=== PATIENT | female | born 2000 | race Caucasian/White ===

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

== ENCOUNTER → 2020-03-23 13:15 | Outpatient (CLI) | payer OTHER, SELFPAY ==
[2020-03-23 13:05] VITALS: BMI 21.6
--- NOTE | 2020-03-23 13:27 | RAD_ITS ---
STUDY: X-RAY - LEFT KNEE REASON FOR EXAM: Female, 20 years old. PAIN IN KNEE AFTER MISSING STEP TECHNIQUE: 4 view(s) of the knee. COMPARISON: Comparison is made with prior examination dated 04/04/2019. FINDINGS: Normal visualized distal femur. Normal visualized proximal tibia and fibula. Normal proximal tibiofibular articulation. Normal medial femorotibial compartment. Normal lateral femorotibial compartment. Normal patellofemoral articulation. The soft tissue structures are unremarkable. RAD/Knee 4 or More Views IMPRESSION: Normal x-ray examination of the knee. Electronically Signed: Casey Banuelos, at 15:27 EDT , Service support ,
== END ==
PROVIDERS: PCP Family Medicine; Referring Provider Physician Assistant; Visit Provider Physician Assistant
DX: M25.562 Pain in left knee (principal)
CPT/HCPCS: 73564

== ENCOUNTER → 2020-05-25 08:58 | Outpatient (CLI) | payer OTHER, SELFPAY ==
[2020-03-23 13:05] VITALS: BMI 21.6
[2020-05-26 16:08] LABS: Endomysial Antibody IgA Negative (Negative); Immunoglobulin A 69 mg/dL (87-352)
[2020-05-27 09:12] LABS: t-Transglutaminase IgA <2 U/mL (0-3)
[2020-05-27 20:08] LABS: Barley, Whole Grain <0.10 kU/L (Class 0); Beef <0.10 kU/L (Class 0); Chicken <0.10 kU/L (Class 0); Clam <0.10 kU/L (Class 0); Codfish <0.10 kU/L (Class 0); Corn <0.10 kU/L (Class 0); Egg, White <0.10 kU/L (Class 0); Milk (Cow) <0.10 kU/L (Class 0); Peanut <0.10 kU/L (Class 0); Pork <0.10 kU/L (Class 0); Rice <0.10 kU/L (Class 0); Rye <0.10 kU/L (Class 0); SCALLOP <0.10 kU/L (Class 0); SESAME SEED <0.10 kU/L (Class 0); Shrimp <0.10 kU/L (Class 0); Soybean <0.10 kU/L (Class 0); Walnut, (Food) <0.10 kU/L (Class 0); Wheat <0.10 kU/L (Class 0)
[2020-05-27 22:11] LABS: Oat <0.10 kU/L (Class 0)
[2020-05-28 05:02] LABS: Corn <0.10 kU/L (Class 0); Wheat <0.10 kU/L (Class 0)
== END ==
PROVIDERS: PCP Family Medicine; Referring Provider Family Medicine; Visit Provider Family Medicine
DX: R10.9 Unspecified abdominal pain (principal); R14.0 Abdominal distension (gaseous); K58.9 Irritable bowel syndrome, unspecified; K63.89 Other specified diseases of intestine
CPT/HCPCS: 36415; 82784; 83516; 86003; 86255

== ENCOUNTER → 2020-08-20 06:31 | Outpatient (CLI) | payer OTHER, SELFPAY ==
--- NOTE | 2020-08-20 06:32 | MRI_ITS ---
STUDY: MRI LEFT KNEE REASON FOR EXAM: Left medial knee pain, prior ACL and meniscal repair. TECHNIQUE: Standardized fat and water weighted pulse sequences were obtained in all 3 orthogonal planes. COMPARISON: Radiographs 03/23/2020, MRI images 05/03/2019. FINDINGS: Normal medial meniscus. Normal hyaline cartilage of the medial femorotibial compartment. Normal medial femoral condyle and tibial plateau. Normal medial collateral ligamentous complex (MCL). Normal distal semimembranosus, gracilis and semitendinosus tendons. Normal lateral meniscus. Normal hyaline cartilage of the lateral femorotibial compartment. Normal lateral femoral condyle and tibial plateau. Normal proximal tibiofibular articulation. Normal lateral collateral (fibular) ligament. Normal popliteus tendon. Normal biceps femoris tendon. Normal anterior cruciate ligament (ACL). Normal posterior cruciate ligament (PCL). Normal congruent patellofemoral articulation. Normal hyaline cartilage of the patellofemoral compartment. Normal medial and lateral patellar retinaculum. Normal quadriceps tendon. Normal patellar tendon. There is mild scarring in Hoffa''s fat pad. There is a minimal volume of fluid in the knee joint. There is a thin medial patellar plica. There is a small popliteal cyst (T2 coronal images 2-4). There is a septated ganglion cyst at the medial aspect of the distal posterior cruciate ligament (T2 sagittal images 8-10) measuring 2.3 cm in length. The otherwise visualized osseous structures are unremarkable. MRI/Lower Ext Joint Only (Routine) IMPRESSION: Small popliteal cyst. Ganglion cyst at the medial aspect of the distal posterior cruciate ligament. No demonstrated meniscal tear or anterior cruciate ligament tear. Electronically Signed: Tomasz Richardson MD at 8:00 EST Tel , Service support ,
== END ==
PROVIDERS: PCP Family Medicine; Referring Provider Orthopaedic Surgery; Visit Provider Orthopaedic Surgery
DX: S83.242S Other tear of medial meniscus, current injury, left knee, sequela (principal)
CPT/HCPCS: 73721

== ENCOUNTER 2020-10-09 08:30 | Outpatient (RCR) | payer OTHER, SELFPAY ==
[2020-08-03 08:39] VITALS: BMI 20.6
--- NOTE | 2020-09-01 09:34 | HP.PTEVAL ---
Patient's Visit Information FLOWER LATHAM is a 20 year old F referred to Physical Therapy by Dr. 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 Date of Evaluation: 09/01/20 Physical Therapist: Malcom Andrade DPT - Visit Plan Frequency: 2x /Week Duration: 4-6 Weeks Plan: Start with hip strength, quad/HS strengthneing. Add in hip IR/ER, glute max/med, core strengthening. Avoid painful ranges/movements. - Subjective Pt. is here today for her initial evaluation with diagnosis of L knee pain. SHe reports increased pain since february, fall in stairs. Increased pain: stairs, walking, standing. Decreased pain: sitting. Pt. reports trying OTC meds. with minimal success. Pt. reports no issues with sleeping. 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 She reports having a family history of Yu Danlos and has personal hypermobility. She did have a L meniscal repair in . She was feeling pretty well, but has noticing increased pain and swelling in her L knee since February. She is hipeful to reduce symptoms and get back to all work and recreational activiteis without limitations. Pt. also has POTS. - Pain L knee Pain Intensity (Out of 10): 0 Pain Intensity Range: 0, 4 - Objective POSTURE: Pt. tends to process inspector equal wt. shifting, but B slight hyper extension. As she stands longer she tends to wt. shift side to side with increased single leg hyper extension during increased load. Normal hip positioning noted, except hip IR bilat. PALPATION: pt. has increased tenderness at L medial joint line, posterior aspect. No patellar pain, no suprapatellar pain noted. NEURO: normal sensation and DTR bilaterally. Pt. is able to rise o heels and toes without limitations. ROM: pt. has good ROM of B knees 140+, but has increased L knee pain starting at ~120deg of flexion. Hyper extension noted in B knees to -10deg with over pressure. Hip- patient has normal HS length bilaterally, but hyper mobility noted in B hips as well. Elbow B hyper extend and has a lot of joint play in B shoulders. (pt. reports frequent subluxation). MMT: RLE- 5/5 throughout, except- ankle INV 4/5; hip- abd 4/5, ext 4+/5. LLE- 5/5 throughout except ankle EVR 4/5; knee- flexion 4+/5; hip- ext 4/5, abd 4/5, ER 4/5, IR 4/5. GAIT: Pt. ambulates well without AD. Normal step length noted. Pt. has slight increase in B hip IR during stance phases. Normal knee flexion during swing. Normal positioning during loaded phases. STAIRS: Pt. has increased pain in L knee during loaded phase of ascending, no pain iwth descending. Reports typically ascending laterally loading RLE initially. - Goals Goal 1:: LTG: Pt. to be I with HEP. Goal Time Frame: 4-6 Weeks Goal 2:: STG: pt. to complete a work day with decreased pain to 0-2/10 in L knee. Goal Time Frame: 2-4 Weeks Goal 3:: LTG: pt. to have increased strength of BLEs by 1/2 grade of all effected musculature. Goal Time Frame: 4-6 Weeks Goal 4:: STG: Pt. to walk upto 1-2 miles without increase in L knee pain. Goal Time Frame: 2-4 Weeks Goal 5:: LTG: pt. to negotiate steps without HR with reciprocal pattern without increase in symptoms. Goal Time Frame: 4-6 Weeks - Rehabilitation Potential Physical Therapy Diagnosis: Pt. has signs and symptoms consistent with L knee pain, most likely tendonitis. She is hypermobility in multiple joints, especially in her B knees into extension. There is consideration of Yu Danlos. Pt. would benefit from PT to increase stability throughout knee and hip to reduce stress to L knee with all functional mobility. Rehabilitation Potential: Excellent - Anticipated Interventions Patient/Client Instruction: Educate patient on: Condition, Plan of Care, Risk Factors, Benefits of Fitness Program For the Purpose of:: To improve decision making, To facilitate caregiver knowledge, To improve self management, To prevent re-injury, To improve ability to perform tasks related to life management, To improve tolerance to ADL's Therapeutic Exercise to Include: Strength training, Power training, Endurance training, Balance training, Body mechanics, Postural training, Flexibilty training, Passive ROM, Active ROM For the Purpose of:: To decrease pain, To decrease swelling/inflammation, To increase ROM, To improve nutrient delivery to tissue, To increase oxygenation perfusion, To improve muscle performance and motor function, To improve ability to perform ADL's, To improve health of tissue, To decrease soft tissue restriction Thank you for the opportunity to evaluate your patient. For Medicare and Medicare HMO plans, please review the plan of care and approve it. It will need to be FAXED BACK to us at [phone] for Medicare purposes. For Medicare only, by signing this I certify the plan of care. Please let me know if there are questions or concerns regarding this plan of care. Physician Signature: Date:
== END 2020-10-09 19:00 | disposition home or self-care (01) ==
LOC: PT 08:30
PROVIDERS: PCP Family Medicine; Referring Provider Orthopaedic Surgery; Visit Provider Orthopaedic Surgery
DX: M25.562 Pain in left knee (principal)
CPT/HCPCS: 97110; 97161

== ENCOUNTER → 2020-10-15 10:56 | Outpatient (CLI) | payer OTHER, SELFPAY ==
--- NOTE | 2020-10-15 10:58 | RAD_ITS ---
EXAM: XR LUMBOSACRAL SPINE COMPLETE WITH FLEXION/EXTENSION, 6 OR MORE VIEWS CLINICAL INDICATION: back pain going down left side to the leg TECHNIQUE: Lateral, frontal, oblique and lateral flexion/extension views of the lumbar spine and sacrum. This report was created using [employer] report [employer] technology. COMPARISON: None. FINDINGS: VERTEBRAE: Unremarkable. Preserved vertebral body height. No fracture. No spondylolisthesis. Preservation of the normal lumbar lordosis. No significant facet arthropathy. No instability. DISC SPACES: No acute findings. Disc spaces are maintained. GASTROINTESTINAL TRACT: Unremarkable as visualized. Included bowel gas pattern is non-obstructive. RAD/L/S Spine Comp/w Bending Views IMPRESSION: No evidence of lumbar spinal fracture or spondylolisthesis. No instability. Electronically Signed: Livan Cerda MD ([place]) at 11:56 EDT , Service support ,
== END ==
PROVIDERS: PCP Family Medicine; Referring Provider Orthopaedic Surgery; Visit Provider Orthopaedic Surgery
DX: M54.5 Low back pain (principal)
CPT/HCPCS: 72114

== ENCOUNTER → 2020-10-29 12:41 | Outpatient (CLI) | payer OTHER, SELFPAY ==
[2020-08-03 08:39] VITALS: BMI 20.6
--- NOTE | 2020-10-29 12:42 | MRI_ITS ---
STUDY: MRI LUMBAR SPINE WITHOUT CONTRAST REASON FOR EXAM: Female, 20 years old. consistent low back pain TECHNIQUE: Standardized fat and water weighted pulse sequences were obtained in the sagittal and axial planes. COMPARISON: X-ray 10/15/2020 FINDINGS: T12-L1: Normal endplates. Normal disc height, hydration and morphology. Normal bilateral facet joints. Normal central canal and bilateral lateral recesses. Normal bilateral intervertebral neural foramina. Normal lumbar lordosis. There is no substantial scoliosis. Normal conus medullaris that terminates at the L1/L2. L1-2: Normal endplates. Normal disc height, hydration and morphology. Normal bilateral facet joints. Normal central canal and bilateral lateral recesses. Normal bilateral intervertebral neural foramina. L2-3: Normal endplates. Normal disc height, hydration and morphology. Normal bilateral facet joints. Normal central canal and bilateral lateral recesses. Normal bilateral intervertebral neural foramina. L3-4: Normal endplates. Normal disc height, hydration and morphology. Normal bilateral facet joints. Normal central canal and bilateral lateral recesses. Normal bilateral intervertebral neural foramina. L4-5: Normal endplates. Normal disc height, hydration and morphology. Normal bilateral facet joints. Normal central canal and bilateral lateral recesses. Normal bilateral intervertebral neural foramina. L5-S1: 2 mm retrolisthesis of L5 on S1 with a mild broad disc protrusion produces minimal spinal stenosis and mild bilateral neural foraminal stenosis. Normal visualized sacral ala. Normal visualized paraspinous soft tissue structures. MRI/Spine Lumbar (Routine) IMPRESSION: Mild focal degenerative disc disease at L5/S1 as described above. Electronically Signed: Willian Starr MD at 16:43 EDT Tel , Service support ,
== END ==
PROVIDERS: PCP Family Medicine; Referring Provider Orthopaedic Surgery; Visit Provider Orthopaedic Surgery
DX: M79.605 Pain in left leg (principal); M54.16 Radiculopathy, lumbar region
CPT/HCPCS: 72148

== ENCOUNTER → 2020-11-04 11:54 | Outpatient (CLI) | payer OTHER, SELFPAY ==
[2020-11-04 13:52] LABS: Anion Gap 5 (5-15); BUN 9 mg/dL (7-18); BUN/Creat Ratio 8.6 RATIO (10-20); Calcium,Total 9.3 mg/dL (8.5-10.1); Chloride 102 mmol/L (98-107); Creatinine, Serum 1.05 mg/dL (0.55-1.02); EST Glomerular Filtration Rate 71 mL/min (>60); Est Glom Filt Rate - Afr Amer 85 mL/min (>60); Glucose 131 mg/dL (74-106); Potassium 3.7 mmol/L (3.5-5.1); Sodium Level 137 mmol/L (136-145)
== END ==
PROVIDERS: PCP Family Medicine; Referring Provider Family Medicine; Visit Provider Family Medicine
DX: R23.8 Other skin changes (principal); R25.2 Cramp and spasm; Z83.2 Family history of diseases of the blood and blood-forming organs and certain disorders involving the immune mechanism
CPT/HCPCS: 36415; 80048; 81241; 83735

== ENCOUNTER → 2020-11-12 08:28 | Outpatient (CLI) | payer OTHER, SELFPAY ==
[2020-08-03 08:39] VITALS: BMI 20.6
[2020-11-12 10:03] LABS: Hemoglobin A1c 4.9 % (3.8-5.6)
== END ==
PROVIDERS: PCP Family Medicine; Visit Provider Family Medicine
DX: R73.01 Impaired fasting glucose (principal)
CPT/HCPCS: 36415; 83036

== ENCOUNTER → 2020-11-12 08:39 | Outpatient (CLI) | payer OTHER, SELFPAY ==
[2020-08-03 08:39] VITALS: BMI 20.6
--- NOTE | 2020-11-12 08:42 | US_ITS ---
STUDY: ABDOMINAL ULTRASOUND - RIGHT UPPER QUADRANT REASON FOR VISIT: Female, 20 years old abdominal bloating. TECHNIQUE: Ultrasound evaluation of the right upper quadrant was performed with real-time and static morgan-scale imaging. TECHNICAL QUALITY: Adequate. COMPARISON: Comparison is made with prior examination dated 05/05/2015. FINDINGS: Liver: The liver measures 13 cm. There is normal echogenicity of the liver. The bile ducts are within normal limits. There is hepatic color flow. The direction of portal flow is hepatopetal. There is no demonstrated mass lesion. Gallbladder: Normal distended gallbladder. The gallbladder wall measures 1.1 mm. There is a negative sonographic Zhang''s sign. There is no pericholecystic fluid. There are no gallstones. Common Bile Duct (C.B.D.): The common bile duct measures 2.1 mm. Pancreas: Normal size of the head, body and tail of the pancreas. There is normal echogenicity of the pancreas. There is no demonstrated pancreatic mass or cyst. Right Kidney: Normal size of the right kidney. The right kidney measures 10.2 cm x 4.6 cm x 5 cm. Normal renal cortex. The right cortex measures 2.1 cm. There is no demonstrated renal mass or cyst. There is no right hydronephrosis. US/Gallbladder IMPRESSION: Normal right upper quadrant ultrasound examination. Electronically Signed: Casey Banuelos MD at 11:05 EDT , Service support ,
== END ==
PROVIDERS: PCP Family Medicine; Referring Provider Internal Medicine; Visit Provider Internal Medicine
DX: Q79.60 Ehlers-Danlos syndrome, unspecified (principal)
CPT/HCPCS: 76705

== ENCOUNTER → 2020-11-16 08:41 | Outpatient (CLI) | payer OTHER, SELFPAY ==
--- NOTE | 2020-11-16 08:52 | RAD_ITS ---
STUDY: X-RAY - THORACIC SPINE REASON FOR EXAM: Female, 20 years old. PAIN TECHNIQUE: 2 view(s) of the thoracic spine were obtained. COMPARISON: None. FINDINGS: There is straightening of the normal thoracic kyphosis. Minimal levoscoliosis. Normal thoracic vertebrae and endplates. Normal disc space heights. The soft tissue structures are unremarkable. RAD/Thoracic Spine 2 Views IMPRESSION: Loss of the normal thoracic kyphosis. Minimal levoscoliosis. Electronically Signed: Casey Banuelos MD at 9:51 EDT , Service support ,
== END ==
PROVIDERS: PCP Family Medicine; Referring Provider Internal Medicine Cardiovascular Disease; Visit Provider Internal Medicine Cardiovascular Disease
DX: M54.6 Pain in thoracic spine (principal)
CPT/HCPCS: 72070

== ENCOUNTER → 2020-12-12 07:23 | Outpatient (CLI) | payer OTHER, SELFPAY ==
[2020-12-09 09:20] VITALS: BMI 20.6
--- NOTE | 2020-12-12 07:23 | MRI_ITS ---
STUDY: MRI THORACIC SPINE WITHOUT CONTRAST REASON FOR EXAM: Female, 20 years old. Pain TECHNIQUE: Standardized fat and water weighted pulse sequences were obtained in the sagittal and axial planes. COMPARISON: None. FINDINGS: Normal kyphosis of the thoracic spine. There is no substantial scoliosis. T1-2, T2-3, T3-4, T4-5, T5-6, T6-7, T7-8, T8-9, T9-10, T10-11, T11-12: Normal endplates. Normal disc hydration, heights and morphology of the corresponding intervertebral discs. Normal central canal and intervertebral neural foramina at the corresponding levels. Normal visualized thoracic cord. Normal conus medullaris that terminates at the lower L1 vertebral body level. The soft tissue structures are unremarkable. MRI/Spine Thoracic (Routine) IMPRESSION: Normal unenhanced MRI examination of the thoracic spine. Electronically Signed: Oziel Merchant MD at 8:55 EDT , Service support ,
== END ==
PROVIDERS: PCP Family Medicine; Referring Provider Orthopaedic Surgery; Visit Provider Orthopaedic Surgery
DX: R00.0 Tachycardia, unspecified (principal); I95.1 Orthostatic hypotension; Q79.60 Ehlers-Danlos syndrome, unspecified
CPT/HCPCS: 72146

== ENCOUNTER 2020-12-28 13:14 | Emergency (ER) | payer OTHER, SELFPAY ==
[2020-12-16 08:31] VITALS: BMI 20.6
[2020-12-28 13:14] VITALS: BP 109/80; PULSE 79; RESP 16; TEMP 36.3; O2SAT 98; BMI 19.4
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
[2020-12-28] MEDS: Naproxen 375 MG Tablet PO (14:27)
== END 2020-12-28 14:33 | disposition home or self-care (01) ==
LOC: ED 14:24
PROVIDERS: Emergency Provider Emergency Medicine; PCP Family Medicine
DX: S06.0X0A Concussion without loss of consciousness, initial encounter (principal); S39.012A Strain of muscle, fascia and tendon of lower back, initial encounter; V43.52XA Car driver injured in collision with other type car in traffic accident, initial encounter; Y92.410 Unspecified street and highway as the place of occurrence of the external cause; F41.9 Anxiety disorder, unspecified; K59.09 Other constipation; Z79.1 Long term (current) use of non-steroidal anti-inflammatories (NSAID)
CPT/HCPCS: 99283

== ENCOUNTER → 2020-12-31 12:54 | Outpatient (CLI) | payer OTHER, SELFPAY ==
[2020-12-28 13:14] VITALS: BMI 19.4
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
== END ==
PROVIDERS: PCP Family Medicine; Referring Provider Family Medicine; Visit Provider Family Medicine
DX: S06.0X0D Concussion without loss of consciousness, subsequent encounter (principal); V89.2XXA Person injured in unspecified motor-vehicle accident, traffic, initial encounter; R26.9 Unspecified abnormalities of gait and mobility; R42 Dizziness and giddiness
CPT/HCPCS: 70450

== ENCOUNTER → 2021-01-26 17:57 | Outpatient (CLI) | payer OTHER, SELFPAY ==
[2021-01-08 13:04] VITALS: BMI 19.4
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
== END ==
PROVIDERS: PCP Family Medicine; Referring Provider Anesthesiology Pain Medicine; Visit Provider Anesthesiology Pain Medicine
DX: R07.81 Pleurodynia (principal)
CPT/HCPCS: 71111

== ENCOUNTER 2021-01-28 09:00 | Outpatient (RCR) | payer OTHER, SELFPAY ==
--- NOTE | 2020-12-04 08:16 | HP.PTEVAL_ITS ---
Patient's Visit Information FLOWER LATHAM is a 20 year old F referred to Physical Therapy by Dr. David Fritz DO with a diagnosis of Thoracic sprain/strain. Date of Evaluation: 11/27/20 Physical Therapist: Malcom Andrade DPT - Visit Plan Frequency: 3x /Week Duration: 4 Weeks Plan: Have the pt. strengthen her core musculature and lower extremity, as well as decrease her lumbar/SI joint pain. The pt. does prefer flexion over extension exercises and should be incorporated when decreasing her low back pain. The pt. was sent home with transverse abdominis activation exercises as well as strengthening the SI joint by using the shotgun technique. - Subjective Pt. is a 20 yo female who comes to the clinic today with pain in the thoracic and lumbar spine. The pt. reports that she feels like she has limited mobility and that the muscles do not want to release. She denies N/T. The pt. has Yu Danlos Syndrome, as well as POTS and has had recent issues with her ribs going out which causes her to have trouble with breathing. The pt. has also had concerns with her stomach being upset and her appetite. The pts. pain has been intermittent since February 2020 and comes on when she is cleaning her house, lifting heavy objects, standing for long periods of times, and sleeping in certain positions for long periods of time. She decreases her pain with heat and pain medication and is planning on getting an injection on My in the SI Joint. The pt. 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 She would like to decrease her pain so she can do her ADL's without pain in her lumbar spine. - Pain L side of Lumbar spine Pain Intensity (Out of 10): 4 - Objective Posture: Posture is unremarkable. MMT: hip flexion bilat 5/5, knee extension bilat 5/5, dorsiflexion/inversion bilat 5/5, great toe extension bilat 5/5, knee flexion bilat 5/5, hip abduction bilat 4/5, hip extension bilat 3+/5 with pain, rectus abdominis 4/5, transverse abdominis only a light muscle contraction. ROM: lumbar flexion WNL, lumbar bilat side-bending WNL with minimal pain, lumbar bilat rotation WNL with minimal pain, lumbar extension minimal limitation with pain, thoracic extension WNL with minimal pain. Sensation: All intact in the LE, but pt. did mention sensation felt heightened on the L medial side of the foot near L4 dermatome. Reflexes: Patellar and Achilles +2 = normal bilat. Palpation: The pt. was TTP along the L erector spinae musculature near L4-S1, as well as the vertebral bodies of L4-S1. The pt. denied any tenderness along the sacrum, greater trochanters, and iliac crests. Special Tests: - Thigh trust, - Gillet's Test. - Prone Instability Test, - Sacral Thrust. The pt. has general hypermobility due to her Yu-Danlos syndrome and exhibited pain in SI joint and lumbar spine, more on the left side than compared to the right side. The pt. does exhibit weak transverse abdominis strength and needs to be addressed by PT, as well as decrease the pts. symptoms. The pt. needs proper cueing when activating her core while doing her exercises. - Goals Goal 1:: LTG: The pt. will be independent with her HEP. Goal Time Frame: 2-4 Weeks Goal 2:: LTG: The pt. will increase her lumbar extension by 50% so she can tolerate standing for at least 30 minutes. Goal Time Frame: 4-6 Weeks Goal 3:: LTG: The pt. will increase her hip extension strength to a 5/5 with pain less than a 2/10. Goal Time Frame: 4-6 Weeks Goal 4:: LTG: The pt. will be able to perform all ADL's with pain less than a 1/10. Goal Time Frame: 4-6 Weeks Goal 5:: LTG: The pt. will be able to activate her transverse abdominis without cueing done by a PT while doing functional exercises. Goal Time Frame: 2-4 Weeks - Rehabilitation Potential Physical Therapy Diagnosis: The pt. presents to the clinic today with signs and symptoms of lumbar spine and SI joint pain occurring near L5-S1. The pt. exhibits weak core activation, generalized hypermobility, and decreased lumbar extension, in which all needs to be addressed by PT. PT will focus on core stability and muscle control throughout abdominals. Rehabilitation Potential: Good - Anticipated Interventions Patient/Client Instruction: Educate patient on: Condition, Plan of Care For the Purpose of:: To decrease pain, To increase ROM, To improve muscle performance and motor function, To improve ability to perform ADL's, To improve endurance, To improve tolerance to ADL's Therapeutic Exercise to Include: Strength training, Endurance training, Coordination, Body mechanics, Active ROM For the Purpose of:: To decrease pain, To increase ROM, To improve muscle performance and motor function, To improve ability to perform ADL's, To increase tolerance to activity/condition/position, To improve ability of physical actions for home/community/work/leisure, To improve tolerance to ADL's Manual Therapy Techniques to Include: Petrissage, Trigger point massage, Massage, Mobilization, Passive ROM, Soft tissue mobilization For the Purpose of:: To decrease pain, To increase ROM, To improve muscle performance and motor function, To improve ability to perform ADL's, To increase flexibility/ROM, To improve endurance, To improve tolerance to ADL's TENS: Yes Ultrasound (thermal/non thermal): Yes For the Purpose of:: To decrease pain, To increase ROM, To improve nutrient delivery to tissue, To improve muscle performance and motor function, To improve ability to perform ADL's, To improve health of tissue, To improve tolerance to ADL's Thank you for the opportunity to evaluate your patient. For Medicare and Medicare HMO plans, please review the plan of care and approve it. It will need to be FAXED BACK to us at [phone] for Medicare purposes. For Medicare only, by signing this I certify the plan of care. Please let me know if there are questions or concerns regarding this plan of care. Physician Signature: Date:
--- NOTE | 2020-12-25 11:15 | HP.PTREVAL_ITS ---
Dr. David Fritz, DO, It has been my pleasure to treat FLOWER LATHAM over the last 10 visits for Thoracic sprain/strain. Please see the progress note below for an update on the physical therapy plan of care! Subjective: Pt. reports overall not much improvement in her symptoms. She reports I feel a little bit stronger and looser, but I still have that same pain. She did have an injection in the SI region on the L side, patient reports no change. She also had an MRI which did not show much issue. She does plan to see a director of engineering later this year, but not until Nov. Pt. reports constant pain in her mid and lower back, no leg pain. She has also been recently c/o increased feeling of needing to constantly stretch/move her legs. No change when doing so. 5/10 pain reported pre treatment today. Objective/Function: Pt. is overall doing about the same. We have been working on neutral spine transverse abdominus stability exercises in supine to avoid stress on her lumbar/thoracic spine. She has difficulty with TA contraction (mostly the motor control of the movement). She has marked weakness with her core and hip musculature resulting in difficulty with pelvic stability. She reports a constant need to stretch, but I have instructed her that she has minimal tightness in any muscle group throughout BLEs and lumbar spine. I talked to her about slowly increasing activities starting with neutral spine core stability, no painful movements, but focus on control of movements rather than increasing resistances. Pt. consents. She has made minimal changes with her pain and I would like her to try therapy in the aquatic setting to determine if she can slowly increase stability and activity without increase in her symptoms. Plan Plan: I will trial a few aquatic therapy sessions to determine effectiveness. I would like her to focus on stability of her core and pelvis. She has an underlying diagnosis of Yu Danlos. Progress with slowly graded exercise/activities as tolerated with a focus on TA control and pelvic stability. Re assess tolerance to aquatic setting in a few visits. Goals Goal 1:: LTG: The pt. will be independent with her HEP. Goal Time Frame: 2-4 Weeks Goal Progress: Progressing Goal 2:: LTG: The pt. will increase her lumbar extension by 50% so she can tolerate standing for at least 30 minutes. Goal Time Frame: 4-6 Weeks Goal Progress: Progressing Goal 3:: LTG: The pt. will increase her hip extension strength to a 5/5 with pain less than a 2/10. Goal Time Frame: 4-6 Weeks Goal Progress: Progressing Goal 4:: LTG: The pt. will be able to perform all ADL's with pain less than a 1/10. Goal Time Frame: 4-6 Weeks Goal Progress: Not Progressing Goal 5:: LTG: The pt. will be able to activate her transverse abdominis without cueing done by a PT while doing functional exercises. Goal Time Frame: 2-4 Weeks Goal Progress: Progressing Anticipated Interventions Patient/Client Instruction: Educate patient on: Condition, Plan of Care For the Purpose of:: To decrease pain, To increase ROM, To improve muscle performance and motor function, To improve ability to perform ADL's, To improve endurance, To improve tolerance to ADL's Therapeutic Exercise to Include: Strength training, Endurance training, Coordination, Body mechanics, Active ROM For the Purpose of:: To decrease pain, To increase ROM, To improve muscle performance and motor function, To improve ability to perform ADL's, To increase tolerance to activity/condition/position, To improve ability of physical actions for home/community/work/leisure, To improve tolerance to ADL's Manual Therapy Techniques to Include: Petrissage, Trigger point massage, Massage, Mobilization, Passive ROM, Soft tissue mobilization For the Purpose of:: To decrease pain, To increase ROM, To improve muscle performance and motor function, To improve ability to perform ADL's, To increase flexibility/ROM, To improve endurance, To improve tolerance to ADL's TENS: Yes Ultrasound (thermal/non thermal): Yes For the Purpose of:: To decrease pain, To increase ROM, To improve nutrient de livery to tissue, To improve muscle performance and motor function, To improve ability to perform ADL's, To improve health of tissue, To improve tolerance to ADL's Please do not hesitate to contact me at [phone] by phone or if you have questions or concerns regarding this new plan of care! Sincerely, Malcom Andrade DPT
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
[2021-01-08 13:04] VITALS: BMI 19.4
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
--- NOTE | 2021-06-23 10:34 | HP.PT.NRP ---
FLOWER LATHAM was seen in my office for initial evaluation on 11/27/20. The following Plan of Care was established for this patient: Initial Frequency: 3x /Week Initial Duration: 4 Weeks Patient/Client Instruction: Educate patient on: Condition, Plan of Care For the Purpose of:: To decrease pain, To increase ROM, To improve muscle performance and motor function, To improve ability to perform ADL's, To improve endurance, To improve tolerance to ADL's Therapeutic Exercise to Include: Strength training, Endurance training, Coordination, Body mechanics, Active ROM For the Purpose of:: To decrease pain, To increase ROM, To improve muscle performance and motor function, To improve ability to perform ADL's, To increase tolerance to activity/condition/position, To improve ability of physical actions for home/community/work/leisure, To improve tolerance to ADL's Manual Therapy Techniques to Include: Petrissage, Trigger point massage, Massage, Mobilization, Passive ROM, Soft tissue mobilization For the Purpose of:: To decrease pain, To increase ROM, To improve muscle performance and motor function, To improve ability to perform ADL's, To increase flexibility/ROM, To improve endurance, To improve tolerance to ADL's TENS: Yes Ultrasound (thermal/non thermal): Yes For the Purpose of:: To decrease pain, To increase ROM, To improve nutrient delivery to tissue, To improve muscle performance and motor function, To improve ability to perform ADL's, To improve health of tissue, To improve tolerance to ADL's This patient was last seen in our office 01/28/21. Pertinent comments regarding their Physical therapy will appear below: Pt. was seen in PT for multiple issues including back pain, hypermobility and weakness. She has not been seen in several months and will be DC from PT at this point in time. At this point I will be discontinuing this patient from physical therapy. I would be happy to see this patient again in the future if found appropriate by the physician. Thank you! Malcom Andrade, DPT Balance/Gait/Functional tests - Balance/Special Test Scores Oswestry Low Back Score: 11 Oswestry Neck Score: 30
== END 2021-01-28 19:00 | disposition home or self-care (01) ==
LOC: PT 09:00
PROVIDERS: PCP Family Medicine; Referring Provider Orthopaedic Surgery; Visit Provider Orthopaedic Surgery
DX: S13.4XXD Sprain of ligaments of cervical spine, subsequent encounter (principal); M54.5 Low back pain; S23.3XXD Sprain of ligaments of thoracic spine, subsequent encounter; S29.012D Strain of muscle and tendon of back wall of thorax, subsequent encounter
CPT/HCPCS: 97110; 97113; 97140; 97161; 97164; 97530

== ENCOUNTER → 2021-02-10 09:46 | Outpatient (CLI) | payer OTHER, SELFPAY ==
[2021-02-10 08:18] VITALS: BMI 19.8
[2021-02-12 20:08] LABS: Chlamydia By Nucleic Acid AMP Negative (Negative)
[2021-02-12 22:22] LABS: Gonococcus By Nucleic Acid AMP Negative (Negative)
[2021-02-14 10:52] LABS: HPV Reflexed? NOT INDICATED
== END ==
PROVIDERS: PCP Family Medicine; Visit Provider Nurse Practitioner Women's Health
DX: Z12.4 Encounter for screening for malignant neoplasm of cervix (principal); Z11.3 Encounter for screening for infections with a predominantly sexual mode of transmission; N76.0 Acute vaginitis
CPT/HCPCS: 87070; 87205; 87491; 87591; 88175; G0145

== ENCOUNTER → 2021-03-08 16:57 | Outpatient (CLI) | payer OTHER, SELFPAY ==
[2021-03-08 14:49] VITALS: BMI 19.8
[2021-03-08 17:46] LABS: Ferritin 16 ng/mL (8-252)
== END ==
PROVIDERS: PCP Family Medicine; Referring Provider Family Medicine; Visit Provider Family Medicine
DX: Z01.84 Encounter for antibody response examination (principal); E61.1 Iron deficiency
CPT/HCPCS: 36415; 82728; 86769

== ENCOUNTER → 2021-04-06 15:24 | Outpatient (CLI) | payer OTHER, SELFPAY | PROVIDERS: PCP Family Medicine; Visit Provider Family Medicine | DX: Z20.828 Contact with and (suspected) exposure to other viral communicable diseases (principal) | CPT/HCPCS: 87635; U0005; U0003 ==

== ENCOUNTER → 2021-04-14 08:17 | Outpatient (CLI) | payer OTHER, SELFPAY ==
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
== END ==
PROVIDERS: PCP Family Medicine; Referring Provider Anesthesiology Pain Medicine; Visit Provider Anesthesiology Pain Medicine
DX: R51.9 Headache, unspecified (principal)
CPT/HCPCS: 70450

== ENCOUNTER 2021-05-31 13:30 | Outpatient (RCR) | payer OTHER, SELFPAY ==
[2020-08-03 08:39] VITALS: BMI 20.6
--- NOTE | 2020-11-30 15:19 | MASS.EVAL_ITS ---
Massage Therapy Evaluation: Initial Evaluation Date: 11/28/2020 SUBJECTIVE: Raegan is a 20 year old female who was referred to the [facility] facility for a massotherapy evaluation by Dr. Villar with the diagnosis of low back pain with sciatica. She presents today with the symptoms of pain, stiffness and tension in the neck, head, mid back, low back, and hips. Raegan reports having a past medical history of chronic neck and back pain and complains of radiating pain from her low back down her left leg and radiating pain in her neck. She reports having minimal improvement with exercise and stretching over the last few months. She has started physical therapy this week for the same conditions. OBJECTIVE: Upon observation Raegan has poor posture with her head and shoulders forward from the neutral position in sitting and standing. After examination and palpation, I found Raegan to have high muscle tension with tenderness and myofascial restrictions in her sub occipitals, levator scapulae, trapezius, rhomboids, scalenes, and thoracic paraspinals. Her QL?s, lumbar paraspinals, piriformis, ITB?s, glute medius and minimus all were very tight with fascial restrictions, tender points and trigger points. The first treatment consisted of a one hour massage to her upper body with myofascial release, muscle stripping, trigger point compression techniques, and cervical manual traction. ASSESSMENT: I feel that Raegan is a good candidate for massotherapy at this time. She had a favorable response to the first treatment with reduction in her muscle aches, pain, and tension. She also had improvement in her cervical flexibility and low back flexibility. PLAN: The plan of care was reviewed with the patient. The patient is to be seen on an as needed basis for a total of ten sessions with the recommendation of once every month for a one hour treatment.
--- NOTE | 2021-07-08 08:25 | DS.PCM_ITS ---
Massage Therapy Discharge Summary: Discharge Date: 07/08/2021 Raegan was seen for a massotherapy evaluation on 11/28/2020 with the diagnosis of low back pain and sciatica. She was treated with five sessions of massage therapy consisting of deep pressure soft tissue techniques, myofascial release and trigger point compression to his cervical, thoracic, lower back and hips. Raegan responded well to the therapy by reporting decreased tension and pain throughout her neck, shoulders, lower back, lower extremities and hips. Her goals for therapy were met throughout the treatment sessions. At this time this patient is being discharged from our care at [facility] facility.
== END 2021-05-31 19:00 | disposition home or self-care (01) ==
LOC: MASS 13:30
PROVIDERS: PCP Family Medicine; Referring Provider Family Medicine; Visit Provider Family Medicine
DX: M54.40 Lumbago with sciatica, unspecified side (principal)
CPT/HCPCS: 97124

== ENCOUNTER → 2021-06-14 11:46 | Outpatient (CLI) | payer OTHER, SELFPAY ==
[2021-06-14 13:19] LABS: Amphetamine Urine VISTA POSITIVE (<1000 ng/mL); Barbiturate Urine VISTA NEGATIVE (< 200 ng/mL); Benzodiazepine Urine VISTA NEGATIVE (< 200 ng/mL); Cocaine Urine VISTA NEGATIVE (< 300 ng/mL); Ecstacy Urine VISTA NEGATIVE (< 500 ng/mL); Methadone Urine VISTA NEGATIVE (< 300 ng/mL); PCP Urine VISTA NEGATIVE (< 25 ng/mL); THC Urine VISTA NEGATIVE (< 50 ng/mL); Vista UDS pH Range 5
== END ==
PROVIDERS: PCP Family Medicine; Referring Provider Anesthesiology Pain Medicine; Visit Provider Anesthesiology Pain Medicine
DX: F11.20 Opioid dependence, uncomplicated (principal)
CPT/HCPCS: 80307

== ENCOUNTER → 2021-07-06 18:11 | Outpatient (CLI) | payer OTHER, SELFPAY | PROVIDERS: PCP Family Medicine; Visit Provider Physician Assistant Surgical | DX: R09.81 Nasal congestion (principal) | CPT/HCPCS: 87635; U0005; U0003 ==

== ENCOUNTER 2021-10-15 09:59 | Outpatient (CLI) | payer OTHER, SELFPAY ==
--- NOTE | 2021-10-15 10:20 | RAD_ITS ---
STUDY: X-RAY - RIGHT HAND REASON FOR EXAM: Female, 21 years old. Injury to left hand on door last night. Bruising and swelling of first digit. TECHNIQUE: 3 view(s) of the hand. COMPARISON: None. FINDINGS: Normal radiocarpal articulation. Normal distal radioulnar joint. Normal visualized carpal bones. Normal carpal articulations Normal carpometacarpal articulation of the thumb. Normal second through fifth carpometacarpal joints. Normal metacarpi. Normal metacarpophalangeal joint of the thumb. Normal interphalangeal joint of the thumb. Normal proximal and distal phalanges of the thumb. Normal metacarpophalangeal joints of the second through fifth fingers. Normal proximal and distal interphalangeal joints of the second through fifth fingers. Normal phalanges of the second through fifth fingers. The soft tissue structures are unremarkable. RAD/Hand Min 3 Views IMPRESSION: Normal x-ray examination of the hand. No acute abnormality, chondrocalcinosis, erosive changes or periostitis. Electronically Signed: Benigno Mccoy MD at 11:07 EDT ,
[2021-10-15 11:36] LABS: Absolute Lymphocyte Count 1.27 X10^3/uL (0.83-4.51); Absolute Neutrophil Count 1.5 X10^3/uL (2.0-7.7); Basophil# 0.02 X10^3/uL; Basophil% 0.6 % (0-1); Eosinophil# 0.16 X10^3/uL; Eosinophils% 4.9 % (0-5); Hemoglobin 15.7 g/dL (12.0-15.0); Lymphocyte # 1.27 X10^3/ul (0.83-4.51); Lymphocyte % 38.8 % (19-41); Mean Corp Hgb Conc 34.1 g/dL (32-36); Mean Corpuscular Hgb 30.5 pg (27.0-32.0); Mean Corpuscular Volume 89.5 fL (81-99); Mean Platelet Vol. 10.5 fl (6.2-12.0); Monocyte% 9.2 % (0-10); NRBC Flagged by Analyzer 0 % (0-5); Neutrophil # 1.51 X10^3/uL (2.7-7.7); Neutrophil % 46.2 % (47-70); Platelet Count 170 K/mm3 (150-450); RBC Distribution Width CV 12.7 % (11.6-14.6); RBC Distribution Width SD 41.5 fl (35.1-43.9); Red Blood Count 5.14 M/mm3 (4.2-5.4); White Blood Count 3.3 K/mm3 (4.4-11.0)
[2021-10-15 11:58] LABS: Ferritin 19 ng/mL (8-252); Iron 159 ug/dL (50-170); Rheumatoid Factor < 10.0 IU/mL (<15); T4 Free Direct 0.95 ng/dL (0.76-1.46); Thyroid Stim Hormone (TSH) 1.97 uIU/mL (0.358-3.74)
[2021-10-17 09:39] LABS: ANTINUCLEAR ANTIBODIES DIRECT Negative (Negative)
[2021-10-19 08:41] LABS: CCP IgG Antibodies 8 units (0-19)
== END 2021-10-15 23:59 | disposition home or self-care (01) ==
LOC: LAB 10:02
PROVIDERS: PCP Family Medicine; Referring Provider Family Medicine; Visit Provider Family Medicine
DX: R79.89 Other specified abnormal findings of blood chemistry (principal); D64.9 Anemia, unspecified; M25.50 Pain in unspecified joint; I73.00 Raynaud's syndrome without gangrene; M79.641 Pain in right hand
CPT/HCPCS: 36415; 73130; 82728; 83540; 84439; 84443; 85025; 86038; 86200; 86225; 86235; 86431

== ENCOUNTER → 2022-02-07 | Outpatient (CLI) | payer OTHER, SELFPAY | END | disposition home or self-care (01) | PROVIDERS: PCP Family Medicine; Visit Provider Family Medicine | DX: N39.0 Urinary tract infection, site not specified (principal) | CPT/HCPCS: 87086; 87088 ==

== ENCOUNTER → 2022-03-02 | Outpatient (CLI) | payer OTHER, SELFPAY ==
--- NOTE | 2022-03-02 17:24 | RAD_ITS ---
INDICATION: PAIN EXAMINATION/TECHNIQUE: X-RAY - XR Abdomen 1 View COMPARISON: None FINDINGS: BOWEL GAS PATTERN: Non-obstructive. Large amount retained stool in the colon. FREE AIR: Not assessed on a single supine view. ORGANOMEGALY: Not seen. CALCIFICATIONS: No abnormal calcifications observed. LOWER CHEST: No acute pathology. BONES AND SOFT TISSUES: No acute pathology. RAD/Abdomen Single View IMPRESSION: Large amount retained stool in the colon. Otherwise, no acute findings. Electronically Signed: Hal Tucker MD at 18:19 EDT ,
== END | disposition home or self-care (01) ==
PROVIDERS: PCP Family Medicine; Visit Provider Family Medicine
DX: R30.0 Dysuria (principal)
CPT/HCPCS: 74018

== ENCOUNTER → 2022-04-01 | Outpatient (CLI) | payer OTHER, SELFPAY ==
--- NOTE | 2022-04-01 13:22 | RAD_ITS ---
HISTORY: pain and injury. TECHNIQUE: XR Knee Complete 4 Views or More. COMPARISON: 03/23/2022. FINDINGS: BONES : No acute fracture identified. Mineralization unremarkable. JOINTS: No dislocation. Joint spaces maintained. RAD/Knee 4 or More Views IMPRESSION: No acute fracture or dislocation identified in the left knee. Electronically Signed: Cate Langley MD at 9:58 EDT ,
== END | disposition home or self-care (01) ==
LOC: MTRAD 13:13
PROVIDERS: PCP Family Medicine; Referring Provider Physician Assistant; Visit Provider Physician Assistant
DX: M25.562 Pain in left knee (principal)
CPT/HCPCS: 73564

== ENCOUNTER → 2022-04-08 | Outpatient (CLI) | payer OTHER, SELFPAY ==
--- NOTE | 2022-04-08 09:39 | RAD_ITS ---
STUDY: X-RAY - LEFT ANKLE REASON FOR EXAM: Female, 22 years old. Pain following a twisting injury. TECHNIQUE: 3 view(s) of the ankle. COMPARISON: None. FINDINGS: Normal visualized distal tibia and fibula. Normal medial and lateral malleoli. Normal tibiotalar articulation and ankle mortise. Normal visualized talus and calcaneus. The visualized subtalar, talonavicular, calcaneocuboid and tarsal articulations are normal. The soft tissue structures are unremarkable. RAD/Ankle min 3 Views IMPRESSION: Normal x-ray examination of the ankle. Electronically Signed: Casey Banuelos MD at 12:44 EDT ,
== END | disposition home or self-care (01) ==
LOC: MTRAD 09:39
PROVIDERS: PCP Family Medicine; Referring Provider Physician Assistant; Visit Provider Physician Assistant
DX: M25.572 Pain in left ankle and joints of left foot (principal)
CPT/HCPCS: 73610

== ENCOUNTER → 2022-04-14 | Outpatient (CLI) | payer OTHER, SELFPAY ==
--- NOTE | 2022-04-14 13:27 | MRI_ITS ---
STUDY: MRI LEFT KNEE REASON FOR EXAM: Medial left knee pain, left knee injury 3 weeks ago, history of the medial meniscal repair. TECHNIQUE: Standardized fat and water weighted pulse sequences were obtained in all 3 orthogonal planes. COMPARISON: Radiographs 04/01/2022, MRI images 08/12/2020. FINDINGS: Normal medial meniscus. Normal hyaline cartilage of the medial femorotibial compartment. Normal medial femoral condyle and tibial plateau. Normal medial collateral ligamentous complex (MCL). Normal distal semimembranosus, gracilis and semitendinosus tendons. Normal lateral meniscus. Normal hyaline cartilage of the lateral femorotibial compartment. Normal lateral femoral condyle and tibial plateau. Normal proximal tibiofibular articulation. Normal lateral collateral (fibular) ligament. Normal popliteus tendon. Normal biceps femoris tendon. There is mild interstitial edema in the anterior cruciate ligament (fat-suppressed T2 sagittal image 13) suggestive of a low-grade sprain. Normal posterior cruciate ligament (PCL). There is mild lateral tilt of the patella (T2 axial image 13) without discrete tendon tear. Normal hyaline cartilage of the patellofemoral compartment. Normal medial and lateral patellar retinaculum. Normal visualized quadriceps tendon. Normal patellar tendon. Normal Hoffa''s fat pad. There is no joint effusion. There is a small popliteal cyst (fat-suppressed T2 sagittal images 18-20). There is a small ganglion cyst adjacent to the distal posterior cruciate ligament (fat-suppressed T2 sagittal images 14, 15) measuring 1.8 cm in length. The otherwise visualized osseous structures are unremarkable. MRI/Lower Ext Joint Only (Routine) IMPRESSION: Mild anterior cruciate ligament sprain. Mild lateral tilt of the patella. Small popliteal cyst. Small ganglion cyst adjacent to the distal posterior cruciate ligament. No demonstrated meniscal tear. Electronically Signed: Tomasz Richardson MD at 14:33 EDT ,
== END | disposition home or self-care (01) ==
LOC: MRI 13:27
PROVIDERS: PCP Family Medicine; Referring Provider Physician Assistant; Visit Provider Physician Assistant
DX: M25.562 Pain in left knee (principal); M23.92 Unspecified internal derangement of left knee; S83.002A Unspecified subluxation of left patella, initial encounter
CPT/HCPCS: 73721

== ENCOUNTER 2022-06-09 16:30 | Outpatient (RCR) | payer OTHER, SELFPAY ==
--- NOTE | 2022-04-25 11:00 | HP.PTEVAL ---
Patient's Visit Information FLOWER LATHAM is a 22 year old F referred to Physical Therapy by ELIZABETH Peña with a diagnosis of L knee patella sublux. Date of Evaluation: 04/25/22 Physical Therapist: Steven Reddy DPT, OCS, CSCS - Visit Plan Frequency: 2-3x /Week Duration: 4-6 Weeks Plan: 2-3x/week x 3-4 for. 1. ensure full knee flexion ROM. 2. core and hip strength and knee strength working to I home and gym. declined orthoitcs despite flat foot(has tried them). ice and TENS if needed. - Subjective I have [employer]. I had ca[sular tear in meniscus L knee. Fell in hole 3 weeks ago and needed to be on crutches for two weeks. Is back to walking this week. Has hinge brace with open knee cap that she was wearing. Pain is up to 4/10 intermittently most days achy and uncomfortable. If she works on it 4 hours then she can hardly walk by the end of the week. Is a [employer] walking and on feet , worse after work. Took some days off this week for another reason, worked last week on many restirctions. Sleep is OK for the most part. Hobbies include coaching and playing volleyball. 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 Stepped in hole walking dogs outside and jogging. Had L knee stab surgery 2 yrs ago but started having problems again 6 months ago. Has band ex at home but does not use them regularly. Hurting has kept her from working out. - Pain L knee Pain Intensity (Out of 10): 1 Pain Intensity Range: 0, 4 Comment: bending hurts - Objective L Knee tender medial under knee cap. Walking I with mild l antalgia, steps reciprocal without rail. Hesitant but able to bend. All joints loose. Pes planus B. Knee AROM L 0-120 and R is 0-145, PROM to 145 L knee flexion but hesitant and hyperfocussed on pain. Hip and ankles full and hypermobile. strength hips 3+ abd and ext, 4- flexion with resulting contralteral IR at hips. Knee strength L ext 3+ and R 4- and flexion 4- B. R knee flex and ext painful at knee cap. reflexes 2/3 patella and achilles. Sensation LE WNL to gross light touch. - ant drawer. - post sag. - valgus and varus. - bounce home. slight positive patellar grind. - Balance/Special Test Scores Lower Extremity Functional Score: 45 - Goals Goal 1:: Full aROM L knee without hesitation or pain Goal Time Frame: 2-4 Weeks Goal 2:: Pain 0/10 and 99% better in L knee Goal Time Frame: 4-6 Weeks Goal 3:: Able to walk at work without symptoms or llimping Goal Time Frame: 4-6 Weeks Goal 4:: I appropr HEP for strenghtening. Goal Time Frame: 4-6 Weeks - Rehabilitation Potential Physical Therapy Diagnosis: L knee pain likely patella instability Rehabilitation Potential: Fair - Anticipated Interventions Patient/Client Instruction: Educate patient on: Condition For the Purpose of:: To decrease pain, To increase ROM, To improve muscle performance and motor function, To increase tolerance to activity/condition/position Therapeutic Exercise to Include: Strength training, Gait and locomotor training, Passive ROM, Active ROM For the Purpose of:: To decrease pain, To increase ROM, To improve muscle performance and motor function, To increase tolerance to activity/condition/position Thank you for the opportunity to evaluate your patient. For Medicare and Medicare HMO plans, please review the plan of care and approve it. It will need to be FAXED BACK to us at [phone] for Medicare purposes. For Medicare only, by signing this I certify the plan of care. Please let me know if there are questions or concerns regarding this plan of care. Physician Signature: Date:
--- NOTE | 2022-05-13 10:49 | HP.PTREVAL_ITS ---
ELIZABETH Peña, It has been my pleasure to treat FLOWER LATHAM over the last 8 visits for L knee patella sublux. Please see the progress note below for an update on the physical therapy plan of care! Subjective: We were getting somewhere at first but last Monday hurt real bad after work and grinded. Still on work restrictions. Pain 2/10 currently but up to 8/10 and tears after work unless she sits the entire day which never happens. Life at home is OK but knee hurts after work too bad to do anything.. In brace since last monday which only helped a little. No real reason that she got worse at work last week. Doctor said to continue PT. Is 40% better and would have been much better last week before Monday. Doing quad set at home Objective/Function: Full PROM L knee, AROM self limits to 115 to avoid popping. No popping with PROM today. Walks normal today without antalgia. Steps reciprocally without rail and feels good. Pt hesitant to do too much but needs to be stronger. Not sure what caused set back last week, nothing in her workout seems obtrusive. Appropriate to cotninue with fair prognosis Plan Plan: 2-3x/week for 4 more weeks for. 1. Ensure getting full ROM regularly. 2. strength progressing HEP of NWB ex and progress to gym based hip and knee and core stabs to tolerance. To doctor mid May if not improving. Balance/Gait/Functional tests - Balance/Special Test Scores Lower Extremity Functional Score: 47 Goals Goal 1:: Full aROM L knee without hesitation or pain Goal Time Frame: 2-4 Weeks Goal Progress: progressing, approp Goal 2:: Pain 0/10 and 99% better in L knee Goal Time Frame: 4-6 Weeks Goal Progress: 40%, appropriate Goal 3:: Able to walk at work without symptoms or llimping Goal Time Frame: 4-6 Weeks Goal Progress: work increases pain Goal 4:: I appropr HEP for strenghtening. Goal Time Frame: 4-6 Weeks Goal Progress: ROM, approp strength Anticipated Interventions Patient/Client Instruction: Educate patient on: Condition For the Purpose of:: To decrease pain, To increase ROM, To improve muscle performance and motor function, To increase tolerance to activity/condition/position Therapeutic Exercise to Include: Strength training, Gait and locomotor training, Passive ROM, Active ROM For the Purpose of:: To decrease pain, To increase ROM, To improve muscle performance and motor function, To increase tolerance to acti vity/condition/position Please do not hesitate to contact me at [phone] by phone or if you have questions or concerns regarding this new plan of care! Sincerely, Steven Reddy, DPT, OCS, CSCS
--- NOTE | 2022-06-09 17:14 | HP.PTDCSUM ---
It has been my pleasure to treat FLOWER LATHAM referred by ELIZABETH Peña, with the diagnosis of L knee patella sublux for a total of 17 visit(s). Discharge Date: 06/09/22 Please see the following information for a summary of their discharge status. Subjective: Some times better but woke up this am and could not hardly walk. Walking at work makes you worse. Pain is medially today in L knee 7/10 this am and 5/10 now. Is on light duty at work but still has to walk miles per day, not lifting a lot of things. After work is very sore adn does nothing. Non wokr days can get a lot done but gets sore. Sleep: OK. Doing exercises at home with band. More aggressive exercises in PT feels unstable but feels like knee might give out. May want exploratory surgery, sees doctor tomorrow. L knee Pain Intensity (Out of 10): 6 % Improvement: 50 Objective/Function: +2 LEFS. No antalgia in gait today but this is first time she has not had antalgia. Full aROM L knee, somewhat hesitant end range extension. SLR without quad lag. Tenderness to palpation lateral patella underside. + patellar grind. No other significant findings. She c/o alot of pain and giving out but nonverbals are not matching verbals. She has tolerated more aggressive strengthening in the last week but not tolerating work any better. Goal 1:: Full aROM L knee without hesitation or pain Goal Progress: Goal Met Goal 2:: Pain 0/10 and 99% better in L knee Goal Progress: 50% better Goal 3:: Able to walk at work without symptoms or llimping Goal Progress: Not Progressing Goal 4:: I appropr HEP for strenghtening. Goal Progress: Goal Met Plan: Pt to check with doctor tomorrow for other options, further therapy for progressing to more aggressive strenghtening should be considered if no other good options. d/c otherwise. pt has HEP to continue If there are questions or concerns regarding this patient's physical therapy, please feel free to call me at [phone]. Thank you for the referral of this patient. Sincerely, Steven Reddy, DPT, OCS, CSCS Balance/Gait/Functional tests - Balance/Special Test Scores Lower Extremity Functional Score: 49
== END 2022-06-09 19:00 | disposition home or self-care (01) ==
LOC: PT 16:30
PROVIDERS: PCP Family Medicine; Referring Provider Physician Assistant; Visit Provider Physician Assistant
DX: S83.002A Unspecified subluxation of left patella, initial encounter (principal); M23.92 Unspecified internal derangement of left knee; M25.562 Pain in left knee
CPT/HCPCS: 97014; 97110; 97161; 97164; 97530; G0283

== ENCOUNTER → 2022-06-24 | Outpatient (CLI) | payer OTHER, SELFPAY ==
[2022-06-24 18:04] LABS: Absolute Lymphocyte Count 1.48 X10^3/uL (0.83-4.51); Absolute Neutrophil Count 1.9 X10^3/uL (2.0-7.7); Basophil# 0.02 X10^3/uL; Basophil% 0.5 % (0-1); Eosinophil# 0.18 X10^3/uL; Eosinophils% 4.5 % (0-5); Hematocrit 42.8 % (37-47); Lymphocyte # 1.48 X10^3/ul (0.83-4.51); Lymphocyte % 37.4 % (19-41); Mean Corp Hgb Conc 32.7 g/dL (32-36); Mean Corpuscular Hgb 29.2 pg (27.0-32.0); Mean Corpuscular Volume 89.4 fL (81-99); Mean Platelet Vol. 10.8 fl (6.2-12.0); Monocyte% 10.1 % (0-10); NRBC Flagged by Analyzer 0 % (0-5); Neutrophil # 1.87 X10^3/uL (2.7-7.7); Neutrophil % 47.2 % (47-70); Platelet Count 193 K/mm3 (150-450); RBC Distribution Width CV 12.1 % (11.6-14.6); RBC Distribution Width SD 39.9 fl (35.1-43.9); Red Blood Count 4.79 M/mm3 (4.2-5.4)
[2022-06-24 18:24] LABS: AST(SGOT) 32 U/L (15-37); Alanine Aminotransfer ALT/SGPT 71 U/L (13-56); Albumin, Serum 4.1 g/dL (3.2-5.0); Alkaline Phosphatase 61 U/L (45-117); Bilirubin, Direct 0.12 mg/dL (0.00-0.30); Globulin 3.8 g/dL (2.2-4.2); Protein, Total 7.9 g/dL (6.4-8.2); Thyroid Stim Hormone (TSH) 1.18 uIU/mL (0.358-3.74)
[2022-06-27 20:39] LABS: EBV Acute VCA IgM < 36.0 U/mL (0.0-35.9); EBV Nuclear Antigen IgG > 600.0 U/mL (0.0-17.9); EBV-VCA IgG > 600.0 U/mL (0.0-17.9)
== END | disposition home or self-care (01) ==
LOC: BFHLAB 16:35
PROVIDERS: PCP Family Medicine; Visit Provider Family Medicine
DX: R53.83 Other fatigue (principal); Q79.60 Ehlers-Danlos syndrome, unspecified; E03.9 Hypothyroidism, unspecified
CPT/HCPCS: 36415; 80076; 84443; 85025; 86664; 86665

== ENCOUNTER 2022-07-13 07:26 | Day surgery (SDC) | payer OTHER, SELFPAY ==
--- NOTE | 2022-07-08 16:22 | RAD_ITS ---
STUDY: X-RAY - CERVICAL SPINE REASON FOR EXAM: Female, 22 years old. Neck pain and headache, possible connective tissue disorder TECHNIQUE: 7 view(s) of the cervical spine were obtained. COMPARISON: None FINDINGS: Normal anterior atlantoaxial articulation. Normal odontoid process. Normal cervical lordosis. Normal vertebral bodies and endplates. Normal disc space heights. Normal visualized intervertebral neuroforamina. The soft tissue structures are unremarkable. No instability on the flexion or extension views. RAD/Cerv Spine Obl/Flex/Ext Comp IMPRESSION: Normal x-ray examination of the visualized cervical spine. Electronically Signed: Derrek Florian MD at 8:23 EST ,
[2022-07-13] VITALS (10 sets, daily range): BP systolic 102–123; BP diastolic 53–88; PULSE 58–108; RESP 16; TEMP 36.8–37.2; O2SAT 16–100; BMI 20.8
[2022-07-13 08:00] LABS: Internal QC Validated? YES +Cl - CLEAR BKGD
[2022-07-13 08:04] LABS: Pregnancy, Urine Negative Negative
[2022-07-13] MEDS: Lactated Ringers 1,000 ML 15 ML IV (08:09)
--- NOTE | 2022-07-13 08:53 | PCM.HP.STD ---
"HPI - General HPI Narrative FLOWER LATHAM, is a 22 F who presents for left knee arthroscopy, MM repair or debridement. OK to proceed. No changes to H and P. Left knee marked. Narcotic counseling - hydrocodone only, prior allergies to other medications. MR#: [id number] Acct: [id number] Name:FLOWER BOWERS Rep #: [id number] : 2000 ? ? Provider: Dr. Keo Lujan MD Age/Sex:? 22/F ? ? Location: [facility] Status: Signed Intake Intake Visit Reasons:?LEFT KNEE Is patient in pain?: Yes Allergies codeine Allergy (Mild, Verified 06/28/22 15:35) rashamoxicillin Adverse Reaction (Mild, Verified 06/28/22 15:35) no reactionclavulanic acid [From Augmentin] Adverse Reaction (Mild, Verified 06/28/22 15:35) PT UNSURE OF REACTION Medications acetaminophen 325 mg capsule (Tylenol) 325 mg PO ONCE PRN Pain 08/27/20 [History Confirmed 06/28/22] tramadol 50 mg tablet 50 mg PO Q6H PRN pain #40 tabs 12/16/20 [Rx Confirmed 06/28/22] dextroamphetamine-amphetamine ER 20 mg 24hr capsule,extend release (Adderall XR) 20 mg PO DAILY 02/10/21 [History Confirmed 06/28/22] famotidine 20 mg tablet (Pepcid) 20 mg PO DAILY 02/10/21 [History Confirmed 06/28/22] PFSH Medical History? Anxiety Chronic idiopathic constipation Contraceptive management willis baeza POTS (postural orthostatic tachycardia syndrome) Surgical History? History of knee surgery History of tonsillectomy and adenoidectomy Family History? Mother Hypertension Social History? household members:? significant other and family current occupational status:? employed current occupation:? [employer], [place] Smoking Status:? Never smoker alcohol intake:? current alcohol intake frequency: a few times a month substance use type:? does not use diet:? other caffeine:? Yes what type of physical activity do you participate in:? walking seatbelt use:? always do you feel safe at home:? Yes additional social history:? single HPI LEFT KNEE Details: Parts of this documentation were recorded by a scribe, this documentation accurately reflects the service provided and the decisions made by me, Dr. Keo Lujan MD 06/28/22 1797. FLOWER LATHAM is a 22 year old F here today for left knee pain, 8 weeks, stepped in a hole, twisted and immediate pain and swelling. May 2019 had surgery, so did half assed PT. right knee arthroscopy, medial meniscus root repair (off capsule) by Dr. Ballesteros. Was having a hard time walking and playing volleyball at that time. Was swelling in the same way back then and aching. Started in the back and on the medial side going down and sharp pain once in a while. No patellar instability. She has yu danlos and feels like having chronic instability at the pF joint as well as the shoulder.? The patient did physical therapy now for at least 8 weeks and is not interested in intra-articular cortisone injections.? She had a diagnostic arthroscopy in the past that resulted in a medial meniscus repair to the capsule and the root area so she is interested in going ahead with surgery at this point.? 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 Ortho Exam General General: Yes no acute distress (Global hyperlaxity.) Neurologic: Yes alert and Yes oriented x3 Psychologic: Yes reasonable and appropriate Right Knee Patella Translation: 2 Left Knee Skin/Wound: Yes CDI, No ecchymosis, No erythema and No swelling 1+: Effusion Knee ROM: Yes ROM-Flexion 0-140 Examination: Yes med jt line tenderness, No Lat jt line tenderness, No TTP inf pole patella, Yes Crepitus, Yes Pain with flexion, Yes Stef's Test, No Dial at 90, No Dial at 60 and No TTP Patellar tendon Quad Atrophy: No Stability: NML: Anterior Drawer, NML: Ralf, NML: Posterior Drawer, NML: Valgus 0, NML: Valgus 30, NML: Varus 0, NML: Varus 30, NML: Dial 90 and NML: Dial 30 Apprehension with Lateral Translation: Yes Patella Translation: 2 Patellar Tilt Normal: Yes Patella Grind: No KNEE: There is mostly pain on the medial aspect of her knee mostly anteriorly as well as posterior medially. She is able to do a straight leg raise test.? She has global hyperlaxity.? She has about 5 degrees of hyperextension of the knee.? There is a little bit of apprehension with lateral pressure of the patellofemoral joint but negative J sign no obvious instability beyond her what seems to be normal hypermobility. Supplemental Info MR#:? [id number] Acct: [id number] Name:? FLOWER LATHAM Rep #: [id number] :?? 2000 F 22 ? From:? ? Cate Langley MD PCP: Dr. Aikla Manuel, DO ? Status: REG CLI Study: Knee 4 or More Views ? Date of Exam: 04/01/22 Exam# [id number] ? Ordering Dr:? Elvin Rojas HISTORY: pain and injury. TECHNIQUE: XR Knee Complete 4 Views or More. COMPARISON: 03/23/2022. FINDINGS: BONES : No acute fracture identified.? Mineralization unremarkable. JOINTS: No dislocation.? Joint spaces maintained. RAD/Knee 4 or More Views IMPRESSION: No acute fracture or dislocation identified in the left knee. ? Electronically Signed: Cate Langley MD at 9:58 EDT , [facility] [address] [place] [id number] Lower Ext Joint Only (Routine) MR#:? [id number] Acct: [id number] Name:? FLOWER LATHAM Rep #: [id number] :?? 2000 F 22 ? From:? ? Tomasz Richardson MD PCP: Dr. Akila Manuel, DO ? Status: REG CLI Study: Lower Ext Joint Only (Routine) ? Date of Exam: 04/14/22 Exam# [id number] ? Ordering Dr:? Elvin Rojas STUDY:? MRI LEFT KNEE REASON FOR EXAM: Medial left knee pain, left knee injury 3 weeks ago, history of the medial meniscal repair. TECHNIQUE:? Standardized fat and water weighted pulse sequences were obtained in all 3 orthogonal planes. COMPARISON:? Radiographs 04/01/2022, MRI images 08/12/2020. FINDINGS: Normal medial meniscus.? Normal hyaline cartilage of the medial femorotibial compartment.? Normal medial femoral condyle and tibial plateau. Normal medial collateral ligamentous complex (MCL).? Normal distal semimembranosus, gracilis and semitendinosus tendons. Normal lateral meniscus.? Normal hyaline cartilage of the lateral femorotibial compartment.? Normal lateral femoral condyle and tibial plateau. Normal proximal tibiofibular articulation.? Normal lateral collateral (fibular) ligament.? Normal popliteus tendon.? Normal biceps femoris tendon. There is mild interstitial edema in the anterior cruciate ligament (fat-suppressed T2 sagittal image 13) suggestive of a low-grade sprain. Normal posterior cruciate ligament (PCL). There is mild lateral tilt of the patella (T2 axial image 13) without discrete tendon tear.? Normal hyaline cartilage of the patellofemoral compartment.? Normal medial and lateral patellar retinaculum. Normal visualized quadriceps tendon.? Normal patellar tendon.? Normal Hoffa''s fat pad. There is no joint effusion. There is a small popliteal cyst (fat-suppressed T2 sagittal images 18-20). There is a small ganglion cyst adjacent to the distal posterior cruciate ligament (fat-suppressed T2 sagittal images 14, 15) measuring 1.8 cm in length.? The otherwise visualized osseous structures are unremarkable. MRI/Lower Ext Joint Only (Routine) IMPRESSION: Mild anterior cruciate ligament sprain. ? Mild lateral tilt of the patella. ? Small popliteal cyst. ? Small ganglion cyst adjacent to the distal posterior cruciate ligament. ? No demonstrated meniscal tear. ? Electronically Signed: Tomasz Richardson MD at 14:33 EDT , I reviewed the x-rays and MRI personally I agree with the radiologist interpretation.? There does appear to be a popliteal cyst small in nature near the posterior medial aspect of the medial meniscus and what I presume to be the site prior all inside FasT-Fix repair. ? Coding Level of Care Code Off vis,est,level 4 Diagnoses Internal derangement of left knee? M23.92 Time Spent (min) 35 Assessment and Plan Assessment and Plan (1) Internal derangement of left knee: ?Status:?Acute ?Plan: 22-year-old female with mechanical symptoms after a twisting injury in the setting of a past medial meniscus repair who has failed conservative management and is not interested in cortisone injections she would like to proceed with a left knee diagnostic arthroscopy possibly including a debridement and partial medial meniscectomy or repair.? She is already well aware of the pros and cons risks and benefits of this.? 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 We discussed the pros and cons risks and benefits of nonoperative versus operative intervention and she would like to go ahead with surgery and we signed Form today.? This is for left knee arthroscopy, possible debridement, possible medial meniscus repair or partial meniscectomy. Pros and cons risks and benefits were discussed with the patient including but not limited to infection, pain, stiffness, bleeding, damage to surrounding structures, neurovascular injury, recurrence or retear, failure or wear of hardware or fixation, instability, fracture, deep vein thrombosis and pulmonary embolism, anesthetic risks, patient dissatisfaction, need for further surgery and other risks.? Patient understood and wished to proceed with surgery, and signed the informed consent documentation. ? ? ? Orders: [facility] Medical History (Updated 07/08/22 @ 12:23 by Joyce Levine) Alcohol use Back pain Cardiology follow-up encounter Chronic idiopathic constipation Contraceptive management Easy bruising willis baeza Gastric reflux History of IBS Injury of head and neck Migraine headache Non-smoker POTS (postural orthostatic tachycardia syndrome) Restless legs Shortness of breath on exertion Tilt table evaluation Wears contact lenses Home Medications acetaminophen 325 mg capsule (Tylenol) 325 mg PO PRN PRN Pain 08/27/20 [History Last Taken Unknown] tramadol 50 mg tablet 50 mg PO Q6H PRN pain #40 tabs 12/16/20 [Rx Last Taken Unknown] dextroamphetamine-amphetamine ER 20 mg 24hr capsule,extend release (Adderall XR) 20 mg PO QODAY 02/10/21 [History Last Taken Unknown] famotidine 20 mg tablet (Pepcid) 20 mg PO PRN PRN Heartburn 02/10/21 [History Last Taken 07/13/22] etonogestrel 68 mg subdermal implant (Nexplanon) 68 mg subdermal DAILY 07/08/22 [History Last Taken Unknown] Allergy/AdvReac Type Severity Reaction Status Date / Time codeine Allergy Mild rash Verified 07/13/22 07:55 amoxicillin AdvReac Mild no reaction Verified 07/13/22 07:55 clavulanic acid AdvReac Mild PT UNSURE Verified 07/13/22 07:55 [From Augmentin] OF REACTION Family History Mother Hypertension Surgical History (Updated 07/08/22 @ 12:23 by Joyce Levine) History of knee surgery History of tonsillectomy and adenoidectomy Hx of myringotomy Social History household members: significant other and family current occupational status: employed 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[employer] Smoking Status: Never smoker alcohol intake: current alcohol intake frequency: a few times a month substance use type: does not use diet: other caffeine: Yes what type of physical activity do you participate in: walking seatbelt use: always do you feel safe at home: Yes additional social history: single Vital Signs Vital Signs Vital Signs: 07/13/22 07:57 07/13/22 07:57 Temperature 98.5 F Temperature Source Temporal Pulse Rate 62 Respiratory Rate 16 Respiratory Pattern Normal Blood Pressure 113/70 Blood Pressure Mean 84 Blood Pressure Source Monitor Blood Pressure Position Semi-Fowlers Blood Pressure Location Left Arm Pulse Ox 100 Oxygen Delivery Method Room Air Weight Weight: 121 lb 4.068 oz Body Mass Index (BMI) 20.8 Results Lab / [facility]: Laboratory Results - last 24 hr 07/13/22 07:45: Urine Test Negative"
[2022-07-13] MEDS: Clindamycin 900 MG/50 ML BAG 75 MG IV (09:02)
[2022-07-13] MEDS: Epinephrine (1 mg/ml) 1 MG/ML VIAL (09:24)
--- NOTE | 2022-07-13 10:33 | PCM.OPRPT ---
Problems Associated Problem List Diagnoses (1) Tear of medial meniscus of left knee: Report of Operation Date of Procedure: 07/13/22 Pre-Operative Diagnosis: left knee pain, possible medial meniscus tear Post-Operative Diagnosis: left knee medial meniscus tear / ramp lesion Surgery/Procedure Performed:: left knee arthroscopy, medial meniscus repair Surgeon: Keo Lujan Type of Anesthesia: General/Supplemental Anesthesiologist: Steven Croft Estimated Blood Loss (mL): 10 Description of Procedure: Patient brought to the operating room theater placed supine on the operating room table. General anesthesia induced. 2 g IV Ancef administered prior to the start of the procedure. Left lower extremity stress positioner used and SCD on the nonoperative side. 34 inch tourniquet applied to the thigh appropriately padded. All bony prominences padded. Left lower extremity prepped and draped in the usual sterile fashion with chlorhexidine-based prep solution allowing over 3 minutes drying time prior to draping. Preoperative timeout performed to confirm the site patient and the surgery. Examination under anesthetic performed. 7 degrees hyperextension full flexion. No laxity medial or lateral corners of the knee stable ACL firm endpoint negative pivot shift. Began by making an anterolateral and anteromedial arthroscopy portals. Examined the full intra-articular extent of the knee and arthroscopy pictures taken throughout the case. Medial and lateral gutters entered no loose body. Patellofemoral joint appeared normal. ACL was normal stable to probing. There is little bit of redundant tissue at the superior lateral aspect of the notch that I gently debrided. Anterior intermeniscal ligament was stable normal. Lateral compartment entered cartilage was normal on both sides meniscus stable to probing. Medial compartment cartilage normal in the femur and the tibia. I performed the Gillquist view as there did appear to be a vertically oriented tear near the posterior horn. The horn itself appeared stable but upon entering the posterior medial aspect of the knee there is definitely a ramp type lesion. Overall the meniscus had very minimal motion with probing however given the tear in this area I decided to go ahead with the repair. Under direct visualization an accessory posterior medial portal was created using spinal needle localization followed by switching stick and Arthrex purple 7 x 7 cannula inserted. I used a meniscus rasp to freshen and create bleeding for healing at both sides of the tear. I used a Arthrex suture shuttling device 45 degree curve to the right with nitinol wire. I passed a wire on both sides of the tear and then shuttled Arthrex 2-0 FiberWire stitch. I used sequential half hitches 5 throws with the post in the posterior aspect of the knee perform a solid repair of the tear. This was stable after repair sutures cut short pictures taken and saved onto the system. Skin cleaned with wet and dry dressing portal posterior medial closed with 3-0 Vicryl suture. Skin cleaned with wet and dry dressing followed application of Steri-Strips 4 x 4 gauze abdominal pad dressing and sterile 6 inch Kg bandage. Tourniquet let down hemostasis achieved. Patient lower extremity placed into a hinged knee brace locked in full extension. Patient woken up from general anesthesia transferred off the operating room table and taken to postanesthetic care unit in stable condition. All sponge needle instrument counts were correct no complications. Plan to the patient weightbearing as tolerated with crutches in full extension. Discharged home when they are comfortable per day surgery criteria. Complications none Admit VTE Documentation VTE Present on Admission: No VTE Mechan Device Prophylaxis: SCD's VTE Pharm Prophylaxis ordered?: No Reason prophylaxis not ordered:: Treatment Not Indicated Procedures Musculoskeletal [id number]-29xxx: Other Procedure See Report
--- NOTE | 2022-07-13 10:42 | DCINST_ITS ---
Discharge Instructions Diet Discharge Diet: No restrictions Activity Weight Bearing Status: Weight bearing as tolerated Additional Activity Instructions:: ok to weight bear in full extension on crutches until FU Dressing / Incision Call your doctor if your incision/area has: Continuous Slow Oozing, Sudden Increased Bleeding, Increased Pain/ Swelling, Increased Redness, Foul Smelling Discharge and Swelling at the incision site Change Dressing in: leave in place till F/U Follow Up Care Please Follow Up With: Keo Lujan MD When: within 2 weeks Test Results: Test results from this visit will be discussed in further detail at your follow- up appointment, if applicable. Discharge Plan Admission Attending Provider: Keo Lujan Primary Care Provider: Akila Manuel Discharge Orders/Prescriptions Prescriptions: New hydrocodone-acetaminophen 5-325 mg tablet 1 tab PO Q4H MDD 6 PRN (Reason: pain) 7 Days Qty: 20 0RF No Action famotidine [Pepcid] 20 mg tablet 20 mg PO PRN PRN (Reason: Heartburn) acetaminophen [Tylenol] 325 mg capsule 325 mg PO PRN PRN (Reason: Pain) dextroamphetamine-amphetamine [Adderall XR] 20 mg capsule,extended release 24hr 20 mg PO QODAY tramadol 50 mg tablet 50 mg PO Q6H PRN (Reason: pain) Qty: 40 0RF Nexplanon 68 mg Implant 68 mg SUBDERMAL DAILY Referrals / Follow Up: Akila Manuel DO [Primary Care Provider] - Keo Lujan MD [Med Staff - Active Staff] - Disposition Disposition (needs filled in before D/C Order can be placed): Home, Self Care
== END 2022-07-13 13:59 | disposition home or self-care (01) ==
LOC: SDC 07:26 → AC 07:26
PROVIDERS: Anesthesiology; PCP Family Medicine; Referring Provider Orthopaedic Surgery Sports Medicine; Visit Provider Orthopaedic Surgery Sports Medicine
PROC: (CPT 29870; principal; 2022-07-13 08:35)
DX: M23.92 Unspecified internal derangement of left knee (principal); S83.242A Other tear of medial meniscus, current injury, left knee, initial encounter; M71.20 Synovial cyst of popliteal space [Baker], unspecified knee; Q79.60 Ehlers-Danlos syndrome, unspecified; M67.4 Ganglion; S83.519A Sprain of anterior cruciate ligament of unspecified knee, initial encounter; W17.2XXA Fall into hole, initial encounter
CPT/HCPCS: 29882; 72052; 81025; J7120; J2405

== ENCOUNTER → 2022-08-26 | Outpatient (CLI) | payer OTHER, SELFPAY ==
[2022-08-26 12:26] LABS: AST(SGOT) 18 U/L (15-37); Alanine Aminotransfer ALT/SGPT 34 U/L (13-56); Albumin, Serum 4.1 g/dL (3.2-5.0); Alkaline Phosphatase 59 U/L (45-117); Bilirubin, Direct 0.17 mg/dL (0.00-0.30); Globulin 3.5 g/dL (2.2-4.2); Protein, Total 7.6 g/dL (6.4-8.2)
== END | disposition home or self-care (01) ==
PROVIDERS: PCP Family Medicine; Visit Provider Family Medicine
DX: R74.01 Elevation of levels of liver transaminase levels (principal)
CPT/HCPCS: 36415; 80076

== ENCOUNTER → 2022-09-12 | Outpatient (CLI) | payer OTHER, SELFPAY ==
--- NOTE | 2022-09-12 15:16 | US_ITS ---
STUDY: SUPERFICIAL ULTRASOUND - CERVICAL REGION. REASON FOR EXAM: Female, 22 years old. PERIS TENT AND FLUCTUATING CERVICAL ADENOPATHY TECHNIQUE: A superficial ultrasound was performed with real-time and static morgan-scale imaging. COMPARISON: None. FINDINGS: The right and left side of the cervical region was examined with ultrasound. There is evidence of prominent bilateral cervical lymphadenopathy. The largest on the right side is in the submandibular region and measures 2.5 cm by 1.7 cm x 0.6 cm. The largest in the left submandibular region measures 2.5 cm by 1.6 cm x 0.8 cm. US/Head/Neck Soft Tissue IMPRESSION: Bilateral submandibular lymph node enlargement. Electronically Signed: Casey Banuelos MD at 13:14 EST ,
== END | disposition home or self-care (01) ==
LOC: US 15:12
PROVIDERS: PCP Family Medicine; Visit Provider Family Medicine
DX: R59.0 Localized enlarged lymph nodes (principal)
CPT/HCPCS: 76536

== ENCOUNTER → 2022-10-10 | Outpatient (CLI) | payer OTHER, SELFPAY ==
[2022-10-10 12:36] LABS: Erythrocyte Sedimentation Rate 2 mm/hr (0-30)
[2022-10-10 12:38] LABS: Absolute Lymphocyte Count 1.29 X10^3/uL (0.83-4.51); Basophil# 0.02 X10^3/uL; Basophil% 0.2 % (0-1); Hematocrit 42.8 % (37-47); Hemoglobin 14.1 g/dL (12.0-15.0); Lymphocyte # 1.29 X10^3/ul (0.83-4.51); Lymphocyte % 14.4 % (19-41); Mean Corp Hgb Conc 32.9 g/dL (32-36); Mean Corpuscular Hgb 29.9 pg (27.0-32.0); Mean Corpuscular Volume 90.9 fL (81-99); Mean Platelet Vol. 10.9 fl (6.2-12.0); Monocyte# 0.57 X10^3/uL; Monocyte% 6.4 % (0-10); NRBC Flagged by Analyzer 0 % (0-5); Neutrophil # 7.03 X10^3/uL (2.7-7.7); Neutrophil % 78.7 % (47-70); Platelet Count 202 K/mm3 (150-450); RBC Distribution Width SD 40.1 fl (35.1-43.9); Red Blood Count 4.71 M/mm3 (4.2-5.4); White Blood Count 8.9 K/mm3 (4.4-11.0)
[2022-10-10 13:06] LABS: ALB/GLOB Ratio 1.2 RATIO (0.9-2.4); AST(SGOT) 19 U/L (15-37); Alanine Aminotransfer ALT/SGPT 30 U/L (13-56); Albumin, Serum 4.5 g/dL (3.2-5.0); Alkaline Phosphatase 76 U/L (45-117); Anion Gap 8 (5-15); BUN 11 mg/dL (7-18); CRP < 2.90 mg/L (0.0-3.0); Calcium,Total 10.1 mg/dL (8.5-10.1); Chloride 105 mmol/L (98-107); Creatinine, Serum 0.85 mg/dL (0.55-1.02); EST Glomerular Filtration Rate 89 mL/min (>60); Est Glom Filt Rate - Afr Amer 107 mL/min (>60); Globulin 3.9 g/dL (2.2-4.2); Glucose 90 mg/dL (74-106); LDH 154 U/L (84-246); Potassium 3.5 mmol/L (3.5-5.1); Protein, Total 8.4 g/dL (6.4-8.2); Sodium Level 141 mmol/L (136-145)
[2022-10-11 13:07] LABS: Anti-Centromere B Ab <0.2 AI (0.0-0.9); Anti-Chromatin <0.2 AI (0.0-0.9); Anti-Jo <0.2 AI (0.0-0.9); Anti-Scleroderma-70 AB <0.2 AI (0.0-0.9); RNP Ab <0.2 AI (0.0-0.9); SJOGREN'S Anti-SS-A test < 0.2 AI (0.0-0.9); SJOGREN'S Anti-SS-B test < 0.2 AI (0.0-0.9); Smith Ab <0.2 AI (0.0-0.9)
[2022-10-11 15:08] LABS: Endomysial Antibody IgA Negative (Negative)
[2022-10-11 15:52] LABS: Anti-dsDNA Ab 1 IU/mL (0-9)
[2022-10-11 15:53] LABS: Immunoglobulin A 92 mg/dL (87-352); t-Transglutaminase IgA <2 U/mL (0-3)
[2022-10-12 04:07] LABS: Albumin 4.5 g/dL (2.9-4.4); Alpha-1-Globulins 0.3 g/dL (0.0-0.4); Alpha-2-Globulins 0.7 g/dL (0.4-1.0); Cytoplasmic Ab (C-ANCA) <1:20 titer (Neg:<1:20); Gamma Globulin 1.4 g/dL (0.4-1.8); Immunoglobulin A 91 mg/dL (87-352); Immunoglobulin E 10 IU/mL (6-495); Immunoglobulin G 1431 mg/dL (586-1602); Immunoglobulin M 64 mg/dL (26-217); PROEL- TOTAL PROTEIN 8.1 g/dL (6.0-8.5)
[2022-10-12 10:40] LABS: Perinuclear Ab (P-ANCA) <1:20 titer (Neg:<1:20)
[2022-10-15 08:59] LABS: Calprotectin, Stool <16 ug/g (0-120)
== END | disposition home or self-care (01) ==
PROVIDERS: PCP Family Medicine; Referring Provider Nurse Practitioner Adult Health; Visit Provider Nurse Practitioner Adult Health
DX: K90.41 Non-celiac gluten sensitivity (principal); R11.0 Nausea; K58.9 Irritable bowel syndrome, unspecified
CPT/HCPCS: 36415; 80053; 82784; 82785; 83516; 83615; 83630; 83993; 84165; 85025; 85652; 86140; 86225; 86235; 86255; 86256; 86334

== ENCOUNTER 2022-10-27 08:51 | Day surgery (SDC) | payer OTHER, SELFPAY ==
[2022-10-27] VITALS (7 sets, daily range): BP systolic 98–108; BP diastolic 59–75; PULSE 67–79; RESP 16–18; TEMP 36.1–36.4; O2SAT 98–100; BMI 20.8
--- NOTE | 2022-10-27 | GASB_PTH ---
PATIENT: FLOWER [place]STON LOC: EN U#:[id number] AGE/SX: 22/F ROOM: RE10/27/[address]: Dr. Raj Navarrete DO : 2000 BED: DIS: 10/27/2022 SPEC #: [id number] RECD: 10/27/22 14:03 STATUS: CHARLES CHIQUITA #: [id number] CELESTINA: 10/27/22 00:[address]: Raj Navarrete DEPT: SURGICAL PATHOLOGY RECD BY: Omega Lawton ENTERED: 10/28/22 08:28 SP TYPE: Gastric Bx OTHR DR: Dr. Akila Manuel DO Tissues: A - Duodenum, NOS B - Gastric mucous membrane C - Esophageal mucous membrane Procedures: Special Stain Group II Surgery Specimen Level IV Alcian Blue/PAS (control) HEADER OPERATION: EGD ([facility] [place] PRE-OP DIAGNOSIS: Chronic, nausea TISSUE SUBMITTED: A ? Duodenum biopsy, B ? Gastric antrum for H. pylori and path, C ? Distal esophagus. MICROSCOPIC DIAGNOSIS A. Duodenum, biopsy: Focal extravasation of glandular mucinous material See comment. B. Gastric antrum, biopsy: Chronic gastritis. See comment. C. Distal esophagus, biopsy: Gastroesophageal junctional mucosa with chronic inflammation. No evidence of goblet cell metaplasia. See comment. AM:shelby 10/31/2022 COMMENT A. Immunohistochemistry ([id number]) supports the above diagnosis. B. The results of immunohistochemistry for Helicobacter pylori will be reported separately ([id number]). C. Alcian blue/PAS stain with matched control supports the above diagnosis. Case has been reviewed in consultation with Dr. Tyson who concurs with the above diagnosis. IDC:SJ MICROSCOPIC DESCRIPTION Slides are reviewed. GROSS DESCRIPTION A - Received in fixative is one container labeled with the patient's name and designated duodenum biopsy. The specimen consists of two irregular fragments of light gallardo soft tissue that in aggregate measure 0.6 x 0.3 x 0.1 cm. The specimen is totally submitted in one cassette. B - Received in fixative is one container labeled with the patient's name and designated gastric antrum biopsy. The specimen consists of multiple irregular fragments of light gallardo soft tissue that in aggregate measure 1.5 x 0.3 x 0.1 cm. The specimen is totally submitted in one cassette. C - Received in fixative is one container labeled with the patient's name and designated distal esophagus. The specimen consists of one irregular fragment of light gallardo soft tissue that measures 0.5 x 0.4 x 0.1 cm. The specimen is totally submitted in one cassette. / EDVIN:shelby 10/28/2022 TC:5 CPT: 86939 x3, 69229
[2022-10-27 09:11] LABS: Internal QC Validated? YES +Cl - CLEAR BKGD; Pregnancy, Urine Negative Negative
--- NOTE | 2022-10-27 09:12 | HP.PCM_ITS ---
History and Physical Date of Admission: 10/27/22 22 F who presents to the office today to establish with GI for nausea, globus sensation, constipation, non-celiac gluten sensitivity. Diagnosed with non- celiac gluten sensitivity. Following a gluten-free diet is helpful--if she eats gluten she has nausea, vomiting, bloating, abd pain especially epigastric. Even with avoiding gluten she has GI issues. Doesn't tolerate dairy--nausea, thick mucus. Gets thick mucus, runny nose when she eats anything. The nausea is especially when she lies down. Takes ondansetron with good relief. Vomits or dry heaves if she doesn't take ondansetron. Nausea worse when constipated. Protein shake with decaf coffee in the morning does cause BM. Taking famotidine 20 mg, helps to decrease nausea if she takes it before eating. Omeprazole was more helpful, but pt reports it was stopped due to anemia. Has been treated twice for SIBO by primary care, felt better temporarily. Approx 6 wks ago she took augmentin for lymphadenopathy, reports it helped SIBO, but still has globus sensation. Less feeling of air in GI tract. Is now back on doxycycline as well a s medrol dose dusty. Linzess flared POTS. Chronic post nasal drainage. Since 05/2022 she has felt like she had a cold or sinus infection. Gluten-free diet has helped minimize constipation. Had bloating from miralax. Needs to follow food with water to help food pass through esophagus. Had EGD by GI Dr Sesay 11/2020, no prior colonoscopy 06/2022 ALT 71, back to normal at 34 in 08/2022 food allergy panel negative Comorbidities include Yu-Danlos, POTS, ADD ROS Const Constitutional: Positive for fatigue ENT ENT: Positive for difficulty swallowing Gastro GI: Positive for abdominal pain, bloating, change in bowel habits, constipation, heartburn, difficulty swallowing, excessive flatus and nausea/dyspepsia; No belching, change in stool character, coffee ground emesis, cramping, diarrhea, feeling full early, incontinent of stools, Vomiting blood/hematemesis, Blood in stool, loose stools, Black,tarry stools, pain with swallowing, vomiting or other Musc Musculoskeletal: Positive for joint pain, joint swelling, stiffness, restless legs and leg pain at night Skin Skin: No yellowing of the eye or itchy eyes Neuro Neurology: Positive for restless legs Psych Psychiatric: Positive for anxiety, No depression and Positive for hyperactivity Endo Endocrine: Positive for fatigue Aller/Imm Allergy/Immunologic: No itchy eyes Smith/Lymp Hematologic/Lymphatic: No easy bleeding or easy bruising Exam Const General: cooperative, healthy appearing and comfortable Nutritional Appearance: average body habitus Orientation: alert, awake and oriented x3 HENMT Head: normal to inspection Eyes Sclera: sclerae normal Resp Effort & Inspection: normal respiratory effort GI Inspection: normal to inspection Palpation: soft, no hepatosplenomegaly, no masses and tender in the LLQ Psych Mood: euthymic mood Quality Reporting Tobacco Screening (CMS 138) Smoking Status: Never smoker Assessment and Plan Assessment and Plan (1) Chronic nausea: ?Status:?Chronic ?Plan: 22 yo female with chronic nausea, globus sensation, constipation; symptoms better with gluten-free diet but not resolved. 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 ? ? Orders: Orders Celiac Disease Profile Today K59.09 - Other constipation, K90.41 - Non-celiac gluten sensitivity, R11.0 - Nausea ? Immunoglobulins G/A/M/E Today K59.09 - Other constipation, K90.41 - Non-celiac gluten sensitivity, R11.0 - Nausea ? CRP Today K59.09 - Other constipation, K90.41 - Non-celiac gluten sensitivity, R11.0 - Nausea ? Erythrocyte Sed Rate Today K59.09 - Other constipation, K90.41 - Non-celiac gluten sensitivity, R11.0 - Nausea ? JUSTINE Comprehensive Panel Today K59.09 - Other constipation, K90.41 - Non-celiac gluten sensitivity, R11.0 - Nausea ? ANCA Today K59.09 - Other constipation, K90.41 - Non-celiac gluten sensitivity, R11.0 - Nausea ? Comprehensive Metabolic Profil Today K59.09 - Other constipation, K90.41 - Non- celiac gluten sensitivity, R11.0 - Nausea ? LDH Today K59.09 - Other constipation, K90.41 - Non-celiac gluten sensitivity, R11.0 - Nausea ? CBC W/Diff, Automated Today K59.09 - Other constipation, K90.41 - Non-celiac gluten sensitivity, R11.0 - Nausea ? Calprotectin, Stool Today K59.09 - Other constipation, K90.41 - Non-celiac gluten sensitivity, R11.0 - Nausea ? Stool Lactoferrin/WBC Today K58.9 - Irritable bowel syndrome without diarrhea, K59.09 - Other constipation, K90.41 - Non-celiac gluten sensitivity, R11.0 - Nausea ? NEYDA + Protein Elect, Serum Today K59.09 - Other constipation, K90.41 - Non- celiac gluten sensitivity, R11.0 - Nausea ? Miscellaneous Lab Procedure Today K59.09 - Other constipation, K90.41 - Non- celiac gluten sensitivity, R11.0 - Nausea ? I have examined the patient and the H&P has been reviewed. There are no clinical changes since date of exam.
[2022-10-27] MEDS: Lactated Ringers 1,000 ML 15 ML IV (09:20)
--- NOTE | 2022-10-27 09:45 | IMM_PTH ---
PATIENT: FLOWER [place] LOC: EN U#:[id number] AGE/SX: 22/F ROOM: RE10/27/[address]: Dr. Raj Navarrete DO : 2000 BED: DIS: 10/27/2022 SPEC #: [id number] RECD: 10/28/22 11:37 STATUS: CHARLES REQ #: [id number] CELESTINA: 10/27/22 09:[address]: Raj Navarrete DEPT: IMMUNOHISTOCHEMISTRY RECD BY: Mireille Clifton ENTERED: 10/28/22 11:37 SP TYPE: IMMUNO OTHR DR: Dr. Akila Manuel DO Tissues: B - Stomach, NOS A - Duodenum, NOS Procedures: H Pylori (initial) Ede Ret (add) CD34 (add) CD56 (add) DESMIN (add) NYDIA (add) Vimentin (add) SMM (add) NEUROFIL (add) Pankeratin (initial) S-100 (add) PHYSICIAN & INSTITUTION [address] [address] SPECIMEN INFORMATION: Tissue Source: A ? Duodenum, B ? Gastric antrum Clinical Info: Chronic nausea Specimen Number: [id number] A & B CPT code: 04574 x2, 57255 x9 METHODOLOGY: Deparaffinized sections of prefer/formalin-fixed tissue or PAP/DQ stained slides are incubated with monoclonal/polyclonal antibodies/oligonucleotide probes. Localization is made via biotin free immunoperoxidase method. Appropriate controls are performed and reacted as expected. Results on target cell population are indicated in the following table: RESULTS: ANTIBODY / CLONE RESULT Block A AE1-3 (AE1/AE3/PCK26) negative Vimentin (V9) negative CD34 (QBEnd-10) negative Myosin (simms1) negative Desmin (CE-R-11) negative S-100 (4C4.9) negative Neurofil (2F11) negative CD56 (123C3.D5) negative CALRET (polyclonal) negative NYDIA (E29) positive Block B H Pylori (polyclonal) negative These tests were developed and their performance characteristics determined by [facility]. They may not have been cleared or approved by the U.S. Food and Drug Administration. The FDA has determined that such clearance or approval is not necessary. The above immunohistochemical/dualISH markers are ordered and reviewed by the Pathologist. INTERPRETATION: A. Duodenum, biopsy: Extravasated glandular mucinous material. B. Gastric antrum, biopsy: Negative for Helicobacter pylori organisms. AM:shelby 11/03/2022
--- NOTE | 2022-10-27 10:33 | OP.EGD_ITS ---
Patient Name: Raegan Diallo Procedure Date: 10/27/2022 10:14 AM Date of : 2000 Age: 22 Procedure: Upper GI endoscopy Indications: Epigastric abdominal pain, Failure to respond to medical treatment Providers: Raj Navarrete DO Referring MD: Akila Manuel Medicines: Monitored Anesthesia Care Patient Profile: This is a 22 year old female. Refer to note in patient chart for documentation of history and physical. Patient has symptoms of chronic abdominal cramping, chronic epigastric abdominal pain and chronic nausea. Complications: No immediate complications. Procedure: Pre-Anesthesia Assessment: - Prior to the procedure, a History and Physical was performed, and patient medications and allergies were reviewed. The risks and benefits of the procedure and the sedation options and risks were discussed with the patient. All questions were answered and informed consent was obtained. Patient identification and proposed procedure were verified by the physician in the pre-procedure area. Mental Status Examination: alert and oriented. Airway Examination: normal oropharyngeal airway and neck mobility. Respiratory Examination: clear to auscultation. CV Examination: normal. Prophylactic Antibiotics: The patient does not require prophylactic antibiotics. Prior Anticoagulants: The patient has taken no previous anticoagulant or antiplatelet agents. ASA Grade Assessment: II - A patient with mild systemic disease. After reviewing the risks and benefits, the patient was deemed in satisfactory condition to undergo the procedure. The anesthesia plan was to use monitored anesthesia care (MAC). Immediately prior to administration of medications, the patient was re-assessed for adequacy to receive sedatives. The heart rate, respiratory rate, oxygen saturations, blood pressure, adequacy of pulmonary ventilation, and response to care were monitored throughout the procedure. The physical status of the patient was re-assessed after the procedure. After obtaining informed consent, the endoscope was passed under direct vision. Throughout the procedure, the patient's blood pressure, pulse, and oxygen saturations were monitored continuously. The gastroscope was introduced through the mouth, and advanced to the second part of duodenum. The upper GI endoscopy was accomplished without difficulty. The patient tolerated the procedure well. Scope In: 10:24:51 AM Scope Out: 10:28:19 AM Total Procedure Duration Time 0 hours 3 minutes 28 seconds Findings: The Z-line was irregular and was found 39 cm from the incisors. Biopsies were taken with a cold forceps for histology. Estimated blood loss was minimal. Scattered moderate inflammation characterized by congestion (edema), erythema and linear erosions was found in the stomach. Biopsies were taken with a cold forceps for histology. Verification of patient identification for the specimen was done. Estimated blood loss was minimal. No gross lesions were noted in the first portion of the duodenum. Biopsies were taken with a cold forceps for histology. Verification of patient identification for the specimen was done. Estimated blood loss was minimal. Impression: - Z-line irregular, 39 cm from the incisors. Biopsied. - Gastritis. Biopsied. - No gross lesions in the first portion of the duodenum. Biopsied. Recommendation: - Discharge patient to home. - Resume previous diet. - Continue present medications. - Await pathology results. - Repeat upper endoscopy in 1 year for surveillance. Procedure Code(s): --- Professional --- 23203, Esophagogastroduodenoscopy, flexible, transoral; with biopsy, single or multiple CPT copyright 2017 [employer]. All rights reserved. The codes documented in this report are preliminary and upon digital service engineer review may be revised to meet current compliance requirements. Raj Navarrete DO 10/27/2022 10:32:52 AM This report has been signed electronically. Number of Addenda: 0 Note Initiated On: 10/27/2022 10:14 AM
--- NOTE | 2022-10-27 10:33 | OP.CCLET_ITS ---
10/27/2022 Akila Manuel [address] [facility] [place] [address] Re : Upper GI endoscopy procedure for Raegan Diallo Dear Dr. Manuel This procedure was performed on October. My impressions and recommendations are as follows: Impressions : - Z-line irregular, 39 cm from the incisors. Biopsied. - Gastritis. Biopsied. - No gross lesions in the first portion of the duodenum. Biopsied. Recommendations : - Discharge patient to home. - Resume previous diet. - Continue present medications. - Await pathology results. - Repeat upper endoscopy in 1 year for surveillance. My findings are described in the full procedure note, which is enclosed. If I can be of further assistance, please feel free to contact me at . Sincerely, Raj Navarrete, 10/27/2022 10:32:52 AM This report has been signed electronically.
== END 2022-10-27 11:26 | disposition home or self-care (01) ==
LOC: EN 08:52 → AC 08:53
PROVIDERS: Anesthesiology; PCP Family Medicine; Referring Provider Family Medicine; Visit Provider Internal Medicine Gastroenterology
PROC: 0DJ08ZZ Inspection of Upper Intestinal Tract, Via Natural or Artificial Opening Endoscopic (ICD-10-PCS; CPT 43235; principal; 2022-10-27 09:40)
DX: K29.70 Gastritis, unspecified, without bleeding (principal); R11.0 Nausea; K90.41 Non-celiac gluten sensitivity
CPT/HCPCS: 43239; 81025; 88305; 88313; 88341; 88342; J7120; J2405

== ENCOUNTER 2022-11-04 13:00 | Outpatient (RCR) | payer OTHER, SELFPAY ==
--- NOTE | 2022-07-27 13:59 | HP.PTEVAL_ITS ---
Patient's Visit Information FLOWER LATHAM is a 22 year old F referred to Physical Therapy by Dr. Keo Lujan MD with a diagnosis of Mensicus tear s/p MM repair 07/12. Date of Evaluation: 07/27/22 Physical Therapist: Steven Reddy, SHAHANAT, OCS, CSCS - Visit Plan Frequency: 3x /Week Duration: 4-6 Weeks Plan: Pt is WB AT with brace locked until 08/24/22. AROM to 90 flexion until 08/24. 3x/week for 4-6 weeks for ROM, patellar mobs, hip and knee strength, gait training, ice adn FES to L quad. stretch HS and quad to tolerance. - Subjective L knee surgery post meniscal repair and clean out 07/12/22. 2 weeks ago. In brace locked in WB with crutches. Got permission yesterday to unlock in sitting. Will be crutches for 6 weeks with comfort WB. Pain is 3/10 and feeling OK. Sometimes worse if she moves or uses it alot. Bandages of f ye sterday and looking good. Sleep is OK, i can turn on my side. Sleep with brace until 6 week rach. 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 HEP: QS 2x/day. 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 Basic ADLs are getting done slowly. Lives with and he does most of housework. wants to play with dogs outside. - Pain L knee Pain Intensity (Out of 10): 3 Pain Intensity Range: 1, 8 - Objective L Leg incisions healing well without excessive redness heat or swelling. AROM L knee to 0-73 and 77 after HS. Quad set is weak but visible , 10 degree quad lag with SLR whcih is very hard for patinet. abd and ext SLR slightly easier but very weak on L. Ankle aROM and strength WFL. Hip strength 3/4 abd, ext, flexion on L and 4 on R. Walks with two crutches NWB L brace locked, Steps with crutches NWB L I without railings. - Balance/Special Test Scores Lower Extremity Functional Score: 21 - Goals Goal 1:: 0-90+ AROM comfortably Goal Time Frame: 2-4 Weeks Goal 2:: SLR without quad lag x 10 Goal Time Frame: 2-4 Weeks Goal 3:: Walk normal into therapy without gait deviations and steps reciprocally with one rail as allowed by doctor Goal Time Frame: 6 weeks Goal 4:: Patient ready to return to work Goal Time Frame: 4-6 Weeks Goal 5:: Plan to get back to volleyball Goal Time Frame: 2 Weeks - Rehabilitation Potential Physical Therapy Diagnosis: s/p MM repair. Rehabilitation Potential: Good - Anticipated Interventions Patient/Client Instruction: Educate patient on: Condition, Plan of Care For the Purpose of:: To decrease pain, To increase ROM, To improve muscle performance and motor function, To increase tolerance to activity/condition/position, To improve ability of physical actions for home/community/work/leisure, To improve gait and locomotor functions Therapeutic Exercise to Include: Strength training, Postural training, Flexibilty training, Gait and locomotor training, Passive ROM, Active ROM For the Purpose of:: To decrease pain, To increase ROM, To improve nutrient delivery to tissue, To improve muscle performance and motor function, To improve gait and locomotor functions Manual Therapy Techniques to Include: Scar massage, Passive ROM, Soft tissue mobilization For the Purpose of:: To decrease pain, To improve nutrient delivery to tissue Functional electric stimulation: Yes Cryotherapy (ice pack, ice massage): Yes For the Purpose of:: To decrease pain, To decrease swelling/inflammation, To improve muscle performance and motor function Thank you for the opportunity to evaluate your patient. For Medicare and Medicare HMO plans, please review the plan of care and approve it. It will need to be FAXED BACK to us at [phone] for Medicare purposes. For Medicare only, by signing this I certify the plan of care. Please let me know if there are questions or concerns regarding this plan of care. Physician Signature: Date:
--- NOTE | 2022-08-25 13:50 | HP.PTREVAL ---
Dr. Keo Lujan MD, It has been my pleasure to treat FLOWER LATHAM over the last 14 visits for Mensicus tear s/p MM repair 07/12. Please see the progress note below for an update on the physical therapy plan of care! Subjective: Pt reports that she is doing well. Going to see Dr. Lujan this afternoon at 2pm. Objective/Function: Good tolerance to the above table based hip, knee strengthening. No pain with SL balance activities with brace on. Demonstrates improvement in available flexion range of motion at 94 degrees today without end range pain. Plan Plan: Re-check with Steven Reddy DPWilliam at 1330. Pt is WB AT with brace locked until 08/24/22. AROM to 90 flexion until 08/24. 3x/week for 4-6 weeks for ROM, patellar mobs, hip and knee strength, gait training, ice adn FES to L quad. stretch HS and quad to tolerance. Balance/Gait/Functional tests - Balance/Special Test Scores Lower Extremity Functional Score: 37 Goals Goal 1:: 0-90+ AROM comfortably Goal Time Frame: 2-4 Weeks Goal Progress: Goal Met Goal 2:: SLR without quad lag x 10 Goal Time Frame: 2-4 Weeks Goal Progress: Goal Met Goal 3:: Walk normal into therapy without gait deviations and steps reciprocally with one rail as allowed by doctor Goal Time Frame: 6 weeks Goal Progress: brace locked. 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 Anticipated Interventions Patient/Client Instruction: Educate patient on: Condition, Plan of Care For the Purpose of:: To decrease pain, To increase ROM, To improve muscle performance and motor function, To increase tolerance to activity/condition/position, To improve ability of physical actions for home/community/work/leisure, To improve gait and locomotor functions Therapeutic Exercise to Include: Strength training, Postural training, Flexibilty training, Gait and locomotor training, Passive ROM, Active ROM For the Purpose of:: To decrease pain, To increase ROM, To improve nutrient delivery to tissue, To improve muscle performance and motor function, To improve gait and locomotor functions Manual Therapy Techniques to Include: Scar massage, Passive ROM, Soft tissue mobilization For the Purpose of:: To decrease pain, To improve nutrient delivery to tissue Functional electric stimulation: Yes Cryotherapy (ice pack, ice massage): Yes For the Purpose of:: To decrease pain, To decrease swelling/inflammation, To improve muscle performance and motor function Please do not hesitate to contact me at [phone] by phone or if you have questions or concerns regarding this new plan of care! Sincerely, Steven Reddy, DPT, OCS, CSCS
--- NOTE | 2022-10-05 09:03 | HP.PTREVAL ---
Dr. Keo Lujan MD, It has been my pleasure to treat FLOWER [place] over the last 29 visits for Left Meniscus Tear s/p Medial Repair 07/12/22. Please see the progress note below for an update on the physical therapy plan of care! Subjective: Saw doctor and released to work next Monday. Doctor said no running and careful with jumping. Pain is not an issue at all. No pain in a while. Soreness with overuse of WB to 5/10 trasniently. Sleeping OK with knee. Activities are not limited at home. Basic ADLs are getting done. Enjoys walking dogs but has been to chilly. Also enjoys TM and ellitpical and core stuff. Has not done this yet as she is in therapy. Limited due to POTS. Doing band exercises at home. No f/u with doctor. Objective/Function: full aROM L knee except flexion with hip extended is still tight vs R in hip flexors. Walks normal, steps reciprocal without rail. Progressing nicely and just needs progressed to I strength adn agillity, plyo, jog slowly. Plan Plan: Next session please go through LE bodyweight and band strength for hips and core for patient to do at home. then. weekly x 4 to ensure strength program at home and SLOW progression of jog, agility, plyo for volleyball and monitor tolerance to work. Balance/Gait/Functional tests - Balance/Special Test Scores Lower Extremity Functional Score: 61 Goals Goal 1:: 0-90+ AROM comfortably Goal Time Frame: 2-4 Weeks Goal Progress: Goal Met Goal 2:: SLR without quad lag x 10 Goal Time Frame: 2-4 Weeks Goal Progress: Goal Met Goal 3:: Walk normal into therapy without gait deviations and steps reciprocally with one rail as allowed by doctor Goal Time Frame: 6 weeks Goal Progress: Goal Met Goal 4:: Patient ready to return to work Goal Time Frame: 4-6 Weeks Goal Progress: Progressing Goal 5:: Plan to get back to volleyball Goal Time Frame: 4-6 Weeks 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 Goal Time Frame: 2-4 Weeks Goal Progress: NEW GOAL Anticipated Interventions Patient/Client Instruction: Educate patient on: Condition, Plan of Care For the Purpose of:: To decrease pain, To increase ROM, To improve muscle performance and motor function, To increase tolerance to activity/condition/position, To improve ability of physical actions for home/community/work/leisure, To improve gait and locomotor functions Therapeutic Exercise to Include: Strength training, Postural training, Flexibilty training, Gait and locomotor training, Passive ROM, Active ROM For the Purpose of:: To decrease pain, To increase ROM, To improve nutrient delivery to tissue, To improve muscle performance and motor function, To improve gait and locomotor functions Manual Therapy Techniques to Include: Scar massage, Passive ROM, Soft tissue mobilization For the Purpose of:: To decrease pain, To improve nutrient delivery to tissue Functional electric stimulation: Yes Cryotherapy (ice pack, ice massage): Yes For the Purpose of:: To decrease pain, To decrease swelling/inflammation, To improve muscle performance and motor function Please do not hesitate to contact me at [phone] by phone or if you have questions or concerns regarding this new plan of care! Sincerely, Steven Reddy, DPT, OCS, CSCS
--- NOTE | 2022-11-04 13:50 | HP.PTDCSUM ---
It has been my pleasure to treat [place] referred by Dr. Keo Lujan MD, with the diagnosis of Left Meniscus Tear s/p Medial Repair 07/12/22 for a total of 34 visit(s). Discharge Date: 11/04/22 Please see the following information for a summary of their discharge status. 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 Pain is more stiffness if keeps it in one position too long. Pain is not an issue. Retuirned to work with no problems. 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 Slowly improving. Sleeping OK. L knee Pain Intensity (Out of 10): 0 % Improvement: 95 Objective/Function: Full AROM without pain, stiff up from full flexion in WB but transient. Walks normal, steps reciprocal without rial and skip step easily. 5/5 knee strength flexiona dn extenison. Jumping shows some slight adduction at B hips upon landing but funcitonal. Overall doing very well. Goal 1:: 0-90+ AROM comfortably Goal Progress: Goal Met Goal 2:: SLR without quad lag x 10 Goal Progress: Goal Met Goal 3:: Walk normal into therapy without gait deviations and steps reciprocally with one rail as allowed by doctor Goal Progress: Goal Met Goal 4:: Patient ready to return to work Goal Progress: Goal Met Goal 5:: Plan to get back to volleyball Goal Progress: Goal Met Goal 6:: I approp agility, plyo, jog safely and strength program at home. Goal Progress: Goal Met Plan: d/c Discharge Comments: No f/u with doctor needed according to patient and doctor note unless concerns If there are questions or concerns regarding this patient's physical therapy, please feel free to call me at [phone]. Thank you for the referral of this patient. Sincerely, Steven Reddy, DPT, OCS, CSCS Balance/Gait/Functional tests - Balance/Special Test Scores Lower Extremity Functional Score: 68
== END 2022-11-04 19:00 | disposition home or self-care (01) ==
LOC: PT 13:00
PROVIDERS: PCP Family Medicine; Referring Provider Orthopaedic Surgery Sports Medicine; Visit Provider Orthopaedic Surgery Sports Medicine
DX: S83.242D Other tear of medial meniscus, current injury, left knee, subsequent encounter (principal)
CPT/HCPCS: 97110; 97161; 97164; 97530

== ENCOUNTER 2022-11-15 11:47 | Day surgery (SDC) | payer OTHER, SELFPAY ==
[2022-11-15 12:17] VITALS: BP 118/69; PULSE 57; RESP 16; TEMP 36.7; O2SAT 100; BMI 20.8
[2022-11-15] MEDS: Lactated Ringers 1,000 ML 15 ML IV (12:20)
[2022-11-15 12:22] LABS: Internal QC Validated? YES +Cl - CLEAR BKGD; Pregnancy, Urine Negative Negative
--- NOTE | 2022-11-15 12:45 | EGD_PTH ---
PATIENT: FLOWER [place]ST[place] LOC: EN U#:[id number] AGE/SX: 22/ ROOM: RE11/15/[address]: Dr. Raj Navarrete DO : 2000 BED: DIS: 11/15/2022 SPEC #: [id number] RECD: 11/15/22 16:05 STATUS: CHARLES CHIQUITA #: [id number] CELESTINA: 11/15/22 12:[address]: Raj Navarrete DEPT: SURGICAL PATHOLOGY RECD BY: Leroy Riley ENTERED: 11/16/22 08:11 SP TYPE: EGD BIOPSY JUHI DR: Dr. Akila Manuel DO Tissues: A - Duodenum, NOS B - Gastric mucous membrane Procedures: Surgery Specimen Level IV HEADER OPERATION: EGD with biopsies ([facility] [place]) PRE-OP DIAGNOSIS: Duodenal polyp TISSUE SUBMITTED: A ? Duodenum biopsy, B ? Gastric ulcer MICROSCOPIC DIAGNOSIS A. Duodenum, biopsy: Fragments of duodenal mucosa, no pathologic diagnosis. B. Gastric ulcer, biopsy: Mild gastritis. See microscopic description and comment. SJ:shelby 11/17/2022 COMMENT B. The results of immunohistochemistry for Helicobacter pylori will be reported separately ([id number]). MICROSCOPIC DESCRIPTION Slides are reviewed. B. The specimen shows fragments of gastric mucosa with chronic inflammatory cell infiltrates in the lamina propria consisting of lymphocytes and plasma cells, consistent with mild chronic gastritis. GROSS DESCRIPTION A - Received in fixative is one container labeled with the patient's name and designated duodenum biopsy. The specimen consists of two irregular fragments of light gallardo soft tissue that in aggregate measure 1.0 x 0.5 x 0.1 cm. The specimen is totally submitted in one cassette. B - Received in fixative is one container labeled with the patient's name and designated gastric ulcer. The specimen consists of two irregular fragments of light gallardo soft tissue that measure in aggregate 1.0 x 0.3 x 0.1 cm. The specimen is totally submitted in one cassette. / AM:shelby 11/16/2022 TC:3 CPT: 05616 x2
--- NOTE | 2022-11-15 12:45 | IMM_PTH ---
PATIENT: FLOWER [place]STON LOC: EN U#:[id number] AGE/SX: 22/F ROOM: RE11/15/[address]: Dr. Raj Navarrete DO : 2000 BED: DIS: 11/15/2022 SPEC #: [id number] RECD: 11/16/22 09:18 STATUS: CHARLES REMichelle #: [id number] CELESTINA: 11/15/22 12:[address]: Raj Navarrete DEPT: IMMUNOHISTOCHEMISTRY RECD BY: Mireille Clifton ENTERED: 11/16/22 09:19 SP TYPE: IMMUNO OTHR DR: Dr. Akila Manuel DO Tissues: B - Stomach, NOS Procedures: H Pylori (initial) PHYSICIAN & INSTITUTION [place] [address] SPECIMEN INFORMATION: Tissue Source: B ? Gastric ulcer Clinical Info: Duodenal polyp Specimen Number: [id number] CPT code: 33453 METHODOLOGY: Deparaffinized sections of prefer/formalin-fixed tissue or PAP/DQ stained slides are incubated with monoclonal/polyclonal antibodies/oligonucleotide probes. Localization is made via biotin free immunoperoxidase method. Appropriate controls are performed and reacted as expected. Results on target cell population are indicated in the following table: RESULTS: ANTIBODY / CLONE RESULT Block B H Pylori (polyclonal) negative These tests were developed and their performance characteristics determined by [facility]. They may not have been cleared or approved by the U.S. Food and Drug Administration. The FDA has determined that such clearance or approval is not necessary. The above immunohistochemical/dualISH markers are ordered and reviewed by the Pathologist. INTERPRETATION: B. Gastric ulcer, biopsy: Negative for Helicobacter pylori organisms. SJ:shelby 11/17/2022
--- NOTE | 2022-11-15 13:04 | PCM.HP.STD ---
HPI - General General Date of Admission: 11/15/22 Date of Service: 11/15/22 Chief Complaint: Doudenal polyp HPI Narrative [place], is a 22 F who presents ?22 F who presents to the office today to establish with GI for nausea, globus sensation, constipation, non-celiac gluten sensitivity. Diagnosed with non-celiac gluten sensitivity. Following a gluten-free diet is helpful--if she eats gluten she has nausea, vomiting, bloating, abd pain especially epigastric. Even with avoiding gluten she has GI issues. Doesn't tolerate dairy--nausea, thick mucus. Gets thick mucus, runny nose when she eats anything. The nausea is especially when she lies down. Takes ondansetron with good relief. Vomits or dry heaves if she doesn't take ondansetron. Nausea worse when constipated. Protein shake with decaf coffee in the morning does cause BM. Taking famotidine 20 mg, helps to decrease nausea if she takes it before eating. Omeprazole was more helpful, but pt reports it was stopped due to anemia. Has been treated twice for SIBO by primary care, felt better temporarily. Approx 6 wks ago she took augmentin for lymphadenopathy, reports it helped SIBO, but still has globus sensation. Less feeling of air in GI tract. Is now back on doxycycline as well as medrol dose dusty. Linzess flared POTS. Chronic post nasal drainage. Since 05/2022 she has felt like she had a cold or sinus infection. Gluten-free diet has helped minimize constipation. Had bloating from miralax. Needs to follow food with water to help food pass through esophagus. Had EGD by GI Dr Sesay 11/2020, no prior colonoscopy 06/2022 ALT 71, back to normal at 34 in 08/2022 food allergy panel negative Comorbidities include Yu-Danlos, POTS, ADD ROS Const Constitutional: Positive for fatigue ENT ENT: Positive for difficulty swallowing Gastro GI: Positive for abdominal pain, bloating, change in bowel habits, constipation, heartburn, difficulty swallowing, excessive flatus and nausea/dyspepsia; No belching, change in stool character, coffee ground emesis, cramping, diarrhea, feeling full early, incontinent of stools, Vomiting blood/hematemesis, Blood in stool, loose stools, Black,tarry stools, pain with swallowing, vomiting or other Musc Musculoskeletal: Positive for joint pain, joint swelling, stiffness, restless legs and leg pain at night Skin Skin: No yellowing of the eye or itchy eyes Neuro Neurology: Positive for restless legs Psych Psychiatric: Positive for anxiety, No depression and Positive for hyperactivity Endo Endocrine: Positive for fatigue Aller/Imm Allergy/Immunologic: No itchy eyes Smith/Lymp Hematologic/Lymphatic: No easy bleeding or easy bruising Exam Const General: cooperative, healthy appearing and comfortable Nutritional Appearance: average body habitus Orientation: alert, awake and oriented x3 HENMT Head: normal to inspection Eyes Sclera: sclerae normal Resp Effort & Inspection: normal respiratory effort GI Inspection: normal to inspection Palpation: soft, no hepatosplenomegaly, no masses and tender in the LLQ Psych Mood: euthymic mood Quality Reporting Tobacco Screening ([facility] 138) Smoking Status: Never smoker Assessment and Plan Assessment and Plan (1) Chronic nausea: ?Status:?Chronic ?Plan: 22 yo female with chronic nausea, globus sensation, constipation; symptoms better with gluten-free diet but not resolved. 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 as above ? ? ? Orders: Orders Celiac Disease Profile Today K59.09 - Other constipation, K90.41 - Non-celiac gluten sensitivity, R11.0 - Nausea ? Immunoglobulins G/A/M/E Today K59.09 - Other constipation, K90.41 - Non-celiac gluten sensitivity, R11.0 - Nausea ? CRP Today K59.09 - Other constipation, K90.41 - Non-celiac gluten sensitivity, R11.0 - Nausea ? Erythrocyte Sed Rate Today K59.09 - Other constipation, K90.41 - Non-celiac gluten sensitivity, R11.0 - Nausea ? JUSTINE Comprehensive Panel Today K59.09 - Other constipation, K90.41 - Non-celiac gluten sensitivity, R11.0 - Nausea ? ANCA Today K59.09 - Other constipation, K90.41 - Non-celiac gluten sensitivity, R11.0 - Nausea ? Comprehensive Metabolic Profil Today K59.09 - Other constipation, K90.41 - Non-celiac gluten sensitivity, R11.0 - Nausea ? LDH Today K59.09 - Other constipation, K90.41 - Non-celiac gluten sensitivity, R11.0 - Nausea ? CBC W/Diff, Automated Today K59.09 - Other constipation, K90.41 - Non-celiac gluten sensitivity, R11.0 - Nausea ? Calprotectin, Stool Today K59.09 - Other constipation, K90.41 - Non-celiac gluten sensitivity, R11.0 - Nausea ? Stool Lactoferrin/WBC Today K58.9 - Irritable bowel syndrome without diarrhea, K59.09 - Other constipation, K90.41 - Non-celiac gluten sensitivity, R11.0 - Nausea ? NEYDA + Protein Elect, Serum Today K59.09 - Other constipation, K90.41 - Non-celiac gluten sensitivity, R11.0 - Nausea ? Miscellaneous Lab Procedure Today K59.09 - Other constipation, K90.41 - Non-celiac gluten sensitivity, R11.0 - Nausea I have examined the patient and the H&P has been reviewed. There are no clinical changes since date of exam. [facility] Medical History ADHD Alcohol use Back pain Cardiology follow-up encounter Chronic idiopathic constipation Contraceptive management Dietary restriction Easy bruising Yu-Danlos disease pedro danlos Gastric reflux IgA deficiency Injury of head and neck Lymph node enlargement Migraine headache Non-smoker POTS (postural orthostatic tachycardia syndrome) Restless legs Shortness of breath on exertion Tear of medial meniscus of left knee Tilt table evaluation Wears contact lenses Home Medications methylphenidate HCl 5 mg tablet 5 mg PO BID 09/02/22 [History Last Taken Unknown] atenolol 25 mg tablet 12.5 mg PO PRN PRN POTS 09/22/22 [History Last Taken 10/27/22 09:10] famotidine 20 mg tablet 20 mg PO DAILY 09/22/22 [History Last Taken Unknown] levocetirizine 5 mg tablet (Xyzal) 5 mg PO DAILY 10/26/22 [History Last Taken Unknown] magnesium 250 mg tablet 250 mg PO DAILY 10/26/22 [History Last Taken Unknown] Allergy/AdvReac Type Severity Reaction Status Date / Time red dye Allergy Intermediate Other Verified 11/15/22 12:17 codeine Allergy Mild rash Verified 11/15/22 12:17 amoxicillin AdvReac Mild no reaction Verified 11/15/22 12:17 clavulanic acid AdvReac Mild PT UNSURE Verified 11/15/22 12:17 [From Augmentin] OF REACTION Family History (Reviewed 10/10/22 @ 10:39 by Angela Coleman MONOTYPE KEYBOARD OPERATOR, MONOTYPE KEYBOARD OPERATOR-C) Mother Hypertension Surgical History History of esophagogastroduodenoscopy (EGD) History of tonsillectomy and adenoidectomy Hx of arthroscopic knee surgery Hx of myringotomy Social History (Reviewed 10/10/22 @ 10:39 by Angela Coleman MONOTYPE KEYBOARD OPERATOR, MONOTYPE KEYBOARD OPERATOR-C) household members: significant other and family current occupational status: employed 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[employer], [employer] Smoking Status: Never smoker alcohol intake: current alcohol intake frequency: a few times a month substance use type: does not use diet: other caffeine: Yes what type of physical activity do you participate in: walking seatbelt use: always do you feel safe at home: Yes additional social history: single Vital Signs Vital Signs Vital Signs: 11/15/22 12:17 11/15/22 12:17 Temperature 98.1 F Temperature Source Temporal Pulse Rate 57 L Respiratory Rate 16 Respiratory Pattern Normal Blood Pressure 118/69 Blood Pressure Mean 85 Blood Pressure Source Monitor Blood Pressure Position Semi-Fowlers Blood Pressure Location Left Arm Pulse Ox 100 Oxygen Delivery Method Room Air Weight Weight: 121 lb 4.068 oz Body Mass Index (BMI) 20.8 Results Lab / Micro Data Labs: Laboratory Results - last 24 hr 11/15/22 12:10: Urine Test Negative
[2022-11-15 13:30] VITALS: BP 102/57; BP 118/69; BP 88/47; PULSE 85; RESP 18; TEMP 36.7; O2SAT 100; O2SAT 98
[2022-11-15 13:36] VITALS: BP 104/66; BP 118/69; PULSE 53; RESP 18; O2SAT 100
--- NOTE | 2022-11-15 13:36 | OP.EGD_ITS ---
Patient Name: Raegan Diallo Procedure Date: 11/15/2022 12:55 PM Date of : 2000 Age: 22 Procedure: Upper GI endoscopy Indications: Peptic ulcer Providers: Raj Navarrete DO Referring MD: Raj Navarrete DO Medicines: Monitored Anesthesia Care Patient Profile: This is a 22 year old female. Refer to note in patient chart for documentation of history and physical. Patient has symptoms. Complications: No immediate complications. Procedure: Pre-Anesthesia Assessment: - Prior to the procedure, a History and Physical was performed, and patient medications and allergies were reviewed. The patient is competent. The risks and benefits of the procedure and the sedation options and risks were discussed with the patient. All questions were answered and informed consent was obtained. Patient identification and proposed procedure were verified by the physician. Mental Status Examination: alert and oriented. Airway Examination: normal oropharyngeal airway and neck mobility. Respiratory Examination: clear to auscultation. CV Examination: normal. Prophylactic Antibiotics: The patient does not require prophylactic antibiotics. Prior Anticoagulants: The patient has taken no previous anticoagulant or antiplatelet agents. ASA Grade Assessment: II - A patient with mild systemic disease. After reviewing the risks and benefits, the patient was deemed in satisfactory condition to undergo the procedure. The anesthesia plan was to use monitored anesthesia care (MAC). Immediately prior to administration of medications, the patient was re-assessed for adequacy to receive sedatives. The heart rate, respiratory rate, oxygen saturations, blood pressure, adequacy of pulmonary ventilation, and response to care were monitored throughout the procedure. The physical status of the patient was re-assessed after the procedure. After obtaining informed consent, the endoscope was passed under direct vision. Throughout the procedure, the patient's blood pressure, pulse, and oxygen saturations were monitored continuously. The Endoscope was introduced through the mouth, and advanced to the area of papilla. The upper GI endoscopy was accomplished with ease. The patient tolerated the procedure well. Scope In: 1:14:45 PM Scope Out: 1:21:39 PM Total Procedure Duration Time 0 hours 6 minutes 54 seconds Findings: The examined esophagus was normal. Patchy mild inflammation characterized by erosions was found in the prepyloric region of the stomach. Biopsies were taken with a cold forceps for histology. Verification of patient identification for the specimen was done. Estimated blood loss was minimal. Patchy mild inflammation characterized by friability was found in the duodenal bulb. Biopsies were taken with a cold forceps for histology. Verification of patient identification for the specimen was done. Estimated blood loss was minimal. Impression: - Normal esophagus. - Gastritis. Biopsied. - Duodenitis. Biopsied. Recommendation: - Discharge patient to home. - Resume previous diet. - Continue present medications. - Await pathology results. -CT scan of the abdomen and Pelvis re:duodenal inflammation Procedure Code(s): --- Professional --- 07172, Esophagogastroduodenoscopy, flexible, transoral; with biopsy, single or multiple CPT copyright 2017 [employer]. All rights reserved. The codes documented in this report are preliminary and upon birth attendant review may be revised to meet current compliance requirements. Raj Navarrete DO 11/15/2022 1:36:20 PM This report has been signed electronically. Number of Addenda: 0 Note Initiated On: 11/15/2022 12:55 PM
--- NOTE | 2022-11-15 13:37 | OP.CCLET_ITS ---
11/15/2022 Akila Manuel [address] [place] [address] Re : Upper GI endoscopy procedure for Raegan Diallo Dear Dr. Manuel This procedure was performed on Tuesday, November 15, 2022. My impressions and recommendations are as follows: Impressions : - Normal esophagus. - Gastritis. Biopsied. - Duodenitis. Biopsied. Recommendations : - Discharge patient to home. - Resume previous diet. - Continue present medications. - Await pathology results. -CT scan of the abdomen and Pelvis re:duodenal inflammation My findings are described in the full procedure note, which is enclosed. If I can be of further assistance, please feel free to contact me at . Sincerely, Raj Navarrete, 11/15/2022 1:36:20 PM This report has been signed electronically.
[2022-11-15 13:40] VITALS: BP 106/66; BP 118/69; PULSE 63; RESP 18; TEMP 36.4; O2SAT 100
[2022-11-15 14:04] VITALS: BP 118/69
== END 2022-11-15 14:22 | disposition home or self-care (01) ==
LOC: EN 11:48 → AC 11:50
PROVIDERS: Anesthesiology; PCP Family Medicine; Referring Provider Internal Medicine Gastroenterology; Visit Provider Internal Medicine Gastroenterology
PROC: 0DJ08ZZ Inspection of Upper Intestinal Tract, Via Natural or Artificial Opening Endoscopic (ICD-10-PCS; CPT 43235; principal; 2022-11-15 12:40)
DX: K29.70 Gastritis, unspecified, without bleeding (principal); R14.0 Abdominal distension (gaseous); K29.80 Duodenitis without bleeding; K25.9 Gastric ulcer, unspecified as acute or chronic, without hemorrhage or perforation; F90.9 Attention-deficit hyperactivity disorder, unspecified type; K90.41 Non-celiac gluten sensitivity; R11.0 Nausea
CPT/HCPCS: 43239; 81025; 88305; 88342; J7120; J2405

== ENCOUNTER → 2022-11-18 | Outpatient (CLI) | payer OTHER, SELFPAY ==
[2022-11-18 16:19] LABS: Vitamin B12 516 pg/mL (211-911); Vitamin D,25 Hydroxy 28.9 ng/mL
== END | disposition home or self-care (01) ==
LOC: BFHLAB 14:14
PROVIDERS: PCP Family Medicine; Referring Provider Family Medicine; Visit Provider Family Medicine
DX: E53.8 Deficiency of other specified B group vitamins (principal); E55.9 Vitamin D deficiency, unspecified
CPT/HCPCS: 36415; 82306; 82607

== ENCOUNTER → 2022-11-24 | Outpatient (CLI) | payer OTHER, SELFPAY ==
--- NOTE | 2022-11-24 15:33 | CT_ITS ---
STUDY: CT ABDOMEN AND PELVIS WITH CONTRAST REASON FOR EXAM: Female, 22 years old. Duodenal inflammation on EGD Bx, n/v, constipati -- oral and iv RADIATION DOSAGE (If Supplied By Facility): CTDIvol = ( 14.73 ) mGy, DLP = ( 314.91 ) mGycm TECHNIQUE: Transaxial images were obtained from the dome of the diaphragm to the symphysis pubis with oral contrast. Oral and amp; IV Gastrografin and amp; 75mL Isovue-370 was administered. Sagittal and coronal images were reconstructed. Individualized dose optimization techniques were used for this CT. COMPARISON: Comparison is made with prior study dated August 14, 2016. FINDINGS: The visualized lung bases are unremarkable. The visualized portions of the heart are within normal limits. Normal liver. Normal gallbladder and extrahepatic biliary system. Normal spleen. Normal pancreas. Normal bilateral adrenal glands. Normal right kidney. Normal left kidney. Normal visualized stomach. Normal small intestine. Large amount of fecal material is seen throughout the colon. The appendix is visualized and appears normal. Normal abdominal aorta. Normal inferior vena cava. Normal retroperitoneum. Normal urinary bladder. Normal abdominal wall. Normal osseous structures. CT/Abdomen/Pelvis WITH Contrast IMPRESSION: Large amount of fecal material is seen throughout the colon. Electronically Signed: Casey Banuelos MD at 9:38 EDT ,
== END | disposition home or self-care (01) ==
LOC: CT 15:32
PROVIDERS: PCP Family Medicine; Referring Provider Nurse Practitioner Adult Health; Visit Provider Nurse Practitioner Adult Health
DX: K29.80 Duodenitis without bleeding (principal)
CPT/HCPCS: 74177; Q9967; A4216

== ENCOUNTER → 2023-04-21 | Outpatient (CLI) | payer OTHER, SELFPAY ==
[2023-04-26 17:07] LABS: Calprotectin, Stool 10 ug/g (0-120)
[2023-04-29 18:07] LABS: Pancreatic Elastase, Fecal > 500 (>200)
== END | disposition home or self-care (01) ==
PROVIDERS: PCP Family Medicine; Referring Provider Internal Medicine Gastroenterology; Visit Provider Internal Medicine Gastroenterology
DX: K58.9 Irritable bowel syndrome, unspecified (principal); K59.09 Other constipation
CPT/HCPCS: 36415; 82653; 83630; 83993; 87177; 87209; 87329; 87493; 87506

== ENCOUNTER 2023-05-16 11:24 | Day surgery (SDC) | payer OTHER, SELFPAY ==
[2023-05-16] VITALS (7 sets, daily range): BP systolic 95–114; BP diastolic 56–76; PULSE 53–60; RESP 16–18; TEMP 36.3–36.7; O2SAT 99–100; BMI 21.1
[2023-05-16 11:57] LABS: Internal QC Validated? YES +Cl - CLEAR BKGD; Pregnancy, Urine Negative Negative; Record Kit Lot#,Urine Preg HCG0000667200
[2023-05-16] MEDS: Lactated Ringers 1,000 ML 15 ML IV (12:07)
--- NOTE | 2023-05-16 12:39 | HP.PCM_ITS ---
History and Physical Date of Admission: 05/16/23 22 F who presents to the office today for f/u EGDs. EGD was indicated for chronic nausea, globus sensation, constipation; symptoms better with gluten-free diet but not resolved. No gluten for 2 yrs but doesn't avoid cross- contamination; she does note GI sxs with cross-contamination in restaurants. First EGD unusual and nonspecific finding in duodenum: focal extravasation of glandular mucinous material. EGD was repeated; no pathologic change in duodenum. She does have gastritis. Dr Navarrete recommended CT scan of abd to eval duodenal inflammation--that was normal except for constipation. Says bowels move fine as long as she drinks enough water. Blood and stool tests were normal. The lab pattern was not suggestive of inflammatory bowel disease. She stopped famotidine since no longer effective. Started pantoprazole which has helped a lot. Chronic fatigue, can sleep 2 hrs after work, then all night. Had T&A in childhood due to snoring. Hx RLS due to anemia. Comorbidities include Yu-Danlos, POTS, ADD 10/27/22 EGD Impression: ? - Z-line irregular, 39 cm from the incisors. ? Biopsied. ? - Gastritis. Biopsied. ? - No gross lesions in the first portion of the ? duodenum. Biopsied. MICROSCOPIC DIAGNOSIS A. Duodenum, biopsy: Focal extravasation of glandular mucinous material See comment. B. Gastric antrum, biopsy: Chronic gastritis. See comment. Negative H pylori C. Distal esophagus, biopsy: Gastroesophageal junctional mucosa with chronic inflammation. No evidence of goblet cell metaplasia. See comment. 11/15/22 EGD Impression: ? - Normal esophagus. ? - Gastritis. Biopsied. ? - Duodenitis. Biopsied. MICROSCOPIC DIAGNOSIS A. Duodenum, biopsy: Fragments of duodenal mucosa, no pathologic diagnosis. B. Gastric ulcer, biopsy: Mild gastritis. See microscopic description and comment. 11/24/22 CT/Abdomen/Pelvis WITH Contrast IMPRESSION: Large amount of fecal material is seen throughout the colon. ? Exam Const General: cooperative, healthy appearing and comfortable Nutritional Appearance: average body habitus Orientation: alert, awake and oriented x3 Quality Reporting Tobacco Screening ([facility] 138) Smoking Status: Never smoker Assessment and Plan Assessment and Plan (1) Non-celiac gluten sensitivity: Status: Chronic Plan: We reviewed results from her two EGDs, CT She has started pantoprazole and feels better--less nausea, gas, bloat, belch. Rx for that was well as one month of sucralfate for gastritis She will f/u with ENT for globus sensation, enlarged nodes, phlegm She has been referred to Rheum by PCP ?Sjogren's Consider referral to Sleep Disorders for excessive daytime sleepiness Repeat EGD in one yr due to the unusual and nonspecific finding in the duodenum on the first EGD: focal extravasation of glandular mucinous material f/u 3-4 mos (2) Gastritis: Status: Chronic Plan: as above Medications: New pantoprazole 40 mg PO DAILY 90 tabs 3RF sucralfate 1 g PO QAC 90 tabs 0RF I have examined the patient and the H&P has been reviewed. There are no clinical changes since date of exam.
--- NOTE | 2023-05-16 13:30 | OP.COLON_ITS ---
Patient Name: Raegan Diallo Procedure Date: 05/16/2023 12:53 PM Date of : 2000 Age: 23 Procedure: Colonoscopy Indications: Generalized abdominal pain, Abnormal CT of the GI tract, Change in bowel habits, Change in stool caliber Providers: Raj Navarrete DO Referring MD: Akila Manuel Medicines: Monitored Anesthesia Care Patient Profile: This is a 23 year old female. Refer to note in patient chart for documentation of history and physical. Last Colonoscopy: none. The patient's first colonoscopy is today. Complications: No immediate complications. Procedure: Pre-Anesthesia Assessment: - Prior to the procedure, a History and Physical was performed, and patient medications and allergies were reviewed. The patient is competent. The risks and benefits of the procedure and the sedation options and risks were discussed with the patient. All questions were answered and informed consent was obtained. Patient identification and proposed procedure were verified by the physician in the pre-procedure area. Mental Status Examination: alert and oriented. Airway Examination: normal oropharyngeal airway and neck mobility. Respiratory Examination: clear to auscultation. CV Examination: normal. Prophylactic Antibiotics: The patient does not require prophylactic antibiotics. Prior Anticoagulants: The patient has taken no anticoagulant or antiplatelet agents. ASA Grade Assessment: II - A patient with mild systemic disease. After reviewing the risks and benefits, the patient was deemed in satisfactory condition to undergo the procedure. The anesthesia plan was to use monitored anesthesia care (MAC). Immediately prior to administration of medications, the patient was re-assessed for adequacy to receive sedatives. The heart rate, respiratory rate, oxygen saturations, blood pressure, adequacy of pulmonary ventilation, and response to care were monitored throughout the procedure. The physical status of the patient was re-assessed after the procedure. After I obtained informed consent, the scope was passed under direct vision. Throughout the procedure, the patient's blood pressure, pulse, and oxygen saturations were monitored continuously. The Colonoscope was introduced through the anus and advanced to the cecum, identified by appendiceal orifice and ileocecal valve. The colonoscopy was performed without difficulty. The patient tolerated the procedure well. The quality of the bowel preparation was adequate. Scope In: 1:07:22 PM Scope Withdrawal Time 0 hours 11 minutes 41 seconds Scope Out: 1:21:10 PM Total Procedure Duration Time 0 hours 13 minutes 48 seconds Findings: The perianal and digital rectal examinations were normal. An area of mildly congested mucosa was found in the recto-sigmoid colon, in the sigmoid colon and at the hepatic flexure. Biopsies were taken with a cold forceps for histology. Verification of patient identification for the specimen was done. Estimated blood loss was minimal. The terminal ileum appeared normal. Biopsies were taken with a cold forceps for histology. Verification of patient identification for the specimen was done. Estimated blood loss was minimal. The sigmoid colon was mildly tortuous. Impression: - Congested mucosa in the recto-sigmoid colon, in the sigmoid colon and at the hepatic flexure. Biopsied. - The examined portion of the ileum was normal. Biopsied. Recommendation: - Discharge patient to home. - Resume previous diet. - Continue present medications. - Await pathology results. - Repeat colonoscopy for surveillance based on pathology results. - Return to GI office. Procedure Code(s): --- Professional --- 08390, Colonoscopy, flexible; with biopsy, single or multiple CPT copyright 2021 [employer]. All rights reserved. The codes documented in this report are preliminary and upon ceramic designer review may be revised to meet current compliance requirements. Raj Navarrete DO 05/16/2023 1:29:52 PM This report has been signed electronically. Number of Addenda: 0 Note Initiated On: 05/16/2023 12:53 PM
--- NOTE | 2023-05-16 13:30 | OP.CCLET_ITS ---
05/16/2023 Akila Manuel [address] [place] [address] Re : Colonoscopy procedure for Raegan Diallo Dear Dr. Manuel This procedure was performed on Tuesday, May 16, 2023. My impressions and recommendations are as follows: Impressions : - Congested mucosa in the recto-sigmoid colon, in the sigmoid colon and at the hepatic flexure. Biopsied. - The examined portion of the ileum was normal. Biopsied. Recommendations : - Discharge patient to home. - Resume previous diet. - Continue present medications. - Await pathology results. - Repeat colonoscopy for surveillance based on pathology results. - Return to GI office. My findings are described in the full procedure note, which is enclosed. If I can be of further assistance, please feel free to contact me at . Sincerely, Raj Navarrete, 05/16/2023 1:29:52 PM This report has been signed electronically.
--- NOTE | 2023-05-16 18:14 | COLBX_PTH ---
PATIENT: [place] LOC: EN U#:[id number] AGE/SX: 23/F ROOM: RE05/16/[address]: Dr. Raj Navarrete DO : 2000 BED: DIS: 05/16/2023 SPEC #: [id number] RECD: 05/17/23 08:24 STATUS: CHARLES REMichelle #: [id number] CELESTINA: 05/16/23 18:[address]: Raj Navarrete DEPT: SURGICAL PATHOLOGY RECD BY: Daxa Doan ENTERED: 05/17/23 08:25 SP TYPE: COLON BX OTHR DR: Dr. Akila Manuel DO Tissues: A - Ileum, NOS B - COLON BIOPSY Procedures: Surgery Specimen Level IV HEADER OPERATION: Colonoscopy with biopsies PRE-OP DIAGNOSIS: Nonceliac gluten sensitivity, gastritis TISSUE SUBMITTED: A - Terminal ileum biopsy, B - Random colon biopsies MICROSCOPIC DIAGNOSIS A. Terminal ileum, biopsy: No pathologic change. B. Colon, random biopsy: No pathologic change. AM:shelby 05/18/2023 MICROSCOPIC DESCRIPTION Slides are reviewed. GROSS DESCRIPTION A - Received in fixative is one container labeled with the patient's name and designated terminal ileum. The specimen consists of two irregular fragments of light gallardo soft tissue that in aggregate measure 0.6 x 0.3 x 0.1 cm. The specimen is totally submitted in one cassette. B - Received in fixative is one container labeled with the patient's name and designated random colon biopsy. The specimen consists of multiple irregular fragments of light gallardo soft tissue that in aggregate measure 2.5 x 0.5 x 0.1 cm. The specimen is totally submitted in one cassette. / SJ:shelby 05/17/2023 TC:5 CPT: 95517 x2
== END 2023-05-16 14:23 | disposition home or self-care (01) ==
LOC: EN 11:25 → AC 11:29
PROVIDERS: Anesthesiology; PCP Family Medicine; Referring Provider Family Medicine; Visit Provider Internal Medicine Gastroenterology
PROC: 0DJD8ZZ Inspection of Lower Intestinal Tract, Via Natural or Artificial Opening Endoscopic (ICD-10-PCS; CPT 45378; principal; 2023-05-16 12:25)
DX: K29.50 Unspecified chronic gastritis without bleeding (principal); K90.41 Non-celiac gluten sensitivity
CPT/HCPCS: 45380; 81025; 88305; J7120; A4216; J2405

== ENCOUNTER → 2023-07-07 | Outpatient (CLI) | payer OTHER, SELFPAY ==
[2023-07-07 15:27] LABS: Absolute Lymphocyte Count 1.45 X10^3/uL (0.83-4.51); Absolute Neutrophil Count 2.7 X10^3/uL (2.0-7.7); Basophil# 0.02 X10^3/uL; Basophil% 0.4 % (0-1); Eosinophil# 0.16 X10^3/uL; Eosinophils% 3.4 % (0-5); Hematocrit 43.5 % (37-47); Hemoglobin 14.3 g/dL (12.0-15.0); Lymphocyte # 1.45 X10^3/ul (0.83-4.51); Lymphocyte % 30.9 % (19-41); Mean Corp Hgb Conc 32.9 g/dL (32-36); Mean Corpuscular Hgb 29.4 pg (27.0-32.0); Mean Corpuscular Volume 89.5 fL (81-99); Mean Platelet Vol. 10.5 fl (6.2-12.0); Monocyte# 0.33 X10^3/uL; NRBC Flagged by Analyzer 0 % (0-5); Neutrophil # 2.73 X10^3/uL (2.7-7.7); Neutrophil % 58.1 % (47-70); Platelet Count 148 K/mm3 (150-450); RBC Distribution Width SD 39.2 fl (35.1-43.9); Red Blood Count 4.86 M/mm3 (4.2-5.4); White Blood Count 4.7 K/mm3 (4.4-11.0)
[2023-07-07 15:54] LABS: ALB/GLOB Ratio 1.2 RATIO (0.9-2.4); AST(SGOT) 15 U/L (15-37); Alanine Aminotransfer ALT/SGPT 21 U/L (13-56); Albumin, Serum 4.2 g/dL (3.2-5.0); Alkaline Phosphatase 69 U/L (45-117); Anion Gap 4 (5-15); BUN 11 mg/dL (7-18); BUN/Creat Ratio 11.7 RATIO (10-20); Calcium,Total 9.9 mg/dL (8.5-10.1); Chloride 104 mmol/L (98-107); Creatinine, Serum 0.94 mg/dL (0.55-1.02); EST Glomerular Filtration Rate 78 mL/min (>60); Est Glom Filt Rate - Afr Amer 94 mL/min (>60); Globulin 3.5 g/dL (2.2-4.2); Glucose 106 mg/dL (74-106); Protein, Total 7.7 g/dL (6.4-8.2); Sodium Level 138 mmol/L (136-145)
== END | disposition home or self-care (01) ==
LOC: LAB 14:21
PROVIDERS: PCP Family Medicine; Referring Provider Nurse Practitioner Family; Visit Provider Nurse Practitioner Family
DX: R10.32 Left lower quadrant pain (principal)
CPT/HCPCS: 36415; 80053; 85025

== ENCOUNTER → 2023-07-13 | Outpatient (CLI) | payer OTHER, SELFPAY ==
--- NOTE | 2023-07-13 16:30 | US_ITS ---
INDICATION: Pain EXAMINATION: Ultrasound US Pelvis Non-OB Complete TECHNIQUE: Transabdominal pelvic ultrasound was performed. Grayscale, spectral waveform, and color flow Doppler evaluation of the adnexa. COMPARISON: None. LMP: 06/26/2023. FINDINGS: UTERUS: 6.6 cm length. Normal configuration. ENDOMETRIUM: Not thickened. 0.6 cm maximal thickness. OVARIES: Right ovary: 2.9 x 2.6 x 2.7 cm. Dominant follicle 1.6 cm. Left ovary: 2.1 x 1.3 x 2.0 cm. The ovaries appear unremarkable. Vascular flow demonstrated. No findings to suggest ovarian torsion. FREE FLUID: None. US/Pelvic (Non ) IMPRESSION: Unremarkable study. Electronically Signed: Darlene Kruas MD at 22:43 EST ,
== END | disposition home or self-care (01) ==
LOC: US 16:28
PROVIDERS: PCP Family Medicine; Referring Provider Nurse Practitioner Family; Visit Provider Nurse Practitioner Family
DX: R10.32 Left lower quadrant pain (principal)
CPT/HCPCS: 76856

== ENCOUNTER → 2023-08-05 | Outpatient (CLI) | payer OTHER, SELFPAY ==
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
[2023-08-06 16:08] LABS: Adrenocorticotropic Hormone 25.9 pg/mL (7.2-63.3)
== END | disposition home or self-care (01) ==
LOC: LAB 07:37
PROVIDERS: PCP Family Medicine; Referring Provider Internal Medicine Gastroenterology; Visit Provider Internal Medicine Gastroenterology
DX: K29.70 Gastritis, unspecified, without bleeding (principal); K90.41 Non-celiac gluten sensitivity
CPT/HCPCS: 36415; 82024; 82533

== ENCOUNTER → 2023-08-15 | Outpatient (CLI) | payer OTHER, SELFPAY ==
--- NOTE | 2023-08-15 16:51 | CT_ITS ---
STUDY: CT ABDOMEN AND PELVIS WITH CONTRAST REASON FOR EXAM: Female, 23 years old. Abdominal pain RADIATION DOSAGE (If Supplied By Facility): CTDIvol = ( 13.46 ) mGy, DLP = ( 345.71 ) mGycm TECHNIQUE: Transaxial images were obtained from the dome of the diaphragm to the symphysis pubis without oral contrast. IV 75mL Isovue-370 was administered. Sagittal and coronal images were reconstructed. Individualized dose optimization techniques were used for this CT. COMPARISON: None. FINDINGS: The visualized lung bases are unremarkable. The visualized portions of the heart are within normal limits. Normal liver. Normal gallbladder and extrahepatic biliary system. Normal spleen. Mild diffuse prominence of the pancreas demonstrating slightly diminished attenuation possibly representing acute pancreatitis.. Normal bilateral adrenal glands. Normal right kidney. Normal left kidney. Normal visualized stomach. Multiple mildly distended fluid-filled loops of proximal small bowel representing focal ileus which may be consistent with nonspecific enteritis. Normal colon. No evidence for acute appendicitis Normal abdominal aorta. Normal inferior vena cava. Normal retroperitoneum. Nonspecific bladder distention Normal abdominal wall. Normal osseous structures. CT/Abdomen/Pelvis WITH Contrast IMPRESSION: Findings consistent with nonspecific enteritis possibly due to mild acute pancreatitis. Clinical correlation is recommended Electronically Signed: Massimo Cardenas MD at 19:46 EST ,
--- OUTSIDE RECORDS SUMMARY | 2023-08-15 16:57 | XMS RPT_ITS | CCD ---
Author Name Unknown Address [address] [place] [address] Organization [facility] Care Team Providers Care It Infrastructure Project Manager Name Role Phone Sabrina Loaiza MD Unavailable [phone] Arianna Lange LPN Unavailable Unavailab Daxa Patel Unavailable Unavailab le Akila Manuel Unavailable Unavailable Unavailable Allergies Allergy Classification Reported Allergen(s) Allergy Type Date of Onset Reaction(s) Facility Amoxicillin / Clavulanate (1 source) Amoxicillin / Clavulanate; Translations: [Augmentin] Drug Allergy [facility] 120 Work Phone: [employer] (1 source) Contrast media; Translations: [Red Dye] Substance Allergy [facility] Work Phone: Penicillins (antibiotic) (1 source) Amoxicillin; Translations: [amoxicillin] Drug Allergy [facility] Work Phone: (17 sources) [employer]rast [employer]; Translations: [RED DYE] allergy to substance 1 turns hyper (red dye #5) (motrin coating) [facility] Work Phone: Medications Completed/Discontinued Medications Medication Drug Class(es) Dates Sig (Normalized) Sig (Original) amoxicillin 875 mg oral tablet (20 sources) Penicillin-class Antibacterial Start: 08-15-2014 End: 09-02-2014 take 1 tablet by mouth twice daily AMOXICILLIN 875 MG TABS 1 po Twice daily x 10 days [facility] [id number] Amor Villar DO Problems Active Problems Problem [...] temperature 97.5 [degF] Akila Manuel Work Phone: [facility] 120 Work Phone: 01-04-2021 13:59-0400 Diastolic blood pressure 80 mm[Hg] Akila Manuel Work Phone: [facility] 120 Work Phone: 01-04-2021 13:59-0400 Systolic blood pressure 120 mm[Hg] Akila Manuel Work Phone: [facility] 120 Work Phone: 02-21-2017 14:57-0400 BMI (Body Mass Index) 19.57 kg/m2 Daxa Guy [facility] 02-21-2017 14:57-0400 Body Temperature 98.6 [degF] [facility]-2017 14:57-0400 BP Diastolic 64 mm[Hg] Daxa Guy [facility] 02-21-2017 14:57-0400 BP Systolic 99 mm[Hg] [facility] 02-21-2017 14:57-0400 Height 165.1 cm Daxa Guy [facility] 02-21-2017 14:57-0400 Pulse (Heart Rate) 71 /min Daxa Guy [facility] 02-21-2017 14:57-0400 Respiratory Rate 16 /min Daxa Guy [facility] 02-21-2017 14:57-0400 Weight 53.34 kg Daxa Guy [facility] 02-20-2017 14:30-0400 BMI (Body Mass Index) 19.33 kg/m2 Arianna Lange LPN [facility] Work Phone: 02-20-2017 14:30-0400 Body Temperature 97.9 [degF] Arianna Lange LPN [facility] Work Phone: 02-20-2017 14:30-0400 BP Diastolic 64 mm[Hg] Arianna Lange LPN [facility] Work Phone: 02-20-2017 14:30-0400 BP Systolic 104 mm[Hg] Arianna Lange LPN [facility] Work Phone: 02-20-2017 14:30-0400 Height 165.1 cm Arianna Lange LPN [facility] Work Phone: 02-20-2017 14:30-0400 Pulse (Heart Rate) 69 /min Arianna Lange LPN [facility] Work Phone: 02-20-2017 14:30-0400 Respiratory Rate 12 /min Arianna Lange LPN [facility] Work Phone: 02-20-2017 14:30-0400 Weight 52.71 kg Arianna Lange LPN [facility] Work Phone: 08-03-2016 09:25-0500 Body Temperature 97.7 [degF] Arianna Lange LPN [facility] Work Phone: 08-03-2016 09:25-0500 BSA (Body Surface Area) 1.52 m2 Arianna Lange LPN [facility] Work Phone: 08-03-2016 09:25-0500 Height 160.02 cm Arianna Lnage [facility] Work Phone: 05-05-2015 23:11-0400 Body surface area Derived from formula 89.08 mL/min Daxa Guy [facility] Encounters Encounter Date Encounter Type Care Provider Facility Start: 01-04-2021 Office outpatient visit 25 minutes Akila Manuel Work Phone: [facility] 120 Work Phone: Start: 07-10-2014 Well child visit Daxa Guy [facility] Procedures Date Procedure Procedure Detail Performing Clinician Start: 02-24-2017 End: 02-26-2017 Insert intrauterine device Sabrina lopez MD Work Phone: Start: 02-24-2017 End: 02-26-2017 Levonorgestrel-releasing intrauterine contraceptive system (mirena), 52 mg Sabrina Loaiza MD Work Phone: Start: 02-20-2017 History and physical examination, sports participation Sports physical examination Daxa [facility] Start: 05-17-2016 End: 08-01-2016 Brncspsm provocation eval bulb assembler spmtry w/admn agt Erich Cordova Work Phone: [...] JOHNSON Incision of eardrum Margarette Vee demarco LOSS PREVENTION OPERATIONS MANAGER Repair of meniscus Akila Levy Benny beckman Work Phone: Plan of Treatment Date Care Activity Detail Author Start: 04-07-2017 End: 04-07-2017 Appointment Appointment [facility] Start: 02-27-2017 End: 02-27-[address] [facility] Work Phone: Start: 02-24-2017 End: 02-24-2017 Appointment Appointment [facility] Start: 02-24-2017 End: 02-24-2017 *GC/Chlamydia *GC/Chlamydia [facility] Start: 02-21-2017 End: 02-21-[address] [facility] Work Phone: Start: 02-20-2017 End: 02-20-[address] [facility] Work Phone: Start: 09-19-2016 End: 09-19-[address] [facility] Work Phone: Start: 09-19-2016 End: 09-19-2016 Follow Up Appt 6 months Follow Up Appt [address] [facility] Work Phone: Start: 08-03-2016 End: 08-03-[address] [facility] Work Phone: Start: 08-03-2016 End: 08-03-2016 Follow Up Appt 1 month Follow Up Appt 1 month [facility] Work Phone: Start: 05-17-2016 End: 08-01-2016 Cholesterol Methylcholine inhalation challenge [facility] Work Phone: Start: 05-05-2016 End: 05-05-2016 Follow Up Appt 3 months Follow Up Appt 3 months [facility] Work Phone: Start: 05-05-2016 End: 08-01-2016 Pulmonary Function Test - complete Pulmonary Function Test - complete [facility] Work Phone: Start: 11-19-2015 End: 11-20-2015 Neurology Referral Neurology Referral Willie Cullen, [address] [place] [address], [id number] [facility] Work Phone: Start: 10-01-2015 End: 10-07-2015 Other Referral Other Referral Physical Therapy [facility], [address] [place] [address], [phone] [facility] Work Phone: Start: 08-31-2015 End: 08-31-2015 Cardiac Referral Cardiac Referral [facility] Provider, [address] [place] [address], [id number] [facility] Work Phone: Start: 08-06-2015 End: 08-06-2015 48 hour holter monitor 48 hour holter monitor [facility] Work Phone: Start: 07-27-2015 End: 07-29-2015 *CBC with Differential *CBC with Differential [facility] Work Phone: Start: 07-27-2015 End: 07-29-2015 *CMP Complete Metabolic Panel *CMP Complete Metabolic Panel [facility] Work Phone: Start: 07-27-2015 End: 07-27-2015 *EKG (Done in Hospital) *EKG (Done in Hospital) [facility] Work Phone: Start: 07-27-2015 End: 07-27-2015 Echocardiography Echocardiogram (complete) [facility] Work Phone: Start: 07-27-2015 End: 07-29-2015 Thyroid stimulating hormone (TSH) *TSH [facility] Work Phone: Start: 07-27-2015 End: 07-29-2015 Thyroxine (T4) free *T4 free [facility] Work Phone: Start: 07-27-2015 End: 07-29-2015 Triiodothyronine (T3) *T3-Total [facility] Work Phone: Start: 06-08-2015 End: 06-08-2015 X-ray exam, knee, 4 or more X-Ray, Knee [facility] Work Phone: Start: 02-11-2015 End: 07-29-2015 Immunization admin Administration Immunization >=[address] [facility] Work Phone: Start: 02-11-2015 End: 02-11-2015 X-ray exam of ankle X-Ray, Ankle [facility] Work Phone: Start: 08-15-2014 End: 08-15-2014 Physical Therapy General Physical Therapy General Physical Therapy [facility], [address] [place] [address], [phone] [facility] Work Phone: Immunizations Immunization Date Immunization Notes Care Provider Emre yen 02-11-2015 human papilloma viru s vaccine, quadrivalent Arianna Lange LPN [facility] Work Phone: 02-11-2015 [id number] [facility] Work Phone: 07-10-2014 human papilloma viru s vaccine, quadrivalent Arianna Lange LPN [facility] Work Phone: 07-10-2014 [id number] [facility] Work Phone: Payers Date Payer Category Payer Policy ID Unknown [employer] Social History Date Type Detail Facility Non-smoker Non-smoker [facility] [facility] Work Phone: History of Present illness [...] showed no bleed. She does see her continuous improvement specialist in the near future and is [...] 400 mg twice daily for 10 days. [facility] [facility] Work Phone: Summary Purpose Family History [...] DATE CREATED AUTHOR AUTHOR'S ORGANIZ ATION 09/25/2020 [facility] DATE CREATED AUTHOR AUTHOR'S ORGANIZ ATION 01/05/2021 [facility] [place] DATE CREATED AUTHOR AUTHOR'S ORGANIZ ATION 01/05/2021 [facility] DATE CREATED AUTHOR AUTHOR'S ORGANIZ ATION 05/31/2021 [facility] FOR RECORDS PERTAINING TO PATIENTS [...] BE BASED ON THE PRIMARY CLINICAL RECORDS. [facility] [employer] provides no warranty or guarantee of the accuracy or completeness of information in this document.
== END | disposition home or self-care (01) ==
LOC: CT 16:50
PROVIDERS: PCP Family Medicine; Referring Provider Internal Medicine Gastroenterology; Visit Provider Internal Medicine Gastroenterology
DX: R10.9 Unspecified abdominal pain (principal); K58.9 Irritable bowel syndrome, unspecified
CPT/HCPCS: 74177; Q9967; A4216

== ENCOUNTER 2023-08-18 18:05 | Emergency (ER) | payer OTHER, SELFPAY ==
[2023-08-18 18:07] VITALS: BP 122/81; PULSE 79; RESP 14; TEMP 36.2; O2SAT 100; BMI 21.1
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
--- OUTSIDE RECORDS SUMMARY | 2023-08-18 18:39 | XMS RPT_ITS | CCD ---
Author Name Unknown Address [address] [place] [address] Organization [facility] Care Team Providers Care Olive Brine Tester Name Role Phone Sabrina Loaiza MD Unavailable [phone] Arianna Lange LPN Unavailable Unavailab Daxa Patel Unavailable Unavailab le Akila Manuel Unavailable Unavailable Unavailable Allergies Allergy Classification Reported Allergen(s) Allergy Type Date of Onset Reaction(s) Facility Amoxicillin / Clavulanate (1 source) Amoxicillin / Clavulanate; Translations: [Augmentin] Drug Allergy [facility] Work Phone: [employer] (1 source) Contrast media; Translations: [Red Dye] Substance Allergy [facility] Work Phone: Penicillins (antibiotic) (1 source) Amoxicillin; Translations: [amoxicillin] Drug Allergy [facility] Work Phone: (17 sources) [employer]; Translations: [RED DYE] allergy to substance 1 turns hyper (red dye #5) (motrin coating) [facility] Work Phone: Medications Completed/Discontinued Medications Medication Drug Class(es) Dates Sig (Normalized) Sig (Original) amoxicillin 875 mg oral tablet (20 sources) Penicillin-class Antibacterial Start: 08-15-2014 End: 09-02-2014 take 1 tablet by mouth twice daily AMOXICILLIN 875 MG TABS 1 po Twice daily x 10 days [facility] [id number] Amro Villar DO Problems Active Problems Problem Classification [...] temperature 97.5 [degF] Akila Manuel Work Phone: [facility] Work Phone: 01-04-2021 13:59-0400 Diastolic blood pressure 80 mm[Hg] Akila Manuel Work Phone: [facility] Work Phone: 01-04-2021 13:59-0400 Systolic blood pressure 120 mm[Hg] Akila Manuel Work Phone: [facility] Work Phone: 02-21-2017 14:57-0400 BMI (Body Mass Index) 19.57 kg/m2 Daxa Guy [facility] 02-21-2017 14:57-0400 Body Temperature 98.6 [degF] [facility] 14:57-0400 BP Diastolic 64 mm[Hg] Daxa Guy [facility] 02-21-2017 14:57-0400 BP Systolic 99 mm[Hg] [facility] 02-21-2017 14:57-0400 Height 165.1 cm Daxa Guy [facility] 02-21-2017 14:57-0400 Pulse (Heart Rate) 71 /min Daxa Guy [facility] 02-21-2017 14:57-0400 Respiratory Rate 16 /min Daxa Guy [facility] 02-21-2017 14:57-0400 Weight 53.[address] [facility] 02-20-2017 14:30-0400 BMI (Body Mass Index) 19.33 kg/m2 Arianna Lange LPN [facility] Work Phone: 02-20-2017 14:30-0400 Body Temperature 97.9 [degF] Arianna Lange LPN [facility] Work Phone: 02-20-2017 14:30-0400 BP Diastolic 64 mm[Hg] Arianna Lange LPN [facility] Work Phone: 02-20-2017 14:30-0400 BP Systolic 104 mm[Hg] Arianna Lange LPN [facility] Work Phone: 02-20-2017 14:30-0400 Height 165.1 cm Arianna Lange LPN [facility] Work Phone: 02-20-2017 14:30-0400 Pulse (Heart Rate) 69 /min Arianna Lange LPN [facility] Work Phone: 02-20-2017 14:30-0400 Respiratory Rate 12 /min Arianna Lange LPN [facility] Work Phone: 02-20-2017 14:30-0400 Weight 52.71 kg Arianna Lange LPN [facility] Work Phone: 08-03-2016 09:25-0500 Body Temperature 97.7 [degF] Arianna Lange LPN [facility] Work Phone: 08-03-2016 09:25-0500 BSA (Body Surface Area) 1.52 m2 Arianna Lange LPN [facility] Work Phone: 08-03-2016 09:25-0500 Height 160.02 cm Arianna Lange [facility] Work Phone: 05-05-2015 23:11-0400 Body surface area Derived from formula 89.08 mL/min Daxa Guy [facility] Encounters Encounter Date Encounter Type Care Provider Facility Start: 01-04-2021 Office outpatient visit 25 minutes Akila Manuel Work Phone: [facility] Work Phone: Start: 07-10-2014 Well child visit Daxa Guy [facility] Procedures Date Procedure Procedure Detail Performing Clinician Start: 02-24-2017 End: 02-26-2017 Insert intrauterine device Sabrina lopez MD Work Phone: Start: 02-24-2017 End: 02-26-2017 Levonorgestrel-releasing intrauterine contraceptive system (mirena), 52 mg Sabrina Loaiza MD Work Phone: Start: 02-20-2017 History and physical examination, sports participation Sports physical examination [facility]axa [facility] Start: 05-17-2016 End: 08-01-2016 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 Start: 02-24-2017 End: 02-24-2017 *GC/Chlamydia *GC/Chlamydia [facility] Start: 02-21-2017 End: 02-21-2017 Appointment Appointment [facility] Work Phone: Start: 02-20-2017 End: 02-20-2017 Appointment Appointment [facility] Work Phone: Start: 09-19-2016 End: 09-19-2016 CSM [facility] Work Phone: Start: 09-19-2016 End: 09-19-2016 Follow Up Appt 6 months Follow Up Appt 6 months [facility] Work Phone: Start: 08-03-2016 End: 08-03-2016 BWA BWCam [facility] Work Phone: Start: 08-03-2016 End: 08-03-2016 Follow Up Appt 1 month Follow Up Appt 1 month [facility] Work Phone: Start: 05-17-2016 End: 08-01-2016 Cholesterol Methylcholine inhalation challenge [facility] Work Phone: Start: 05-05-2016 End: 05-05-2016 Follow Up Appt 3 months Follow Up Appt 3 months [facility] Work Phone: Start: 05-05-2016 End: 08-01-2016 Pulmonary Function Test - complete Pulmonary Function Test - complete [facility] Work Phone: Start: 11-19-2015 End: 11-20-2015 Neurology Referral Neurology Referral Willie Cullen, [address] [place] [address], [id number] [facility] Work Phone: Start: 10-01-2015 End: 10-07-2015 Other Referral Other Referral Physical Therapy [facility], [address] [place] [address], [id number] [facility] Work Phone: Start: 08-31-2015 End: 08-31-2015 Cardiac Referral Cardiac Referral [facility] Provider, [address] [place] [address], [id number] [facility] Work Phone: Start: 08-06-2015 End: 08-06-2015 48 hour holter monitor 48 hour holter monitor [facility] Work Phone: Start: 07-27-2015 End: 07-29-2015 *CBC with Differential *CBC with Differential [facility] Work Phone: Start: 07-27-2015 End: 07-29-2015 *CMP Complete Metabolic Panel *CMP Complete Metabolic Panel [facility] Work Phone: Start: 07-27-2015 End: 07-27-2015 *EKG (Done in Hospital) *EKG (Done in Hospital) [facility] Work Phone: Start: 07-27-2015 End: 07-27-2015 Echocardiography Echocardiogram (complete) [facility] Work Phone: Start: 07-27-2015 End: 07-29-2015 Thyroid stimulating hormone (TSH) *TSH [facility] Work Phone: Start: 07-27-2015 End: 07-29-2015 Thyroxine (T4) free *T4 free [facility] Work Phone: Start: 07-27-2015 End: 07-29-2015 Triiodothyronine (T3) *T3-Total [facility] Work Phone: Start: 06-08-2015 End: 06-08-2015 X-ray exam, knee, 4 or more X-Ray, Knee [facility] Work Phone: Start: 02-11-2015 End: 07-29-2015 Immunization admin Administration Immunization >=8 years of age [facility] Work Phone: Start: 02-11-2015 End: 02-11-2015 X-ray exam of ankle X-Ray, Ankle [facility] Work Phone: Start: 08-15-2014 End: 08-15-2014 Physical Therapy General Physical Therapy General Physical Therapy [facility], [address] [place] [address], [id number] [facility] Work Phone: Immunizations Immunization Date Immunization Notes Care Provider Emre yen 02-11-2015 human papilloma viru s vaccine, quadrivalent Arianna Lange LPN [facility] Work Phone: 02-11-2015 [id number] Arianna Lange LPN [facility] Work Phone: 07-10-2014 human papilloma viru s vaccine, quadrivalent Arianna Lange LPN [facility] Work Phone: 07-10-2014 [id number] Arianna Lange LPN [facility] Work Phone: Payers Date Payer Category Payer Policy ID Unknown [employer] Social History Date Type Detail Facility Non-smoker Non-smoker [facility] [facility] Work Phone: History of Present illness [...] showed no bleed. 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 [facility] [facility] Work Phone: Summary Purpose Family History [...] DATE CREATED AUTHOR AUTHOR'S ORGANIZ ATION 09/25/2020 [facility] DATE CREATED AUTHOR AUTHOR'S ORGANIZ ATION 01/05/2021 [facility] DATE CREATED AUTHOR AUTHOR'S ORGANIZ ATION 01/05/2021 [facility] DATE CREATED AUTHOR AUTHOR'S ORGANIZ ATION 05/31/2021 [facility] FOR RECORDS PERTAINING TO PATIENTS WHO ARE [...] PRIMARY CLINICAL RECORDS. [facility] [employer] provides no warranty or guarantee of the accuracy or completeness of information in this document.
[2023-08-18] MEDS: 0.9% Normal Saline (1000mL) 1,000 ML 1000 ML IV (18:58)
[2023-08-18] MEDS: Ondansetron 4 MG/2 ML Vial IV (18:59)
[2023-08-18] MEDS: Ketorolac 15 MG/ML Vial IV (18:59)
[2023-08-18 19:42] LABS: Mucous, Urine 0 SEEN /hpf (<or=2+); Red Blood Cells-Urine 0 SEEN /hpf (0-5); White Blood Cells 0 SEEN /hpf (0-5)
[2023-08-18 19:43] LABS: Color, Urine Yellow (Yellow); Glucose, Dipstick Normal (Normal); Ketone-Dipstick Negative (Negative); Leukocyte Esterase-Dipstick Negative /ul (Negative); Nitrite-Dipstick Negative (Negative); Occult Blood-Urine 25 /ul (Negative); Protein-Dipstick Negative (Negative); Specific Gravity, Urine 1.015 (1.002-1.030); Urine Bilirubin Dipstick Negative (Negative); Urine Clarity Clear (Clear); Urine Urobilinogen Normal (Normal)
[2023-08-18 19:50] LABS: Bacteria RARE /hpf (None Seen); Squamous Epithelial Cells - UA 0-5 SEEN /hpf (5-10)
[2023-08-18 19:51] LABS: Internal QC Validated? YES +Cl - CLEAR BKGD; Pregnancy, Urine Negative Negative
[2023-08-18 19:51] LABS: Absolute Lymphocyte Count 1.62 X10^3/uL (0.83-4.51); Basophil# 0.04 X10^3/uL; Basophil% 0.9 % (0-1); Eosinophil# 0.19 X10^3/uL; Eosinophils% 4.5 % (0-5); Hematocrit 40.8 % (37-47); Hemoglobin 13.8 g/dL (12.0-15.0); Lymphocyte # 1.62 X10^3/ul (0.83-4.51); Lymphocyte % 38.4 % (19-41); Mean Corp Hgb Conc 33.8 g/dL (32-36); Mean Corpuscular Volume 88.7 fL (81-99); Mean Platelet Vol. 10.7 fl (6.2-12.0); Monocyte# 0.41 X10^3/uL; Monocyte% 9.7 % (0-10); NRBC Flagged by Analyzer 0 % (0-5); Neutrophil # 1.95 X10^3/uL (2.7-7.7); Neutrophil % 46.3 % (47-70); Platelet Count 165 K/mm3 (150-450); RBC Distribution Width CV 12.4 % (11.6-14.6); RBC Distribution Width SD 40.2 fl (35.1-43.9); White Blood Count 4.2 K/mm3 (4.4-11.0)
[2023-08-18 20:07] LABS: AST(SGOT) 19 U/L (15-37); Alanine Aminotransfer ALT/SGPT 21 U/L (13-56); Albumin, Serum 4.2 g/dL (3.2-5.0); Alkaline Phosphatase 77 U/L (45-117); Anion Gap 4 (5-15); BUN 14 mg/dL (7-18); BUN/Creat Ratio 16.4 RATIO (10-20); Bilirubin, Direct 0.13 mg/dL (0.00-0.30); Chloride 107 mmol/L (98-107); Creatinine, Serum 0.85 mg/dL (0.55-1.02); EST Glomerular Filtration Rate 87 mL/min (>60); Est Glom Filt Rate - Afr Amer 106 mL/min (>60); Estimated Creatinine Clearance 88.89 ml/min; Globulin 3.1 g/dL (2.2-4.2); Glucose 95 mg/dL (74-106); Lipase 32 U/L (13-75); Potassium 3.7 mmol/L (3.5-5.1); Protein, Total 7.3 g/dL (6.4-8.2); Sodium Level 140 mmol/L (136-145)
[2023-08-18 22:00] VITALS: BP 119/81; PULSE 98; RESP 12; O2SAT 99
== END 2023-08-18 22:05 | disposition home or self-care (01) ==
PROVIDERS: Emergency Provider Emergency Medicine; PCP Family Medicine; Visit Provider Emergency Medicine
DX: K52.9 Noninfective gastroenteritis and colitis, unspecified (principal); G90.A Postural orthostatic tachycardia syndrome [POTS]; Z79.899 Other long term (current) drug therapy; K21.9 Gastro-esophageal reflux disease without esophagitis; F90.9 Attention-deficit hyperactivity disorder, unspecified type; Z96.22 Myringotomy tube(s) status
CPT/HCPCS: 36415; 80048; 80076; 81001; 81025; 83690; 85025; 96361; 96374; 96375; 99283; J7030; A4216; J2405

== ENCOUNTER → 2023-08-18 | Outpatient (CLI) | payer OTHER, SELFPAY ==
--- NOTE | 2023-08-18 09:09 | US_ITS ---
STUDY: ABDOMINAL ULTRASOUND - RIGHT UPPER QUADRANT REASON FOR VISIT: Female, 23 years old gallbladder functioning, ?stones -- -- Pancreatitis TECHNIQUE: Ultrasound evaluation of the right upper quadrant was performed with real-time and static morgan-scale imaging. TECHNICAL QUALITY: Adequate. COMPARISON: Comparison is made with prior CT scan of abdomen pelvis dated August 15, 2023. FINDINGS: Liver: The liver measures 14 cm. There is normal echogenicity of the liver. The bile ducts are within normal limits. There is hepatic color flow. The direction of portal flow is hepatopetal. There is no demonstrated mass lesion. Gallbladder: Normal distended gallbladder. The gallbladder wall measures 1.4 mm. There is a negative sonographic Zhang''s sign. There is no pericholecystic fluid. There are no gallstones. Common Bile Duct (C.B.D.): The common bile duct measures 2.4 mm. Pancreas: Normal size of the head, body and tail of the pancreas. There is normal echogenicity of the pancreas. There is no demonstrated pancreatic mass or cyst. Right Kidney: Normal size of the right kidney. The right kidney measures 9.7 cm x 4.2 cm x 3.2 cm. Normal renal cortex. The right cortex measures 1.0 cm. There is no demonstrated renal mass or cyst. There is no right hydronephrosis. US/Abdomen Limited IMPRESSION: Normal right upper quadrant ultrasound examination. Electronically Signed: Casey Banuelos MD at 15:23 EST ,
--- OUTSIDE RECORDS SUMMARY | 2023-08-18 09:30 | XMS RPT_ITS | CCD ---
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 Operator Name Role Phone Sabrina Loaiza MD Unavailable [phone] Arianna Lange LPN Unavailable Unavailab Daxa Patel Unavailable Unavailab le Akila Manuel Unavailable Unavailable Unavailable Allergies Allergy Classification Reported Allergen(s) Allergy Type Date of Onset Reaction(s) Facility Amoxicillin / Clavulanate (1 source) Amoxicillin / Clavulanate; Translations: [Augmentin] Drug Allergy [facility] 120 Work Phone: [employer] (1 source) Contrast media; Translations: [Red Dye] Substance Allergy [facility] 120 Work Phone: Penicillins (antibiotic) (1 source) Amoxicillin; Translations: [amoxicillin] Drug Allergy [facility] 120 Work Phone: (17 sources) [employer]; Translations: [RED DYE] allergy to substance 1 turns hyper (red dye #5) (motrin coating) [facility] Work Phone: Medications Completed/Discontinued Medications Medication Drug Class(es) Dates Sig (Normalized) Sig (Original) amoxicillin 875 mg oral tablet (20 sources) Penicillin-class Antibacterial Start: 08-15-2014 End: 09-02-2014 take 1 tablet by mouth twice daily AMOXICILLIN 875 MG TABS 1 po Twice daily x 10 days [facility] [id number] Amor Villar DO Problems Active Problems Problem [...] 97.5 [degF] Akila Manuel Work Phone: [facility] 120 Work Phone: 01-04-2021 13:59-0400 Diastolic blood pressure 80 mm[Hg] Akila Manuel Work Phone: [facility] 120 Work Phone: 01-04-2021 13:59-0400 Systolic blood pressure 120 mm[Hg] Akila Manuel Work Phone: [facility] 120 Work Phone: 02-21-2017 14:57-0400 BMI (Body Mass Index) 19.57 kg/m2 Daxa Guy [facility] 02-21-2017 14:57-0400 Body Temperature 98.6 [degF] [facility]-21-2017 14:57-0400 BP Diastolic 64 mm[Hg] Daxa Guy [facility] 02-21-2017 14:57-0400 BP Systolic 99 mm[Hg] [facility] 02-21-2017 14:57-0400 Height 165.1 cm Daxa Guy [facility] 02-21-2017 14:57-0400 Pulse (Heart Rate) 71 /min Daxa Guy [facility] 02-21-2017 14:57-0400 Respiratory Rate 16 /min Daxa Guy [facility] 02-21-2017 14:57-0400 Weight 53.[address] [facility] 02-20-2017 14:30-0400 BMI (Body Mass Index) 19.33 kg/m2 Arianna Lange LPN [facility] Work Phone: 02-20-2017 14:30-0400 Body Temperature 97.9 [degF] Arianna Lange LPN [facility] Work Phone: 02-20-2017 14:30-0400 BP Diastolic 64 mm[Hg] Arianna Lange LPN [facility] Work Phone: 02-20-2017 14:30-0400 BP Systolic 104 mm[Hg] Arianna Lange LPN [facility] Work Phone: 02-20-2017 14:30-0400 Height 165.1 cm Arianna Lange LPN [facility] Work Phone: 02-20-2017 14:30-0400 Pulse (Heart Rate) 69 /min Arianna Lange LPN [facility] Work Phone: 02-20-2017 14:30-0400 Respiratory Rate 12 /min Arianna Lange LPN [facility] Work Phone: 02-20-2017 14:30-0400 Weight 52.71 kg Arianna Lange LPN [facility] Work Phone: 08-03-2016 09:25-0500 Body Temperature 97.7 [degF] Arianna Lange LPN [facility] Work Phone: 08-03-2016 09:25-0500 BSA (Body Surface Area) 1.52 m2 Arianna Lange LPN [facility] Work Phone: 08-03-2016 09:25-0500 Height 160.02 cm Arianna Lange [facility] Work Phone: 05-05-2015 23:11-0400 Body surface area Derived from formula 89.08 mL/min Daxa Guy [facility] Encounters Encounter Date Encounter Type Care Provider Facility Start: 01-04-2021 Office outpatient visit 25 minutes Akila Manuel Work Phone: [facility] 120 Work Phone: Start: 07-10-2014 Well child visit Daxa Guy [facility] Procedures Date Procedure Procedure Detail Performing Clinician Start: 02-24-2017 End: 02-26-2017 Insert intrauterine device Sabrina lopez MD Work Phone: Start: 02-24-2017 End: 02-26-2017 Levonorgestrel-releasing intrauterine contraceptive system (mirena), 52 mg Sabrina Loaiza MD Work Phone: Start: 02-20-2017 History and physical examination, sports participation Sports physical examination Daxa [facility] Start: 05-17-2016 End: 08-01-2016 Brncspsm provocation eval pet counselor spmtry w/admn agt Erich Cordova Work Phone: [...] JOHNSON Incision of eardrum Margarette Vee demarco HIM TECH Repair of meniscus Akila Levy Benny beckman Work Phone: Plan of Treatment Date Care Activity Detail Author Start: 04-07-2017 End: 04-07-2017 Appointment [facility] Start: 02-27-2017 End: 02-27-2017 Appointment Appointment [facility] Work Phone: Start: 02-24-2017 End: 02-24-[address] [facility] Start: 02-24-2017 End: 02-24-2017 *GC/Chlamydia *GC/Chlamydia [facility] Start: 02-21-2017 End: 02-21-2017 Appointment Appointment [facility] Work Phone: Start: 02-20-2017 End: 02-20-2017 Appointment Appointment [facility] Work Phone: Start: 09-19-2016 End: 09-19-2016 CSM [facility] Work Phone: Start: 09-19-2016 End: 09-19-2016 Follow Up Appt 6 months Follow Up Appt 6 months [facility] Work Phone: Start: 08-03-2016 End: 08-03-2016 BWA BWCam [facility] Work Phone: Start: 08-03-2016 End: 08-03-2016 Follow Up Appt 1 month Follow Up Appt 1 month [facility] Work Phone: Start: 05-17-2016 End: 08-01-2016 Cholesterol Methylcholine inhalation challenge [facility] Work Phone: Start: 05-05-2016 End: 05-05-2016 Follow Up Appt 3 months Follow Up Appt 3 months [facility] Work Phone: Start: 05-05-2016 End: 08-01-2016 Pulmonary Function Test - complete Pulmonary Function Test - complete [facility] Work Phone: Start: 11-19-2015 End: 11-20-2015 Neurology Referral Neurology Referral Willie Cullen, [address] [place] [address], [phone] [facility] Work Phone: Start: 10-01-2015 End: 10-07-2015 Other Referral Other Referral Physical Therapy [facility], [address] [place] [address], [phone] [facility] Work Phone: Start: 08-31-2015 End: 08-31-2015 Cardiac Referral Cardiac Referral [facility] Provider, [address] [place] [address], [phone] [facility] Work Phone: Start: 08-06-2015 End: 08-06-2015 48 hour holter monitor 48 hour holter monitor [facility] Work Phone: Start: 07-27-2015 End: 07-29-2015 *CBC with Differential *CBC with Differential [facility] Work Phone: Start: 07-27-2015 End: 07-29-2015 *CMP Complete Metabolic Panel *CMP Complete Metabolic Panel [facility] Work Phone: Start: 07-27-2015 End: 07-27-2015 *EKG (Done in Hospital) *EKG (Done in Hospital) [facility] Work Phone: Start: 07-27-2015 End: 07-27-2015 Echocardiography Echocardiogram (complete) [facility] Work Phone: Start: 07-27-2015 End: 07-29-2015 Thyroid stimulating hormone (TSH) *TSH [facility] Work Phone: Start: 07-27-2015 End: 07-29-2015 Thyroxine (T4) free *T4 free [facility] Work Phone: Start: 07-27-2015 End: 07-29-2015 Triiodothyronine (T3) *T3-Total [facility] Work Phone: Start: 06-08-2015 End: 06-08-2015 X-ray exam, knee, 4 or more X-Ray, Knee [facility] Work Phone: Start: 02-11-2015 End: 07-29-2015 Immunization admin Administration Immunization >=8 years of age [facility] Work Phone: Start: 02-11-2015 End: 02-11-2015 X-ray exam of ankle X-Ray, Ankle [facility] Work Phone: Start: 08-15-2014 End: 08-15-2014 Physical Therapy General Physical Therapy General Physical Therapy [facility], [address] [place] [address], [id number] [facility] Work Phone: Immunizations Immunization Date Immunization Notes Care Provider Emre yen 02-11-2015 human papilloma viru s vaccine, quadrivalent Arianna Lange LPN [facility] Work Phone: 02-11-2015 [id number] Arianna Lange LPN [facility] Work Phone: 07-10-2014 human papilloma viru s vaccine, quadrivalent Arianna Lange LPN [facility] Work Phone: 07-10-2014 [id number] Arianna Lange LPN [facility] Work Phone: Payers Date Payer Category Payer Policy ID Unknown [employer] Social History Date Type Detail Facility Non-smoker Non-smoker [facility] 120 Work Phone: History of Present illness [...] showed no bleed. She does see her engineering specialist technician in the near future and is currently [...] 400 mg twice daily for 10 days. [facility] 120 Work Phone: Summary Purpose Family History [...] DATE CREATED AUTHOR AUTHOR'S ORGANIZ ATION 09/25/2020 [facility] DATE CREATED AUTHOR AUTHOR'S ORGANIZ ATION 01/05/2021 [facility] DATE CREATED AUTHOR AUTHOR'S ORGANIZ ATION 01/05/2021 [facility] DATE CREATED AUTHOR AUTHOR'S ORGANIZ ATION 05/31/2021 [facility] FOR RECORDS PERTAINING TO PATIENTS WHO [...] BE BASED ON THE PRIMARY CLINICAL RECORDS. [facility] [employer] provides no warranty or guarantee of the accuracy or completeness of information in this document.
== END | disposition home or self-care (01) ==
LOC: US 09:08
PROVIDERS: PCP Family Medicine; Referring Provider Internal Medicine Gastroenterology; Visit Provider Internal Medicine Gastroenterology
DX: K85.90 Acute pancreatitis without necrosis or infection, unspecified (principal)
CPT/HCPCS: 76705

== ENCOUNTER → 2023-08-23 | Outpatient (CLI) | payer OTHER, SELFPAY ==
--- NOTE | 2023-08-23 08:38 | NM_ITS ---
CLINICAL: 23-year-old female with history of abdominal pain and chronic nausea. RADIONUCLIDE HEPATOBILIARY SCINTIGRAPHY COMPARISON: CT of the abdomen-pelvis report 08/15/2023, abdominal ultrasound report 08/18/2023 FINDINGS: Following the intravenous administration of 5.8 mCi of 99m Tc Mebrofenin, hepatobiliary images reveal: 1. Relatively prompt and homogeneous radiopharmaceutical concentration is noted by a normal sized liver. No parenchymal defects are identified. 2. Gallbladder activity is identified at 15 minutes post radiopharmaceutical administration. 3. Small intestinal tract is observed at 30 minutes following tracer injection. 4. Washout of the radiopharmaceutical by the hepatic parenchyma appears qualitatively normal. Cholecystokinin (0.02 ug/kg) was administered intravenously over a 30-minute period. The post CCK gallbladder ejection fraction calculated at 21 minutes following Cholecystokinin administration was noted to be 53.0 % (normal greater than 35%). During 30 minutes of post CCK imaging, there is no scintigraphic evidence of reflux of the radiotracer into the common hepatic duct or refilling of the gallbladder. NM/Hepatobilliary Img w/Pharm Int IMPRESSION: 1. NORMAL 99m Tc Mebrofenin hepatobiliary imaging examination with Cholecystokinin. A. A gallbladder ejection fraction calculated to be greater than 35% following the administration of Cholecystokinin makes the probability of functional hepatobiliary disease (gallbladder and/or sphincter of Oddi dyskinesia) and/or organic hepatobiliary disease (chronic acalculous cholecystitis and/or cystic duct syndrome) to be low. (Leticia Morales et al, Journal of Nuclear Medicine 32:1695, 1991). Electronically Signed: Willian Suarez DO at 9:20 EST ,
--- OUTSIDE RECORDS SUMMARY | 2023-08-23 09:03 | XMS RPT_ITS | CCD ---
Author Name Unknown Address [email or web address] [place] [address] Organization [facility] Care Team Providers Care Enterprise Resource Analyst Name Role Phone Sabrina Loaiza MD Unavailable [phone] Arianna Lange LPN Unavailable Unavailab Daxa Patel Unavailable Unavailab le Akila Manuel Unavailable Unavailable Unavailable Allergies Allergy Classification Reported Allergen(s) Allergy Type Date of Onset Reaction(s) Facility Amoxicillin / Clavulanate (1 source) Amoxicillin / Clavulanate; Translations: [Augmentin] Drug Allergy [facility] 120 Work Phone: Contrast [employer] (1 source) Contrast media; Translations: [Red Dye] Substance Allergy [facility] 120 Work Phone: Penicillins (antibiotic) (1 source) Amoxicillin; Translations: [amoxicillin] Drug Allergy [facility] 120 Work Phone: (17 sources) Contrast media; Translations: [RED DYE] allergy to substance 1 turns hyper (red dye #5) (motrin coating) [facility] Work Phone: Medications Completed/Discontinued Medications Medication Drug Class(es) Dates Sig (Normalized) Sig (Original) amoxicillin 875 mg oral tablet (20 sources) Penicillin-class Antibacterial Start: 08-15-2014 End: 09-02-2014 take 1 tablet by mouth twice daily AMOXICILLIN 875 MG TABS 1 po Twice daily x 10 days [facility] [id number] Amor Villar DO Problems Active Problems Problem [...] temperature 97.5 [degF] Akila Manuel Work Phone: [facility] 120 Work Phone: 01-04-2021 13:59-0400 Diastolic blood pressure 80 mm[Hg] Akila Manuel Work Phone: [facility] 120 Work Phone: 01-04-2021 13:59-0400 Systolic blood pressure 120 mm[Hg] Akila Manuel Work Phone: [facility] 120 Work Phone: 02-21-2017 14:57-0400 BMI (Body Mass Index) 19.57 kg/m2 Daxa Guy [facility] 02-21-2017 14:57-0400 Body Temperature 98.6 [degF] [facility] 02-21-2017 14:57-0400 BP Diastolic 64 mm[Hg] Daxa Guy [facility] 02-21-2017 14:57-0400 BP Systolic 99 mm[Hg] [facility] 02-21-2017 14:57-0400 Height 165.[address] [facility] 02-21-2017 14:57-0400 Pulse (Heart Rate) 71 /min Daxa Guy [facility] 02-21-2017 14:57-0400 Respiratory Rate 16 /min Daxa Guy [facility] 02-21-2017 14:57-0400 Weight 53.34 kg Daxa Guy [facility] 02-20-2017 14:30-0400 BMI (Body Mass Index) 19.33 kg/m2 Arianna Lange LPN [facility] Work Phone: 02-20-2017 14:30-0400 Body Temperature 97.9 [degF] Arianna Lange LPN [facility] Work Phone: 02-20-2017 14:30-0400 BP Diastolic 64 mm[Hg] Arianna Lange LPN [facility] Work Phone: 02-20-2017 14:30-0400 BP Systolic 104 mm[Hg] Arianna Lange LPN [facility] Work Phone: 02-20-2017 14:30-0400 Height 165.1 cm Arianna Lange LPN [facility] Work Phone: 02-20-2017 14:30-0400 Pulse (Heart Rate) 69 /min Arianna Lange LPN [facility] Work Phone: 02-20-2017 14:30-0400 Respiratory Rate 12 /min Arianna Lange LPN [facility] Work Phone: 02-20-2017 14:30-0400 Weight 52.71 kg Arianna Lange LPN [facility] Work Phone: 08-03-2016 09:25-0500 Body Temperature 97.7 [degF] Arianna Lange LPN [facility] Work Phone: 08-03-2016 09:25-0500 BSA (Body Surface Area) 1.52 m2 Arianna Lange LPN [facility] Work Phone: 08-03-2016 09:25-0500 Height 160.02 cm Arianna Lange [facility] Work Phone: 05-05-2015 23:11-0400 Body surface area Derived from formula 89.08 mL/min Daxa Guy [facility] Encounters Encounter Date Encounter Type Care Provider Facility Start: 01-04-2021 Office outpatient visit 25 minutes Akila Manuel Work Phone: [facility] 120 Work Phone: Start: 07-10-2014 Well child visit Daxa Guy [facility] Procedures Date Procedure Procedure Detail Performing Clinician Start: 02-24-2017 End: 02-26-2017 Insert intrauterine device Sabrina lopez MD Work Phone: Start: 02-24-2017 End: 02-26-2017 Levonorgestrel-releasing intrauterine contraceptive system (mirena), 52 mg Sabrina Loaiza MD Work Phone: Start: 02-20-2017 History and physical examination, sports participation Sports physical examination Daxa [facility] Start: 05-17-2016 End: 08-01-2016 Brncspsm 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 Start: 02-27-2017 End: 02-27-2017 Appointment Appointment [facility] Work Phone: Start: 02-24-2017 End: 02-24-2017 Appointment Appointment [facility] Start: 02-24-2017 End: 02-24-2017 *GC/Chlamydia *GC/Chlamydia [facility] Start: 02-21-2017 End: 02-21-2017 Appointment Appointment [facility] Work Phone: Start: 02-20-2017 End: 02-20-2017 Appointment Appointment [facility] Work Phone: Start: 09-19-2016 End: 09-19-2016 [facility] Work Phone: Start: 09-19-2016 End: 09-19-2016 Follow Up Appt 6 months Follow Up Appt 6 months [facility] Work Phone: Start: 08-03-2016 End: 08-03-2016 BWA BWCam [facility] Work Phone: Start: 08-03-2016 End: 08-03-2016 Follow Up Appt 1 month Follow Up Appt 1 month [facility] Work Phone: Start: 05-17-2016 End: 08-01-2016 Cholesterol Methylcholine inhalation challenge [facility] Work Phone: Start: 05-05-2016 End: 05-05-2016 Follow Up Appt 3 months Follow Up Appt 3 months [facility] Work Phone: Start: 05-05-2016 End: 08-01-2016 Pulmonary Function Test - complete Pulmonary Function Test - complete [facility] Work Phone: Start: 11-19-2015 End: 11-20-2015 Neurology Referral Neurology Referral Willie Cullen, [address] [place] [address], [phone] [facility] Work Phone: Start: 10-01-2015 End: 10-07-2015 Other Referral Other Referral Physical Therapy [facility], [address] [place] [address], [phone] [facility] Work Phone: Start: 08-31-2015 End: 08-31-2015 Cardiac Referral Cardiac [place] [facility] [place], [address] [place] [address], [phone] [facility] Work Phone: Start: 08-06-2015 End: 08-06-2015 48 hour holter monitor 48 hour holter monitor [facility] Work Phone: Start: 07-27-2015 End: 07-29-2015 *CBC with Differential *CBC with Differential [facility] Work Phone: Start: 07-27-2015 End: 07-29-2015 *CMP Complete Metabolic Panel *CMP Complete Metabolic Panel [facility] Work Phone: Start: 07-27-2015 End: 07-27-2015 *EKG (Done in Hospital) *EKG (Done in Hospital) [facility] Work Phone: Start: 07-27-2015 End: 07-27-2015 Echocardiography Echocardiogram (complete) [facility] Work Phone: Start: 07-27-2015 End: 07-29-2015 Thyroid stimulating hormone (TSH) *TSH [facility] Work Phone: Start: 07-27-2015 End: 07-29-2015 Thyroxine (T4) free *T4 free [facility] Work Phone: Start: 07-27-2015 End: 07-29-2015 Triiodothyronine (T3) *T3-Total [facility] Work Phone: Start: 06-08-2015 End: 06-08-2015 X-ray exam, knee, 4 or more X-Ray, Knee [facility] Work Phone: Start: 02-11-2015 End: 07-29-2015 Immunization admin Administration Immunization >=8 years of age [facility] Work Phone: Start: 02-11-2015 End: 02-11-2015 X-ray exam of ankle X-Ray, Ankle [facility] Work Phone: Start: 08-15-2014 End: 08-15-2014 Physical Therapy General Physical Therapy General Physical Therapy [facility], [address] [place] [address], [phone] [facility] Work Phone: Immunizations Immunization Date Immunization Notes Care Provider Emre yen 02-11-2015 human papilloma viru s vaccine, quadrivalent Arianna Lange LPN [facility] Work Phone: 02-11-2015 [id number] Arianna Lange LPN [facility] Work Phone: 07-10-2014 human papilloma viru s vaccine, quadrivalent Arianna Lange LPN [facility] Work Phone: 07-10-2014 [id number] Arianna Lange LPN [facility] Work Phone: Payers Date Payer Category Payer Policy ID Unknown [employer] Social History Date Type Detail Facility Non-smoker Non-smoker [facility] 120 Work Phone: History of Present illness [...] showed no bleed. She does see her specialist field engineer in the near future and is currently [...] 400 mg twice daily for 10 days. [facility] 120 Work Phone: Summary Purpose Family History [...] AUTHOR AUTHOR'S ORGANIZ ATION 09/25/2020 [facility] DATE CREATED AUTHOR AUTHOR'S ORGANIZ ATION 01/05/2021 [facility] DATE CREATED AUTHOR AUTHOR'S ORGANIZ ATION 01/05/2021 [facility] DATE CREATED AUTHOR AUTHOR'S ORGANIZ ATION 05/31/2021 [facility] FOR RECORDS PERTAINING TO PATIENTS WHO ARE [...] BE BASED ON THE PRIMARY CLINICAL RECORDS. [facility] [employer] provides no warranty or guarantee of the accuracy or completeness of information in this document.
== END | disposition home or self-care (01) ==
LOC: NM 08:37
PROVIDERS: PCP Family Medicine; Visit Provider Internal Medicine Gastroenterology
DX: K85.90 Acute pancreatitis without necrosis or infection, unspecified (principal)
CPT/HCPCS: 78227; A9537; J2805

== ENCOUNTER 2023-09-04 07:19 | Day surgery (SDC) | payer OTHER, SELFPAY ==
[2023-09-04] VITALS (8 sets, daily range): BP systolic 84–110; BP diastolic 55–76; PULSE 63–66; RESP 16–18; TEMP 36.4; O2SAT 97–100; BMI 20.8
--- OUTSIDE RECORDS SUMMARY | 2023-09-04 07:23 | XMS RPT_ITS | CCD ---
Author Name Unknown Address [address] [place] [address] Organization [facility] Care Team Providers Care Flight Test Engineer Name Role Phone Sabrina Loaiza MD Unavailable [phone] Arianna Lange LPN Unavailable Unavailab Daxa Patel Unavailable Unavailab le Akila Manuel Unavailable Unavailable Unavailable Allergies Allergy Classification Reported Allergen(s) Allergy Type Date of Onset Reaction(s) Facility Amoxicillin / Clavulanate (1 source) Amoxicillin / Clavulanate; Translations: [Augmentin] Drug Allergy [facility] 120 Work Phone: [employer] (1 source) Contrast media; Translations: [Red Dye] Substance Allergy [facility] 120 Work Phone: Penicillins (antibiotic) (1 source) Amoxicillin; Translations: [amoxicillin] Drug Allergy [facility] 120 Work Phone: (17 sources) Contrast media; Translations: [RED DYE] allergy to substance 1 turns hyper (red dye #5) (motrin coating) [facility] Work Phone: Medications Completed/Discontinued Medications Medication Drug Class(es) Dates Sig (Normalized) Sig (Original) amoxicillin 875 mg oral tablet (20 sources) Penicillin-class Antibacterial Start: 08-15-2014 End: 09-02-2014 take 1 tablet by mouth twice daily AMOXICILLIN 875 MG TABS 1 po Twice daily x 10 days [facility] [id number] Amor Villar DO Problems Active Problems Problem [...] temperature 97.5 [degF] Akila Manuel Work Phone: [facility] 120 Work Phone: 01-04-2021 13:59-0400 Diastolic blood pressure 80 mm[Hg] Akila Manuel Work Phone: [facility] 120 Work Phone: 01-04-2021 13:59-0400 Systolic blood pressure 120 mm[Hg] Akila Manuel Work Phone: [facility] 120 Work Phone: 02-21-2017 14:57-0400 BMI (Body Mass Index) 19.57 kg/m2 Daxa Guy [facility] 02-21-2017 14:57-0400 Body Temperature 98.6 [degF] [facility] 02-21-2017 14:57-0400 BP Diastolic 64 mm[Hg] Daxa Guy [facility] 02-21-2017 14:57-0400 BP Systolic 99 mm[Hg] [facility] 02-21-2017 14:57-0400 Height 165.1 cm Daxa Guy [facility] 02-21-2017 14:57-0400 Pulse (Heart Rate) 71 /min Daxa Guy [facility] 02-21-2017 14:57-0400 Respiratory Rate 16 /min Daxa Guy [facility] 02-21-2017 14:57-0400 Weight 53.34 kg Daxa Guy [facility] 02-20-2017 14:30-0400 BMI (Body Mass Index) 19.33 kg/m2 Arianna Lange LPN [facility] Work Phone: 02-20-2017 14:30-0400 Body Temperature 97.9 [degF] Arianna Lange LPN [facility] Work Phone: 02-20-2017 14:30-0400 BP Diastolic 64 mm[Hg] Arianna Lange LPN [facility] Work Phone: 02-20-2017 14:30-0400 BP Systolic 104 mm[Hg] Arianna Lange LPN [facility] Work Phone: 02-20-2017 14:30-0400 Height 165.1 cm Arianna Lange LPN [facility] Work Phone: 02-20-2017 14:30-0400 Pulse (Heart Rate) 69 /min Arianna Lange LPN [facility] Work Phone: 02-20-2017 14:30-0400 Respiratory Rate 12 /min Arianna Lange LPN [facility] Work Phone: 02-20-2017 14:30-0400 Weight 52.71 kg Arianna Lange LPN [facility] Work Phone: 08-03-2016 09:25-0500 Body Temperature 97.7 [degF] Arianna Lange LPN [facility] Work Phone: 08-03-2016 09:25-0500 BSA (Body Surface Area) 1.52 m2 Arianna Lange LPN [facility] Work Phone: 08-03-2016 09:25-0500 Height 160.02 cm Arianna Lange [facility] Work Phone: 05-05-2015 23:11-0400 Body surface area Derived from formula 89.08 mL/min Daxa Guy [facility] Encounters Encounter Date Encounter Type Care Provider Facility Start: 01-04-2021 Office outpatient visit 25 minutes Akila Manuel Work Phone: [facility] 120 Work Phone: Start: 07-10-2014 Well child visit Daxa Guy [facility] Procedures Date Procedure Procedure Detail Performing Clinician Start: 02-24-2017 End: 02-26-2017 Insert intrauterine device Sabrina lopez MD Work Phone: Start: 02-24-2017 End: 02-26-2017 Levonorgestrel-releasing intrauterine contraceptive system (mirena), 52 mg Sabrina Loaiza MD Work Phone: Start: 02-20-2017 History and physical examination, sports participation Sports physical examination Daxa [facility] Start: 05-17-2016 End: 08-01-2016 Brncspsm provocation eval curtain framer spmtry w/admn agt Erich Cordova Work Phone: [...] JOHNSON Incision of eardrum Margarette Vee demarco CORE PLACER Repair of meniscus Akila Levy Benny beckman Work Phone: Plan of Treatment Date Care Activity Detail Author Start: 04-07-2017 End: 04-07-2017 Appointment Appointment [facility] Start: 02-27-2017 End: 02-27-2017 Appointment Appointment [facility] Work Phone: Start: 02-24-2017 End: 02-24-2017 Appointment Appointment [facility] Start: 02-24-2017 End: 02-24-2017 *GC/Chlamydia *GC/Chlamydia [facility] Start: 02-21-2017 End: 02-21-2017 Appointment Appointment [facility] Work Phone: Start: 02-20-2017 End: 02-20-2017 Appointment Appointment [facility] Work Phone: Start: 09-19-2016 End: 09-19-2016 CSM [facility] Work Phone: Start: 09-19-2016 End: 09-19-2016 Follow Up Appt 6 months Follow Up Appt 6 months [facility] Work Phone: Start: 08-03-2016 End: 08-03-2016 BWA BWCam [facility] Work Phone: Start: 08-03-2016 End: 08-03-2016 Follow Up Appt 1 month Follow Up Appt 1 month [facility] Work Phone: Start: 05-17-2016 End: 08-01-2016 Cholesterol Methylcholine inhalation challenge [facility] Work Phone: Start: 05-05-2016 End: 05-05-2016 Follow Up Appt 3 months Follow Up Appt 3 months [facility] Work Phone: Start: 05-05-2016 End: 08-01-2016 Pulmonary Function Test - complete Pulmonary Function Test - complete [facility] Work Phone: Start: 11-19-2015 End: 11-20-2015 Neurology Referral Neurology Referral Willie Cullen, [address] [place] [address], [phone] [facility] Work Phone: Start: 10-01-2015 End: 10-07-2015 Other Referral Other Referral Physical Therapy [facility], [address] [place] [address], [phone] [facility] Work Phone: Start: 08-31-2015 End: 08-31-2015 Cardiac Referral Cardiac Referral [facility] Provider, [address] [place] [address], [phone] [facility] Work Phone: Start: 08-06-2015 End: 08-06-2015 48 hour holter monitor 48 hour holter monitor [facility] Work Phone: Start: 07-27-2015 End: 07-29-2015 *CBC with Differential *CBC with Differential [facility] Work Phone: Start: 07-27-2015 End: 07-29-2015 *CMP Complete Metabolic Panel *CMP Complete Metabolic Panel [facility] Work Phone: Start: 07-27-2015 End: 07-27-2015 *EKG (Done in Hospital) *EKG (Done in Hospital) [facility] Work Phone: Start: 07-27-2015 End: 07-27-2015 Echocardiography Echocardiogram (complete) [facility] Work Phone: Start: 07-27-2015 End: 07-29-2015 Thyroid stimulating hormone (TSH) *TSH [facility] Work Phone: Start: 07-27-2015 End: 07-29-2015 Thyroxine (T4) free *T4 free [facility] Work Phone: Start: 07-27-2015 End: 07-29-2015 Triiodothyronine (T3) *T3-Total [facility] Work Phone: Start: 06-08-2015 End: 06-08-2015 X-ray exam, knee, 4 or more X-Ray, Knee [facility] Work Phone: Start: 02-11-2015 End: 07-29-2015 Immunization admin Administration Immunization >=8 years of age [facility] Work Phone: Start: 02-11-2015 End: 02-11-2015 X-ray exam of ankle X-Ray, Ankle [facility] Work Phone: Start: 08-15-2014 End: 08-15-2014 Physical Therapy General Physical Therapy General Physical Therapy [facility], [address] [place] [address], [phone] [facility] Work Phone: Immunizations Immunization Date Immunization Notes Care Provider Emre yen 02-11-2015 human papilloma viru s vaccine, quadrivalent Arianna Lange LPN [facility] Work Phone: 02-11-2015 [id number] Arianna Lange LPN [facility] Work Phone: 07-10-2014 human papilloma viru s vaccine, quadrivalent Arianna Lange LPN [facility] Work Phone: 07-10-2014 [id number] Arianna Lange LPN [facility] Work Phone: Payers Date Payer Category Payer Policy ID Unknown [employer] Social History Date Type Detail Facility Non-smoker Non-smoker [facility] 120 Work Phone: History of Present illness [...] showed no bleed. She does see her inclusion specialist in the near future and is [...] 400 mg twice daily for 10 days. [facility] 120 Work Phone: Summary Purpose Family History [...] DATE CREATED AUTHOR AUTHOR'S ORGANIZ ATION 09/25/2020 [facility] DATE CREATED AUTHOR AUTHOR'S ORGANIZ ATION 01/05/2021 [facility] DATE CREATED AUTHOR AUTHOR'S ORGANIZ ATION 01/05/2021 [facility] DATE CREATED AUTHOR AUTHOR'S ORGANIZ ATION 05/31/2021 [facility] FOR RECORDS PERTAINING TO PATIENTS WHO ARE [...] BE BASED ON THE PRIMARY CLINICAL RECORDS. [facility] [employer] provides no warranty or guarantee of the accuracy or completeness of information in this document.
--- NOTE | 2023-09-04 07:34 | HP.PCM_ITS ---
History and Physical Date of Admission: 09/04/23 23 F who presents to the office today for PMH Ehler-Danlos, POTS Prior workup: ? Biochemical 2021 iron, ferritin, TSH, T4, RF, JUSTINE screed WNL.? EBV Hx+ *BGI established 10.10.22 with nausea, globus sensation, constipation. Previously diagnosed with non-celiac gluten sensitivity; gluten avoidance is helpful. ? Biochemical 10.13.22 CBC, ESR, CMP, CRP, LDH, GAME, JUSTINE comp, ANCA, NEYDA, IBD without pertinent abnormality ? Stool calprotectin, lactoferrin WNL ? EGD 10.24.22 irregular Zline 39cm; gastritis; duodenum focal extravasation of glandular mucinous material ? CT abd/pel 11.24.22 large colonic fecal burden ? EGD 11.25.22 gastritis; duodenitis OV 12.02.22 recommend f/u with ENT regarding globus sensation; PCP referred to rheumatology for possible Sjogrens; consider sleep medicine for excessive daytime sleepiness. Continue PPI and sucralfate. Contact, portal 04.18.23 reporting abdominal cramping and blood in stool. Start dicyclomine ? Biochemical celiac HLA WNL ? Stool calprotectin, elastase, C.Difficile, lactoferrin, EP, O/P, giardia WNL ? Colonoscopy 05.16.23 congested mucosa; tortuous sigmoid colon. No path changes. Contact 06.02.23 with results; dicyclomine has been helpful; working at establishing with rheumatology in [place]. OV 08.04.23 continues to have intermittent general abdominal pain and daily nause a. BM vary between lack of BM for several days and frequent sticky stools. Uses CBD gummies for joint pain. ROS Const Constitutional: Positive for fatigue ENT ENT: Positive for difficulty swallowing Gastro GI: Positive for abdominal pain, bloating, change in bowel habits, constipation, heartburn, difficulty swallowing, excessive flatus and nausea/dyspepsia; No belching, change in stool character, coffee ground emesis, cramping, diarrhea, feeling full early, incontinent of stools, Vomiting blood/hematemesis, Blood in stool, loose stools, Black,tarry stools, pain with swallowing, vomiting or other Musc Musculoskeletal: Positive for joint pain, joint swelling, stiffness, restless legs and leg pain at night Skin Skin: No yellowing of the eye or itchy eyes Neuro Neurology: Positive for restless legs Psych Psychiatric: Positive for anxiety, No depression and Positive for hyperactivity Endo Endocrine: Positive for fatigue Aller/Imm Allergy/Immunologic: No itchy eyes Smith/Lymp Hematologic/Lymphatic: No easy bleeding or easy bruising Exam Const General: cooperative, healthy appearing and comfortable Nutritional Appearance: average body habitus Orientation: alert, awake and oriented x3 Quality Reporting Tobacco Screening ([facility] [address]) Smoking Status: Never smoker Assessment and Plan Assessment and Plan (1) Non-celiac gluten sensitivity: Status: Chronic Plan: We reviewed results from her two EGDs, CT She has started pantoprazole and feels better--less nausea, gas, bloat, belch. Rx for that was well as one month of sucralfate for gastritis She will f/u with ENT for globus sensation, enlarged nodes, phlegm She has been referred to Rheum by PCP ?Sjogren's Consider referral to Sleep Disorders for excessive daytime sleepiness Repeat EGD in one yr due to the unusual and nonspecific finding in the duodenum on the first EGD: focal extravasation of glandular mucinous material f/u 3-4 mos We will also check her for adrenal insufficiency with a morning fasting cortisol and ACTH. (2) Gastritis: Status: Chronic Plan: as above Orders: Orders CORTISOL SERUM Today K29.70 - Gastritis, unspecified, without bleeding, K90.41 - Non-celiac gluten sensitivity Adrenocorticotropic Hormone Today K29.70 - Gastritis, unspecified, without bleeding, K90.41 - Non-celiac gluten sensitivity I have examined the patient and the H&P has been reviewed. There are no clinical changes since date of exam.
[2023-09-04 07:53] LABS: Internal QC Validated? YES +Cl - CLEAR BKGD; Pregnancy, Urine Negative Negative; Record Kit Lot#,Urine Preg HCG0000718086
[2023-09-04] MEDS: Lactated Ringers 1,000 ML 15 ML IV (07:53)
--- NOTE | 2023-09-04 09:15 | EGD_PTH ---
PATHOLOGY RESULTS PATIENT: FLOWER HOUSTON LOC: EN U#:[id number] AGE/SX: 23/F ROOM: RE09/04/[address]: Dr. Raj Navarrete DO : 2000 BED: DIS: 09/04/2023 SPEC #: [id number] RECD: 09/04/23 11:26 STATUS: CHARLES REMichelle #: [id number] CELESTINA: 09/04/23 09:[address]: Raj Navarrete DEPT: SURGICAL PATHOLOGY RECD BY: Daxa Doan ENTERED: 09/04/23 11:27 SP TYPE: EGD BIOPSY JUHI DR: Dr. Akila Manuel DO Tissues: Duodenum, NOS Gastric mucous membrane Esophageal mucous membrane Procedures: Special Stain Group II Surgery Specimen Level IV Alcian Blue/PAS (control) HEADER OPERATION: EGD, biopsy PRE-OP DIAGNOSIS: Non-celiac gluten sensitivity TISSUE SUBMITTED: A - Duodenum biopsy, B - Gastric body biopsy, C - Distal esophagus biopsy MICROSCOPIC DIAGNOSIS A. Duodenum, biopsy: Fragments of duodenal mucosa, no pathologic diagnosis. B. Gastric body, biopsy: Mild gastritis. See microscopic description and comment. C. Distal esophagus, biopsy: Fragments of gastroesophageal mucosa with moderate chronic inflammation and mild acute inflammation. Intestinal metaplasia (goblet cell metaplasia) not identified. See comment. SJ:shelby 09/05/2023 COMMENT B. The results of immunohistochemistry for Helicobacter pylori will be reported separately ([id number]). C. Alcian blue/PAS stain with matched control is used in the evaluation of the specimen. The specimen predominantly consists of gastric mucosa. MICROSCOPIC DESCRIPTION Slides are reviewed. B. The specimen shows fragments of gastric mucosa with chronic inflammatory cell infiltrates in the lamina propria consisting of lymphocytes and plasma cells, consistent with mild chronic gastritis. GROSS DESCRIPTION A - Received in fixative is one container labeled with the patient's name and designated duodenum biopsy. The specimen consists of two irregular fragments of light gallardo soft tissue that in aggregate measure 0.6 x 0.4 x 0.1 cm. The specimen is totally submitted in one cassette. B - Received in fixative is one container labeled with the patient's name and designated gastric body biopsy. The specimen consists of two irregular fragments of light gallardo soft tissue that in aggregate measure 0.8 x 0.3 x 0.1 cm. The specimen is totally submitted in one cassette. C - Received in fixative is one container labeled with the patient's name and designated distal esophagus biopsy. The specimen consists of two irregular fragments of light gallardo soft tissue that in aggregate measure 0.8 x 0.4 x 0.1 cm. The specimen is totally submitted in one cassette. / SJ:rg 09/04/2023 TC:3 CPT: 89265 x3, 05224
--- NOTE | 2023-09-04 09:15 | IMM_PTH ---
PATHOLOGY RESULTS PATIENT: FLOWER HOUSTON LOC: EN U#:[id number] AGE/SX: 23/F ROOM: RE09/04/[address]: Dr. Raj Navarrete DO : 2000 BED: DIS: 09/04/2023 SPEC #: [id number] RECD: 09/04/23 14:59 STATUS: CHARLES REQ #: [id number] CELESTINA: 09/04/23 09:[address]: Raj Navarrete DEPT: IMMUNOHISTOCHEMISTRY RECD BY: Mireille Clifton ENTERED: 09/04/23 14:59 SP TYPE: IMMUNO OTHR DR: Dr. Akila Manuel DO Tissues: Stomach, NOS Procedures: H Pylori (initial) PHYSICIAN & INSTITUTION [place] [id number] SPECIMEN INFORMATION: Tissue Source: B - Gastric body Clinical Info: Non-celiac gluten sensitivity Specimen Number: [id number] CPT code: 20351 METHODOLOGY: Deparaffinized sections of prefer/formalin-fixed tissue or PAP/DQ stained slides are incubated with monoclonal/polyclonal antibodies/oligonucleotide probes. Localization is made via biotin free immunoperoxidase method. Appropriate controls are performed and reacted as expected. Results on target cell population are indicated in the following table: RESULTS: ANTIBODY / CLONE RESULT Block B H Pylori (polyclonal) negative These tests were developed and their performance characteristics determined by [facility]. They may not have been cleared or approved by the U.S. Food and Drug Administration. The FDA has determined that such clearance or approval is not necessary. The above immunohistochemical/dualISH markers are ordered and reviewed by the Pathologist. INTERPRETATION: B. Gastric body, biopsy: Negative for Helicobacter pylori organisms. SJ:shelby 09/05/2023
--- NOTE | 2023-09-04 09:39 | OP.EGD_ITS ---
Patient Name: Raegan Diallo Procedure Date: 09/04/2023 9:16 AM Date of : 2000 Age: 23 Procedure: Upper GI endoscopy Indications: Epigastric abdominal pain Providers: Raj Navarrete DO Referring MD: Akila Manuel Medicines: Monitored Anesthesia Care Patient Profile: This is a 23 year old female. Refer to note in patient chart for documentation of history and physical. Patient has symptoms of acute epigastric abdominal pain. Complications: No immediate complications. Procedure: Pre-Anesthesia Assessment: - Prior to the procedure, a History and Physical was performed, and patient medications and allergies were reviewed. The patient is competent. The risks and benefits of the procedure and the sedation options and risks were discussed with the patient. All questions were answered and informed consent was obtained. Patient identification and proposed procedure were verified by the physician in the pre-procedure area. Mental Status Examination: alert and oriented. Airway Examination: normal oropharyngeal airway and neck mobility. Respiratory Examination: clear to auscultation. CV Examination: normal. Prophylactic Antibiotics: The patient does not require prophylactic antibiotics. Prior Anticoagulants: The patient has taken no anticoagulant or antiplatelet agents. ASA Grade Assessment: II - A patient with mild systemic disease. After reviewing the risks and benefits, the patient was deemed in satisfactory condition to undergo the procedure. The anesthesia plan was to use monitored anesthesia care (MAC). Immediately prior to administration of medications, the patient was re-assessed for adequacy to receive sedatives. The heart rate, respiratory rate, oxygen saturations, blood pressure, adequacy of pulmonary ventilation, and response to care were monitored throughout the procedure. The physical status of the patient was re-assessed after the procedure. After obtaining informed consent, the endoscope was passed under direct vision. Throughout the procedure, the patient's blood pressure, pulse, and oxygen saturations were monitored continuously. The Endoscope was introduced through the mouth, and advanced to the second part of duodenum. The upper GI endoscopy was accomplished without difficulty. The patient tolerated the procedure well. Scope In: 9:22:52 AM Scope Out: 9:28:44 AM Total Procedure Duration Time 0 hours 5 minutes 52 seconds Findings: The Z-line was irregular and was found 38 cm from the incisors. Biopsies were taken with a cold forceps for histology. Verification of patient identification for the specimen was done. Estimated blood loss was minimal. The entire examined stomach was normal. Biopsies were taken with a cold forceps for histology. Verification of patient identification for the specimen was done. Biopsies were taken with a cold forceps for Helicobacter pylori testing. Verification of patient identification for the specimen was done. Estimated blood loss was minimal. Patchy mildly erythematous mucosa without active bleeding and with no stigmata of bleeding was found in the duodenal bulb and in the first portion of the duodenum. Biopsies were taken with a cold forceps for histology. Verification of patient identification for the specimen was done. Estimated blood loss was minimal. Impression: - Z-line irregular, 38 cm from the incisors. Biopsied. - Normal stomach. Biopsied. - Erythematous duodenopathy. Biopsied. Recommendation: - Discharge patient to home. - Resume previous diet. - Continue present medications. - Await pathology results. Procedure Code(s): --- Professional --- 34402, Esophagogastroduodenoscopy, flexible, transoral; with biopsy, single or multiple CPT copyright 2021 [employer]. All rights reserved. The codes documented in this report are preliminary and upon inspector penetrant review may be revised to meet current compliance requirements. Raj Navarrete DO 09/04/2023 9:38:15 AM This report has been signed electronically. Number of Addenda: 0 Note Initiated On: 09/04/2023 9:16 AM
--- NOTE | 2023-09-04 09:39 | OP.CCLET_ITS ---
09/04/2023 Akila Manuel [address] [place] [address] Re : Upper GI endoscopy procedure for Raegan Diallo Dear Dr. Manuel This procedure was performed on Monday, September 04, 2023. My impressions and recommendations are as follows: Impressions : - Z-line irregular, 38 cm from the incisors. Biopsied. - Normal stomach. Biopsied. - Erythematous duodenopathy. Biopsied. Recommendations : - Discharge patient to home. - Resume previous diet. - Continue present medications. - Await pathology results. My findings are described in the full procedure note, which is enclosed. If I can be of further assistance, please feel free to contact me at . Sincerely, Raj Navarrete, 09/04/2023 9:38:15 AM This report has been signed electronically.
== END 2023-09-04 10:31 | disposition home or self-care (01) ==
LOC: EN 07:21 → AC 07:22
PROVIDERS: Anesthesiology; PCP Family Medicine; Referring Provider Family Medicine; Visit Provider Internal Medicine Gastroenterology
PROC: 0DJ08ZZ Inspection of Upper Intestinal Tract, Via Natural or Artificial Opening Endoscopic (ICD-10-PCS; CPT 43235; principal; 2023-09-04 09:10)
DX: R10.13 Epigastric pain (principal); K29.70 Gastritis, unspecified, without bleeding; K90.41 Non-celiac gluten sensitivity; F41.9 Anxiety disorder, unspecified; G25.81 Restless legs syndrome
CPT/HCPCS: 43239; 81025; 88305; 88313; 88342; J7120; A4216; J2405

== ENCOUNTER → 2023-12-20 | Outpatient (CLI) | payer OTHER, SELFPAY ==
[2023-12-20 12:46] LABS: Absolute Lymphocyte Count 1.52 X10^3/uL (0.83-4.51); Absolute Neutrophil Count 1.5 X10^3/uL (2.0-7.7); Basophil# 0.03 X10^3/uL; Basophil% 0.9 % (0-1); Eosinophil# 0.12 X10^3/uL; Eosinophils% 3.4 % (0-5); Hematocrit 42.5 % (37-47); Lymphocyte # 1.52 X10^3/ul (0.83-4.51); Lymphocyte % 43.7 % (19-41); Mean Corp Hgb Conc 32.9 g/dL (32-36); Mean Corpuscular Hgb 29.7 pg (27.0-32.0); Mean Corpuscular Volume 90.2 fL (81-99); Mean Platelet Vol. 10.5 fl (6.2-12.0); Monocyte# 0.33 X10^3/uL; Monocyte% 9.5 % (0-10); NRBC Flagged by Analyzer 0 % (0-5); Neutrophil # 1.46 X10^3/uL (2.7-7.7); Neutrophil % 41.9 % (47-70); Platelet Count 177 K/mm3 (150-450); RBC Distribution Width CV 12.6 % (11.6-14.6); RBC Distribution Width SD 40.9 fl (35.1-43.9); Red Blood Count 4.71 M/mm3 (4.2-5.4); White Blood Count 3.5 K/mm3 (4.4-11.0)
[2023-12-20 12:50] LABS: ALB/GLOB Ratio 1.1 RATIO (0.9-2.4); AST(SGOT) 16 U/L (15-37); Alanine Aminotransfer ALT/SGPT 25 U/L (13-56); Alkaline Phosphatase 72 U/L (45-117); Anion Gap 4 (5-15); BUN 11 mg/dL (7-18); BUN/Creat Ratio 12.3 RATIO (10-20); Calcium,Total 9.7 mg/dL (8.5-10.1); Chloride 104 mmol/L (98-107); Creatinine, Serum 0.89 mg/dL (0.55-1.02); EST Glomerular Filtration Rate 83 mL/min (>60); Est Glom Filt Rate - Afr Amer 100 mL/min (>60); Globulin 3.6 g/dL (2.2-4.2); Glucose 90 mg/dL (74-106); Protein, Total 7.6 g/dL (6.4-8.2); Sodium Level 135 mmol/L (136-145)
== END | disposition home or self-care (01) ==
LOC: LAB 11:47
PROVIDERS: PCP Family Medicine
DX: D72.819 Decreased white blood cell count, unspecified (principal)
CPT/HCPCS: 36415; 80053; 85025

== ENCOUNTER → 2024-01-17 | Outpatient (CLI) | payer OTHER, SELFPAY ==
[2024-01-17 15:48] LABS: Absolute Lymphocyte Count 1.61 X10^3/uL (0.83-4.51); Absolute Neutrophil Count 2.2 X10^3/uL (2.0-7.7); Basophil# 0.03 X10^3/uL; Basophil% 0.7 % (0-1); Eosinophil# 0.12 X10^3/uL; Eosinophils% 2.7 % (0-5); Hematocrit 40.5 % (37-47); Hemoglobin 13.3 g/dL (12.0-15.0); Lymphocyte # 1.61 X10^3/ul (0.83-4.51); Lymphocyte % 36.4 % (19-41); Mean Corp Hgb Conc 32.8 g/dL (32-36); Mean Corpuscular Hgb 29.6 pg (27.0-32.0); Mean Platelet Vol. 10.8 fl (6.2-12.0); Monocyte# 0.46 X10^3/uL; Monocyte% 10.4 % (0-10); NRBC Flagged by Analyzer 0 % (0-5); Neutrophil # 2.19 X10^3/uL (2.7-7.7); Neutrophil % 49.6 % (47-70); Platelet Count 170 K/mm3 (150-450); RBC Distribution Width CV 12.7 % (11.6-14.6); RBC Distribution Width SD 41.7 fl (35.1-43.9); White Blood Count 4.4 K/mm3 (4.4-11.0)
[2024-01-17 15:53] LABS: Erythrocyte Sedimentation Rate < 1 mm/hr (0-30)
[2024-01-17 16:29] LABS: ALB/GLOB Ratio 1.2 RATIO (0.9-2.4); AST(SGOT) 19 U/L (15-37); Alanine Aminotransfer ALT/SGPT 17 U/L (13-56); Albumin, Serum 4.1 g/dL (3.2-5.0); Alkaline Phosphatase 68 U/L (45-117); Amylase 49 U/L (25-115); Anion Gap 5 (5-15); BUN 14 mg/dL (7-18); BUN/Creat Ratio 15.2 RATIO (10-20); CRP < 2.90 mg/L (0.0-3.0); Calcium,Total 9.3 mg/dL (8.5-10.1); Chloride 105 mmol/L (98-107); Creatinine, Serum 0.92 mg/dL (0.55-1.02); EST Glomerular Filtration Rate 79 mL/min (>60); Est Glom Filt Rate - Afr Amer 96 mL/min (>60); Globulin 3.3 g/dL (2.2-4.2); Glucose 88 mg/dL (74-106); Lipase 27 U/L (13-75); Potassium 3.9 mmol/L (3.5-5.1); Protein, Total 7.4 g/dL (6.4-8.2); Sodium Level 138 mmol/L (136-145)
== END | disposition home or self-care (01) ==
LOC: LAB 14:58
PROVIDERS: PCP Family Medicine; Visit Provider Internal Medicine Gastroenterology
DX: R10.13 Epigastric pain (principal); K85.90 Acute pancreatitis without necrosis or infection, unspecified
CPT/HCPCS: 36415; 80053; 82150; 83690; 85025; 85652; 86140

== ENCOUNTER → 2024-01-26 | Outpatient (CLI) | payer OTHER, SELFPAY ==
--- NOTE | 2024-01-26 16:00 | CT_ITS ---
EXAM: CT ANGIOGRAPHY ABDOMEN WITHOUT AND WITH INTRAVENOUS CONTRAST CLINICAL INDICATION: epigastric pain, ruling out SMA syndrome -- With oral contrast TECHNIQUE: Helically acquired angiography images of the abdomen without and with intravenous contrast. This CT exam was performed using one or more of the following dose reduction techniques: automated exposure control, adjustment of the mA and/or kV according to patient size, and/or use of iterative reconstruction technique. MIP reconstructed images were created and reviewed. CONTRAST: IV 75mL [id number] COMPARISON: 08/15/2023 FINDINGS: LIMITATIONS: The aortomesenteric angle is roughly 29 degrees which is at the lower limit of normal (normal between 28 and 65 degrees). The aortomesenteric distance is decreased measuring 6 mm (normal between 10 and 34 mm). AORTA: No acute findings. Normal caliber abdominal aorta. No dissection. CELIAC TRUNK AND MESENTERIC ARTERIES: No acute findings. No occlusion or significant stenosis. No dissection. RENAL ARTERIES: No acute findings. No occlusion or significant stenosis. No dissection. LOWER THORAX: Unremarkable. Lung bases are clear. No cardiomegaly. No significant pericardial effusion. LIVER: Unremarkable. Homogeneous. No focal mass. GALLBLADDER AND BILE DUCTS: Unremarkable. No calcified gallstones. No gallbladder distention or wall edema. No intra- or extrahepatic biliary ductal dilation. PANCREAS: Unremarkable. No focal cystic or solid mass. SPLEEN: Unremarkable. Normal size without focal cystic or solid mass. ADRENALS: Unremarkable. No nodules. KIDNEYS AND URETERS: Unremarkable. Normal renal size and position. No hydronephrosis. STOMACH AND BOWEL: Unremarkable. No stomach or bowel distention. No focal inflammatory change. INTRAPERITONEAL SPACE: Unremarkable. No ascites or other fluid collection. No free air. BONES/JOINTS: Unremarkable. No suspicious lytic or blastic abnormality. SOFT TISSUES: Unremarkable. No discrete abdominal or pelvic wall hernia. LYMPH NODES: No enlarged lymph nodes. CT/CTA Abdomen W/WO Contrast IMPRESSION: The aortomesenteric distance is decreased however the aortomesenteric angle is within normal limits although it is at the lower limits of normal. Both of these parameters appear to be mildly decreased from the reference exam. Electronically Signed: Lm Roth MD at 0:14 EDT ,
== END | disposition home or self-care (01) ==
LOC: CT 15:59
PROVIDERS: PCP Family Medicine; Referring Provider Internal Medicine Gastroenterology; Visit Provider Internal Medicine Gastroenterology
DX: R10.13 Epigastric pain (principal)
CPT/HCPCS: 74175; Q9967; A4216

== ENCOUNTER 2024-02-03 18:06 | Emergency (ER) | payer OTHER, SELFPAY ==
[2024-02-03 18:08] VITALS: BP 120/87; PULSE 67; RESP 18; TEMP 36.9; O2SAT 100; BMI 19.8
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
[2024-02-03] MEDS: fentaNYL 100 MCG/2 ML Ampul 12.5 MCG IV (18:47)
[2024-02-03] MEDS: proCHLORPERazine 10 MG/2 ML Vial 5 MG IV (18:47)
[2024-02-03 19:05] LABS: Absolute Lymphocyte Count 1.55 X10^3/uL (0.83-4.51); Absolute Neutrophil Count 1.8 X10^3/uL (2.0-7.7); Basophil# 0.03 X10^3/uL; Basophil% 0.8 % (0-1); Eosinophil# 0.15 X10^3/uL; Eosinophils% 3.9 % (0-5); Hemoglobin 14.8 g/dL (12.0-15.0); Lymphocyte # 1.55 X10^3/ul (0.83-4.51); Lymphocyte % 39.8 % (19-41); Mean Corp Hgb Conc 34.4 g/dL (32-36); Mean Corpuscular Hgb 30.8 pg (27.0-32.0); Mean Corpuscular Volume 89.6 fL (81-99); Mean Platelet Vol. 10.6 fl (6.2-12.0); Monocyte# 0.35 X10^3/uL; NRBC Flagged by Analyzer 0 % (0-5); Neutrophil % 46.2 % (47-70); Platelet Count 156 K/mm3 (150-450); RBC Distribution Width CV 12.2 % (11.6-14.6); RBC Distribution Width SD 40.3 fl (35.1-43.9); White Blood Count 3.9 K/mm3 (4.4-11.0)
[2024-02-03 19:08] LABS: Erythrocyte Sedimentation Rate < 1 mm/hr (0-30)
[2024-02-03 19:12] LABS: Internal QC Validated? YES +Cl - CLEAR BKGD; Pregnancy, Serum, hCG Quali. NEGATIVE Negative
[2024-02-03 19:30] LABS: AST(SGOT) 18 U/L (15-37); Alanine Aminotransfer ALT/SGPT 17 U/L (13-56); Albumin, Serum 4.1 g/dL (3.2-5.0); Alkaline Phosphatase 66 U/L (45-117); Anion Gap 3 (5-15); BUN 14 mg/dL (7-18); BUN/Creat Ratio 15.1 RATIO (10-20); Bilirubin, Direct 0.19 mg/dL (0.00-0.30); CRP < 2.90 mg/L (0.0-3.0); Calcium,Total 9.2 mg/dL (8.5-10.1); Chloride 108 mmol/L (98-107); Creatinine, Serum 0.92 mg/dL (0.55-1.02); EST Glomerular Filtration Rate 79 mL/min (>60); Est Glom Filt Rate - Afr Amer 96 mL/min (>60); Estimated Creatinine Clearance 77.98 ml/min; Globulin 3.3 g/dL (2.2-4.2); Glucose 77 mg/dL (74-106); Lipase 26 U/L (13-75); Potassium 3.6 mmol/L (3.5-5.1); Protein, Total 7.4 g/dL (6.4-8.2); Sodium Level 138 mmol/L (136-145)
[2024-02-03] MEDS: 0.9% Normal Saline (1000mL) 1,000 ML 150 ML IV (19:36)
[2024-02-03] MEDS: 0.9% Normal Saline (500mL Bag) 500 ML 1000 ML IV (19:36)
[2024-02-03 19:38] LABS: Bacteria 0 SEEN /hpf (None Seen); Mucous, Urine 0 SEEN /hpf (<or=2+); Red Blood Cells-Urine 0 SEEN /hpf (0-5); Squamous Epithelial Cells - UA 0 SEEN /hpf (5-10); White Blood Cells 0 SEEN /hpf (0-5)
[2024-02-03 19:40] LABS: Color, Urine Yellow (Yellow); Glucose, Dipstick Normal (Normal); Ketone-Dipstick 15 mg/dl (Negative); Leukocyte Esterase-Dipstick Negative /ul (Negative); Nitrite-Dipstick Negative (Negative); Occult Blood-Urine Negative /ul (Negative); Protein-Dipstick 15 mg/dl (Negative); Urine Bilirubin Dipstick Negative (Negative); Urine Clarity Clear (Clear); Urine Urobilinogen Normal (Normal)
[2024-02-03 20:11] VITALS: BP 105/64; PULSE 55; RESP 16; O2SAT 100
[2024-02-03 20:56] VITALS: BP 101/51; PULSE 56; RESP 16; TEMP 37.1; O2SAT 100
== END 2024-02-03 21:00 | disposition home or self-care (01) ==
PROVIDERS: Emergency Provider Emergency Medicine; PCP Family Medicine; Visit Provider Emergency Medicine
DX: R10.9 Unspecified abdominal pain (principal); F90.9 Attention-deficit hyperactivity disorder, unspecified type; G90.A Postural orthostatic tachycardia syndrome [POTS]; K21.9 Gastro-esophageal reflux disease without esophagitis; Q79.60 Ehlers-Danlos syndrome, unspecified
CPT/HCPCS: 80048; 80076; 81001; 83690; 84703; 85025; 85652; 86140; 99283; J7030; A4216

== ENCOUNTER → 2024-02-15 | Outpatient (CLI) | payer OTHER, SELFPAY ==
--- NOTE | 2024-02-15 10:38 | NM_ITS ---
CLINICAL: 24-year-old female with history of clinical gastroparesis. SEMI-SOLID PHASE 99m Tc SULFUR COLLOID GASTRIC EMPTYING STUDY COMPARISON: None available FINDINGS: The patient was administered 1.1 mCi of 99m Tc sulfur colloid mixed with oatmeal and consumed per os. Image acquisitions in the anterior-posterior projections were obtained for 60 minutes. There is prompt visualization of the stomach. There is no gastroesophageal reflux identified. First order kinetics are maintained throughout the duration of the acquisitions. The T ? linear fit was extrapolated to be 108.43 minutes, (Normal: 12-56 minutes). NM/Gastric Emptying Study IMPRESSION: 1. ABNORMAL 99m Tc sulfur colloid semi-solid phase (oatmeal) gastric emptying imaging examination. A. There is delayed semi-solid phase gastric emptying compared to normal controls with maintained first order kinetics throughout all components of the examination. (Lacho et al, J Nucl Med Tech 38: 186, 2010). Electronically Signed: Willian Suarez DO at 22:46 EDT ,
== END | disposition home or self-care (01) ==
LOC: NM 10:36
PROVIDERS: PCP Family Medicine
DX: K55.1 Chronic vascular disorders of intestine (principal)
CPT/HCPCS: 78264; A9541

== ENCOUNTER → 2024-02-22 | Outpatient (CLI) | payer OTHER, SELFPAY ==
--- NOTE | 2024-02-22 09:06 | RAD_ITS ---
PROCEDURE: Contrast Upper GI with Small Bowel Follow Through DATE OF EXAMINATION: February 22, 2024.. INDICATION: Female, 24 years old. Patient has a history of known superior mesenteric artery syndrome. Gastroparesis. FLUOROSCOPY TIME (if supplied): (1:14) minutes/seconds. 15.96 mGy. 47 fluoroscopic images were obtained. TECHNIQUE: Radiographic and fluoroscopic images of the distal esophagus, stomach, and entire small intestine were obtained following the oral ingestion of barium. COMPARISON: None. FINDINGS: The public address servicer film of the abdomen demonstrates a normal bowel gas pattern. There are no abnormal calcifications or organomegaly demonstrated. The visualized osseous structures are normal. Esophagus is unremarkable. No evidence of obstruction. No evidence of reflux. The stomach and duodenum are unremarkable. A single contrast small bowel follow through exam demonstrates the small bowel to have no evidence for stricture, ulceration or mass. The transit time is normal at 60 minutes. RAD/Upper GI/w Small Bowel IMPRESSION: 1. Normal single contrast small bowel follow-through exam. Electronically Signed: Casey Banuelos MD at 12:16 EDT ,
== END | disposition home or self-care (01) ==
LOC: RAD 09:03
PROVIDERS: PCP Family Medicine
DX: K55.1 Chronic vascular disorders of intestine (principal)
CPT/HCPCS: 74246; 74248

== ENCOUNTER → 2024-04-25 | Outpatient (CLI) | payer OTHER, SELFPAY ==
[2024-04-25 10:22] LABS: Absolute Lymphocyte Count 1.82 X10^3/uL (0.83-4.51); Absolute Neutrophil Count 1.5 X10^3/uL (2.0-7.7); Basophil# 0.03 X10^3/uL; Basophil% 0.8 % (0-1); Eosinophils% 5.1 % (0-5); Hematocrit 33.7 % (37-47); Hemoglobin 10.6 g/dL (12.0-15.0); Lymphocyte # 1.82 X10^3/ul (0.83-4.51); Lymphocyte % 46.4 % (19-41); Mean Corp Hgb Conc 31.5 g/dL (32-36); Mean Corpuscular Hgb 28.2 pg (27.0-32.0); Mean Corpuscular Volume 89.6 fL (81-99); Mean Platelet Vol. 10.4 fl (6.2-12.0); Monocyte# 0.33 X10^3/uL; Monocyte% 8.4 % (0-10); NRBC Flagged by Analyzer 0 % (0-5); Neutrophil # 1.53 X10^3/uL (2.7-7.7); Platelet Count 156 K/mm3 (150-450); RBC Distribution Width CV 12.7 % (11.6-14.6); RBC Distribution Width SD 41.5 fl (35.1-43.9); Red Blood Count 3.76 M/mm3 (4.2-5.4); White Blood Count 3.9 K/mm3 (4.4-11.0)
[2024-04-25 10:50] LABS: Vitamin B12 689 pg/mL (211-911); Vitamin D,25 Hydroxy 30.9 ng/mL
[2024-04-25 11:44] LABS: ALB/GLOB Ratio 1.2 RATIO (0.9-2.4); AST(SGOT) 13 U/L (15-37); Alanine Aminotransfer ALT/SGPT 17 U/L (13-56); Albumin, Serum 3.8 g/dL (3.2-5.0); Alkaline Phosphatase 70 U/L (45-117); Anion Gap 7 (5-15); BUN 14 mg/dL (7-18); BUN/Creat Ratio 16.4 RATIO (10-20); Calcium,Total 9.3 mg/dL (8.5-10.1); Chloride 106 mmol/L (98-107); Creatinine, Serum 0.85 mg/dL (0.55-1.02); EST Glomerular Filtration Rate 87 mL/min (>60); Est Glom Filt Rate - Afr Amer 105 mL/min (>60); Ferritin 5 ng/mL (8-252); Globulin 3.3 g/dL (2.2-4.2); Glucose 98 mg/dL (74-106); Iron 24 ug/dL (50-170); Potassium 3.4 mmol/L (3.5-5.1); Protein, Total 7.1 g/dL (6.4-8.2); Sodium Level 139 mmol/L (136-145)
== END | disposition home or self-care (01) ==
LOC: LAB 09:33
PROVIDERS: PCP Family Medicine; Referring Provider Family Medicine; Visit Provider Family Medicine
DX: Z51.81 Encounter for therapeutic drug level monitoring (principal); E55.9 Vitamin D deficiency, unspecified; E61.1 Iron deficiency; D64.9 Anemia, unspecified; E53.8 Deficiency of other specified B group vitamins
CPT/HCPCS: 36415; 80053; 82306; 82533; 82607; 82728; 82746; 83540; 83735; 85025

== ENCOUNTER 2024-04-27 04:41 | Emergency (ER) | payer OTHER, SELFPAY ==
[2024-04-27 04:43] VITALS: BP 120/77; PULSE 68; RESP 16; TEMP 36.6; O2SAT 100; BMI 19.2
--- NOTE | 2024-04-27 05:21 | CT_ITS ---
EXAM: CT Abdomen And Pelvis W/ Contrast Injection HISTORY: abdominal pain, recent surgery 5 WKS POST OP JEJUNUM/DUODENUM BYPASS SURG NOW HAS NAUSEA/BLOATING HX-GERD,POTS,IBS,PANCREATITIS,HELDER-DANLOS DZ,SUPERIOR MESENTERIC ARTERY SYNDROME,DUODENITIS TECHNIQUE: Routine protocol CT abdomen pelvis. IV Contrast: IV 100mL Isovue-370 . Oral Contrast: without. Sagittal and coronal images were reconstructed. RADIATION DOSAGE (If Supplied By Facility): CTDIvol = ( 18.04 ) mGy, DLP = ( 295.86 ) mGycm Individualized dose optimization techniques were used for this CT. COMPARISON: None. LIMITATIONS: None. FINDINGS: LOWER CHEST: Lung bases are clear. LIVER: Unremarkable. GALLBLADDER/BILE DUCTS: Unremarkable. PANCREAS: Unremarkable. SPLEEN: Unremarkable. ADRENAL GLANDS: Unremarkable. KIDNEYS / URETERS: Unremarkable. BOWEL / MESENTERY: Surgical clips in the upper abdomen. There is mild wall thickening of the small bowel adjacent to the anastomosis, with mild adjacent stranding. No definite extraluminal fluid collection identified. No bowel obstruction. APPENDIX: Not identified with certainty. No evidence of acute appendicitis. PERITONEUM: No free air. Small amount of free fluid in the pelvis. VESSELS: Abdominal aorta is normal caliber. RETROPERITONEUM: Unremarkable. REPRODUCTIVE ORGANS: Unremarkable. BLADDER: Unremarkable. ABDOMINAL WALL: Unremarkable. BONES: No acute abnormality. OTHER: None. CT/Abdomen/Pelvis W IV Cont ONLY IMPRESSION: Mild wall thickening proximal small bowel adjacent to the anastomosis with adjacent stranding consistent with nonspecific enteritis. Follow-up CT with oral contrast may be helpful. Electronically Signed: Darlene Kraus MD at 8:21 EDT ,
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
[2024-04-27] MEDS: Ondansetron 4 MG/2 ML Vial IV (05:38)
[2024-04-27] MEDS: 0.9% Normal Saline (1000mL) 1,000 ML 999 ML IV (05:38)
[2024-04-27] MEDS: Morphine 2 MG/ML Syringe IV ×2 (05:38→09:14)
[2024-04-27 05:51] LABS: Absolute Lymphocyte Count 1.73 X10^3/uL (0.83-4.51); Absolute Neutrophil Count 2.1 X10^3/uL (2.0-7.7); Basophil# 0.03 X10^3/uL; Basophil% 0.7 % (0-1); Eosinophil# 0.18 X10^3/uL; Hematocrit 35.7 % (37-47); Hemoglobin 11.4 g/dL (12.0-15.0); Lymphocyte # 1.73 X10^3/ul (0.83-4.51); Lymphocyte % 38.9 % (19-41); Mean Corp Hgb Conc 31.9 g/dL (32-36); Mean Corpuscular Hgb 28.3 pg (27.0-32.0); Mean Corpuscular Volume 88.6 fL (81-99); Mean Platelet Vol. 10.6 fl (6.2-12.0); Monocyte# 0.41 X10^3/uL; Monocyte% 9.2 % (0-10); NRBC Flagged by Analyzer 0 % (0-5); Neutrophil # 2.09 X10^3/uL (2.7-7.7); Platelet Count 164 K/mm3 (150-450); RBC Distribution Width CV 12.5 % (11.6-14.6); RBC Distribution Width SD 40.7 fl (35.1-43.9); Red Blood Count 4.03 M/mm3 (4.2-5.4); White Blood Count 4.5 K/mm3 (4.4-11.0)
[2024-04-27 06:08] LABS: Bacteria 0 SEEN /hpf (None Seen); Mucous, Urine 0 SEEN /hpf (<or=2+); Red Blood Cells-Urine 0 SEEN /hpf (0-5); Squamous Epithelial Cells - UA 0 SEEN /hpf (5-10); White Blood Cells 0 SEEN /hpf (0-5)
[2024-04-27 06:10] LABS: ALB/GLOB Ratio 1.1 RATIO (0.9-2.4); AST(SGOT) 13 U/L (15-37); Alanine Aminotransfer ALT/SGPT 17 U/L (13-56); Albumin, Serum 3.9 g/dL (3.2-5.0); Alkaline Phosphatase 70 U/L (45-117); Anion Gap 5 (5-15); BUN 15 mg/dL (7-18); BUN/Creat Ratio 18.6 RATIO (10-20); Calcium,Total 9.5 mg/dL (8.5-10.1); Chloride 105 mmol/L (98-107); Creatinine, Serum 0.81 mg/dL (0.55-1.02); EST Glomerular Filtration Rate 93 mL/min (>60); Est Glom Filt Rate - Afr Amer 112 mL/min (>60); Estimated Creatinine Clearance 86.06 ml/min; Globulin 3.4 g/dL (2.2-4.2); Glucose 102 mg/dL (74-106); Lipase 32 U/L (13-75); Potassium 3.7 mmol/L (3.5-5.1); Protein, Total 7.3 g/dL (6.4-8.2); Sodium Level 138 mmol/L (136-145)
[2024-04-27 06:10] LABS: Color, Urine Yellow (Yellow); Glucose, Dipstick Normal (Normal); Ketone-Dipstick Negative (Negative); Leukocyte Esterase-Dipstick Negative /ul (Negative); Nitrite-Dipstick Negative (Negative); Occult Blood-Urine Negative /ul (Negative); Protein-Dipstick Negative (Negative); Urine Bilirubin Dipstick Negative (Negative); Urine Clarity Clear (Clear); Urine Urobilinogen Normal (Normal); Urine pH 6.5 (5.0 - 8.0)
[2024-04-27 06:13] LABS: Internal QC Validated? YES +Cl - CLEAR BKGD; Pregnancy, Serum, hCG Quali. NEGATIVE Negative; Record Kit Lot#, Serum Preg. 765943
[2024-04-27 06:15] LABS: Lactic Acid 0.4 mmol/L (0.4-1.9)
[2024-04-27 06:42] VITALS: BP 103/67; PULSE 58; RESP 16; O2SAT 100
[2024-04-27 08:10] VITALS: BP 104/66; PULSE 56; RESP 16; O2SAT 99
[2024-04-27] MEDS: Dicyclomine 10 MG Capsule PO (09:14)
== END 2024-04-27 09:38 | disposition home or self-care (01) ==
PROVIDERS: Emergency Provider Surgery; PCP Family Medicine; Visit Provider Surgery
DX: R10.13 Epigastric pain (principal); R14.0 Abdominal distension (gaseous); R11.0 Nausea; K31.84 Gastroparesis; Z98.890 Other specified postprocedural states
CPT/HCPCS: 74177; 80053; 81001; 83605; 83690; 84703; 85025; 96361; 96374; 96375; 96376; 99283; J7030; Q9967; A4216; J2405

== ENCOUNTER 2024-05-06 16:40 | Emergency (ER) | payer OTHER, SELFPAY ==
[2024-05-06 16:41] VITALS: BP 127/77; PULSE 107; RESP 16; TEMP 36.2; O2SAT 100; BMI 19.3
[2024-05-06 18:18] LABS: Bacteria 0 SEEN /hpf (None Seen); Mucous, Urine 0 SEEN /hpf (<or=2+); Red Blood Cells-Urine 0 SEEN /hpf (0-5)
[2024-05-06 18:20] LABS: Color, Urine Yellow (Yellow); Glucose, Dipstick Normal (Normal); Leukocyte Esterase-Dipstick 25 /ul (Negative); Nitrite-Dipstick Negative (Negative); Occult Blood-Urine Negative /ul (Negative); Protein-Dipstick 15 mg/dl (Negative); Specific Gravity, Urine 1.005 (1.002-1.030); Urine Bilirubin Dipstick Negative (Negative); Urine Clarity Sl. Cloudy (Clear); Urine Urobilinogen Normal (Normal)
[2024-05-06 18:24] LABS: Ketone-Dipstick 150 mg/dl (Negative)
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
--- NOTE | 2024-05-06 18:26 | CT_ITS ---
EXAM: CT ABDOMEN AND PELVIS WITH INTRAVENOUS CONTRAST CLINICAL INDICATION: Abdominal pain TECHNIQUE: Helically acquired images were obtained of the abdomen and pelvis with intravenous contrast. This CT exam was performed using one or more of the following dose reduction techniques: automated exposure control, adjustment of the mA and/or kV according to patient size, and/or use of iterative reconstruction technique. CONTRAST: IV 100mL Isovue-370 COMPARISON: 04/27/2024 FINDINGS: LOWER THORAX: No significant abnormality. Lung bases are clear. No cardiomegaly. No significant pericardial effusion. ABDOMEN: LIVER: No significant abnormality. Homogeneous. No focal mass. GALLBLADDER AND BILE DUCTS: No significant abnormality. No calcified gallstones. No gallbladder distention or wall edema. No intra- or extrahepatic biliary ductal dilation. PANCREAS: No significant abnormality. No focal cystic or solid mass. SPLEEN: No significant abnormality. Normal size without focal cystic or solid mass. ADRENALS: No significant abnormality. No nodules. KIDNEYS AND URETERS: No significant abnormality. Normal renal size and position. No hydronephrosis. STOMACH AND BOWEL: Mild wall thickening of the bowel at the anastomosis perhaps indicative of an enteritis, similar to the prior examination. Bowel anastomosis in the mid abdomen is again identified. No evidence of bowel obstruction. No additional inflammatory changes of the bowel are identified. PELVIS: APPENDIX: A normal appendix is identified in the right lower quadrant. BLADDER: No significant abnormality. REPRODUCTIVE: Right adnexal cyst measuring approximately 4.2 cm is new since prior examination. ABDOMEN and PELVIS: INTRAPERITONEAL SPACE: No significant abnormality. No ascites or other fluid collection. No free air. BONES/JOINTS: Mild degenerative changes in the spine. No suspicious lytic or blastic abnormality. SOFT TISSUES: No significant abnormality. No discrete abdominal or pelvic wall hernia. VASCULATURE: No significant abnormality. Abdominal aorta is non-dilated. LYMPH NODES: No significant abnormality. No enlarged lymph nodes. CT/Abdomen/Pelvis W IV Cont ONLY IMPRESSION: 1. Bowel anastomosis in the mid abdomen is again identified. No evidence of bowel obstruction. Mild wall thickening of the bowel at the anastomosis perhaps indicative of an enteritis, similar to the prior examination. 2. Right adnexal cyst measuring approximately 4.2 cm is new since prior examination. ACR White Paper guidelines (Devlin, et. al. JACR 2020;17(2):248-254) suggest no follow-up is necessary. Electronically Signed: Wyatt Bassett DO at 20:30 EDT ,
[2024-05-06 18:27] VITALS: BP 120/74; PULSE 108; RESP 17; O2SAT 97
[2024-05-06 18:31] LABS: Amorphous Sediment 1+ PHOS; Squamous Epithelial Cells - UA 0-5 SEEN /hpf (5-10); White Blood Cells 0-5 SEEN /hpf (0-5)
[2024-05-06] MEDS: Morphine 4 MG/ML Syringe IV ×2 (18:58→20:41)
[2024-05-06] MEDS: 0.9% Normal Saline (1000mL) 1,000 ML 999 ML IV (18:58)
[2024-05-06] MEDS: Ondansetron 4 MG/2 ML Vial IV (18:58)
[2024-05-06 19:10] LABS: Absolute Lymphocyte Count 0.25 X10^3/uL (0.83-4.51); Absolute Neutrophil Count 5.6 X10^3/uL (2.0-7.7); Basophil# 0.01 X10^3/uL; Basophil% 0.2 % (0-1); Eosinophil# 0.01 X10^3/uL; Eosinophils% 0.2 % (0-5); Hematocrit 38.4 % (37-47); Hemoglobin 12.7 g/dL (12.0-15.0); Lymphocyte # 0.25 X10^3/ul (0.83-4.51); Mean Corp Hgb Conc 33.1 g/dL (32-36); Mean Corpuscular Hgb 28.6 pg (27.0-32.0); Mean Corpuscular Volume 86.5 fL (81-99); Mean Platelet Vol. 10.9 fl (6.2-12.0); Monocyte# 0.29 X10^3/uL; Monocyte% 4.7 % (0-10); NRBC Flagged by Analyzer 0 % (0-5); Neutrophil # 5.64 X10^3/uL (2.7-7.7); Neutrophil % 90.6 % (47-70); POSITIVE DIFFERENTIAL YES; Platelet Count 160 K/mm3 (150-450); RBC Distribution Width CV 12.6 % (11.6-14.6); RBC Distribution Width SD 39.4 fl (35.1-43.9); Red Blood Count 4.44 M/mm3 (4.2-5.4); White Blood Count 6.2 K/mm3 (4.4-11.0)
[2024-05-06 19:11] LABS: Differential Indicated SCAN CRITERIA MET
[2024-05-06 19:22] LABS: Internal QC Validated? YES +Cl - CLEAR BKGD; Pregnancy, Serum, hCG Quali. NEGATIVE Negative
[2024-05-06 19:33] LABS: ALB/GLOB Ratio 1.2 RATIO (0.9-2.4); AST(SGOT) 16 U/L (15-37); Alanine Aminotransfer ALT/SGPT 21 U/L (13-56); Albumin, Serum 4.4 g/dL (3.2-5.0); Alkaline Phosphatase 74 U/L (45-117); Anion Gap 7 (5-15); BUN 10 mg/dL (7-18); Calcium,Total 9.7 mg/dL (8.5-10.1); Chloride 104 mmol/L (98-107); Creatinine, Serum 0.83 mg/dL (0.55-1.02); EST Glomerular Filtration Rate 89 mL/min (>60); Est Glom Filt Rate - Afr Amer 108 mL/min (>60); Estimated Creatinine Clearance 84.57 ml/min; Globulin 3.6 g/dL (2.2-4.2); Glucose 91 mg/dL (74-106); Lipase 34 U/L (13-75); Sodium Level 136 mmol/L (136-145)
[2024-05-06 19:40] LABS: Platelet Estimate ADEQUATE (ADEQ)
[2024-05-06 19:41] LABS: Anisocytosis RARE; Red Cell Morphology NORM C+C NORMAL (NORM C&C)
[2024-05-06 20:00] VITALS: BP 115/77; PULSE 107; RESP 15; O2SAT 97
[2024-05-06 21:46] VITALS: BP 110/71; PULSE 101; RESP 18; TEMP 36.4; O2SAT 96
== END 2024-05-06 21:49 | disposition home or self-care (01) ==
PROVIDERS: Emergency Provider Emergency Medicine; PCP Family Medicine; Referring Provider Emergency Medicine; Visit Provider Emergency Medicine
DX: K52.9 Noninfective gastroenteritis and colitis, unspecified (principal); R10.9 Unspecified abdominal pain; R11.2 Nausea with vomiting, unspecified; K21.9 Gastro-esophageal reflux disease without esophagitis; F90.9 Attention-deficit hyperactivity disorder, unspecified type
CPT/HCPCS: 74177; 80053; 81001; 83690; 84703; 85025; 96361; 96374; 96375; 96376; 99282; J7030; Q9967; A4216; J2405

== ENCOUNTER → 2024-05-09 | Outpatient (CLI) | payer OTHER, SELFPAY ==
[2024-05-10 11:11] LABS: Vitamin B12 559 pg/mL (211-911)
== END | disposition home or self-care (01) ==
LOC: LAB 15:46
PROVIDERS: PCP Family Medicine
DX: R53.83 Other fatigue (principal)
CPT/HCPCS: 36415; 82607

== ENCOUNTER 2024-05-10 10:37 | Outpatient (CLI) | payer OTHER, SELFPAY ==
[2024-05-10 11:07] VITALS: BP 104/72; PULSE 59; RESP 16; TEMP 35.7; O2SAT 100; BMI 19.7
[2024-05-10] MEDS: IRON SUCROSE COMPLEX IV (11:53)
== END 2024-05-10 23:59 | disposition home or self-care (01) ==
LOC: MEDOUTP 10:37
PROVIDERS: PCP Family Medicine; Referring Provider Family Medicine; Visit Provider Family Medicine
DX: D50.9 Iron deficiency anemia, unspecified (principal)
CPT/HCPCS: 96374; J1756; A4216

== ENCOUNTER 2024-05-20 14:39 | Outpatient (CLI) | payer OTHER, SELFPAY ==
[2024-05-20 14:51] VITALS: BP 114/74; PULSE 65; RESP 16; TEMP 36.1; O2SAT 100
[2024-05-20] MEDS: 0.9% NaCl Peripheral Flush Adult/Peds IV ×2 (14:57→15:22)
[2024-05-20] MEDS: IRON SUCROSE COMPLEX IV (15:22)
[2024-05-20 15:29] VITALS: BP 97/61; PULSE 62; RESP 16
[2024-05-28 11:17] LABS: HPV Reflexed? NOT INDICATED
== END 2024-05-20 23:59 | disposition home or self-care (01) ==
LOC: MEDOUTP 14:39
PROVIDERS: Obstetrics & Gynecology; PCP Family Medicine; Referring Provider Family Medicine; Visit Provider Family Medicine
DX: D50.9 Iron deficiency anemia, unspecified (principal)
CPT/HCPCS: 96365; 88175; J1756; A4216; G0145

== ENCOUNTER 2024-06-05 09:24 | Outpatient (CLI) | payer OTHER, SELFPAY ==
[2024-06-05 09:29] VITALS: BP 112/63; PULSE 68; RESP 16; TEMP 36.2; O2SAT 100
[2024-06-05] MEDS: Iron Sucrose Complex 100 MG in 0.9% Normal Saline (100mL Bag) 100 ML 420 MG IV (10:14)
[2024-06-05 11:01] VITALS: BP 106/53; PULSE 56; RESP 16; TEMP 36.3; O2SAT 100
== END 2024-06-05 23:59 | disposition home or self-care (01) ==
LOC: MEDOUTP 09:24
PROVIDERS: PCP Family Medicine; Referring Provider Family Medicine; Visit Provider Family Medicine
DX: D50.9 Iron deficiency anemia, unspecified (principal)
CPT/HCPCS: 96365; J1756; J7040; A4216

== ENCOUNTER → 2024-09-16 | Outpatient (CLI) | payer OTHER, SELFPAY ==
[2024-09-22 10:07] LABS: Alternaria alternata <0.10 kU/L (Class 0); Bermuda Grass <0.10 kU/L (Class 0); Bluegrass, Kentucky <0.10 kU/L (Class 0); Cat Hair/Dander, Standard <0.10 kU/L (Class 0); D farinae Mite <0.10 kU/L (Class 0); D pteronyssinus <0.10 kU/L (Class 0); Dog Epithelia <0.10 kU/L (Class 0); Elm, American White <0.10 kU/L (Class 0); IgG, Quant 1346 mg/dL (586-1602); Immunoglobulin A 110 mg/dL (87-352); Immunoglobulin E 7 IU/mL (6-495); Immunoglobulin G, Subclass 1 744 mg/dL (248-810); Immunoglobulin G, Subclass 2 256 mg/dL (130-555); Immunoglobulin G, Subclass 3 63 mg/dL (15-102); Immunoglobulin G, Subclass 4 151 mg/dL (2-96); Immunoglobulin M 55 mg/dL (26-217); Mouse Urine <0.10 kU/L (Class 0); Oak, White <0.10 kU/L (Class 0); Plantain, English <0.10 kU/L (Class 0); Ragweed, Short/Common <0.10 kU/L (Class 0)
== END | disposition home or self-care (01) ==
PROVIDERS: PCP Family Medicine
DX: R59.1 Generalized enlarged lymph nodes (principal); J06.9 Acute upper respiratory infection, unspecified; J30.1 Allergic rhinitis due to pollen
CPT/HCPCS: 36415; 82784; 82785; 82787; 83520; 86003

== ENCOUNTER → 2024-09-23 | Outpatient (CLI) | payer OTHER, SELFPAY ==
[2024-09-24 01:36] LABS: Follicle Stimulating Hormone 10.1 mIU/mL; Free T3 2.3 pg/mL (2.18-3.98); Luteinizing Hormone 7.2 mIU/mL
[2024-09-28 01:07] LABS: Anti-Mullerian Hormone,Serum 1.08 ng/mL (.); DHEA Sulfate 95.4 ug/dL (110.0-431.7)
== END | disposition home or self-care (01) ==
PROVIDERS: PCP Family Medicine; Referring Provider Obstetrics & Gynecology; Visit Provider Family Medicine
DX: E03.9 Hypothyroidism, unspecified (principal)
CPT/HCPCS: 82627; 82670; 83001; 83002; 83516; 84439; 84443; 84481; 82626

== ENCOUNTER → 2024-10-14 | Outpatient (CLI) | payer OTHER, SELFPAY ==
--- NOTE | 2024-10-14 16:00 | US_ITS ---
EXAM: Pelvic ultrasound CLINICAL HISTORY: Oligomenorrhea COMPARISON: None available at the time of this dictation TECHNIQUE: Transabdominal and transvaginal scanning of the pelvis FINDINGS: The uterus is anteverted. No focal uterine masses. The uterus measures 6.4 x 4.0 x 2.3 cm. Endometrial thickness is 7 mm which is normal. Cervix is normal. No IUD. Bilateral ovaries are normal with preserved symmetric vascular flow. No abnormal fluid in the cul-de-sac. Urinary bladder is unremarkable. US/Pelvic w/ Transvaginal IMPRESSION: No acute sonographic abnormalities. [facility]
== END | disposition home or self-care (01) ==
LOC: US 16:00
PROVIDERS: PCP Family Medicine; Referring Provider Obstetrics & Gynecology; Visit Provider Obstetrics & Gynecology
DX: N91.5 Oligomenorrhea, unspecified (principal)
CPT/HCPCS: 76830; 76856

== ENCOUNTER → 2024-10-16 | Outpatient (CLI) | payer OTHER, SELFPAY ==
[2024-10-16 10:44] LABS: Mucous, Urine 0 SEEN /hpf (<or=2+)
[2024-10-16 12:49] LABS: Anion Gap 11 (5-15); BUN 12 mg/dL (4-19); BUN/Creat Ratio 15.8 RATIO (10-20); Calcium,Total 9.6 mg/dL (7.6-11.0); Carbon Dioxide 25.6 mmol/L (21.0-32.0); Chloride 103 mmol/L (98-108); Creatinine, Serum 0.79 mg/dL (0.70-1.20); EST Glomerular Filtration Rate 108 (>60); Glucose 80 mg/dL (70-99); Potassium 3.6 mmol/L (3.3-5.1); Sodium Level 140 mmol/L (133-145)
[2024-10-16 19:22] LABS: Color, Urine Yellow (Yellow); Glucose, Dipstick Normal (Normal); Ketone-Dipstick Negative (Negative); Leukocyte Esterase-Dipstick Negative /ul (Negative); Nitrite-Dipstick Negative (Negative); Occult Blood-Urine 50 /ul (Negative); Protein-Dipstick 30 mg/dl (Negative); Specific Gravity, Urine 1.015 (1.002-1.030); Urine Bilirubin Dipstick Negative (Negative); Urine Clarity Sl. Cloudy (Clear); Urine Urobilinogen Normal (Normal)
[2024-10-16 19:55] LABS: Red Blood Cells-Urine 25-50 SEEN /hpf (0-5); White Blood Cells 0-5 SEEN /hpf (0-5)
[2024-10-16 19:56] LABS: Amorphous Sediment 1+; Bacteria 1+ /hpf (None Seen); Squamous Epithelial Cells - UA 0-5 SEEN /hpf (5-10)
== END | disposition home or self-care (01) ==
LOC: LAB 10:42
PROVIDERS: PCP Family Medicine; Referring Provider Physician Assistant; Visit Provider Physician Assistant
DX: I87.1 Compression of vein (principal); R39.11 Hesitancy of micturition
CPT/HCPCS: 36415; 80048; 81001

== ENCOUNTER → 2024-11-07 | Outpatient (CLI) | payer OTHER, SELFPAY ==
[2024-11-07 14:53] LABS: Absolute Lymphocyte Count 1.54 X10^3/uL (0.83-4.51); Absolute Neutrophil Count 2.7 X10^3/uL (2.0-7.7); Basophil# 0.03 X10^3/uL; Basophil% 0.6 % (0-1); Eosinophil# 0.08 X10^3/uL; Eosinophils% 1.6 % (0-5); Hematocrit 45.6 % (37-47); Hemoglobin 15.4 g/dL (12.0-15.0); Lymphocyte # 1.54 X10^3/ul (0.83-4.51); Lymphocyte % 30.6 % (19-41); Mean Corp Hgb Conc 33.8 g/dL (32-36); Mean Corpuscular Hgb 29.8 pg (27.0-32.0); Mean Corpuscular Volume 88.4 fL (81-99); Monocyte# 0.65 X10^3/uL; Monocyte% 12.9 % (0-10); NRBC Flagged by Analyzer 0 % (0-5); Neutrophil # 2.73 X10^3/uL (2.7-7.7); Neutrophil % 54.1 % (47-70); Platelet Count 193 K/mm3 (150-450); RBC Distribution Width CV 12.2 % (11.6-14.6); RBC Distribution Width SD 39.9 fl (35.1-43.9); Red Blood Count 5.16 M/mm3 (4.2-5.4)
[2024-11-07 15:19] LABS: Erythrocyte Sedimentation Rate 4 mm/hr (0-30)
[2024-11-07 17:13] LABS: ALB/GLOB Ratio 1.5 RATIO (0.9-2.4); AST(SGOT) 21 U/L (<=31); Alanine Aminotransfer ALT/SGPT 23 U/L (<=34); Albumin, Serum 4.9 g/dL (3.5-5.0); Alkaline Phosphatase 86 U/L (35-104); Anion Gap 13 (5-15); BUN 11 mg/dL (4-19); Carbon Dioxide 22.8 mmol/L (21.0-32.0); Chloride 104 mmol/L (98-108); EST Glomerular Filtration Rate 81 (>60); Ferritin 37 ng/mL (22-378); Globulin 3.1 g/dL (2.2-4.2); Glucose 97 mg/dL (70-99); Potassium 3.7 mmol/L (3.3-5.1); Sodium Level 140 mmol/L (133-145); Total Bilirubin 0.59 mg/dL (0.00-1.30)
[2024-11-07 17:43] LABS: CRP < 3.00 mg/L (0.0-3.0); Iron 136 ug/dL (50-170)
== END | disposition home or self-care (01) ==
PROVIDERS: PCP Family Medicine; Referring Provider Family Medicine; Visit Provider Family Medicine
DX: R10.9 Unspecified abdominal pain (principal); K52.9 Noninfective gastroenteritis and colitis, unspecified; D50.9 Iron deficiency anemia, unspecified
CPT/HCPCS: 36415; 80053; 82728; 83540; 85025; 85652; 86140

== ENCOUNTER → 2024-12-03 | Outpatient (CLI) | payer OTHER, SELFPAY ==
--- NOTE | 2024-12-03 13:48 | CT_ITS ---
PROCEDURE: CTA ABD/PELVIS W/WO CONTRAST 12/03/2024 REASON FOR EXAM: EVAL FOR NUTCRACKER PHENOMENON Possible vascular compression of the left renal vein as well as superior mesenteric artery and aorta. TECHNIQUE: CTA imaging of the abdomen and pelvis with intravenous contrast. Multiplanar and multisequence images were obtained. CONTRAST: Isovue 3 7 VOLUME: 100 mL One or more dose reduction techniques were used (e.g., Automated exposure control, adjustment of the mA and/or kV according to patient size, use of iterative reconstruction technique). RADIATION DOSE SUMMARY: CTDlvol: 7 mGy DLP: 605.87 mGycm COMPARISON: Prior study dated May 06, 2024. FINDINGS: Aorta: Abdominal aorta is normal in size. No significant atherosclerotic plaque. No evidence of aneurysm or dissection. Iliac Arteries: Iliac arteries are normal in size with no significant plaque or stenosis. Celiac: Normal. SMA: Normal. MCKENZIE : Normal. Right Renal: Unremarkable Left Renal: Unremarkable Other Findings: No evidence of compression of the left renal vein. CT/CTA Abd/Pelvis W/WO Contrast IMPRESSION: OVERALL FINAL ASSESSMENT: . LI-RADS is not meant to be used in patients <18 years or patients with cirrhosi s due to congenital hepatic fibrosis or due to vascular disorders, because these patients have a lower chance of developing HC C. Reading Location: [facility]
== END | disposition home or self-care (01) ==
LOC: CT 13:46
PROVIDERS: PCP Family Medicine; Referring Provider Physician Assistant; Visit Provider Physician Assistant
DX: I87.1 Compression of vein (principal)
CPT/HCPCS: 74174; Q9967; A4216

== ENCOUNTER → 2025-01-06 | Outpatient (CLI) | payer OTHER, SELFPAY | END | disposition home or self-care (01) | LOC: LABSPEC 13:13 | PROVIDERS: PCP Family Medicine; Visit Provider Physician Assistant | DX: J02.9 Acute pharyngitis, unspecified (principal) | CPT/HCPCS: 87070; 87077 ==

== ENCOUNTER → 2025-01-15 | Outpatient (CLI) | payer OTHER, SELFPAY ==
--- NOTE | 2025-01-15 15:54 | RAD_ITS ---
PROCEDURE: LUMBAR SPINE 2 OR 3 VIEWS 01/15/2025 REASON FOR EXAM: OTHER INTERVERTEBRAL DISC DEGENERATION, LUMBAR REGION WITHOUT MEN TECHNIQUE: LUMBAR SPINE 2 OR 3 VIEWS COMPARISON: None. FINDINGS: Normal lumbar lordosis. There is no substantial scoliosis. T12-L1: Normal disc height. Normal endplates. Normal alignment of the vertebrae. L1-2: Normal disc height. Normal endplates. Normal alignment of the vertebrae. L2-3: Normal disc height. Normal endplates. Normal alignment of the vertebrae. L3-4: Normal disc height. Normal endplates. Normal alignment of the vertebrae. L4-5: Normal disc height. Normal endplates. Normal alignment of the vertebrae. L5-S1: Normal disc height. Normal endplates. Normal alignment of the vertebrae. The soft tissue structures are unremarkable. RAD/Lumbar Spine 2 or 3 Views IMPRESSION: Unremarkable exam. Reading [facility]
== END | disposition home or self-care (01) ==
LOC: RAD 15:51
PROVIDERS: PCP Family Medicine; Referring Provider Family Medicine; Visit Provider Family Medicine
DX: M51.369 Other intervertebral disc degeneration, lumbar region without mention of lumbar back pain or lower extremity pain (principal)
CPT/HCPCS: 72100

== ENCOUNTER → 2025-03-10 | Outpatient (CLI) | payer OTHER, SELFPAY ==
--- NOTE | 2025-03-10 15:12 | RAD_ITS ---
PROCEDURE: CERV SPINE OBL/FLEX/EXT COMP; THORACIC SPINE MIN 4 VIEWS 03/10/2025 REASON FOR EXAM: NECK PAIN; THORACIC PAIN TECHNIQUE: CERV SPINE OBL/FLEX/EXT COMP; THORACIC SPINE MIN 4 VIEWS COMPARISON: None. RAD/Cerv Spine Obl/Flex/Ext Comp IMPRESSION: The cervical spine shows minimal degenerative changes. No disc narrowing is se en. On oblique views, no osseous neural foraminal narrowing is noted. No fracture, subluxation, or prevertebral soft tissue swelling is seen. On lateral flexion and extension views, slight dynamic instability is seen in t he C4-C5 level. The thoracic spine demonstrates minimal degenerative changes. No dynamic insta bility is seen on lateral flexion and extension views. No disc space narrowing is evident. No fracture is seen. Reading Location: [place] [id number]
--- NOTE | 2025-03-10 15:15 | RAD_ITS ---
PROCEDURE: CERV SPINE OBL/FLEX/EXT COMP; THORACIC SPINE MIN 4 VIEWS 03/10/2025 REASON FOR EXAM: NECK PAIN; THORACIC PAIN TECHNIQUE: CERV SPINE OBL/FLEX/EXT COMP; THORACIC SPINE MIN 4 VIEWS COMPARISON: None. RAD/Thoracic Spine Min 4 Views IMPRESSION: The cervical spine shows minimal degenerative changes. No disc narrowing is se en. On oblique views, no osseous neural foraminal narrowing is noted. No fracture, subluxation, or prevertebral soft tissue swelling is seen. On lateral flexion and extension views, slight dynamic instability is seen in t he C4-C5 level. The thoracic spine demonstrates minimal degenerative changes. No dynamic insta bility is seen on lateral flexion and extension views. No disc space narrowing is evident. No fracture is seen. Reading Location: [id number]
== END | disposition home or self-care (01) ==
PROVIDERS: PCP Family Medicine; Referring Provider Anesthesiology Pain Medicine; Visit Provider Anesthesiology Pain Medicine
DX: M54.2 Cervicalgia (principal); M54.6 Pain in thoracic spine
CPT/HCPCS: 72052; 72074

== ENCOUNTER → 2025-03-25 | Outpatient (CLI) | payer OTHER, SELFPAY ==
--- OUTSIDE RECORDS SUMMARY | 2025-03-25 07:20 | XMS RPT_ITS | CCD ---
Author Organization [facility] Care Team Providers Care Dockworker Name Role Phone Sabrina Loaiza MD Unavailable [phone] Arianna Lange LPN Unavailable Unavailab Daxa Patel Unavailable Unavailab Akila Turner Unavailable Unavailable Unavailable Dr. Akila Manuel Primary Care Provider Dr. Akila Manuel Referring Provider ELIZABETH Carter Attending Provider Dr. Akila Manuel Primary Care Provider Dr. Akila Manuel Referring Provider ELIZABETH Carter Attending Provider Dr. Akila Manuel Primary Care Provider Dr. Akila Manuel Referring Provider ELIZABETH Salvador Attending Provider Dr. Akila Manuel Primary Care Provider Dr. Akila Manuel Referring Provider ELIZABETH Salvador Attending Provider [phone] Jack BARRIENTOS, FLOYD-C Meredith Attending Provider [phone] Dr. Nataliia Raymond Attending Provider [phone] MD Keo Lujan Attending Provider MD Keo Lujan Referring Provider MD Keo Lujan Other Provider Dr. Akila Manuel Primary Care Provider Dr. Kaleb Akila Referring Provider Bob JOHNSON, PA Elvin Attending Provider Kaleb, Dr. Wilburn Primary Care Provider Kaleb, Dr. Wilburn Referring Provider MD Keo Lujan Attending Provider MD Keo Lujan Referring Provider MD Keo Lujan Other Provider Nitish Vasquez, Dr. William Attending Provider Jared PLUSH BRUSHER, PLUSH BRUSHER-C Angela Faulkner Attending Provider [phone] Kaleb, Dr. Wilburn Primary Care Provider [phone] MD Keo Lujan Attending Provider Kaleb, Dr. Wilburn Referring Provider [phone] Dr. Misbah Henry Attending Provider [phone] Anthony Other Provider [phone] Kaleb, Dr. Wilburn Primary Care Provider Kaleb, Dr. Wilburn Referring Provider [phone] MD Keo Lujan Attending Provider Dr. Misbah Henry Referring Provider Kaleb, Dr. Wilburn Primary Care Provider [phone] Kaleb, Dr. Wilburn Referring Provider [phone] MD Keo Lujan Attending Provider Kaleb, Dr. Wilburn Primary Care Provider [phone] Kaleb, Dr. Wilburn Referring Provider [phone] Dr. Nataliia Raymond Attending Provider [phone] Dr. Misbah Henry Attending Provider [phone] Dr. Misbah Henry Other Provider Kaleb, Dr. Wilburn Primary Care Provider [phone] Kaleb, Dr. Wilburn Referring Provider [phone] Dr. Nataliia Raymond Attending Provider Friend, Dr. Anthony Attending Provider Friend, Dr. Anthony Other Provider Bernard Honeycutt MD Unavailable Malrene, Akila A Primary Care Provider MALRENE, AKILA Primary Care Unavailable BERNARD HONEYCUTT Attending Unavailable LINDSAY ROSE Referring Unavailable Malrene DO, Akila A Primary Care Provider AYAN GRUBBS Admitting Unavailable MASSIER TAOIST Attending Unavailable MALRENE, AKILA A Primary Care Unavailable Malrene DO, Akila Primary Care Provider Kaleb PETER, Dr. Wilburn Primary Care Provider Kaleb PETER, Dr. Wilburn Referring Provider Rosalba PETER, Dr. Anthony Attending Provider Dr. Akila Manuel DO Attending Provider Jaswinder Carter Attending Provider ASHLEIGH HILTON Attending Provider [phone] ASHLEIGH HILTON Referring Provider [phone] Dr. Nataliia Raymond DO Attending Provider Dr. Nataliia Raymond DO Referring Provider Dr. Akila Manuel DO Primary Care Provider [phone] Kaleb PETER, Dr. Wilburn Referring Provider Jaswinder Carter Attending Provider [phone] ASHLEIGH HILTON Attending Provider ASHLEIGH HILTON Referring Provider [phone] Nataliia Raymond DO Attending Provider Dr. Akila Manuel DO Attending Provider Dr. Nataliia Raymond DO Referring Provider Alyssa Kay Attending Provider [phone] Alyssa Kay Referring Provider [phone] Kaleb PETER, Dr. Wilburn Primary Care Provider [phone] Kaleb PETER, Dr. Wilburn Referring Provider ROMIE TAOIST Attending Unavailable MALYS, AKILA A Primary Care Unavailable MALYS, AKILA A Primary Care Unavailable MASSIMO DAVIS Attending Unavailable MASSIER, TAOIST Attending Unavailable MISBAH HENRY B Referring Unavailable MALYS, AKILA A Primary Care Unavailable MASSIER, TAOIST Referring Unavailable MALYS, AKILA A Primary Care Unavailable MASSIER, TAOIST Attending Unavailable MALYS, AKILA A Primary Care Unavailable Pato Zafar Attending Provider [phone] Kaleb PETER, Dr. Wilburn Primary Care Provider Kaleb PETER, Dr. Wilburn Primary Care Provider Alyssa Kay Attending Provider [phone] Alyssa Kay Referring Provider [phone] Kaleb PETER, Dr. Wilburn Referring Provider Kaleb PETER, Dr. Wilburn Attending Provider Yoan PEDERSON, Dr. Keys Attending Provider [phone] Yoan PEDERSON, Dr. Keys Referring Provider Kaleb PETER, Akila Primary Care Provider GABRIEL LOPEZ C Attending Unavailable MALYS, AKILA Primary Care Unavailable KRAFT, ASHLEIGH T Referring Unavailable RAVISHANKAR, GABRIEL C Referring Unavailable MALYS, AKILA Primary Care Unavailable RAVISHANKAR, GABRIEL C Attending Unavailable RAVISHANKAR, GABRIEL C Referring Unavailable MALYS, AKILA Primary Care Unavailable RAVISHANKAR, GABRIEL C Attending Unavailable MALYS, AKILA Primary Care Unavailable OC OHARA T Referring Unavaila ble KRAFT, ASHLEIGH T Attending Unavailable MALYS, AKILA Primary Care Unavailable KRAFT, ASHLEIGH T Attending Unavailable SELF, SELF Referring Unavailable Neo Moore Attending Unavailabl e Malys, Akila Primary Care Unavailable Malys, Akila Primary Care Unavailable Schwiger, Steven Referring Unavailable Schwiger, Steven Attending Unavailable Malys, Akila Primary Care Unavailable Malys, Akila Referring Unavailable Malys, Akila Attending Unavailable Mercado, Belkys Referring Unavailable Mercado, Belkys Attending Unavailable Malys, Akila Primary Care Unavailable Malys, Akila Primary Care Unavailable Malys, Akila Referring Unavailable Malys, Akila Attending Unavailable Malys, Akila Referring Unavailable Malys, Akila Primary Care Unavailable Malys, Akila Attending Unavailable Malys, Akila Primary Care Unavailable Huntley, Alyssa Referring Unavailable Huntley, Alyssa Attending Unavailable Malys, Akila Primary Care Unavailable Huntley, Alyssa Attending Unavailable Huntley, Alyssa Referring Unavailable Malys, Akila Primary Care Unavailable JACQUELIN, JENN1 Referring Unavailable JACQUELIN, JENN1 Attending Unavailable Mukund, Nia Referring Unavailable Mukund, Nia Attending Unavailable Malys, Akila Primary Care Unavailable Malys, Akila Referring Unavailable Malys, Akila Primary Care Unavailable Malys, Akila Attending Unavailable Malys, Akila Attending Unavailable Nataliia Raymond Referring Unavailabl e Malys, Akila Primary Care Unavailable Malys, Akila Referring Unavailable Malys, Akila Primary Care Unavailable Malys, Akila Attending Unavailable Pato Zafar Attending Unavailable Malys, Akila Primary Care Unavailable Malys, Akila Referring Unavailable Malys, Akila Attending Unavailable Malys, Akila Primary Care Unavailable Malys, Akila Primary Care Unavailable JACQUELIN, JENN1 Referring Unavailable JACQUELIN, JENN1 Attending Unavailable Malys, Akila Primary Care Unavailable Malys, Akila Referring Unavailable Huntley, Alyssa Attending Unavailable Malys, Akila Referring Unavailable Belkys Mercado Attending Unavailable Malys, Akila Primary Care Unavailable Malys, Akila Referring Unavailable Malys, Akila Primary Care Unavailable Malys, Akila Attending Unavailable Malys, Akila Primary Care Unavailable Massimo Milton Referring Unavailable Massimo Milton Attending Unavailable Malys, Akila Referring Unavailable Pato Zafar Attending Unavailable Malys, Akila Primary Care Unavailable Misbah Henry Attending Unavailable Malys, Akila Primary Care Unavailable Malys, Akila Referring Unavailable Jaswinder Carter Attending Unavailable Malys, Akila Primary Care Unavailable Malys, Akila Referring Unavailable Nataliia Raymond Attending Unavailabl e Malys, Akila Primary Care Unavailable Malys, Akila Referring Unavailable Nataliia Raymond Attending Unavailabl e Malys, Akila Primary Care Unavailable Malys, Akila Referring Unavailable Malys, Akila Primary Care Unavailable Nataliia Raymond Referring Unavailabl e Nataliia Raymond Attending Unavailabl e Allergies Allergy Classification Reported Allergen(s) Allergy Type Date of Onset Reaction(s) Facility Amoxicillin / Clavulanate (1 source) Amoxicillin / Clavulanate; Translations: [Augmentin] Drug Allergy [facility] 120 Work Phone: [employer] (1 source) [employer]; Translations: [Red Dye] Substance Allergy [facility] 120 Work Phone: Penicillins (antibiotic) (1 source) Amoxicillin; Translations: [amoxicillin] Drug Allergy [place] [phone] Work Phone: (20 sources) [employer]; Translations: [RED DYE] allergy to substance 7 turns hyper (red dye #5) (motrin coating), Other [facility] Work Phone: (20 sources) Amoxicillin; Translations: [AMOXICILLIN] Drug Allergy 1 Unknown [facility] Comment on above: Did not respond to t reatment, needed augmentin (20 sources) Clavulanate Drug Allergy 1 PT UNSURE OF REACTION [facility] (20 sources) Codeine; Translations: [CODEINE] Drug Allergy 9 Rash, Hives, Unknown [facility] (18 sources) Amoxicillin-Pot Clavulanate; Translations: [AMOXICILLIN-PO T CLAVULANATE] Drug Allergy 4 Hives, Rash, Other: See Comments [facility] (15 sources) Cinnamon Preparation; Translations: [CINNAMON] Drug Allergy 6 Hives [facility] (12 sources) Dust; Translations: [DUST] Propensity to adverse reactions 6 [facility] Work Phone: (12 sources) Grass pollen; Translations: [GRASS POLLEN] Propensity to adverse reactions 6 [facility] (13 sources) Mold Extract; Translations: [MOLD] Drug Allergy 6 [facility] (12 sources) Tree; Translations: [TREES] Propensity to adverse reactions 6 [facility] (5 sources) animals [Other] Propensity to adverse reactions 7 [facility] Work Phone: (1 source) MITE EXTRACT Drug Allergy 6 [facility] (1 source) *Seasonal Propensity to adverse reactions to substance 6 [facility] (9 sources) Scopolamine Drug Allergy 5 Vision changes [facility] (9 sources) Wheat gluten extract Drug Allergy 5 Vomiting [facility] (1 source) OTHER; Translations: [OTHER] Propensity to adverse reactions (disorder) 7 [facility] (1 source) Amoxicillin Drug Allergy 5 [facility] (1 source) Clavulanate Drug Allergy 5 [facility] (1 source) Codeine Drug Allergy 5 [facility] (1 source) Gluten Drug allergy (disorder) 5 [facility] (1 source) Scopolamine Drug Allergy 5 [facility] Medications Current Medications Medication Drug Class(es) Dates Sig (Normalized) Sig (Original) acetaminophen 500 mg oral tablet (20 sources) Start: 03-29-2024 End: 04-28-2024 take 2 tablets by mouth every six hours as needed acetaminophen (TYLENOL EXTRA STRENGTH) 500 mg tablet Take 2 tablets by mouth every 6 hours as needed for pain. 30 tablet 03/29/2024 04/28/2024 Active Start: 08-27-2020 End: 09-02-2022 Acetaminophen (Tylenol) 325 mg capsule Discontinued 325 mg PO NEEDED as needed for Pain August 27, 2020 1:00am September 02, 2022 5:13pm Start: 08-27-2020 take 1 capsule by mouth once A cetaminophen (Tylenol) 325 mg capsule Active 325 MG PO ONCE August 27, 2020 12:00am amphetamine aspartate 2.5 mg / amphetamine sulfate 2.5 mg / dextroamphetamine saccharate 2.5 mg / dextroamphetamine sulfate 2.5 mg oral tablet (20 sources) Central Nervous System Stimulant Start: 05-10-2023 take 1 tablet by mouth twice daily amphetamine-dextroamphetamine 10 MG tablet Take 1 tablet by mouth 2 times daily. 11/14/2023 Active Start: 05-10-2023 End: 09-23-2024 take 5 mg by mouth twice daily Dextroamphetamine-Amphetamine 10 mg tabl et Discontinued 5 mg PO TWICE A DAY May 10, 2023 12:00am September 23, 2024 4:33pm ADHD Start: 02-10-2021 End: 09-02-2022 take 1 capsule by mouth every other day, then take 1 capsule by mouth every twenty-four hours Dextroamphetamine-Amphetamine (Adderall Xr) 20 mg capsule,extended release 24hr Discontinued 20 mg PO EVERY OTHER DAY 0 February 10, 2021 8:22am September 02, 2022 5:13pm Start: 02-10-2021 take 1 capsule by mo ut once daily, then take 1 capsule by mouth every twenty-four hours Dextroamphetamine-Amphetamine (Adderall Xr) 20 mg capsule,extended release 24hr Active 20 MG PO DAILY February 10, 2021 7:22am Start: 12-09-2020 End: 02-10-2021 take 2 capsules by mouth once daily, then take 1 capsule by mouth every twenty-four hours Dextroamphetamine-Amphetamine (Adderall Xr) 20 mg capsule,extended release 24hr Discontinued 40 mg PO DAILY 0 December 09, 2020 12:00am February 10, 2021 8:23am Start: 08-11-2020 End: 12-09-2020 take 1 tablet by mouth every four to six hours Dextroamphetamine-Amphetamine (Adderall) 10 mg tablet Discontinued 10 mg PO TWICE A DAY 0 August 11, 2020 1:00am December 09, 2020 9:15am administer doses at least 4-6 hours apart azithromycin 250 mg oral tablet (20 sources) Macrolide Antimicrobial Start: 01-06-2025 Azithromycin 250 mg tablet Active 0 PO .COMPLEX 6 0 January 06, 2025 12:00am For 250 mg dose pack: take 500 mg today (day 1), then 250 mg for 4 days (days 2-5) PO Start: 06-28-2024 End: 09-23-2024 take 2-5 tablets by mouth once daily Azithromycin 250 mg tablet Discontinued 0 PO .COMPLEX 6 0 June 28, 2024 1:00am September 23, 2024 4:31pm take 500 mg today (day 1), then 250 mg for 4 days (days 2-5) PO Start: 12-11-2023 End: 12-26-2023 Azithromycin 250 mg tablet Discontinued 0 PO .COMPLEX 6 0 December 11, 2023 12:00am December 26, 2023 11:17am For 250 mg dose pack: take 500 mg today (day 1), then 250 mg for 4 days (days 2-5) PO Start: 09-17-2015 End: 11-19-2015 take 2 tablets by mouth once daily, then take 1 tablet by mouth, then take 2-5 tablets by mouth once AZITHROMYCIN 250 MG TABS 2 po daily on day 1 then q po daily on days 2-5 AZITHROMYCIN [id number] Akila Manuel, DO 24 hr budesonide 9 mg extended release oral tablet (20 sources) Corticosteroid Start: 08-28-2024 Budesonide 9 M G Tab SR 24 HR tablet XL 08/28/2024 Active Start: 05-10-2024 End: 07-18-2024 take 1 tablet by mouth once daily in the morning Budesonide 9 mg tablet,delayed and ext.release Active 9 mg PO EVERY MORNING July 18, 2024 8:02pm Start: 05-09-2024 End: 05-10-2024 take 1 mL by mouth twice daily in the morning Budesonide 2 mg/10 mL suspension in packet Discontinued 10 mL PO TWICE A DAY 600 0 May 09, 2024 12:00am May 10, 2024 1:04pm administer in the morning and evening Start: 05-09-2024 End: 05-10-2024 take 1 mL by mouth twice daily in the morning Budesonide 2 mg/10 mL suspension in packet Discontinued 10 mL PO TWICE A DAY 600 May 09, 2024 12:00am May 10, 2024 1:04pm administer in the morning and evening Start: 05-09-2024 End: 05-10-2024 take 1 mL by mouth twice daily in the morning Budesonide 2 mg/10 mL suspension in packet Discontinued 10 mL PO TWICE A DAY 600 May 08, 2024 11:00pm May 10, 2024 12:04pm administer in the morning and evening celecoxib 200 mg oral capsule (20 sources) Nonsteroidal Anti-inflammatory Drug Start: 06-05-2024 End: 09-23-2024 Celecoxib 200 MG capsule 07/15/2024 Active cholestyramine resin 4000 mg powder for oral suspension (5 sources) Bile Acid Sequestrant Start: 10-25-2024 take 1 dose by mouth twice daily Cholestyramine (With Sugar) 4 gram powder in packet Active 4 g PO TWICE A DAY 60 0 October 25, 2024 12:00am administer w/meal; avoid other meds within 1hr before or 4-6hr after dose DULoxetine 40 mg delayed release oral capsule (20 sources) Serotonin and Norepinephrine Reuptake Inhibitor Start: 09-23-2024 DULoxetine HCl [address] Particles capsule 10/16/2024 Active Start: 09-14-2023 End: 12-11-2023 take 1 capsule by mouth once daily Duloxetine (Cymbalta) 30 mg capsule,delayed release(DR/EC) Discontinued 30 mg PO DAILY 30 2 September 14, 2023 1:00am December 11, 2023 2:07pm fludrocortisone acetate 0.1 mg oral tablet (20 sources) Start: 01-22-2024 fludrocortisone 0.1 MG tablet 01/22/2024 Active ibuprofen 200 mg oral tablet (20 sources) Nonsteroidal Anti-inflammatory Drug Start: 03-29-2024 End: 04-28-2024 take 3 tablets by mouth every eight hours as needed ibuprofen (MOTRIN IB) 200 mg tablet Take 3 tablets by mouth three times a day as needed for pain. Take with food. 30 tablet 03/29/2024 04/28/2024 Active Start: 08-14-2016 End: 04-25-2019 Ibuprofen 200 MG tablet Disc ontinued 400 mg PO NEEDED as needed for Pain August 14, 2016 1:00am April 25, 2019 2:57pm Start: 08-14-2016 End: 04-25-2019 Ibuprofen Discontinued 400 M G PO NEEDED August 14, 2016 12:00am April 25, 2019 1:57pm levocetirizine dihydrochloride 5 mg oral tablet (4 sources) Histamine-1 Receptor Antagonist Start: 10-26-2022 take 1 tablet by mouth once daily Levocetirizine (Xyzal) 5 mg Tablet Active 5 MG PO DAILY October 26, 2022 12:00am Magnesium (20 sources) Start: 10-26-2022 MAGNESIUM PO Take 250 mg by mouth. 0 10/26/2022 Active Start: 10-26-2022 End: 09-23-2024 take 1 tablet by mouth once daily Magnesium 250 mg Tablet Discontinued 250 mg PO DAILY October 26, 2022 12:00am September 23, 2024 4:32pm Start: 10-26-2022 End: 09-23-2024 take 1 tablet by mouth once daily Magnesium 250 mg Tablet Discontinued 250 mg PO DAILY October 25, 2022 11:00pm September 23, 2024 3:32pm Start: 10-26-2022 take 250 mg by mouth once dianna y Magnesium Active 250 MG PO DAILY October 25, 2022 11:00pm Start: 10-26-2022 take 250 mg by mouth once dianna y Magnesium Active 250 MG PO DAILY October 26, 2022 12:00am medroxyPROGESTERone acetate 5 mg oral tablet (9 sources) Progestin Start: 09-23-2024 take 1 tablet by mouth once daily Medroxyprogesterone 5 mg tablet Active 5 mg PO daily 7 September 23, 2024 1:00am methylphenidate hydrochloride 5 mg oral tablet (6 sources) Central Nervous System Stimulant Start: 09-02-2022 take 5 mg by mouth twice daily Methylphenidate Hcl Active 5 MG PO TWICE A DAY September 02, 2022 1:00am metoclopramide 5 mg oral tablet (20 sources) Dopamine-2 Receptor Antagonist Start: 04-27-2024 End: 09-23-2024 Metoclopramide 5 MG tablet 06/28/2024 Active ondansetron 4 mg disintegrating oral tablet (20 sources) Serotonin-3 Receptor Antagonist Start: 09-11-2023 Ondansetron 4 MG Tab Dispersible tablet 03/04/2024 Active oxyCODONE hydrochloride 5 mg oral tablet (2 sources) Opioid Agonist Start: 03-29-2024 End: 04-03-2024 take 1 tablet by mouth every six hours as needed for pain oxyCODONE IR (ROXICODONE) 5 mg immediate release tablet Indications: Superior mesenteric artery syndrome (HCC) , Post-operative pain Take 1 tablet by mouth every 6 hours as needed for pain for up to 5 days. 5 tablet 03/29/2024 04/03/2024 Active pantoprazole 40 mg delayed release oral tablet (20 sources) Proton Pump Inhibitor Start: 12-25-2023 End: 05-09-2024 Pantoprazole [address] tablet DR 12/25/2023 Active Start: 12-02-2022 End: 05-09-2024 take 1 tablet by mouth once daily as needed for gastroesophageal reflux disease Pantoprazole 40 mg tablet,delayed release (DR/EC) Discontinued 40 mg PO DAILY as needed for gerd August 30, 2023 1:00am May 09, 2024 2:41pm PARoxetine hydrochloride 10 mg oral tablet (3 sources) Serotonin Reuptake Inhibitor Start: 08-12-2024 PARoxetine 10 MG tablet 08/12/2024 Active PNV no.95/ferrous fum/folic ac ( ORAL) (7 sources) PNV no.95/ferrou s fum/folic ac ( ORAL) Take by mouth. Active polyethylene glycol 3350 86153 mg powder for oral solution (8 sources) Osmotic Laxative Start: 03-29-2024 take 17 g by mouth once daily Polyethylene glycol 17 GM/SCOOP Powder powder Take 17 g by mouth daily. 03/29/2024 Active Start: 03-29-2024 polyethylene g lycol 3350 (MIRALAX) 17 gram/dose powder Take 17 g by mouth once daily. Dissolve dose in 4 - 8 ounces of liquid and take as directed. 507 g 03/29/2024 Active predniSONE 10 mg oral tablet (20 sources) Corticosteroid Start: 01-06-2025 take 4 tablets by mouth once daily, then take 3 tablets by mouth once daily, then take 2 tablets by mouth once daily, then take 1 tablet by mouth once daily Prednisone 10 mg tablet Active 10 mg PO DAILY 30 January 06, 2025 12:00am 4 tablets daily x3 days, then 3 tablets daily x3 days, then 2 tablets daily x3 days, then 1 tablet daily x3 days Start: 08-18-2023 take 20 mg by mouth once daily Prednisone Active 20 MG PO DAILY 5 August 18, 2023 12:00am Start: 10-06-2014 End: 03-04-2015 take 1 tablet by mouth once daily PREDNISONE 50 MG TABS One tablet by mouth daily PREDNISONE [id number] Amor Villar DO traZODone hydrochloride 50 mg oral tablet (6 sources) Serotonin Reuptake Inhibitor Start: 09-22-2022 End: 03-13-2024 take 50 mg by mouth once daily Trazodone Active 50 MG PO DAILY September 22, 2022 1:00am traZODone HCl - 50 MG Oral Tablet Quantity: 0 Refills: 0 Ordered: 05-Nov-2020 DO Active Completed/Discontinued Medications Medication Drug Class(es) Dates Sig (Normalized) Sig (Original) acetaminophen 300 mg / codeine phosphate 30 mg oral tablet (20 sources) Opioid Agonist Start: 06-19-2019 End: 06-24-2019 Acetaminophen-Codei ne 1 TABLET tablet Discontinued 1 - 2 {tbl} PO EVERY 6 HOURS NEEDED as needed for Pain 30 June 19, 2019 1:00am June 24, 2019 2:47pm Start: 06-19-2019 End: 06-24-2019 take 1 tablet by mouth every six hours as needed Acetaminophen-Codeine Discontinued 1 - 2 TABLET PO EVERY 6 HOURS NEEDED June 19, 2019 12:00am June 24, 2019 1:47pm acetaminophen 325 mg / HYDROcodone bitartrate 5 mg oral tablet (20 sources) Opioid Agonist Start: 05-06-2024 End: 05-20-2024 Hydrocodone-Acetaminophen 5- 325 mg tablet Discontinued 1 {tbl} PO EVERY 6 HOURS NEEDED as needed for Pain 10 3 0 May 06, 2024 May 20, 2024 2:55pm Abdominal pain Unspecified abdominal pain Start: 02-03-2024 hydroCODone-ac etaminophen 5-325 MG tablet 02/03/2024 Active Start: 02-03-2024 End: 04-27-2024 Hydrocodone-Acetaminophen 5- 325 mg tablet Discontinued 1 {tbl} PO EVERY 6 HOURS NEEDED as needed for Pain 10 3 0 February 03, 2024 April 27, 2024 4:54am Abdominal pain Unspecified abdominal pain Start: 02-03-2024 HYDROcodone-ac etaminophen (NORCO) 5-325 mg per tablet 02/03/2024 Active Start: 07-13-2022 End: 08-25-2022 Hydrocodone-Acetaminophen 5- 325 mg tablet Discontinued 1 {tbl} PO Q4H as needed for pain 20 7 0 July 13, 2022 August 25, 2022 2:58pm Tear of medial meniscus of left knee Other tear of medial meniscus, current injury, left knee, initial encounter Start: 07-13-2022 End: 08-25-2022 take 1 tablet by mouth every four hours Hydrocodone-Acetaminophen Discontinued 1 TABLET PO Q4H 20 7 July 13, 2022 August 25, 2022 1:58pm Start: 11-13-2020 End: 02-10-2021 Hydrocodone-Acetaminophen 5- 325 mg tablet Discontinued 1 {tbl} PO EVERY 6 HOURS as needed for pain 40 0 November 13, 2020 February 10, 2021 8:22am Start: 11-13-2020 End: 02-10-2021 take 1 tablet by mouth every six hours Hydrocodone-Acetaminophen Discontinued 1 TABLET PO EVERY 6 HOURS 40 November 13, 2020 February 10, 2021 7:22am amoxicillin 875 mg oral tablet (20 sources) Penicillin-class Antibacterial Start: 08-15-2014 End: 09-02-2014 take 1 tablet by mouth twice daily AMOXICILLIN 875 MG TABS 1 po Twice daily x 10 days AMOXICILLIN [id number] Amor Villar DO Start: 10-03-2010 End: 08-15-2014 AMOXICILLIN 400 MG/5ML SUSR one tsp every 12 hrs AMOXICILLIN [id number] Akila Manuel DO amoxicillin 875 mg / clavulanate 125 mg oral tablet (15 sources) Penicillin-class Antibacterial Start: 06-28-2024 End: 07-08-2024 Amoxicillin-Pot Clavulanate 875-125 mg tablet Discontinued 1 {tbl} PO Q12H 20 10 0 June 28, 2024 1:00am July 07, 2024 1:00am July 08, 2024 1:08am Acute sinusitis, unspecified Start: 09-02-2014 End: 09-12-2014 take 1 tablet by mouth twice daily AMOXICILLIN-POT CLAVULANATE 875-125 MG TABS 1 tablet by mouth twice per day AMOXICILLIN-POT CLAVULANATE [id number] Amor A Jian DO atenolol 25 mg oral tablet (20 sources) beta-Adrenergic Judy Start: 09-22-2022 End: 09-23-2024 Atenolol 25 mg tablet Discontinued 12.5 mg PO NEEDED as needed for POTS September 22, 2022 1:00am September 23, 2024 4:31pm Start: 09-22-2022 Atenolol Activ e 12.5 MG PO NEEDED September 22, 2022 12:00am Atenolol 25 MG t ablet Take 0.5 tablets by mouth. Active Atenolol 25 MG O ral Tablet Quantity: 0 Refills: 0 Ordered: 05-Nov-2020 DO Active atropine sulfate 0.68816 mg/ml / hyoscyamine sulfate 0.0207 mg/ml / PHENobarbital 3.24 mg/ml / scopolamine hydrobromide 0.0013 mg/ml oral solution (9 sources) Anticholinergic, Cholinergic Muscarinic Antagonist Start: 05-09-2024 End: 05-16-2024 take 1 mL by mouth at bedtime Yknxevhwr-Sqwmlg-Hyabywsu-Scop 16.2 mg-0.1037 mg/5 mL (5 mL) elixir Discontinued 5 mL PO before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 twice daily. - levalbuterol tartrate HFA (XOPENEX HFA) 45 mcg/actuation inhaler Inhale 1-2 Puffs as instructed every 4 hours as needed. 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 Post opLAPAROSCOPIC DUODENOJEJUNOSTOMY Who is your referring physician? Dr manuel Are you having poor oral intake? NO Have you had unintentional weight loss of 15 lbs/7 Kg in the last 3-6 months? NO Bowels: diarrhea, regular, or soft Wound: clean AND dry Temperature: No Drains: No Chief Meter Reader offered:Patient declines Encounter Status:Closed by [facility]BS [facility]03[facility] -------- FLOWER SWAN ([id number]) 1 F Date Time Provider Department 04/02/24 AYAN GRUBSB During your visit today, we recorded the following information about you: Omega Urbina RN 04/02/2024 5:02 PM Signed Pt had Laparoscopic duodenojejunostomy performed on 03/22/2024. Pt left voicemail message asking whether her post-op visit scheduled for 04/03/2024 should be scheduled 2 weeks from surgery or 2 weeks after discharge from hospital. RN's call to pt went to voicemail. RN left confirmation to continue with her post-op visit as scheduled for tomorrow. Call terminated. Allergies As of Date: 04/02/2024 Noted Allergy Reaction AMOXICILLIN 02/07/2024 16 - Unknown AUGMENTIN (AMOXICILLIN-POT CLAVUL*02/07/2024 14 - Other: See Comments Comments: Not effective CINNAMON 04/06/2016 4 - Hives DUST 04/21/2006 GRASS POLLEN 04/21/2006 MAPLE TREES (TREES) 04/21/2006 MOLD 04/21/2006 RED DYE 12/11/2006 CODEINE 06/24/2019 4 - Hives 2 - Rash 16 - Unknown Date Reviewed: 03/28/2024 Reviewed by: Montserrat De Jesus RN - Fully Assessed Reason for Visit: Post Op [174] Cmt: Laparoscopic duodenojejunostomy Prescriptions as of 04/02/2024 - acetaminophen (TYLENOL EXTRA STRENGTH) 500 mg tablet Take 2 tablets by mouth every 6 hours as needed for pain. - ibuprofen (MOTRIN IB) 200 mg tablet Take 3 tablets by mouth three times a day as needed for pain. Take with food. - polyethylene glycol 3350 (MIRALAX) 17 gram/dose powder Take 17 g by mouth once daily. Dissolve dose in 4 - 8 ounces of liquid and take as directed. - oxyCODONE IR (ROXICODONE) 5 mg immediate release tablet Take 1 tablet by mouth every 6 hours as needed for pain for up to 5 days. - atenolol (TENORMIN) 25 mg tablet Take 12.5 mg by mouth as needed (Pt states only takes as needed). - PNV no.95/ferrous fum/folic ac ( ORAL) Take by mouth. - pantoprazole DR (PROTONIX) 40 mg tablet - fludrocortisone (FLORINEF) 0.1 mg tablet - HYDROcodone-acetaminophe n (NORCO) 5-325 mg per tablet - hyoscyamine (LEVSIN) 0.125 mg tablet - ondansetron orally disintegrating (ZOFRAN ODT) 4 mg disintegrating tablet Take 4 mg by mouth. - dextroamphetamine-amphet amine (ADDERALL) 10 mg tablet Take 10 mg by mouth twice daily. - levalbuterol tartrate HFA (XOPENEX HFA) 45 mcg/actuation inhaler Inhale 1-2 Puffs as instructed every 4 hours as needed. 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] 03/13/2024 Superior mesenteric artery syndrome (HCC) [K55.*03/22/2024 Moderate protein-calorie malnutrition (HCC) [E4*03/24/2024 Encounter Status:Closed by ANTRO, OMEGA on 04/02/24 Normal [facility] CNDSon 03-29-2024 DS HNO ID: [id number] Author: AYAN GRUBBS MD Service: General Surgery Author Type: Resident Type: Discharge Summary Filed: 03/29/2024 17:49 Note Text: -------- Attestation signed by Ayan Grubbs MD at 03/29/2024 5:49 PM [facility] STAFF PHYSICIAN NOTE OF PERSONAL INVOLVEMENT IN CARE I have reviewed the progress note, discharge instructions, and discharge summary obtained and documented by the resident and I personally participated in the vazquez components. I have discussed the case and management of the patient's care. The following comments revise or confirm relevant vazquez components of their note. IMPRESSION: This is a 24 year old female who presents with superior mesenteric syndrome and recovered well after laparoscopic gastroduodenostomy PLAN: d/c home on soft diet for next 2 weeks then f/up office SIGNATURE: Ayan Grubbs MD DATE of SERVICE: March 29, 2024 TIME of SERVICE: 5:48 PM -------- DISCHARGE SUMMARY PATIENT NAME: Flower Swan ADMISSION DATE: 03/22/2024 DISCHARGE DATE: 03/29/2024 Attending Physician: Ayan Grubbs MD Code Status: Not on file Highest Readmission Risk Score: 11 The 30 day readmissions risk score is derived from an internally validated risk model which evaluates patient level characteristics, utilization history, medication orders and lab results up until the day of discharge. Patients with a score of 40 or above are considered highest risk for readmission. Specific patient level drivers will be listed at the bottom of the summary. Reason for Hospitalization: SMA syndrome Diagnosis: Principal Problem: Superior mesenteric artery syndrome (HCC) (POA: Yes) Active Problems: Moderate protein-calorie malnutrition (HCC) (POA: Yes) Resolved Problems: * No resolved hospital problems. * Hospital Course as Described to the Patient: You were admitted for SMA syndrome. Flower Swan is a 24 yo woman presenting to [facility] for management of her SMA syndrome. She underwent laparoscopic duodenojejunostomy creation and placement of nasojejunal tube on 03/22/24. She tolerated the procedure well and recovered on the regular nursing floor. Diet was advanced to liquids which was well-tolerated, then advanced to GI soft diet, which was also well tolerated. Surgical wounds remained intact and closed without concern for infection, she had good bowel function and was deemed suitable for discharge. She will follow-up in clinic with Dr Grubbs in about 2 weeks, and has adequate regimen for pain at home. Transitions of Care Critical Issues: None LABS AND PROCEDURES PENDING AT DISCHARGE: Pathology Results (surgical path) Additional Provider to Provider Information: Principal Problem: Superior mesenteric artery syndrome (HCC) (POA: Yes) Assessment AND Plan: S/p duodenojejunostomy Operations During Hospitalization: Yes laparoscopic duodenojejunostomy Procedures During Hospitalization: No procedures performed Consulting Teams During Hospitalization: Treatment Team: Attending Provider: Ayan Grubbs MD None Patient Condition @ Discharge: Stable Discharge Disposition: Home/Self Care GENERAL: Alert, no distress, cooperative. HEAD: Normocephalic, atraumatic. EYES: EOMI, anicteric. NECK: Freely mobile. No masses, trachea midline HEART: Regular rate. LUNGS: No respiratory distress. Good bilateral inspiratory effort. SKIN: Skin color, texture, turgor normal. No rashes or lesions. ABDOMEN: Soft, non-distended, non-tender. Incisions clean/dry/intact EXTREMITIES: Moves all four purposefully. PSYCH: Appropriate mood and affect. Information Provided to Patient: Diet: Resume pre-hospital diet Activity: May bathe or shower No lifting greater than 20 lbs for three more weeks Wound/Surgical Site Care: ALLERGIES Allergen Reactions Amoxicillin Unknown Augmentin [Amoxicil* Other: See Comments Not effective Cinnamon Hives Dust Grass Pollen Maple Trees [Trees] Mold Red Dye Codeine Hives, Rash, Unknown Discharge Medications: Medication List START taking these medications acetaminophen 500 mg tablet Commonly known as: TYLENOL EXTRA STRENGTH Take 2 tablets by mouth every 6 hours as needed for pain. ibuprofen 200 mg tablet Commonly known as: MOTRIN IB Take 3 tablets by mouth three times a day as needed for pain. Take with food. oxyCODONE IR 5 mg immediate release tablet Commonly known as: ROXICODONE Take 1 tablet by mouth every 6 hours as needed for pain for up to 5 days. polyethylene glycol 3350 17 gram/dose powder Commonly known as: MIRALAX Take 17 g by mouth once daily. Dissolve dose in 4 - 8 ounces of liquid and take as directed. CONTINUE taking these medications dextroamphetamine-amphet amine 10 mg tablet Commonly known as: ADDERALL fl (more content not included)... [facility] NURSING PROGon 03-27-2024 NURSING PROG HNO ID: [id number] Author: ROBBY ONTIVEROS RN Service: ? Author Type: Registered Nurse Type: Nursing Progress Note Filed: 03/27/2024 17:17 Note Text: Other: Patient ambulating frequently. Taking small amounts of food. Complains of a very sore throat. No redness noted. Lymph node is slightly enlarged. [facility] NUTRITIONon 03-27-2024 NUTRITION HNO ID: [id number] Author: EDEL MENDES RD Service: Nutrition Therapy Author Type: Registered Dietitian Type: Nutrition Filed: 03/27/2024 13:55 Note Text: NUTRITION THERAPY PROGRESS NOTE SERVICE DATE: 03/27/2024 SERVICE TIME: Nutrition Assessment: Recommended Malnutrition Diagnosis: Moderate Protein-Calorie Malnutrition (03/24/24 1259 : Edel Mendes RD) Care Plan: Enteral Nutrition Tube Feeding Formula Type: Nutren 1.5 Goal Rate (mL/hr x hours): 45 ml/hr x 24 hours Water Flush Volume (mL x frequency): 30 ml every 4 hours. (decreased today - this will not meet her fluid needs for homegoing if not able to drink PO) Monitor and Evaluation: Meet greater than 75% of estimated needs, Monitor tolerance to tube feeding, Monitor bowel function, Monitor fluid/electrolyte balance, Monitor labs, I/Os, vital signs, weight Interval History: Tolerating TF at goal rate. Tolerating H20 flushes at 30 ml every 4 hours. She is able to drink fliuids as well. Encouraged her to drink about 1L per day to maintain hydration while on TF since H20 flushes are low. Intake History: Current Nutrition Intake: Greater than 75% estimated energy needs Current Intake Over time: Greater than or equal to 5 days Dosing Weight: 52.2 kg (115 lb) Dosing Weight Type: Admit weight Estimated kilocalorie needs: 8603-2983 Calorie Calculation Method: 35-45 kcals/kg Estimated protein needs (grams): 80-100 Grams protein determined by: 1.5 - 2.0 g/kg Diet Orders (From admission, onward) Start Ordered 03/26/24 0915 DIET TUBE FEED - CONTIN WITH TRAY START NOW Question Answer Comment TF Product NUTREN 1.5 Sioux Approved Secondary TF Product (Do Not Change) Osmolite 1.5 TF Total mL per 24 hours 1080 Number of Liter Bags 1 TF Goal Rate (mL/hr) 45 TF Route NASOJEJUNAL TF Water Flush Amount (mL) 30 TF Water Flush Frequency Every 4 Hours Liquid Diet CLEAR LIQUID 03/26/24 0902 Anthropometrics: Height: 162.6 cm (5' 4) Weight: 52.2 kg (115 lb) Body mass index is 19.74 kg/m?. MNT Billing: $ Reassessment: 1-15 minutes SIGNATURE: Edel Mendes RD PATIENT NAME: Flower Swan DATE: March 27, 2024 TIME: 1:55 PM [facility] Basic metabolic 2000 panelon 03-25-2024 Anion gap [Moles/Vol] 10 mmol/L Normal 8-15 [facility] Comment on above: Order Comment: Donaldo brunson Type: BLOOD SPECIMEN Ordering Facility: [facility] Address: [address] [place] [address] Performed By: #### 2 4321-2, 68613-4 #### [facility] CLIA [id number] [address] [place] [address] [place] Calcium [Mass/Vol] 9.1 mg/dL Normal 8.5-10.2 [facility] Comment on above: Order Comment: Donaldo brunson Type: BLOOD SPECIMEN Ordering Facility: [facility] Address: [address] [place] [address] Performed By: #### 2 4321-2, #### [facility] CLIA [id number] [place], [place] [address] [place] Chloride [Moles/Vol] 104 mmol/L Normal 98-107 [facility] Comment on above: Order Comment: Speci men Type: BLOOD SPECIMEN Ordering Facility: [facility] Address: [address] [place] [address] Performed By: #### 2 4321-2, #### [facility] CLIA [id number] [place], [place] [address] [place] CO2 [Moles/Vol] 27 mmol/L Normal 22-30 [facility] Comment on above: Order Comment: Speci men Type: BLOOD SPECIMEN Ordering Facility: [facility] Address: [address] [place] [address] Performed By: #### 2 432-2, #### [facility] CLIA [id number] [address] [place], [place] [address] [place] Creatinine [Mass/Vol] 0.65 mg/dL Normal 0.58-0.96 [facility] Comment on above: Order Comment: Speci men Type: BLOOD SPECIMEN Ordering Facility: [facility] Address: [address] [place] [address] Performed By: #### 2 4321-2, #### [facility] CLIA [id number] [address] [place], [place] [address] [place] Creatinine and Glomerular filtration rate.predicted panel (S/P/Bld) 126 mL/min/1.73m??? Normal >=60 [facility] Comment on above: Order Comment: Speci men Type: BLOOD SPECIMEN Ordering Facility: [facility] Address: [address] [place] [address] Result Comment: Purnima mated Glomerular Filtration Rate (eGFR) is calculated using the 2020 CKD-EPI creatinine equation. This equation utilizes serum creatinine, sex, and age as parameters. The creatinine assay has traceable calibration to isotope dilution-mass spectrometry. Refer to KDIGO guidelines for clinical interpretation. In patients with unstable renal function, e.g. those with acute kidney injury, the eGFR may not accurately reflect actual GFR. Performed By: #### 2 4320-08, #### [facility] CLIA [id number] [place] [address] [place] Glucose [Mass/Vol] 107 mg/dL High 74-99 [facility] Comment on above: Order Comment: Speci men Type: BLOOD SPECIMEN Ordering Facility: [facility] Address: [address] [place] [address] Result Comment: The [place] [employer] (ADA) provides guidance for cutoff values for fasting glucose and random glucose. The ADA defines fasting as no caloric intake for at least 8 hours. Fasting plasma glucose results between 100 to 125 mg/dL indicate increased risk for diabetes (prediabetes). Fasting plasma glucose results greater than or equal to 126 mg/dL meet the criteria for diagnosis of diabetes. In the absence of unequivocal hyperglycemia, results should be confirmed by repeat testing. In a patient with classic symptoms of hyperglycemia or hyperglycemic crisis, random plasma glucose results greater than or equal to 200 mg/dL meet the criteria for diagnosis of diabetes. Reference: Standards of Medical Care in Diabetes 2016, [place] [employer]. Diabetes Care. 2016.39(Suppl 1). Performed By: #### 2 4320-08, #### [facility] CLIA [id number] [address] [place], [place] [address] [place] Potassium [Moles/Vol] 4.2 mmol/L Normal 3.7-5.1 [facility] Comment on above: Order Comment: Donaldo [facility] Type: BLOOD SPECIMEN Ordering Facility: [facility] Address: [address] [place] [address] Performed By: #### 2 4320-08, #### [facility] CLIA [id number] [address] [place] [id number] [place] Sodium [Moles/Vol] 141 mmol/L Normal 136-144 [facility] Comment on above: Order Comment: Speci men Type: BLOOD SPECIMEN Ordering Facility: [facility] Address: [address] [place] [address] Performed By: #### 2 4321-2, 99976-7 #### [facility] CLIA [id number] [address] [place], [place] [address] [place] Urea nitrogen [Mass/Vol] 20 mg/dL Normal 7-21 [facility] Comment on above: Order Comment: Speci men Type: BLOOD SPECIMEN Ordering Facility: [facility] Address: [address] [place] [address] Performed By: #### 2 4321-2, 06843-1 #### [facility] [place] [id number] [address] [place] [address] [place] CBC panel Auto (Bld)on 03-25 Erythrocyte distribution width (RBC) [Ratio] 12.2 % Normal 11.5-15.0 [facility] Comment on above: Order Comment: Speci men Type: BLOOD SPECIMENOrdering Facility: [facility] Address: [address] [place] [address] Performed By: #### 5 8410-2 ####[facility] [id number] [place] [address] [place] Hematocrit (Bld) [Volume fraction] 32.9 % Low 36.0-46.0 [facility] Comment on above: Order Comment: Speci men Type: BLOOD SPECIMENOrdering Facility: [facility] Address: [address] [place] [address] Performed By: #### 5 8410-2 ####[facility] [id number] [place] [id number] [place] Hemoglobin (Bld) [Mass/Vol] 10.9 g/dL Low 11.5-15.5 [facility] Comment on above: Order Comment: Speci men Type: BLOOD SPECIMENOrdering Facility: [facility] Address: [address] [place] [address] Performed By: #### 5 8410-2 ####[facility] [id number] [address] [place] MCH (RBC) [Entitic mass] 30.2 pg Normal 26.0-34.0 [facility] Comment on above: Order Comment: Speci men Type: BLOOD SPECIMENOrdering Facility: [facility] Address: [address] [place] [address] Performed By: #### 5 8410-2 ####[facility] [id number] [place] [address] [place] MCHC (RBC) [Mass/Vol] 33.1 g/dL Normal 30.5-36.0 [facility] Comment on above: Order Comment: Speci men Type: BLOOD SPECIMENOrdering Facility: [facility] Address: [address] [place] [address] Performed By: #### 5 8410-2 ####[facility]ATORYCLIA [id number] [address] [place] MCV (RBC) [Entitic vol] 91.1 fL Normal 80.0-100.0 [facility] Comment on above: Order Comment: Speci men Type: BLOOD SPECIMENOrdering Facility: [facility] Address: [address] [place] [address] Performed By: #### 5 8410-2 ####[facility]ATORYCLIA [id number] [place] [address] [place] Nucleated RBC (Bld) [#/Vol] 10*3/uL Normal <0.01 [facility] Comment on above: Order Comment: Speci men Type: BLOOD SPECIMENOrdering Facility: [facility] Address: [address] [place] [address] Performed By: #### 5 8410-2 ####[facility] [id number] [address] [place] Platelet mean volume (Bld) [Entitic vol] 10.4 fL Normal 9.0-12.7 [facility] Comment on above: Order Comment: Speci men Type: BLOOD SPECIMENOrdering Facility: [facility] Address: [address] [place] [address] Performed By: #### 5 8410-2 ####[facility]ORATORYCLIA [id number] [place] [id number] [place] Platelets (Bld) [#/Vol] 134 10*3/uL Low 150-400 [facility] Comment on above: Order Comment: Speci men Type: BLOOD SPECIMENOrdering Facility: [facility] Address: [address] [place] [address] Result Comment: No c lot detected. Performed By: #### 5 8410-2 ####[facility] LABORATORYCLIA [id number] [place] [id number] [place] RBC (Bld) [#/Vol] 3.61 10*6/uL Low 3.90-5.20 [facility] Comment on above: Order Comment: Speci men Type: BLOOD SPECIMENOrdering Facility: [facility] Address: [address] [place] [address] Performed By: #### 5 8410-2 ####[facility]ATORYCLIA [id number] [place] [address] [place] WBC (Bld) [#/Vol] 4.78 10*3/uL Normal 3.70-11.00 [facility] Comment on above: Order Comment: Speci men Type: BLOOD SPECIMENOrdering Facility: [facility] Address: [address] [place] [address] Performed By: #### 5 8410-2 ####[facility]ATORYCLIA [id number] [place] [id number] [place] Magnesium SerPl-mCncon 03-25 Magnesium [Mass/Vol] 1.8 mg/dL Normal 1.7-2.3 [facility] Comment on above: Order Comment: Speci men Type: BLOOD SPECIMENOrdering Facility: [facility] Address: [address] [place] [address] Performed By: #### 2 4321-2, 31626-0 ####[facility] [id number] [place] [id number] [facility] NURSING PROGon 03-25-2024 NURSING PROG HNO ID: [id number] Author: JEOVANNY ISLAS, RN Service: ? Author Type: Registered Nurse Type: Nursing Progress Note Filed: 03/25/2024 09:49 Note Text: Other: 0930. Pt vomited 900 cc dark brown bile. Compazine and Dilaudid administered. RN notified Dr Grubbs. Dr ordered to continue tube feeding but stop clear liquid diet. [facility] NURSING PROGon 03-24-2024 NURSING PROG HNO ID: [id number] Author: LELA BANDA, KENNETH Service: ? Author Type: Registered Nurse Type: Nursing Progress Note Filed: 03/24/2024 18:53 Note Text: Nursing Progress Note Patient Name: Flower Swan Patient Location: [id number] 12-22 Daily Note:0830 Pt's suction was not connected correctly. Pt has had no output since canister changed at 0530. Pt stats she feels very nauseated and in a lot of pain. Suction hooked up and 200 ml output. Pt states that she feels a lot better. 1311 Pt's output is more brown and bloody than yesterday. Secure chat and page sent to Dr. Grubbs to make aware before pulling NG. 1331 Dr. Grubbs made aware of output color and stated that he seen and stated to pull NG. This note was completed by: Lela Banda [facility] NUTRITIONon 03-24-2024 NUTRITION HNO ID: [id number] Author: EDEL MENDES RD Service: Nutrition Therapy Author Type: Registered Dietitian Type: Nutrition Filed: 03/24/2024 13:04 Note Text: NUTRITION THERAPY INITIAL ASSESSMENT SERVICE DATE: 03/24/2024 SERVICE TIME: Nutrition Assessment: Recommended Malnutrition Diagnosis: Moderate Protein-Calorie Malnutrition In the context of: Chronic Illness or Injury Based on: Unintentional Weight Loss, Insufficient Energy Intake, Subcutaneous Fat Loss, Muscle Loss Nutrition Diagnosis: Problem: Suboptimal protein/energy intake Related to: Chronic illness As evidenced by: Weight loss Care Plan: Follow for diet advancement to goal Enteral Nutrition Tube Feeding Formula Type: Nutren 1.5 Goal Rate (mL/hr x hours): 45 ml/hr x 24 hours (will not completely meet energy needs (200 kcal short) - will be able to make up with PO intake) Water Flush Volume (mL x frequency: 30 ml every 4 hours. (decreased today - this will not meet her fluid needs for homegoing if not able to drink PO) Recommended Enteral Access: Small Bore, Nasal, Jejunal TF started 03/23 per Gen Surg. Patient c/o abdominal pain with 150ml water flush, will decrease to 30 ml since she is receiving IVF. Explained once she goes home if she does not tolerate 150 ml water flushes will need to compensate with PO fluid intake. 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 Intake History: Nutrition Intake Prior to Admission: Less than 75% estimated energy needs greater than or equal to 1 month Current Nutrition Intake: Less than 50% estimated energy needs Current Intake Over time: (1 day) Dosing Weight: 52.2 kg (115 lb) Dosing Weight Type: Admit weight Estimated kilocalorie needs: 0679-6221 Calorie Calculation Method: 35-45 kcals/kg Estimated protein needs (grams): 80-100 Grams protein determined by: 1.5 - 2.0 g/kg Diet Orders (From admission, onward) Start Ordered 03/24/24 1145 DIET TUBE FEED - CONTIN WITH TRAY START NOW Question Answer Comment TF Product NUTREN 1.5 Sioux Approved Secondary TF Product (Do Not Change) Osmolite 1.5 TF Total mL per 24 hours 1080 Number of Liter Bags 1 TF Goal Rate (mL/hr) 45 TF Initial Rate (mL/hr) 10 TF Advance by (mL/hr) 10 TF Advance every (hrs) 5 TF Water Flush Amount (mL) 30 TF Water Flush Frequency Every 4 Hours Liquid Diet CLEAR LIQUID FOR RDs ONLY Provider Collaborated With ALMA HELLER 03/24/24 1141 Anthropometrics: Height: 162.6 cm (5' 4) Weight: 52.2 kg (115 lb) Usual Weight: 54.9 kg (121 lb) 4 months ago Usual Weight Obtained From: Care Everywhere (could not find EPIC confirmation of weight loss (15# since July)) Body mass index is 19.74 kg/m?. Weight change percentage over time: decreased by 6#/4% over 4 months Weight Change: Potentially clinically signficant but does not meet criteria to support malnutrition diagnosis Physical Exam: Subcutaneous fat loss: Moderate Muscle loss: Moderate Potential micronutrient deficiency: No deficiency identified Edema/Ascites: No edema, Lower extremities GI Symptoms: Nausea, Abdominal pain Functional Status: Regressed Potential Signs of Inflammation: Chronic condition MNT Billing: $ Initial Assessment: 1-15 minutes SIGNATURE: Edel Mendes RD PATIENT NAME: Flower Swan DATE: March 24, 2024 TIME: 1:04 PM Normal [facility] Basic metabolic 2000 panelon 03-23-2024 Anion gap [Moles/Vol] 9 mmol/L Normal 8-15 [facility] Comment on above: Order Comment: Speci men Type: BLOOD SPECIMENOrdering Facility: [facility] Address: [address] [place] [address] Performed By: #### 2 4321-2, 2777, ####[facility]ORYCLIA [id number] [place] [id number] [place] Calcium [Mass/Vol] 8.8 mg/dL Normal 8.5-10.2 [facility] Comment on above: Order Comment: Speci men Type: BLOOD SPECIMENOrdering Facility: [facility] Address: [address] [place] [address] Performed By: #### 2 4321-2, 277, ####[facility] [id number] [place] [address] [place] Chloride [Moles/Vol] 103 mmol/L Normal 98-107 [facility] Comment on above: Order Comment: Speci men Type: BLOOD SPECIMENOrdering Facility: [facility] Address: [address] [place] [address] Performed By: #### 2 4321-2, 2777, ####[facility] [id number] [place] [id number] [place] CO2 [Moles/Vol] 25 mmol/L Normal 22-30 [facility] Comment on above: Order Comment: Speci men Type: BLOOD SPECIMENOrdering Facility: [facility] Address: [address] [place] [address] Performed By: #### 2 4321-2, 2777, ####[facility] [id number] [place] [id number] [place] Creatinine [Mass/Vol] 0.77 mg/dL Normal 0.58-0.96 [facility] Comment on above: Order Comment: Speci men Type: BLOOD SPECIMENOrdering Facility: [facility] Address: [address] [place] [address] Performed By: #### 2 4321-2, 2777, ####[facility] [id number] [place] [id number] [place] Creatinine and Glomerular filtration rate.predicted panel (S/P/Bld) 111 mL/min/1.73m??? Normal >=60 [facility] Comment on above: Order Comment: Speci men Type: BLOOD SPECIMENOrdering Facility: [facility] Address: [address] [place] [address] Result Comment: Purnima mated Glomerular Filtration Rate (eGFR) is calculated using the 2020 CKD-EPI creatinine equation. This equation utilizes serum creatinine, sex, and age as parameters. The creatinine assay has traceable calibration to isotope dilution-mass spectrometry. Refer to KDIGO guidelines for clinical interpretation. In patients with unstable renal function, e.g. those with acute kidney injury, the eGFR may not accurately reflect actual GFR. Performed By: #### 2 4321-2, 2776-07, ####[facility] [id number] [place] [address] [place] Glucose [Mass/Vol] 149 mg/dL High 74-99 [facility] Comment on above: Order Comment: Donaldo brunson Type: BLOOD SPECIMENOrdering Facility: [facility] Address: [address] [place] [address] Result Comment: The [place] [employer] (ADA) provides guidance for cutoff values for fasting glucose and random glucose. The ADA defines fasting as no caloric intake for at least 8 hours. Fasting plasma glucose results between 100 to 125 mg/dL indicate increased risk for diabetes (prediabetes). Fasting plasma glucose results greater than or equal to 126 mg/dL meet the criteria for diagnosis of diabetes. In the absence of unequivocal hyperglycemia, results should be confirmed by repeat testing. In a patient with classic symptoms of hyperglycemia or hyperglycemic crisis, random plasma glucose results greater than or equal to 200 mg/dL meet the criteria for diagnosis of diabetes. Reference: Standards of Medical Care in Diabetes 2016, [place] [employer]. Diabetes Care. 2016.39(Suppl 1). Performed By: #### 2 4321-2, 2776-07, ####[facility]ORY[facility] [id number] [place] [address] [place] Potassium [Moles/Vol] 4.4 mmol/L Normal 3.7-5.1 [facility] Comment on above: Order Comment: Donaldo [facility] Type: BLOOD SPECIMENOrdering Facility: [facility] Address: [address] [place] [address] Performed By: #### 2 4321-2, 2776-07, ####[facility] LABORATORYCLIA [id number] [place] [address] [place] Sodium [Moles/Vol] 137 mmol/L Normal 136-144 [facility] Comment on above: Order Comment: Speci men Type: BLOOD SPECIMENOrdering Facility: [facility] Address: [address] [place] [address] Performed By: #### 2 4321-2, 2776-07, ####[facility]ORY[facility] [id number] [place] [id number] [place] Urea nitrogen [Mass/Vol] 9 mg/dL Normal 7- [facility] Comment on above: Order Comment: Speci men Type: BLOOD SPECIMENOrdering Facility: [facility] Address: [address] [place] [address] Performed By: #### 2 4321-2, 2776-07, ####[facility]ATORYCLIA [id number] [place] [address] [place] CBC W Auto Differential pane l (Bld)on 03-23-2024 Basophils (Bld) [#/Vol] 10*3/uL Normal <0.11 [facility] Comment on above: Order Comment: Speci men Type: BLOOD SPECIMEN Ordering Facility[facility] Address: [address] [place] [address] Performed By: #### 5 7021-8 #### [facility] CLIA [id number] [address] [place] [address] [place] Basophils/100 WBC (Bld) 0.0 % Normal [facility] Comment on above: Order Comment: Speci men Type: BLOOD SPECIMEN Ordering Facility: [facility] Address: [address] [place] [address] Performed By: #### 5 7021-8 #### [facility] CLIA [id number] [address] [place] [address] [place] Differential cell count method Nom (Bld) Auto Normal [facility] Comment on above: Order Comment: Speci men Type: BLOOD SPECIMEN Ordering Facility: [facility] Address: [address] [place] [address] Performed By: #### 5 7021-8 #### [facility] CLIA [id number] [place] [address] [place] Eosinophils (Bld) [#/Vol] 10*3/uL Normal <0.46 [facility] Comment on above: Order Comment: Speci men Type: BLOOD SPECIMEN Ordering Facility: [facility] Address: [address] [place] [address] Performed By: #### 5 7021-8 #### [facility] CLIA [id number] [address] [place] [address] [place] Eosinophils/100 WBC (Bld) 0.0 % Normal [facility] Comment on above: Order Comment: Speci men Type: BLOOD SPECIMEN Ordering Facility: [facility] Address: [address] [place] [address] Performed By: #### 5 7021-8 #### [facility] CLIA [id number] [address] [place] [address] [place] Erythrocyte distribution width (RBC) [Ratio] 12.1 % Normal 11.5-15.0 [facility] Comment on above: Order Comment: Speci men Type: BLOOD SPECIMEN Ordering Facility: [facility] Address: [address] [place] [address] Performed By: #### 5 7021-8 #### [facility] CLIA [id number] [address] [place] [address] [place] Hematocrit (Bld) [Volume fraction] 34.4 % Low 36.0-46.0 [facility] Comment on above: Order Comment: Speci men Type: BLOOD SPECIMEN Ordering Facility: [facility] Address: [address] [place] [address] Performed By: #### 5 7021-8 #### [facility] CLIA [id number] [address] [place] [address] [place] Hemoglobin (Bld) [Mass/Vol] 11.6 g/dL Normal 11.5-15.5 [facility] Comment on above: Order Comment: Speci men Type: BLOOD SPECIMEN Ordering Facility[facility] Address: [address] [place] [address] Performed By: #### 5 7021-8 #### [facility] CLIA [id number] [address] [place] [address] [place] Immature granulocytes (Bld) [#/Vol] 10*3/uL Normal <0.10 [facility] Comment on above: Order Comment: Speci men Type: BLOOD SPECIMEN [facility] Address: [address] [place] [address] Performed By: #### 5 7021-8 #### [facility] CLIA [id number] [address] [place] [address] [place] Immature granulocytes/100 WBC (Bld) 0.4 % Normal [facility] Comment on above: Order Comment: Speci men Type: BLOOD SPECIMEN Ordering Facility: [facility] Address: [address] [place] [address] Performed By: #### 5 7021-8 #### [facility] CLIA [id number] [address] [place] [address] [place] Lymphocytes (Bld) [#/Vol] 0.28 10*3/uL Low 1.00-4.00 [facility] Comment on above: Order Comment: Speci men Type: BLOOD SPECIMEN Ordering Facility: [facility] Address: [address] [place] [address] Performed By: #### 5 7021-8 #### [facility] CLIA [id number] [address] [place] [address] [place] Lymphocytes/100 WBC (Bld) 5.2 % Normal [facility] Comment on above: Order Comment: Speci men Type: BLOOD SPECIMEN Ordering Facility: [facility] Address: [address] [place] [address] Performed By: #### 5 7021-8 #### [facility] CLIA [id number] [address] [place] [address] [place] MCH (RBC) [Entitic mass] 29.9 pg Normal 26.0-34.0 [facility] Comment on above: Order Comment: Speci men Type: BLOOD SPECIMEN Ordering Facility: [facility] Address: [address] [place] [address] Performed By: #### 5 7021-8 #### [facility] CLIA [id number] [place] [address] [place] MCHC (RBC) [Mass/Vol] 33.7 g/dL Normal 30.5-36.0 [facility] Comment on above: Order Comment: Speci men Type: BLOOD SPECIMEN Ordering Facility: [facility] Address: [address] [place] [address] Performed By: #### 5 7021-8 #### [facility] CLIA [id number] [address] [place] [address] [place] MCV (RBC) [Entitic vol] 88.7 fL Normal 80.0-100.0 [facility] Comment on above: Order Comment: Speci men Type: BLOOD SPECIMEN Ordering Facility: [facility] Address: [address] [place] [address] Performed By: #### 5 7021-8 #### [facility] CLIA [id number] [address] [place] [address] [place] Monocytes (Bld) [#/Vol] 0.55 10*3/uL Normal <0.87 [facility] Comment on above: Order Comment: Speci men Type: BLOOD SPECIMEN Ordering Facility: [facility] Address: [address] [place] [address] Performed By: #### 5 7021-8 #### [facility] CLIA [id number] [address] [place] [address] [place] Monocytes/100 WBC (Bld) 10.2 % Normal [facility] Comment on above: Order Comment: Speci men Type: BLOOD SPECIMEN Ordering Facility: [facility] Address: [address] [place] [address] Performed By: #### 5 7021-8 #### [facility] CLIA [id number] [address] [place] [address] [place] Neutrophils (Bld) [#/Vol] 4.53 10*3/uL Normal 1.45-7.50 [facility] Comment on above: Order Comment: Speci men Type: BLOOD SPECIMEN Ordering Facility: [facility] Address: [address] [place] [address] Performed By: #### 5 7021-8 #### [facility] CLIA [id number] [place] [address] [place] Neutrophils/100 WBC (Bld) 84.2 % Normal [facility] Comment on above: Order Comment: Speci men Type: BLOOD SPECIMEN Ordering Facility: [facility] Address: [address] [place] [address] Performed By: #### 5 7021-8 #### [facility] CLIA [id number] [address] [place] [address] [place] Nucleated RBC (Bld) [#/Vol] 10*3/uL Normal <0.01 [facility] Comment on above: Order Comment: Speci men Type: BLOOD SPECIMEN Ordering Facility: [facility] Address: [address] [place] [address] Performed By: #### 5 7021-8 #### [facility] CLIA [id number] [address] [place] [address] [place] Nucleated RBC/100 WBC (Bld) [Ratio] 0.0 /100 WBC Normal [facility] Comment on above: Order Comment: Speci men Type: BLOOD SPECIMEN Ordering Facility: [facility] Address: [address] [place] [address] Performed By: #### 5 7021-8 #### [facility] CLIA [id number] [address] [place] [address] [place] Platelet mean volume (Bld) [Entitic vol] 11.1 fL Normal 9.0-12.7 [facility] Comment on above: Order Comment: Speci men Type: BLOOD SPECIMEN Ordering Facility: [facility] Address: [address] [place] [address] Performed By: #### 5 7021-8 #### [facility] CLIA [id number] [address] [place] [address] [place] Platelets (Bld) [#/Vol] 117 10*3/uL Low 150-400 [facility] Comment on above: Order Comment: Speci men Type: BLOOD SPECIMEN Ordering Facility: [facility] Address: [address] [place] [address] Result Comment: No c lot detected. Performed By: #### 5 7021-8 #### [facility] CLIA [id number] [address] [place] [address] [place] RBC (Bld) [#/Vol] 3.88 10*6/uL Low 3.90-5.20 [facility] Comment on above: Order Comment: Speci men Type: BLOOD SPECIMEN Ordering Facility: [facility] Address: [address] [place] [address] Performed By: #### 5 7021-8 #### [facility] [place] [id number] [address] [place] [address] [place] WBC (Bld) [#/Vol] 5.38 10*3/uL Normal 3.70-11.00 [facility] Comment on above: Order Comment: Speci men Type: BLOOD SPECIMEN Ordering Facility: [facility] Address: [address] [place] [address] Performed By: #### 5 7021-8 #### [facility] CLIA [id number] [address] [place] [address] [place] Magnesium SerPl-mCncon 03-23 Magnesium [Mass/Vol] 1.9 mg/dL Normal 1.7-2.3 [facility] Comment on above: Order Comment: Speci men Type: BLOOD SPECIMENOrdering Facility: [facility] Address: [address] [place] [address] Performed By: #### 2 4321-2, 2777-1, 20592-3 ####[facility] [id number] [place] [id number] [facility] NURSING PROGon 03-23-2024 NURSING PROG HNO ID: [id number] Author: LELA BANDA, RN Service: ? Author Type: Registered Nurse Type: Nursing Progress Note Filed: 03/23/2024 18:59 Note Text: Nursing Progress Note Patient Name: Flower Swan Patient Location: [id number]/[facility]- 0-01 Daily Note:4933 Secure chat sent to Alma Kunz DO to confirm if we are connecting tube feed to cor brayan and NG to low intermittent suction at the same time. Also asked for KUB to confirm placement since none was done on placement. 0750 Alma Heller DO stated that cor brayan and NG were confirmed oinfra-operatively. The plan was to start tube feed if pt was doing okay with pain and not nauseated Stated to keep the NG for now. Stated Dr. Grubbs will be rounding later, added Dr. Grubbs to the chat. 0757 Tube feed order also states clear liquid diet. Secure chat sent to clarify. 0756 Alma Heller DO stated to hold clear liquids for now but can have sips for comfort. 0930 Pt states she is nauseated. Giving zofran at this time. Secure chat sent to Alma Heller DO and Dr. Grubbs to make aware Zofran is being given now for nausea and was given x 1 overnight as well at Compazine x 1 overnight. Tube feed has not been started. 0940 Alma Heller DO stated to hold on starting tube feed for no and will refer the rest of care to Dr. Grubbs. 1258 Secure chat sent to Dr. Grubbs to get tylenol route changed from oral to NG. 1326 Dr. Grubbs stated to change to NG route. 1518 Pt has had TF going for 1 hour and 45 minutes. Pt states she is having more pain. Dilaudid given. Secure chat sent to Dr. Grubbs to make aware. 1732 Dr. Grubbs responded to secure chat. Stated she may have some cramping with TF but to continue unless you see tube feed in NG or she has an emesis. 1739 Pt's BP is 98/60. Pt was sleeping before BP was given. Asymptomatic. Secure chat sent to Dr. Grubbs. Also made aware NG dose not appear to have tube feed in it but bile appears more opaque than this morning. 1743 Dr. Grubbs stated she runs low she has POTS, BP will improve once she gets more tube feed volume. 1859 Pt wants NS for dry eyes. Paged O for an order. This note was completed by: Lela Banda [facility] Phosphate SerPl-mCncon 03-23 Phosphate [Mass/Vol] 3.9 mg/dL Normal 2.7-4.8 [facility] Comment on above: Order Comment: Speci men Type: BLOOD SPECIMENOrdering Facility: [facility] Address: [address] [place] [address] Performed By: #### 2 4321-2, 2777-1, 94984-9 ####[facility] [id number] [place] [address] [place] ANES POSTPROC EVALon 024 ANES POSTPROC EVAL HNO ID: [id number] Author: ROSALIND NASCIMENTO MD Service: Anesthesiology Author Type: Anesthesiologist Type: Anesthesia Postprocedure Evaluation Filed: 03/22/2024 17:29 Note Text: POST ANESTHESIA EVALUATION NOTE : 2000 Procedure Summary Date: 03/22/24 Room / Location: OR06 / MM OR Anesthesia Start: 1354 Anesthesia Stop: 170 Procedure: LAPAROSCOPIC DUODENOJEJUNOSTOMY (Abdomen) Diagnosis: Superior mesenteric artery syndrome (HCC) (Superior mesenteric artery syndrome (HCC) [K55.1]) Surgeons: Ayan Grubbs MD Responsible Provider: Rosalind Nascimento MD Anesthesia Type: general ASA Status: 3 Anesthesia Type: general Airway Type: ETT Last Vitals Vitals Value Taken Time BP 141/113 03/22/24 1724 Temp 36.2 ?C (97.1 ?F) 03/22/24 1705 Pulse 99 03/22/24 1729 Resp 12 03/22/24 1729 SpO2 100 % 03/22/24 1729 Vitals shown include unfiled device data. Post Anesthesia Patient Status Patient Evaluation: PACU. PACU/ICU Patient Condition: stable. Anticipated Disposition: inpatient floor planned admission. Neurological Status: aware and responsive. Pulmonary Status: breathing comfortably on room air Airway Control: returned to baseline unsupported. Cardiovascular Status: stable. Pain Management: clinically adequate - multimodal analgesia pain management approach Postoperative Hydration: acceptable. Intraoperative Events: no significant anesthesia events Recommendation: continue current plan of care and further care per PACU/ICU/floor team. Anesthesia Observations No Documentation SIGNATURE: Rosalind Nascimento MD PATIENT NAME: Flower Swan DATE: March 22, 2024 TIME: 5:29 PM CSN: [id number] [facility] ANES PRE-OPon 03-22-2024 ANES PRE-OP HNO ID: [id number] Author: ROSALIND NASCIMENTO MD Service: Anesthesiology Author Type: Anesthesiologist Type: Anesthesia Preprocedure Evaluation Filed: 03/22/2024 17:01 Note Text: ANESTHESIOLOGY DAY OF SURGERY NOTE : 2000 Procedure Information Anesthesia Start Date/Time: 03/22/24 1354 Procedure: LAPAROSCOPIC DUODENOJEJUNOSTOMY (Abdomen) Location: MM OR06 / MM OR Surgeons: Ayan Grubbs MD Estimated body mass index is 19.74 kg/m? as calculated from the following: Height as of 03/13/24: 162.6 cm (5' 4). Weight as of 03/13/24: 52.2 kg (115 lb). Most recent hematocrit and potassium results: Hematocrit 39.9 06/18/2016 Relevant Problems No relevant active problems I - PHYSICAL EVALUATION AIRWAY Patient intubated: No. Tracheostomy tube not present Mallampati: II. TM distance: >3 FB. Neck ROM: full ROM without neurological symptoms. Mouth opening: adequate. Short neck: no. Thick neck: no DENTAL Dental findings: teeth intact. Additional exam findings: no II - ANESTHESIA PLAN ASA Score: 3 Anesthetic Plan: general Airway type: ETT NPO Status: adequate Beta Judy Monitoring Plan Monitoring plan: Standard ASA. Post Procedure Analgesic Plan Postoperative analgesic plan: parenteral or oral opioids and multimodal analgesia. Informed Consent Anesthetic risks, benefits, alternatives and personnel discussed. Consent obtained from: patient. Anesthetic risks, benefits, alternatives, personnel and consent discussed: yes. Patient / Responsible Libertarian agrees to proceed: yes Patient / Surrogate agrees to blood products: yes DNR status not reviewed with patient and/or family prior to surgery. Significant changes in the patient condition since the History and Physical, not otherwise documented in primary service progress note: no. Potential Anesthesia issues that may suggest increased risk of complications or contraindication to planned procedure: none. Vitals Value Taken Time BP 120/84 03/22/24 1210 Pulse 97 03/22/24 1210 Resp 12 03/22/24 1210 Temp 36.9 ?C (98.5 ?F) 03/22/24 1210 SpO2 100 % 03/22/24 1210 Facility-Administered Medications as of 03/22/2024 Medication Dose Route Frequency lidocaine (PF) 10 mg/mL (1 %) 1-2 mg injection (XYLOCAINE) 0.1-0.2 mL INTRADERMAL PRN lactated ringers iv infusion 5-30 mL/hr INTRAVENOUS CONTINUOUS NaCl 0.9% iv flush bag 20 mL INTRAVENOUS PRN [COMPLETED] ciprofloxacin iv piggyback 400 mg in D5W 200 mL (CIPRO) 400 mg INTRAVENOUS Pre-Op Once And [COMPLETED] metroNIDAZOLE iv piggyback 500 mg in NaCl (iso-osmotic) 100 mL (FLAGYL) 500 mg INTRAVENOUS Pre-Op Once BUPivacaine (PF) 30 mL, lidocaine 2%-EPINEPHrine 1:100,000 20 mL X (OR/PROCEDURE) PRN Outpatient Medications as of 03/22/[address] (PROTONIX) 40 mg tablet hyoscyamine (LEVSIN) 0.125 mg tablet dextroamphetamine-amphet amine (ADDERALL) 10 mg tablet Take 10 mg by mouth twice daily. levalbuterol tartrate HFA (XOPENEX HFA) 45 mcg/actuation inhaler Inhale 1-2 Puffs as instructed every 4 hours as needed. fludrocortisone (FLORINEF) 0.1 mg tablet HYDROcodone-acetaminophe n (NORCO) 5-325 mg per tablet ondansetron orally disintegrating (ZOFRAN ODT) 4 mg disintegrating tablet Take 4 mg by mouth. I have interviewed and examined the patient. I have reviewed the medical record and/or the pre-anesthesia evaluation, pertinent labs, and test results. This contains updated information obtained within 48 hours of Surgery/Procedure. SIGNATURE: Rosalind Nascimento MD PATIENT NAME: Flower Swan DATE: March 22, 2024 TIME: 5:00 PM CSN: [id number] [facility] OPERATIVE NOon 03-22-2024 OPERATIVE NO HNO ID: [id number] Author: AYAN GRUBBS MD Service: General Surgery Author Type: Physician Type: Operative Report Filed: 03/22/2024 22:05 Note Text: OPERATIVE REPORT LOG ID: [id number] SURGERY DATE: 03/22/2024 INCISION START TIME: 2:15 PM INCISION CLOSE END TIME: 4:39 PM SURGEON: Ayan Grubbs MD CAGE UNLOADER: Alma Heller DO PGY 5 Lorne Lopez DO PGY 3 PRE-OP DIAGNOSIS: Superior mesenteric artery syndrome POST-OP DIAGNOSIS: Superior mesenteric artery syndrome SURGERY: Laparoscopic duodenojejunostomy ANESTHESIA: General INDICATION: This is a 24 year old patient with weight loss and vomiting. Workup showed superior mesenteric syndrome. Risks, benefits, complications and alternatives to the procedure were explained in detail to the patient. A description of the procedure, materials and personal as well as expectations after were detailed. Patient desires to proceed. SURGERY DETAILS: Patient was placed supine. After smooth induction of anesthesia, the abdomen was prepped and draped in a sterile surgical fashion. A infraumbilical vertical midline incision was carried through skin and subcutaneous tissue with knife and deepened with electrocautery to the level of the fascia. The fascia was incised vertically midline. Access was gained to the peritoneum under direct vision. A Callie cannula was inserted and fixed to the fascia with 2 sutures of #0 Vicryl. Pneumoperitoneum was established and well tolerated. Additional two 5-mm ports were placed in the left upper and lower quadrants, and one in right flank under direct visualisation. Inspection of the abdominal cavity revealed normal liver, moderate constipation, normal stomach, gallbladder and small bowel. Duodenum is mildly dilated up to mesenteric vessels which appear to significantly impinge on duodenum. A loop of proximal jejunum 15 cm distal to angle of Treitz was chosen and brought over the mesenteric vessels to the right side. Two stay sutures were placed between duodenum III and jejunum. Matching enterotomies were made with hook electrocautery and a side to side isoperistaltic anastomosis was obtained with a 60 mm gold stapler. A 10 Fr Corpak was advanced distal to anastomosis. Common enterotomy was closed with running 3-0 Vicryl sutures full thickness and a second seromuscular 3-0 Silk Lembert suture. Anastomosis was without tension or leak, patent, well vascularized. Hemostasis of the previous dissection sites was checked and found to be adequate. Omentum was pulled over the bowels. The trocars were removed under direct visualization without noted bleeding. Fascia was closed with #0 Vicryl sutures. The skin wounds were closed with 4-0 Biosyn. Surgical glue was placed for the dressing. The patient tolerated the procedure well and was taken to the recovery room in the satisfactory condition. ESTIMATED BLOOD LOSS: 1 ml SPECIMENS: none IMPLANTABLE DEVICES: nasojejunal Corpak DRAINS: None COMPLICATIONS: None I was present for the entire duration of the surgery. I participated in all aspects of the procedure and made all decisions. Resident performed esential parts of procedure under my direction and in my presence. SIGNATURE: Ayan Grubbs MD PATIENT NAME: Flower Swan DATE: March 22, 2024 TIME: 5:44 PM [facility] 03-19-2024 [facility] Telephone (DEREK) -------- FLOWER SWAN ([id number]) 1 F Date Time Provider Department 03/19/24 AYAN GRUBBS During your visit today, we recorded the following information about you: Alethea Jin MA 03/20/2024 11:33 AM Addendum 03-20-24-I called pt and relayed message to pt Per - She can have her allergy shots before surgery Patient calling in wanting to know if it is ok for her to get her Allergy shots on 03-20. She usually gets them weekly in both arms for her bad allergies. She is scheduled for laparoscopic duodenojejunostomy on Thursday 03/22.Please advise Allergies As of Date: 03/19/2024 Noted Allergy Reaction AMOXICILLIN 02/07/2024 16 - Unknown animals [Other] 08/16/2006 AUGMENTIN (AMOXICILLIN-POT CLAVUL*02/07/2024 14 - Other: See Comments Comments: Not effective CINNAMON 04/06/2016 4 - Hives DUST 04/21/2006 GRASS POLLEN 04/21/2006 MAPLE TREES (TREES) 04/21/2006 MOLD 04/21/2006 RED DYE 12/11/2006 CODEINE 06/24/2019 4 - Hives 2 - Rash 16 - Unknown Date Reviewed: 03/13/2024 Reviewed by: Be Rinaldi PA-C - Fully Assessed Reason for Visit: Patient Question [1477] Prescriptions as of 03/20/2024 - atenolol (TENORMIN) 25 mg tablet Take 12.5 mg by mouth once daily. - PNV no.95/ferrous fum/folic ac ( ORAL) Take by mouth. - pantoprazole DR (PROTONIX) 40 mg tablet - fludrocortisone (FLORINEF) 0.1 mg tablet - HYDROcodone-acetaminophe n (NORCO) 5-325 mg per tablet - hyoscyamine (LEVSIN) 0.125 mg tablet - ondansetron orally disintegrating (ZOFRAN ODT) 4 mg disintegrating tablet Take 4 mg by mouth. - dextroamphetamine-amphet amine (ADDERALL) 10 mg tablet Take 10 mg by mouth twice daily. - levalbuterol tartrate HFA (XOPENEX HFA) 45 mcg/actuation inhaler Inhale 1-2 Puffs as instructed every 4 hours as needed. 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 Author Type: Physician Minister Type: H&P Filed: 03/13/2024 13:24 Note Text: [facility] HISTORY AND PHYSICAL EXAMINATION SERVICE DATE: 03/13/2024 SERVICE TIME: 11:30 am PRIMARY CARE PHYSICIAN: Akila Manuel DO Assessment Patient has the following medical conditions which may affect da-operative course: POTS (postural orthostatic tachycardia syndrome) Assessment: taking florinef and atenolol PRN, follows with PCP. Has been seen by Cardiology in the past. Koch Activity Status Index: METS: Participate in moderate recreational activites, such as golf, bowling, dancing, doubles tennis, or throwing a baseball or football (6.00 METs) DASI Score: 6 Patient denies any chest pain or undue shortness of breath with the above physical activity. Clinical Frailty Scale: 3. Well, with treated comorbid disease STOP-Bang Score: Denies snoring loudly Denies feeling tired, fatigued, or sleepy during the daytime Has not been observed to stop breathing or choking/gasping during sleep Denies having high blood pressure BMI less than or equal to 35 kg/m2 Patient 50 years old or younger Does not have a large neck Non-male patient STOP-Bang Score: 0 ANESTHESIA FINDINGS: Intubation History: No history of difficult intubation Significant Anesthesia Considerations: none Airway History: No history of difficult airway I - PHYSICAL EVALUATION AIRWAY Patient intubated: No. Tracheostomy tube not present Mallampati: II. TM distance: >3 FB. Neck ROM: full ROM without neurological symptoms. Mouth opening: adequate. Short neck: no. Thick neck: no Lip Bite Test: II (TMJ) DENTAL Dental findings: teeth intact. II - ANESTHESIA PLAN Anesthetic plan additional comments: *PACC/TCI - anesthesia choice. Beta Judy Monitoring Plan Post Procedure Analgesic Plan Prepared for Surgery: optimally prepared for surgery. CONSULTS: Patient does not require consults for optimization at this time Planned Anesthetic: anesthesia choice The Following Tests/Procedures Have Been Initiated: Orders Placed This Encounter atenolol (TENORMIN) 25 mg tablet Sig: Take 12.5 mg by mouth once daily. PNV no.95/ferrous fum/folic ac ( ORAL) Sig: Take by mouth. This is a virtual visit using [employer] video visit. It required patient-provider interaction for the medical decision making as documented below. REASON FOR VISIT: Flower Swan is a 24 year old female who is scheduled for Procedure(s): LAPAROSCOPIC DUODENOJEJUNOSTOMY (N/A) at the request of Dr. Ayan Grubbs for consultation. My final recommendation will be communicated back to the requesting physician by way of shared medical record or letter. Subjective The patient has the following: COVID-19 Immunization Status Overdue - Covid-19 Vaccine (2022-) Never done No completion, postpone, frequency change, or communication history exists for this topic. CHIEF COMPLAINT: superior mesenteric artery syndrome HPI: Flower Swan is a 24 year old female who is scheduled for LAPAROSCOPIC DUODENOJEJUNOSTOMY at the request of Dr. Ayan Grubbs for 03/22/2024. She reports abdominal pain after eating and losing ~15 lb over the past 4 months. Symptoms worse when she lays flat. She has had imaging, EGD and colonoscopy. CT demonstrated Superior mesenteric artery syndrome. This is a virtual visit. The visit was conducted using [employer] Web video visit. It required patient-provider interaction for the medical decision making as documented below. I have communicated my name and active licensure. The patient's identity and physical location were verified at the time of this visit. Either the patient or their legal development representative has been informed of the risks and benefits of and alternatives to treatment through a remote evaluation and consents to proceed with the evaluation remotely. REVIEW OF SYSTEMS: General: Positive for: unintentional weight change. Patient's weight loss: 15 lb Developmental: No history of developmental problems. Neurological: No history of TIA's, stroke, MAILMASTER tumor, impaired sensorium, hemiplegia, paraplegia or quadraplegia. No neurological symptoms or problems. Respiratory: No history of current cough or dyspnea, or pneumonia in the past 6 weeks. No history of respiratory/pulmonary symptoms or problems. Cardiovascular: +POTS Negative for: atrial fibrillation, CAD, chest pain and DVT/PE. GI: See HPI. : No history of dysuria, frequency or incontinence, stones or chronic kidney disease. No difficulty urinating, nocturia > 1 time per night or hematuria. Endocrine: No history of diabetes. Has not taken steroids within the past 30 days. No history of endocrinological symptoms or problems. Hematology: No history of bleeding or clotting disorder. Patient is not takin (more content not included)... Normal [facility] CNPNon 03-06-2024 CNPN Telephone (EmotiveAMO) -------- FLOWER SWAN ([id number]) 1 F Date Time Provider Department 03/06/24 AYAN GRUBBS During your visit today, we recorded the following information about you: Allergies As of Date: 03/06/2024 Noted Allergy Reaction AMOXICILLIN 02/07/2024 16 - Unknown animals [Other] 08/16/2006 AUGMENTIN (AMOXICILLIN-POT CLAVUL*02/07/2024 14 - Other: See Comments Comments: Not effective CINNAMON 04/06/2016 4 - Hives DUST 04/21/2006 GRASS POLLEN 04/21/2006 MAPLE TREES (TREES) 04/21/2006 MOLD 04/21/2006 RED DYE 12/11/2006 CODEINE 06/24/2019 4 - Hives 2 - Rash 16 - Unknown Date Reviewed: 02/07/2024 Reviewed by: Ayan Grubbs MD - Fully Assessed Reason for Visit: Orders [681] Primary Visit Diagnosis:Mechanical gastrointestinal obstruction (HCC) [K56.609] Other Visit Diagnosis:Superior mesenteric artery syndrome (HCC) [K55.1] Order(s):SURGICAL REQUEST - ELECTIVE (02/2020) [[id number]] Order #: [id number]: 1 Prescriptions as of 03/06/2024 - pantoprazole DR (PROTONIX) 40 mg tablet - fludrocortisone (FLORINEF) 0.1 mg tablet - HYDROcodone-acetaminophe n (NORCO) 5-325 mg per tablet - hyoscyamine (LEVSIN) 0.125 mg tablet - ondansetron orally disintegrating (ZOFRAN ODT) 4 mg disintegrating tablet Take 4 mg by mouth. - dextroamphetamine-amphet amine (ADDERALL) 10 mg tablet Take 10 mg by mouth twice daily. - LORazepam (ATIVAN) 0.5 mg Take 0.5 mg by mouth twice daily. - omeprazole (PRILOSEC) 40 mg capsule Take 40 mg by mouth once daily. - traZODone (DESYREL) 50 mg tablet Take 50 mg by mouth daily at bedtime. - Ethinyl Estradiol-Norelgestrom (XULANE) 150-35 mcg/24 hr Apply 1 Patch as directed one time a week. - HUNTER, 28, 3-0.02 mg per tablet Take 1 tablet by mouth once daily. - propranolol (INDERAL) 10 mg tablet Take 10 mg by mouth three times daily. - levalbuterol tartrate HFA (XOPENEX HFA) 45 mcg/actuation inhaler Inhale 1-2 Puffs as instructed every 4 hours as needed. Problem List As Of Date 03/06/2024 Noted Resolved Wheezing [R06.2] 12/11/2006 05/01/2013 Encounter Status:Closed by AYAN GRUBBS on 03/06/24 [facility] Office Visit (DEREK ) -------- FLOWER SWAN ([id number]) 1 F Date Time Provider Department 02/07/24 10:15 AM AYAN GRUBBS During your visit today, we recorded the following information about you: Temperature Pulse Blood pressure Weight 97.9 degrees 94/minute 110/70 53.4 kg Alethea Jin MA 02/07/2024 10:37 AM Signed Chief Meter Reader offered:Patient accepts, visit chaperoned by kenneth duff What is the reason for your visit today? Abdominal pain Who is your referring physician? Are you having poor oral intake? NO Have you had unintentional weight loss of 15 lbs/7 Kg in the last 3-6 months? YES Bowels: constipated or diarrhea Wound: n/a Temperature: No Drains: No Omega Urbina RN 02/07/2024 11:44 AM Signed AMBULATORY PATIENT EDUCATION NOTE TOPIC: gastric emptying study, esophagram information READINESS TO LEARN COGNITIVE ABILITY: Alert and oriented MOTIVATION TO LEARN: Eager FAMILY SUPPORT: High - Very involved in pt care INSTRUCTION PROVIDED TO: Patient and Spouse PATIENT LEARNS BEST BY: Individual Instruction Written Instruction - Hand-outs Verbal Instruction FACTORS AFFECTING LEARNING: Other patient reports sister having gastroparesis, and patient reports researching these tests on her own. PHYSICAL LIMITATIONS AFFECTING LEARNING: None LEARNING RESPONSE DIAGNOSIS: gastroparesis.supramesen teric artery syndrome METHOD OF INSTRUCTION: Individual instruction Written instruction/Handouts Verbal instruction PATIENT / FAMILY RESPONSE: Verbalizes understanding of: SYMPTOM MANAGEMENT-Correct actions to take to manage symptoms associated with his/her disease/illness WORSENING CONDITION-Signs and symptoms of a worsening condition that warrant a call to the physician FOLLOW-UP PLAN: Patient instructed to call with any further issues Contact information given. Dr. Grubbs will contact patient with results of testing and develop plan of care with patient. SUPPLEMENTAL MATERIAL: Patient Education materials: gastric emptying study and esophagram handouts. REFERRAL (RECOMMENDATION): None Electronically Signed By: Omega Urbina RN In Department: Ayan Black MD 02/07/2024 2:21 PM Signed Ms. Swan is here today at the request of Misbah Henry ([address], [facility], [place] [address]) for my opinion regarding superior mesenteric artery syndrome. My final recommendation will be communicated back to the requesting physician by way of shared medical record or letter. HPI: Ms. Swan is here today complaining of recurrent episodes of abdominal pain and nausea. She has heartburn and occasionally vomiting. Symptoms started in 2019 and she was able to manage by changing to a gluten-free diet. However since July of this year symptoms have been more intense. She underwent extensive investigation including upper endoscopy and CT scans that showed mild gastritis and obstruction of T3 suggestive of a mesenteric artery syndrome. Patient is able to tolerate a small amount of liquid diet. She has adapted by eating small and frequent meals -currently mostly shakes. She lost 15 pounds since July. She also has a history of Helder-Danlos syndrome and POTS -was able to manage by high salt and fluid intake however this is now difficult to tolerate. PAST MEDICAL HISTORY Diagnosis Date ADD (attention deficit disorder with hyperactivity) POTS (postural orthostatic tachycardia syndrome) PAST SURGICAL HISTORY Procedure Laterality Date PAST SURGICAL HISTORY OF 2005 tubes in bilateral ears TONSILLECTOMY AND ADENOIDECTOMY FAMILY HISTORY Problem Relation Age of Onset Cancer Paternal Grandfather age 56 Heart Paternal Grandfather Cancer Maternal Grandmother Kidney Thyroid Mother Lipids Maternal Grandmother Hypertension Mother Hypertension Maternal Grandfather Hypertension Father Social History Tobacco Use Smoking status: Never Smokeless tobacco: Never REVIEW OF SYSTEMS: GENERAL: No weight loss, malaise or fevers. GI: See history of present illness : No history of dysuria, hematuria, frequency or incontinence. All other systems reviewed and negative. PHYSICAL EXAMINATION: BP 110/70 Pulse 94 Temp 36.6 ?C (97.9 ?F) (Temporal) Wt 53.4 kg (117 lb 12.8 oz) LMP 07/19/2016 SpO2 100% General Appearance: Well appearing, alert, in no acute distress, well-hydrated, well nourished. Abdomen: soft, non-tender. Bowel sounds normal. No masses, organomegaly Extremities: No deformities, clubbing or cyanosis. Reviewed images and reports of endoscopy, CT scan and CT angiography: Distention of stomach with food residue and contrast extending to the D3 with abrupt cut off. Sharp angle between superior mesenteric artery and aorta. Assessment Impression: Superior mesenteric artery syndrome versus gastroparesis Moderate (more content not included)... Normal [facility] Reva 02-07-2024 NGOC Telephone (DEREK) -------- FLOWER SWAN ([id number]) 1 F Date Time Provider Department 02/07/24 AYAN GRUBBS During your visit today, we recorded the following information about you: Omega Urbina RN 02/07/2024 4:23 PM Signed RN received instructions from Dr. Grubbs to fax signed order requisitions to [facility] for pt's small bowel follow through, esophagram, and gastric emptying study. RN received fax number from [facility] Registration: [phone]. RN read back and confirmed fax number. Signed order requisitions faxed. Fax transmission confirmation received. Allergies As of Date: 02/07/2024 Noted Allergy Reaction AMOXICILLIN 02/07/2024 16 - Unknown animals [Other] 08/16/2006 AUGMENTIN (AMOXICILLIN-POT CLAVUL*02/07/2024 14 - Other: See Comments Comments: Not effective CINNAMON 04/06/2016 4 - Hives DUST 04/21/2006 GRASS POLLEN 04/21/2006 MAPLE TREES (TREES) 04/21/2006 MOLD 04/21/2006 RED DYE 12/11/2006 CODEINE 06/24/2019 4 - Hives 2 - Rash 16 - Unknown Date Reviewed: 02/07/2024 Reviewed by: Ayan Grubbs MD - Fully Assessed Reason for Visit: Orders [681] Cmt: Imaging orders Prescriptions as of 02/07/2024 - pantoprazole DR (PROTONIX) 40 mg tablet - fludrocortisone (FLORINEF) 0.1 mg tablet - HYDROcodone-acetaminophe n (NORCO) 5-325 mg per tablet - hyoscyamine (LEVSIN) 0.125 mg tablet - ondansetron orally disintegrating (ZOFRAN ODT) 4 mg disintegrating tablet Take 4 mg by mouth. - dextroamphetamine-amphet amine (ADDERALL) 10 mg tablet Take 10 mg by mouth twice daily. - LORazepam (ATIVAN) 0.5 mg Take 0.5 mg by mouth twice daily. - omeprazole (PRILOSEC) 40 mg capsule Take 40 mg by mouth once daily. - traZODone (DESYREL) 50 mg tablet Take 50 mg by mouth daily at bedtime. - Ethinyl Estradiol-Norelgestrom (XULANE) 150-35 mcg/24 hr Apply 1 Patch as directed one time a week. - HUNTER 28, 3-0.02 mg per tablet Take 1 tablet by mouth once daily. - propranolol (INDERAL) 10 mg tablet Take 10 mg by mouth three times daily. - levalbuterol tartrate HFA (XOPENEX HFA) 45 mcg/actuation inhaler Inhale 1-2 Puffs as instructed every 4 hours as needed. Problem List As Of Date 02/07/2024 Noted Resolved Wheezing [R06.2] 12/11/2006 05/01/2013 Encounter Status:Closed by OMEGA URBINA on 02/07/24 Normal [facility] Office Visiton 12-19-2023 Follow-up visit [id number] Alma Delia Swan 2000 F Date Provider Department Center 12/19/2023 [id number] None Family History Problem Relation Age of Onset Skin cancer Mother Other Mother Comments: Hypermobile EDS Clotting disorder Sister Comments: Factor 2 Kidney cancer Maternal Grandmother Anemia Maternal Grandfather Comments: side effect of medication Bladder Cancer Maternal Grandfather Other Maternal Grandfather Comments: Hypermobile EDS Cancer Paternal Grandfather Comments: unknown type Cancer Other Comments: Aunt, unknown type Stomach cancer Other Comments: Aunt Colon cancer Other Comments: Uncle Family Status - Relation Status Age at Mother Sister Alive Maternal Grandmother Maternal Grandfather Paternal Grandfather Other Other Notes: 15 total, 5 still living Level of Service:[id number] [place] OFFICE/OUTPATIENT NEW MODERATE MDM 45 MINUTES Reason for Visit and Comments: New Patient [542] - Enlarged lymph nodes Normal [facility] - Chemistry and C hemistry - challengeOrdered By: Phillip Ayala on 09-04-2023 HCG ( test) Ql (U) Negative [facility] Comment on above: Very dilute urine sp ecimens, as indicated by a low specificgravity, may not contain development representative levels of hCG. If is still suspected, a first morning urinespecimen should be collected 48 hours later and tested. Absolute lymphocyte countOrd ered By: Kalin Navarro on 08-18-2023 Lymphocytes Auto (Unsp spec) [#/Vol] 1.62 10*3/uL 0.83-4.51 [facility] Automated lymphocyte count a s percentage of total leukocytesOrdered By: Kalin Navarro on 08-18-2023 Lymphocytes/100 WBC Auto (Unsp spec) 38.4 % 19-41 [facility] Basophil percentageOrdered B y: Kalin Navarro on 08-18-2023 Basophils/100 WBC (Bld) 0.9 % 0-[address] [facility] Bilirubin [Mass/Vol] 0.40 mg/dL 0.20-1.00 [facility] Comment on above: For patients on eltr ombopag therapy, use of Dim[place] TBIL is not recommended. Chloride [Moles/Vol] 107 mmol/L 98-107 [facility] Eosinophils/100 WBC (Bld) 4.5 % 0-5 [facility] Glucose [Mass/Vol] 95 mg/dL 74-106 [facility] Hemoglobin (Bld) [Mass/Vol] 13.8 g/dL 12.0-15.0 [facility] Monocytes/100 WBC (Bld) 9.7 % 0-[address] [facility] Neutrophils (Bld) [#/Vol] 2.0 10*3/uL 2.0-7.7 [facility] Neutrophils/100 WBC (Bld) 46.3 % 47-70 [facility] Potassium [Moles/Vol] 3.7 mmol/L 3.5-5.1 [facility] Comment on above: Slight Hemolysis, Re sult may be falsely increased. Protein [Mass/Vol] 7.3 g/dL 6.4-8.2 [facility] Sodium [Moles/Vol] 140 mmol/L 136-145 [facility] WBC (Bld) [#/Vol] 4.2 10*3/uL 4.4-11.0 [facility] Basophil percentage 0 SEEN /hpf 0-5 [facility] Bilirubin Test strip Ql (U)O rdered By: Kalin Navarro on 08-18-2023 Bilirubin Ql (U) Negative Negative [facility] Determination of erythrocyte mean corpuscular volume (MCV)Ordered By: Kalin Navarro on 08-18-2023 MCV (RBC) [Entitic vol] 88.7 fL 81-[address] [facility] Direct bilirubinOrdered By: Kalin Navarro on 08-18-2023 Bilirubin.direct [Mass/Vol] 0.13 mg/dL 0.00-0.30 [facility] Erythrocyte distribution wid th ratioOrdered By: Kalin Navarro on 08-18-2023 Erythrocyte distribution width (RBC) [Ratio] 12.4 % 11.6-14.6 [facility] Erythrocyte distribution wid th standard deviationOrdered By: Kalin Navarro on 08-18-2023 Erythrocyte distribution width (RBC) [Entitic vol] 40.2 fL 35.1-43.9 [facility] Hematocrit Auto (Bld) [Volum e fraction]Ordered By: Kalin Navarro on 08-18-2023 Hematocrit (Bld) [Volume fraction] 40.8 % 37-47 [facility] Immature granulocytes/100 WB C Auto (Bld)Ordered By: Kalin Navarro on 08-18-2023 Immature granulocytes/100 WBC (Bld) 0.200 % 0.0-0.9 [facility] Comment on above: IG% - Immature Granu locytes (promyelocytes, myelocytes and metamyelocytes) > 1% indicates that a LEFT SHIFT is Present. Ketones Test strip Ql (U)Ord ered By: Kalin Navarro on 08-18-2023 Ketones Ql (U) Negative Negative [facility] Laboratory - Chemistry and C hemistry - challengeOrdered By: Kalin Navarro on 08-18-2023 ALP [Catalytic activity/Vol] 77 U/L 45-117 [facility] ALT [Catalytic activity/Vol] 21 U/L 13-56 [facility] CO2 [Moles/Vol] 29.0 mmol/L 21.0-32.0 [facility] Globulin (S) [Mass/Vol] 3.1 g/dL 2.2-4.[address] [facility] Lipase [Catalytic activity/Vol] 32 U/L 13-75 [facility] Comment on above: Please note:LIPASE r evised reference range effective 22. New Lipase methodology. Expected to produce lower values than the previous assay method. NEW Reference Range: 13 - 75 U/L Urea nitrogen/Creatinine [Mass ratio] 16.4 mg/mg 10-20 [facility] HCG ( test) Ql (U) Negative [facility] Comment on above: Very dilute urine sp ecimens, as indicated by a low specificgravity, may not contain development representative levels of hCG. If is still suspected, a first morning urinespecimen should be collected 48 hours later and tested. Laboratory - Hematology and Cell countsOrdered By: Kalin Navarro on 08-18-2023 MCH (RBC) [Entitic mass] 30.0 pg 27.0-32.0 [facility] MCHC (RBC) [Mass/Vol] 33.8 g/dL 32-36 [facility] Nucleated RBC/100 WBC (Bld) [Ratio] 0 % 0-5 [facility] Platelets (Bld) [#/Vol] 165 10*3/uL 150-450 [facility] Mucus LM Ql (Urine sed)Order ed By: Kalin Navarro on 08-18-2023 Mucus Ql (Urine sed) 0 SEEN /hpf [facility] Nitrite Test strip Ql (U)Ord ered By: Kalin Navarro on 08-18-2023 Nitrite Ql (U) Negative Negative [facility] No Panel InformationOrdered By: Kalin Navarro on 08-18-2023 Estimated Creatinine Clearance Calc 88.89 ml/min [facility] Estimated GFR (MDRD) Amer 106 mL/min >60 [facility] Comment on above: GFR Calc Estimated GFR (MDRD) Non-Af Amer 87 mL/min >60 [facility] Comment on above: Non- GFR Calc Urine RBC 0 SEEN /hpf 0-5 [facility] Platelet mean volume Kaiden-Ec ker (Bld) [Entitic vol]Ordered By: Kalin Navarro on 08-18-2023 Platelet mean volume (Bld) [Entitic vol] 10.7 fL 6.2-12.0 [facility] Protein Test strip Ql (U)Ord ered By: Kalin Navarro on 08-18-2023 Protein Ql (U) Negative Negative [facility] RBC Auto (Bld) [#/Vol]Ordere d By: Kalin Navarro on 08-18-2023 RBC (Bld) [#/Vol] 4.60 10*6/uL 4.2-5.4 [facility] Serum or plasma calcium annel urement (mass/volume)Ordered By: Kalin Navarro on 08-18-2023 Calcium [Mass/Vol] 9.0 mg/dL 8.5-10.1 [facility] Serum or plasma creatinine m easurement (mass/volume)Ordered By: Kalin Navarro on 08-18-2023 Creatinine [Mass/Vol] 0.85 mg/dL 0.55-1.02 [facility] Comment on above: The validity of the calculated GFR & GFRAA in patients over 70 years has not been determined. Clinical correlation is essential. Serum or plasma urea nitroge n measurement (mass/volume)Ordered By: Kalin Navarro on 08-18-2023 Urea nitrogen [Mass/Vol] 14 mg/dL 7-18 [facility] Squamous epithelial cells de tection in urine sediment by light microscopyOrdered By: Kalni Navarro on 08-18-2023 Epithelial cells.squamous LM Ql (Urine sed) 0-5 SEEN /hpf 5-10 [facility] Thin prep Papanicolaou smear with manual screeningOrdered By: Kalin Navarro on 08-18-2023 Thin prep Papanicolaou smear with manual screening 4.2 g/dL 3.2-5.0 [facility] Thin prep Papanicolaou smear with manual screening 19 U/L 15-37 [facility] Comment on above: Slight Hemolysis, Re sult may be falsely increased. Thin prep Papanicolaou smear with manual screening 4 5-15 [facility] Urine blood detectionOrdered By: Kalin Navarro on 08-18-2023 RBC Ql (U) 25 /ul Negative [facility] Urine clarityOrdered By: Jane Navarro on 08-18-2023 Clarity (U) Clear Clear [facility] Urine color determinationOrd ered By: Kalin Navarro on 08-18-2023 Color (U) Yellow Yellow [facility] Urine glucose detectionOrder ed By: Kalin Navarro on 08-18-2023 Glucose Ql (U) Normal mg/dl Normal [facility] Urine leukocyte esterase det ection by dipstickOrdered By: Kalin Navarro on 08-18-2023 Leukocyte esterase Test strip Ql (U) Negative Negative [facility] Urine pHOrdered By: Kalin duenas on 08-18-2023 pH (U) 6.0 [pH] 5.0 - 8.0 [facility] Urine sediment bacteria coun t by microscopy (number/high power field)Ordered By: Kalin Navarro on 08-18-2023 Bacteria LM.HPF (Urine sed) [#/Area] RARE /hpf None Seen [facility] Urine specific gravity measu rementOrdered By: Kalin Navarro on 08-18-2023 Specific gravity (U) [Rel density] 1.015 1.002-1.03 0 [facility] Urine urobilinogen measureme ntOrdered By: Kalin Nvaarro on 08-18-2023 Urobilinogen Ql (U) Normal mg/dl Normal [facility] No Panel InformationOrdered By: Misbah Henry on 08-05-2023 Adrenocorticotropic Hormone 25.9 pg/mL 7.2-63.3 [facility] Comment on above: ACTH reference inter jerzy for samples collected between 7 and10 AM.Performed at: [facility] Director: Dennis Estraad PhD, Phone: [phone] Serum or plasma cortisol tucker surement (mass/volume)Ordered By: Misbah Henry on 08-05-2023 Cortisol [Mass/Vol] 14.40 ug/dL 3.44-22.45 [facility] Comment on above: Adult (AM) 5.27 - 22 .45 ug/dL Adult (PM) 3.44 - 16.76 ug/dLPlease note revised CORTISOL reference range effective 2019. Absolute lymphocyte countOrd ered By: Nia Duval on 07-07-2023 Lymphocytes Auto (Unsp spec) [#/Vol] 1.45 10*3/uL 0.83-4.51 [facility] Basophil percentageOrdered B y: Nia Duval on 07-07-2023 Basophils/100 WBC (Bld) 0.4 % 0-[address] [facility] Bilirubin [Mass/Vol] 1.00 mg/dL 0.20-1.00 [facility] Comment on above: For patients on eltr ombopag therapy, use of [place] TBIL is not recommended. Chloride [Moles/Vol] 104 mmol/L 98-107 [facility] Eosinophils/100 WBC (Bld) 3.4 % 0-5 [facility] Glucose [Mass/Vol] 106 mg/dL 74-106 [facility] Comment on above: Fasting Glucose resu lt from 100 to 125 mg/dL suggests IMPAIRED HOMEOSTASIS per A.D.A. criteria. Neutrophils (Bld) [#/Vol] 2.7 10*3/uL 2.0-7.7 [facility] Neutrophils/100 WBC (Bld) 58.1 % 47-70 [facility] Potassium [Moles/Vol] 4.0 mmol/L 3.5-5.1 [facility] Protein [Mass/Vol] 7.7 g/dL 6.4-8.2 [facility] Sodium [Moles/Vol] 138 mmol/L 136-145 [facility] WBC (Bld) [#/Vol] 4.7 10*3/uL 4.4-11.0 [facility] Blood erythrocytes count (nu mber/volume)Ordered By: Nia Duval on 07-07-2023 RBC (Bld) [#/Vol] 4.86 10*6/uL 4.2-5.4 [facility] Blood hemoglobin measurement (mass/volume)Ordered By: Nia Duval on 07-07-2023 Hemoglobin (Bld) [Mass/Vol] 14.3 g/dL 12.0-15.0 [facility] Blood lymphocytes/100 leukoc ytesOrdered By: Nia uDval on 07-07-2023 Lymphocytes/100 WBC (Bld) 30.9 % 19-41 [facility] Blood monocytes/100 leukocyt esOrdered By: Nia Duval on 07-07-2023 Monocytes/100 WBC (Bld) 7.0 % 0-[address] [facility] Blood platelet mean volumeOr dered By: Nia Duval on 07-07-2023 Platelet mean volume (Bld) [Entitic vol] 10.5 fL 6.2-12.0 [facility] Determination of erythrocyte mean corpuscular volume (MCV)Ordered By: Nia Dvual on 07-07-2023 MCV (RBC) [Entitic vol] 89.5 fL 81-[address] [facility] Hematocrit Auto (Bld) [Volum e fraction]Ordered By: Nia Duval on 07-07-2023 Hematocrit (Bld) [Volume fraction] 43.5 % 37-47 [facility] Laboratory - Chemistry and C hemistry - challengeOrdered By: Nia Duval on 07-07-2023 ALP [Catalytic activity/Vol] 69 U/L 45-117 [facility] ALT [Catalytic activity/Vol] 21 U/L 13-56 [facility] CO2 [Moles/Vol] 30.0 mmol/L 21.0-32.0 [facility] Globulin (S) [Mass/Vol] 3.5 g/dL 2.2-4.[address] [facility] Urea nitrogen/Creatinine [Mass ratio] 11.7 mg/mg 10-20 [facility] - Hematology and Cell countsOrdered By: Nia Duval on 07-07-2023 Erythrocyte distribution width (RBC) [Entitic vol] 39.2 fL 35.1-43.9 [facility] Erythrocyte distribution width (RBC) [Ratio] 12.0 % 11.6-14.6 [facility] Immature granulocytes/100 WBC (Bld) 0.200 % 0.0-0.9 [facility] Comment on above: IG% - Immature Granu locytes (promyelocytes, myelocytes and metamyelocytes) > 1% indicates that a LEFT SHIFT is Present. MCH (RBC) [Entitic mass] 29.4 pg 27.0-32.0 [facility] Nucleated RBC/100 WBC (Bld) [Ratio] 0 % 0-5 [facility] MCHC Auto (RBC) [Mass/Vol]Or dered By: Nia Duval on 07-07-2023 MCHC (RBC) [Mass/Vol] 32.9 g/dL 32-36 [facility] No Panel InformationOrdered By: Nia Duval on 07-07-2023 Estimated GFR (MDRD) Amer 94 mL/min >60 [facility] Comment on above: GFR Calc Estimated GFR (MDRD) Non-Af Amer 78 mL/min >60 [facility] Comment on above: Non- GFR Calc Platelets bldOrdered By: Jules Duval on 07-07-2023 Platelets (Bld) [#/Vol] 148 10*3/uL 150-450 [facility] Serum or plasma albumin annel urement (mass/volume)Ordered By: Nia Duval on 07-07-2023 Albumin [Mass/Vol] 4.2 g/dL 3.2-5.0 [facility] Serum or plasma albumin/glob ulin mass ratioOrdered By: Nia Duval on 07-07-2023 Albumin/Globulin [Mass ratio] 1.2 {ratio} 0.9-2.4 [facility] Serum or plasma calcium annel urement (mass/volume)Ordered By: Niapaula Duval on 07-07-2023 Calcium [Mass/Vol] 9.9 mg/dL 8.5-10.1 [facility] Serum or plasma creatinine m easurement (mass/volume)Ordered By: Niapaula Duval on 07-07-2023 Creatinine [Mass/Vol] 0.94 mg/dL 0.55-1.02 [facility] Comment on above: The validity of the calculated GFR & GFRAA in patients over 70 years has not been determined. Clinical correlation is essential. Serum or plasma urea nitroge n measurement (mass/volume)Ordered By: Nia Duval on 07-07-2023 Urea nitrogen [Mass/Vol] 11 mg/dL 7-18 [facility] Thin prep Papanicolaou smear with manual screeningOrdered By: Niapaula Duval on 07-07-2023 Thin prep Papanicolaou smear with manual screening 15 U/L 15-37 [facility] Thin prep Papanicolaou smear with manual screening 4 5-15 [facility] Laboratory - Chemistry and C hemistry - challengeOrdered By: Phillip Ayala on 05-16-2023 HCG ( test) Ql (U) Negative [facility] Comment on above: Very dilute urine sp ecimens, as indicated by a low specificgravity, may not contain development representative levels of hCG. If is still suspected, a first morning urinespecimen should be collected 48 hours later and tested. No Panel InformationOrdered By: Misbah Henry on 04-21-2023 Giardia Antigen (JUAN) [facility] Giardia Antigen (JUAN) [facility] Stool Calprotectin 10 ug/g 0-120 [facility] Comment on above: Concentration Interp retation Follow-Up< 5 - 50 ug/g Normal None>50 -120 ug/g Borderline Re-evaluate in 4-6 weeks >120 ug/g Abnormal Repeat as clinically indicatedPerformed at: BN - [facility] [address] [id number] Director: Taylor Pritchett MD, Phone: [phone] Stool Pancreatic Elastase > 500 >200 [facility] Comment on above: Result Units: ug Yenni st./g Severe Pancreatic Insufficiency: <100 Moderate Pancreatic Insufficiency: 100 - 200 Normal: >200Performed at: BN - [facility] [address] [id number] Director: Taylor Pritchett MD, Phone: [phone] Miscellaneous Test See comment [facility] Comment on above: TEST RESULT LIMITSCe [facility] HLA Rflx to Abs DQ2 (DQA1 0501/0505,DQB1 02XX) Negative DQ8 (DQA1 03XX, DQB1 0302) Negative Final Results: DQB1*03:EFVTC,06:EFVTD DQA1*01:EENKF,02:EEMYJ Code Translation: EEMYJ 07/26//////////// //////// EENKF 01:08/24:02/21:03/24:05/24:16:11/08::13/08:15/08:17/08:23/08:32:38:39 :40Q/:41:42:46:48:51 :62:63:69:71:75:85:92 :::100 EFVTC 03:03/:31:33/:34/:39/:86/03:87 /:88:89:91Q:95N:96/03:97 /03:98/03:99Q/03:105/03:117/03:136/03:168 /03:200/03:222/03:248/03:249/03:280 /03:282N/03:304/03:313/03:316/03:336 /03:357N/03:363/03:365/03:374/03:375N /03:384/03:393/03:395/03:397/03:398/03:402 /03:405/03:406/03:411N/03:445/03:453 /03:461/03:477/03:487/03:489 EFVTD 06:02/06:46/06:47/06:73/06:84/06:107 /06:109/06:111/06:113/06:114/06:115/06:116 /06:117/06:125/06:127/06:188/06:200 /06:216N/06:219/06:224/06:225/06:226 /06:228/06:237/06:240/06:242/06:256/06:264 /06:271/06:273/06:286/06:289/06:290/06:293 /06:295/06:296/06:297/06:300/06:304N /06:308N/06:311/06:314/06:315/06:317N /06:324/06:326/06:333/06:335/06:338 /06:341N/06:344/06:347/06:355/06:356 /06:357/06:364/06:366/06:370/06:372/06:376 /06:380/06:383N/06:384/06:386/06:388 /06:390/06:395/06:397N/06:401/06:404 /06:406/06:409/06:411/06:412/06:416Q /06:422N/06:430/06:431/06:436/06:437/06:438The patient is not positive for any of the HLA DQ riskalleles. Celiac Disease risk from the HLA DQA/DQBgenotype is approximately 1:2518 (<0.04%).Allele interpretation for all loci based on IMGT/HLAdatabase version 3.49.0BRITTNEY LILLY ID Number [id number] than 95% of celiac patients are positive for either DQ2 or DQ8 (Jeet and Jarred, (1993) Gastroenterology 105:910-922). However these antigens may also be present in patients who do not have Celiac disease.This test was performed using Polymerase Chain Reaction (PCR) and Sequence Specific Oligonucleotide Probes (SSOP) (Twirl TV) technique.Sequence Based Typing (SBT) may be used as a supplemental method when necessary.If you have questions, please call [employer] [phone] or email at [email or web address].Additional Information: References:1. Christopher HART and Eugenia Moore. Celiac Disease. N Eng J Med 2007; 357:7066-6137.2. Kristen F, Kirkpatrick B, Bonajuano M et al. HLA-DQ and risk gradient for celiac disease. Hum Immunol 2009; 70:55-59.3. Pievasile MM, Jovi TC, Mohamud FM et al. Stratifying risk for celiac disease in a large at-risk [facility] population by using HLA alleles. Clin Gastroenterol Hepatol 2009; 7:966-971.4. Jeet GARNICA and Peg WOLF. (2005). Celiac Disease Genetics: Current Concepts and Practical Applications. Clin Gastroenterol and Hepat 3:843-851.5. Jose CL, Victor M DO, Christopher HART, et al. Celiac Disease. In: Milana RA, Greg TC, Judson ALICIA, Germania K, editors. Meredith PagPop), [facility], [place], 2008:1-27. http://www.ncbi.nlm.nih.gov/chayo/br.fcgi? book=genepart=celiac PMID [id number] (PubMed)6. Damian Ibarra. Emerging concepts in celiac disease. Curr Opin Pediatr 2004;16:552-559.Reflex to Celiac Ab Testing Not indicated. TESTING PERFORMED AT [facility]. ORIGINAL REPORT ON FILE IN LAB CONTAINS ADDITIONAL TEST SITE INFORMATION. Ova and parasitesOrdered By: Misbah Henry on 04-21-2023 Ova and parasites identified LM Nom (Unsp spec) [facility] Ova and parasites identified LM Nom (Unsp spec) [facility] Laboratory - Chemistry and C hemistry - challengeOrdered By: Dr. Villar on 11-18-2022 Cobalamin (Vitamin B12) [Mass/Vol] 516 pg/mL 211-911 [facility] No Panel InformationOrdered By: Dr. Villar on 11-18-2022 Vitamin D 25-Hydroxy 28.9 ng/mL [facility] Comment on above: Vitamin D 25(OH) Sta tus Range Deficiency <20 ng/mL (50nmol/L) Insufficiency 20 - 30 ng/mL (50 - 75 nmol/L) Sufficiency 30 - 100 ng/mL (75 - 250 nmol/L) Toxicity >100 ng/mL (>250 nmol/L) Laboratory - Chemistry and C hemistry - challengeOrdered By: Dr. Ayala on 11-15-2022 HCG ( test) Ql (U) Negative [facility] Comment on above: Very dilute urine sp ecimens, as indicated by a low specificgravity, may not contain development representative levels of hCG. If is still suspected, a first morning urinespecimen should be collected 48 hours later and tested. Laboratory - Chemistry and C hemistry - challengeOrdered By: Dr. Cameron on 10-27-2022 HCG ( test) Ql (U) Negative [facility] Comment on above: Very dilute urine sp ecimens, as indicated by a low specificgravity, may not contain development representative levels of hCG. If is still suspected, a first morning urinespecimen should be collected 48 hours later and tested. Absolute lymphocyte countOrd ered By: Angela Coleman on 10-10-2022 Lymphocytes Auto (Unsp spec) [#/Vol] 1.29 10*3/uL 0.83-4.51 [facility] Atypical perinuclear antineu trophil cytoplasmic antibodies measurementOrdered By: Angela Coleman on 10-10-2022 Neutrophil cytoplasmic Ab.perinuclear.atypical IF (S) [Titer] <1:20 titer Neg:<1:20 [facility] Comment on above: The atypical pANCA p attern has been observed in asignificant percentage of patients with ulcerative colitis,primary sclerosing cholangitis and autoimmune hepatitis.Performed at: - [facility] [id number] Director: Dennis Estrada PhD, Phone: [phone] at: [facility] [id number] Director: Taylor Pritchett MD, Phone: [phone] Basophil percentageOrdered B y: Angela Coleman on 10-10-2022 Basophil percentage < 0.2 AI 0.0-0.9 [facility] Basophils/100 WBC (Bld) 0.2 % 0-[address] [facility] Bilirubin [Mass/Vol] 0.60 mg/dL 0.20-1.00 [facility] Comment on above: For patients on eltr ombopag therapy, use of [place] TBIL is not recommended. Chloride [Moles/Vol] 105 mmol/L 98-107 [facility] Eosinophils/100 WBC (Bld) 0.0 % 0-5 [facility] Glucose [Mass/Vol] 90 mg/dL 74-106 [facility] LDH [Catalytic activity/Vol] 154 U/L 84-246 [facility] Neutrophils (Bld) [#/Vol] 7.0 10*3/uL 2.0-7.7 [facility] Neutrophils/100 WBC (Bld) 78.7 % 47-70 [facility] Potassium [Moles/Vol] 3.5 mmol/L 3.5-5.1 [facility] Protein [Mass/Vol] 8.4 g/dL 6.4-8.2 [facility] Sodium [Moles/Vol] 141 mmol/L 136-145 [facility] WBC (Bld) [#/Vol] 8.9 10*3/uL 4.4-11.0 [facility] Blood erythrocytes count (nu mber/volume)Ordered By: Angela Coleman on 10-10-2022 RBC (Bld) [#/Vol] 4.71 10*6/uL 4.2-5.4 [facility] Blood hemoglobin measurement (mass/volume)Ordered By: Angela Coleman on 10-10-2022 Hemoglobin (Bld) [Mass/Vol] 14.1 g/dL 12.0-15.0 [facility] Blood lymphocytes/100 leukoc ytesOrdered By: Angela Coleman on 10-10-2022 Lymphocytes/100 WBC (Bld) 14.4 % 19-41 [facility] Blood monocytes/100 leukocyt esOrdered By: Angela Coleman on 10-10-2022 Monocytes/100 WBC (Bld) 6.4 % 0-10 [facility] Blood platelet mean volumeOr dered By: Angela Coleman on 10-10-2022 Platelet mean volume (Bld) [Entitic vol] 10.9 fL 6.2-12.0 [facility] Determination of erythrocyte mean corpuscular volume (MCV)Ordered By: Angela Coleman on 10-10-2022 MCV (RBC) [Entitic vol] 90.9 fL 81-[address] [facility] Erythrocyte sedimentation ra teOrdered By: Angela Coleman on 10-10-2022 ESR (Bld) [Velocity] 2 mm/h 0-30 [facility] Hematocrit Auto (Bld) [Volum e fraction]Ordered By: Angela Coleman on 10-10-2022 Hematocrit (Bld) [Volume fraction] 42.8 % 37-47 [facility] Interpretation of serum or p lasma protein pattern by immunofixation (narrative resultOrdered By: Angela Coleman on 10-10-2022 Protein Fractions Immunofixation Wyatt [Interp] See comment [facility] Comment on above: Result: Not Observed Laboratory - Chemistry and C hemistry - challengeOrdered By: Angela Coleman on 10-10-2022 ALP [Catalytic activity/Vol] 76 U/L 45-117 [facility] ALT [Catalytic activity/Vol] 30 U/L 13-56 [facility] CO2 [Moles/Vol] 28.0 mmol/L 21.0-32.0 [facility] Urea nitrogen/Creatinine [Mass ratio] 13.0 mg/mg 10-20 [facility] Laboratory - Hematology and Cell countsOrdered By: Angela Coleman on 10-10-2022 Erythrocyte distribution width (RBC) [Entitic vol] 40.1 fL 35.1-43.9 [facility] Erythrocyte distribution width (RBC) [Ratio] 12.0 % 11.6-14.6 [facility] Immature granulocytes/100 WBC (Bld) 0.300 % 0.0-0.9 [facility] Comment on above: IG% - Immature Granu locytes (promyelocytes, myelocytes and metamyelocytes) > 1% indicates that a LEFT SHIFT is Present. MCH (RBC) [Entitic mass] 29.9 pg 27.0-32.0 [facility] Nucleated RBC/100 WBC (Bld) [Ratio] 0 % 0-5 [facility] MCHC Auto (RBC) [Mass/Vol]Or dered By: Angela Coleman on 10-10-2022 MCHC (RBC) [Mass/Vol] 32.9 g/dL 32-36 [facility] No Panel InformationOrdered By: Angela Coleman on 10-10-2022 Stool Calprotectin <16 ug/g 0-120 [facility] Comment on above: Concentration Interp retation Follow-Up<16 - 50 ug/g Normal None>50 -120 ug/g Borderline Re-evaluate in 4-6 weeks >120 ug/g Abnormal Repeat as clinically indicatedPerformed at: [facility] [address] [id number] Director: Taylor Pritchett MD, Phone: [phone] Addendum Document Comment . [facility] Comment on above: Protein electrophore sis scan will follow via computer,mail, or supervisor plasma delivery. Centromere B Antibody <0.2 AI 0.0-0.9 [facility] Endomysial IgA Antibody Negative [facility] Estimated GFR (MDRD) Amer 107 mL/min >60 [facility] Comment on above: GFR Calc Estimated GFR (MDRD) Non-Af Amer 89 mL/min >60 [facility] Comment on above: Non- GFR Calc Immunoglobulin E 10 IU/mL 6-495 [facility] Miscellaneous Test See comment [facility] Comment on above: TEST RESULT LIMITSIB D Expanded PanelgASCA 10 units 0-50 Negative <45 Equivocal 45 - 50 Positive >50ACCA 7 units 0-90 Negative <80 Equivocal 80 - 90 Positive >90ALCA 13 units 0-60 Negative <55 Equivocal 55 - 60 Positive >60AMCA 19 units 0-100 Negative < 90 Equivocal 90 - 100 Positive >100 This test was developed and its performance characteristics determined by [facility]. It has not been cleared or approved by the Food and Drug Administration. The FDA has determined that such clearance or approval is not necessary.Atypical pANCA Negative NegativeCommentsPattern is not suggestive of Inflammatory Bowel Disease. ____ TESTING PERFORMED AT [facility]. ORIGINAL REPORT ON FILE IN LAB CONTAINS ADDITIONAL TEST SITE INFORMATION. DEALER SALES REP Antibody <0.2 AI 0.0-0.9 [facility] Platelets bldOrdered By: Lyla Coleman on 10-10-2022 Platelets (Bld) [#/Vol] 202 10*3/uL 150-450 [facility] Serum DNA double strand anti body assay (units/volume)Ordered By: Angela Coleman on 10-10-2022 DNA double strand Ab Qn (S) 1 [IU]/mL 0-9 [facility] Comment on above: Negative <5 Equivoca l 5 - 9 Positive >9 Serum Shira-1 antibody assay (u nits/volume)Ordered By: Angela Coleman on 10-10-2022 Shira-1 extractable nuclear Ab Qn (S) <0.2 AI 0.0-0.9 [facility] Serum Scl-70 extractable nuc lear antibody assay (units/volume)Ordered By: Angela Coleman on 10-10-2022 SCL-70 extractable nuclear Ab Qn (S) <0.2 AI 0.0-0.9 [facility] Serum Martinez extractable nucl ear antibody detectionOrdered By: Angela Coleman on 10-10-2022 Martinez extractable nuclear Ab Ql (S) <0.2 AI 0.0-0.9 [facility] Serum evday-6-srsnxwqn measu rement by electrophoresisOrdered By: Angela Coleman on 10-10-2022 Alpha 1 globulin Elph [Mass/Vol] 0.3 g/dL 0.0-0.4 [facility] Alpha 1 globulin Elph [Mass/Vol] 0.7 g/dL 0.4-1.0 [facility] Serum classic neutrophil cyt oplasmic antibody assay (units/volume)Ordered By: Angela Coleman on 10-10-2022 Neutrophil cytoplasmic Ab.classic Qn (S) <1:20 titer Neg:<1:20 [facility] Serum globulin measurement ( mass/volume)Ordered By: Angela Coleman on 10-10-2022 Globulin (S) [Mass/Vol] 3.6 g/dL 2.2-3.[address] [facility] Serum or plasma C reactive p rotein measurement (mass/volume)Ordered By: Angela Coleman on 10-10-2022 CRP [Mass/Vol] mg/L 0.0-3.0 [facility] Comment on above: C-Reactive Protein ( CRP) provides useful information for thediagnosis, therapy and monitoring of inflammatory processesand associated diseases. For the evaluation of Relative Riskfor Cardiovascular Disease, a High Sensitivity CRP (HSCRP)should be ordered. Serum or plasma IgA measurem ent (mass/volume)Ordered By: Angela Coleman on 10-10-2022 IgA [Mass/Vol] 91 mg/dL 87-352 [facility] Serum or plasma IgG measurem ent (mass/volume)Ordered By: Angela Coleman on 10-10-2022 IgG [Mass/Vol] 1431 mg/dL 586-1602 [facility] Serum or plasma IgM measurem ent (mass/volume)Ordered By: Angela Coleman on 10-10-2022 IgM [Mass/Vol] 64 mg/dL 26-217 [facility] Serum or plasma albumin annel urement (mass/volume)Ordered By: Angela Coleman on 10-10-2022 Albumin [Mass/Vol] 4.5 g/dL 2.9-4.4 [facility] Serum or plasma albumin/glob ulin mass ratioOrdered By: Angela Coleman on 10-10-2022 Albumin/Globulin [Mass ratio] 1.2 {ratio} 0.9-2.4 [facility] Serum or plasma beta globuli n measurement by electrophoresis (mass/volume)Ordered By: Angela Coleman on 10-10-2022 Beta globulin Elph [Mass/Vol] 1.1 g/dL 0.7-1.3 [facility] Serum or plasma calcium annel urement (mass/volume)Ordered By: Angela Coleman on 10-10-2022 Calcium [Mass/Vol] 10.1 mg/dL 8.5-10.1 [facility] Serum or plasma creatinine m easurement (mass/volume)Ordered By: Angela Coleman on 10-10-2022 Creatinine [Mass/Vol] 0.85 mg/dL 0.55-1.02 [facility] Comment on above: The validity of the calculated GFR & GFRAA in patients over 70 years has not been determined. Clinical correlation is essential. Serum or plasma gamma globul in measurement by electrophoresis (mass/volume)Ordered By: Angela Coleman on 10-10-2022 Gamma globulin Elph [Mass/Vol] 1.4 g/dL 0.4-1.8 [facility] Serum or plasma immunoelectr ophoresis interpretation (nominal result)Ordered By: Angela Coleman on 10-10-2022 Interpretation IEP [Interp] Comment . [facility] Comment on above: No monoclonality det ected. Serum or plasma urea nitroge n measurement (mass/volume)Ordered By: Angela Coleman on 03-20-2023 Urea nitrogen [Mass/Vol] 11 mg/dL 7-18 [facility] Serum perinuclear neutrophil cytoplasmic antibody titer by immunofluorescenceOrdered By: Angela Coleman on 10-10-2022 Neutrophil cytoplasmic Ab.perinuclear IF (S) [Titer] <1:20 titer Neg:<1:20 [facility] Comment on above: The presence of posi tive fluorescence exhibiting P-ANCA orC-ANCA patterns alone is not specific for the diagnosis ofWegener's Granulomatosis (WG) or microscopic polyangiitis.Decisions about treatment should not be based solely onANCA IFA results. The International ANCA Group Consensusrecommends follow up testing of positive sera with both SC-3 and MPO-ANCA enzyme immunoassays. As many as 5% serumsamples are positive only by EIA. Ref. AM J Clin Xqrpwn7254;111:507-513. Serum tissue transglutaminas e IgA antibody assay (units/volume)Ordered By: Angela Coleman on 10-10-2022 tTG IgA Qn (S) <2 U/mL 0-3 [facility] Comment on above: Negative 0 - 3 Weak Positive 4 - 10 Positive >10 Tissue Transglutaminase (tTG) has been identified as the endomysial antigen. Studies have demonstr- ated that endomysial IgA antibodies have over 99% specificity for gluten sensitive enteropathy. Stool lactoferrin detection by immunoassayOrdered By: Angela Coleman on 10-10-2022 Lactoferrin IA Ql (Stl) [facility] Thin prep Papanicolaou smear with manual screeningOrdered By: Angela Coleman on 10-10-2022 Thin prep Papanicolaou smear with manual screening 19 U/L 15-37 [facility] Thin prep Papanicolaou smear with manual screening 8 5-15 [facility] Thin prep Papanicolaou smear with manual screening 1.3 0.7-1.7 [facility] Total protein bloodOrdered B y: Angela Coleman on 10-10-2022 Protein [Mass/Vol] 8.1 g/dL 6.0-8.5 [facility] Basophil percentageOrdered B y: Dr. Villar on 08-26-2022 Bilirubin [Mass/Vol] 0.50 mg/dL 0.20-1.00 [facility] Comment on above: For patients on eltr ombopag therapy, use of [place] TBIL is not recommended. Protein [Mass/Vol] 7.6 g/dL 6.4-8.2 [facility] Direct bilirubinOrdered By: Dr. Villar on 08-26-2022 Bilirubin.direct [Mass/Vol] 0.17 mg/dL 0.00-0.30 [facility] Laboratory - Chemistry and C hemistry - challengeOrdered By: Dr. Villar on 08-26-2022 ALP [Catalytic activity/Vol] 59 U/L 45-117 [facility] ALT [Catalytic activity/Vol] 34 U/L 13-56 [facility] Globulin (S) [Mass/Vol] 3.5 g/dL 2.2-4.[address] [facility] Serum or plasma albumin annel urement (mass/volume)Ordered By: Dr. Villar on 08-26-2022 Albumin [Mass/Vol] 4.1 g/dL 3.2-5.0 [facility] Thin prep Papanicolaou smear with manual screeningOrdered By: Dr. Villar on 08-26-2022 Thin prep Papanicolaou smear with manual screening 18 U/L 15-37 [facility] Laboratory - Chemistry and C hemistry - challengeOrdered By: Dr. Ayala on 07-13-2022 HCG ( test) Ql (U) Negative [facility] Comment on above: Very dilute urine sp ecimens, as indicated by a low specificgravity, may not contain development representative levels of hCG. If is still suspected, a first morning urinespecimen should be collected 48 hours later and tested. Absolute lymphocyte countOrd ered By: Dr. Miller on 06-24-2022 Lymphocytes Auto (Unsp spec) [#/Vol] 1.48 10*3/uL 0.83-4.51 [facility] Basophil percentageOrdered B y: Dr. Miller on 06-24-2022 Basophils/100 WBC (Bld) 0.5 % 0-[address] [facility] Bilirubin [Mass/Vol] 0.50 mg/dL 0.20-1.00 [facility] Comment on above: For patients on eltr ombopag therapy, use of [place] TBIL is not recommended. Eosinophils/100 WBC (Bld) 4.5 % 0-5 [facility] Neutrophils (Bld) [#/Vol] 1.9 10*3/uL 2.0-7.7 [facility] Neutrophils/100 WBC (Bld) 47.2 % 47-70 [facility] Protein [Mass/Vol] 7.9 g/dL 6.4-8.2 [facility] WBC (Bld) [#/Vol] 4.0 10*3/uL 4.4-11.0 [facility] Blood erythrocytes count (nu mber/volume)Ordered By: Dr. Miller on 06-24-2022 RBC (Bld) [#/Vol] 4.79 10*6/uL 4.2-5.4 [facility] Blood hemoglobin measurement (mass/volume)Ordered By: Dr. Miller on 06-24-2022 Hemoglobin (Bld) [Mass/Vol] 14.0 g/dL 12.0-15.0 [facility] Blood lymphocytes/100 leukoc ytesOrdered By: Dr. Miller on 06-24-2022 Lymphocytes/100 WBC (Bld) 37.4 % 19-41 [facility] Blood monocytes/100 leukocyt esOrdered By: Dr. Miller on 06-24-2022 Monocytes/100 WBC (Bld) 10.1 % 0-[address] [facility] Blood platelet mean volumeOr dered By: Dr. Miller on 06-24-2022 Platelet mean volume (Bld) [Entitic vol] 10.8 fL 6.2-12.0 [facility] Determination of erythrocyte mean corpuscular volume (MCV)Ordered By: Dr. Miller on 06-24-2022 MCV (RBC) [Entitic vol] 89.4 fL 81-[address] [facility] Direct bilirubinOrdered By: Dr. Miller on 06-24-2022 Bilirubin.direct [Mass/Vol] 0.12 mg/dL 0.00-0.30 [facility] Hematocrit Auto (Bld) [Volum e fraction]Ordered By: Dr. Miller on 06-24-2022 Hematocrit (Bld) [Volume fraction] 42.8 % 37-47 [facility] Laboratory - Chemistry and C hemistry - challengeOrdered By: Dr. Miller on 06-24-2022 ALP [Catalytic activity/Vol] 61 U/L 45-117 [facility] ALT [Catalytic activity/Vol] 71 U/L 13-56 [facility] Globulin (S) [Mass/Vol] 3.8 g/dL 2.2-4.[address] [facility] Laboratory - Hematology and Cell countsOrdered By: Dr. Miller on 06-24-2022 Erythrocyte distribution width (RBC) [Entitic vol] 39.9 fL 35.1-43.9 [facility] Erythrocyte distribution width (RBC) [Ratio] 12.1 % 11.6-14.6 [facility] Immature granulocytes/100 WBC (Bld) 0.300 % 0.0-0.9 [facility] Comment on above: IG% - Immature Granu locytes (promyelocytes, myelocytes and metamyelocytes) > 1% indicates that a LEFT SHIFT is Present. MCH (RBC) [Entitic mass] 29.2 pg 27.0-32.0 [facility] Nucleated RBC/100 WBC (Bld) [Ratio] 0 % 0-5 [facility] MCHC Auto (RBC) [Mass/Vol]Or dered By: Dr. Miller on 06-24-2022 MCHC (RBC) [Mass/Vol] 32.7 g/dL 32-36 [facility] No Panel InformationOrdered By: Dr. Miller on 06-24-2022 Thyroid Stimulating Hormone (TSH) 1.18 uIU/mL 0.358-3.74 [facility] Platelets bldOrdered By: Dr. Miller on 06-24-2022 Platelets (Bld) [#/Vol] 193 10*3/uL 150-450 [facility] Serum Rodrick Gutierrez virus cap shayne IgG antibody assay (units/volume)Ordered By: Dr. Miller on 06-24-2022 EBV capsid IgG Qn (S) [arb'U]/mL 0.0-17.9 [facility] Comment on above: Negative <18.0 Equiv ocal 18.0 - 21.9 Positive >21.9 Serum Rodrick Gutierrez virus cap shayne IgM antibody assay (units/volume)Ordered By: Dr. Miller on 06-24-2022 EBV capsid IgM Qn (S) [arb'U]/mL 0.0-35.9 [facility] Comment on above: Negative <36.0 Equiv ocal 36.0 - 43.9 Positive >43.9 Serum Rodrick Gutierrez virus nuc lear IgG antibody assay (units/volume)Ordered By: Dr. Miller on 06-24-2022 EBV nuclear IgG Qn (S) > 600.0 U/mL 0.0-17.9 [facility] Comment on above: Negative <18.0 Equiv ocal 18.0 - 21.9 Positive >21.9 Serum or plasma albumin annel urement (mass/volume)Ordered By: Dr. Miller on 06-24-2022 Albumin [Mass/Vol] 4.1 g/dL 3.2-5.0 [facility] Thin prep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 : Yes-pt mentally competent to provide consent Ultrasound Gallbladder; Status:Hold For - Scheduling; Requested for:05Nov2020; Perform:[facility]; Due:[id number];Ordered; For:EDS (Helder-Danlos syndrome); Ordered By:Shellie Hanna; Radiologist to Determine Optimal Study : Y What are the patient's signs and symptoms? 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 Recommend she continue MiraLAX 17 g Monday and continue fiber supplement daily. Continue omeprazole and arrange upper GI endoscopy and right upper quadrant ultrasound. I discussed referring her for additional genetic testing giving her Helder-Danlos syndrome and will readdress this at follow-up visit. I explained to them that Helder-Danlos can have associated esophageal dysmotility and digestive issues related to it as well. Symptoms do strongly support celiac disease or gluten sensitivity. I have recommended prior to the endoscopy she begin eating and reintroducing gluten to the diet for approximately 10 days prior to endoscopy. Chief Complaint NPV in office for GERD x several months: nausea, difficulty swallowing Taking omeprazole 40mg tried and failed OTC famotidine, Tums, nexium. Zofran helps nausea. Has seen Dr. Lupe Minaya ENT for swallowing issue. IBS-C: x several years currently taking linzess on occasion but with POTS disease this makes her dizzy. Tried and failed Amitiza, MiraLAX, benefiber, fiber gummies, Dulcolax. History of Present IllnessFlower is a pleasant 20-year-old female has had persistent abdominal pain since adolescence abdominal bloating constipation began around menarche at age 13. She has been using MiraLAX to control her bowel function currently taking MiraLAX every other day or daily as needed. She admits to significant abdominal bloating which is been treated in the past as small intestinal bacterial overgrowth and is improved after 14-day treatment with Xifaxan. Symptoms improved for approximately 3 months and then recurred. She admits her bowel frequency is at least 1 bowel movement every other day to every 3 days. She is currently taking MiraLAX 2-3 times a week. She denies any rectal bleeding. Patient admits her bloating is to the point where she will often feel and very gassy. The discomfort caused her to feel nauseous and causes anorexia. She did recently have laboratory testing for food allergies with her family doctor despite serum testing for celiac disease being negative a food allergy panel did show IgG antibodies to wheat. She admits that since going gluten-free some of her symptoms have improved but not completely. She continues have some right upper quadrant pain and bloating with certain meals. But overall symptoms are improved by 50%. Patient times has reflux and indigestion she does have Helder Danlos and at times feels as though it is difficult to swallow and dry foods seem to stick in her esophagus. She has never had any true foreign body. No prior history of caustic ingestion or head neck radiation. Weight is stable. Review of Systems Constitutional: no fever, no chills, not feeling tired and no recent weight loss. ENT: no lymphadenopathy. Cardiovascular: no shortness of breath and no chest pain. Respiratory: no cough. Gastrointestinal: as noted in HPI. Musculoskeletal: no joint swelling. Integumentary: no rashes, no skin lesions and was no jaundiced. All other systems have been reviewed and are negative for complaint. Past Medical History Problems History of anxiety (V11.8) (Z86.59) History of IBS (V12.79) (Z87.19) History of POTS (postural orthostatic tachycardia syndrome) (427.89) (I49.8) Surgical History Problems History of Meniscus repair Family History Mother Family history of hypertension (V17.49) (Z82.49) Father Family history of benign essential tremor (V17.2) (Z82.0) Grandmother Family history of benign essential tremor (V17.2) (Z82.0) Social History Problems No alcohol use No caffeine use No illicit drug use Non-smoker (V49.89) (Z78.9) Allergies Medication amoxicillin Recorded By: Cassandra Ashford; 11/05/2020 12:14:08 PM Augmentin Recorded By: Cassandra Ashford; 11/05/2020 12:14:08 PM Red Dye Recorded By: Cassandra Ashford; 11/05/2020 12:14:08 PM Current Meds (more content not included)... Normal [facility] 2019-nCoV RNA to ODHon 06-20 2019-nCoV RNA to OD Not Detected Normal Not Detect [facility] Comment on above: Result Comment: Nega tive results do no preclude 2019-nCoV infection and should not be used as the sole basis for treatment or other patient management decisions. Optimum specimen types and timing for peak viral levels during infections caused by 2019-nCoV has not been determined. Collection of multiple specimens from the same patient may be necessary to detect the virus. The possibility of a false negative result should especially be considered if the patient's recent exposures or clinical presentation suggest that 2019-nCoV infection is possible, and diagnostic tests for other causes of illness (e.g., other respiratory illness) are negative. If 2019-nCoV infection is still suspected, re-testing should be considered in consultation with public health authorities. Comment: This assay was developed by [facility] and distributed under an Emergency Use Authorization (EUA) granted by the FDA for the qualitative detection of 2019-nCoV nucleic acid. Fact Sheet for healthcare Providers: https://www.fda.gov/media/460881/download Fact Sheet for Patents https://www.fda.gov/media/529439/download TESTED BY: [facility] [place] [address] phone CLIA #:[id number] Performed By: #### C [id number] #### [facility] [address] [place] [id number] Lab Report: CT/NG [facility] BY PCR on 02-24-2017 Chlamydia trachomatis DNA [Presence] in Urine by Probe and target amplification method Negative Invalid Interpretation Code Negative [facility] Neisseria gonorrhoeae presence Negative Invalid Interpretation Code Negative [facility] Office Visit: control implant issueson 02-21-2017 Documentation of current medications (procedure) Done Invalid Interpretation Code [facility] Fall [facility] No Invalid Interpretation Code [facility] Protein mass conc Done [facility] Tobacco smoking status NHIS Never Invalid Interpretation Code [facility] Tobacco smoking status NHIS Never smoker [facility] Tobacco use CPH[facility] Never smoker Invalid Interpretation Code [facility] Office Visit: Nadeem gallegos 02-20-2017 Documentation of current medications (procedure) Done Invalid Interpretation Code [facility] Work Phone: Fall risk assessment No Invalid Interpretation Code [facility] Work Phone: Tobacco smoking status NHIS Never Invalid Interpretation Code [facility] Work Phone: Tobacco use CPHS Never smoker Invalid Interpretation Code [facility] Work Phone: Lab Report: T3 Total - Triio dothyronineon 07-29-2015 T3 Total 0.77 ng/mL 0.6-1.81 [facility] T3, Total 0.77 ng/mL Invalid Interpretation Code 0.6-1.81 [facility] Work Phone: Lab Report: CBC W/Diff, Auto matedon 07-28-2015 Basophils/100 leukocytes 0.3 % Invalid Interpretation Code 0-1 [facility] Work Phone: Basophils/100 WBC (Bld) 0.3 % 0-1 [facility] Eosinophils/100 leukocytes 2.3 % Invalid Interpretation Code 0-5 [facility] Work Phone: Eosinophils/100 WBC (Bld) 2.3 % 0-5 [facility] Erythrocyte distribution width Ratio (RBC) 41.5 fL 35.1-43.9 [facility] Erythrocyte distribution width Ratio (RBC) 13.0 % 11.6-14.6 [facility] Erythrocytes (RBC) 4.21 10*6/uL Invalid Interpretation Code 4.1-4.8 [facility] Work Phone: Hematocrit (HCT) 36.6 % Low 37-47 [facility] Work Phone: Hematocrit Volume Fraction (Bld) 36.6 % Low 37-47 [facility] Hemoglobin (HGB) 12.2 g/dL Invalid Interpretation Code 12.0-15.0 [facility] Work Phone: Immature granulocytes #/vol (Bld) 0.300 % 0.0-0.9 [facility] immature granulocytes, percentage of total cells, blood 0.300 % Invalid Interpretation Code 0.0-0.9 [facility] Work Phone: Lymphocytes 1.22 X10 3/UL Invalid Interpretation Code 0.83-4.51 [facility] Work Phone: Lymphocytes #/vol (Bld) 1.22 X10 3/UL 0.83-4.51 [facility] Lymphocytes/100 leukocytes 31.8 % Invalid Interpretation Code 19-41 [facility] Work Phone: Lymphocytes/100 WBC (Bld) 31.8 % 19-41 [facility] MCH 29.0 pg Invalid Interpretation Code 27.0-32.0 [facility] Work Phone: MCH Entitic mass (RBC) 29.0 pg 27.0-32.0 Bl [facility] MCHC 33.3 G/GL Invalid Interpretation Code 32-36 [facility] Work Phone: MCHC mass conc (RBC) 33.3 G/GL 32-36 [facility][1] MCV 86.9 fL Invalid Interpretation Code 81-99 [facility] Work Phone: MCV Entitic volume (RBC) 86.9 fL 81-99 [facility] Monocytes/100 leukocytes 10.2 % High 0-10 [facility] Work Phone: Monocytes/100 WBC (Bld) 10.2 % High 0-10 [facility] neutrophil count, blood 2.1 X10 3/UL Invalid Interpretation Code 2.0-7.7 [facility] Work Phone: Neutrophils #/vol (Bld) 2.1 X10 3/UL 2.0-7.7 [facility] Neutrophils/100 leukocytes 55.1 % Invalid Interpretation Code 47-70 [facility] Work Phone: Neutrophils/100 WBC (Bld) 55.1 % 47-70 [facility] Platelet mean volume Entitic volume (Bld) 10.8 fL 6.2-12.0 [facility] Platelets 169 10*3/mm3 Invalid Interpretation Code 150-450 [facility] Work Phone: Platelets #/vol (Bld) 169 10*3/mm3 150-450 [facility] PMV by Yeyo 10.8 fL Invalid Interpretation Code 6.2-12.0 [facility] Work Phone: RBC #/vol (Bld) 4.21 10*6/uL 4.1-4.8 [facility] RDW-CA 13.0 % Invalid Interpretation Code 11.6-14.6 [facility] Work Phone: red blood cell distribution width, size density 41.5 fL Invalid Interpretation Code 35.1-43.9 [facility] Work Phone: WBC #/vol (Bld) 3.8 10*3/uL Low 4.4-11.0 [facility] WBC (Leukocytes) 3.8 10*3/uL Low 4.4-11.0 [facility] Work Phone: Lab Report: [facility] 07-28-2015 Alanine aminotransferase (ALT) 16 U/L Invalid Interpretation Code 12-78 [facility] Work Phone: Albumin 4.0 g/dL Invalid Interpretation Code 3.2-4.5 [facility] Work Phone: Albumin/Globulin Ratio 1.1 {ratio} Invalid Interpretation Code 0.9-2.4 [facility] Work Phone: Alkaline phosphatase (ALP) 153 U/L Invalid Interpretation Code 50-162 [facility] Work Phone: ALP enzyme act/vol (Bld) 153 U/L 50-162 [facility] Anion gap 8 mmol/L Invalid Interpretation Code 5-15 [facility] Work Phone: Anion gap molar conc 8 mmol/L 5-15 [facility] Aspartate aminotransferase (AST) 19 U/L Invalid Interpretation Code 15-37 [facility] Work Phone: Bilirubin (total) 0.30 mg/dL Invalid Interpretation Code 0.20-1.00 [facility] Work Phone: BUN/Creatinine Ratio 12.9 RATIO Invalid Interpretation Code 10-20 [facility] Work Phone: Calcium 8.8 mg/dL Invalid Interpretation Code 8.5-10.1 [facility] Work Phone: Chloride 107 mmol/L Invalid Interpretation Code 98-107 [facility] Work Phone: CO2 29.0 mmol/L Invalid Interpretation Code 21.0-32.0 [facility] Work Phone: CO2 ppres (BldV) 29.0 mmol/L 21.0-32.0 [facility] Creatinine 0.78 mg/dL Invalid Interpretation Code 0.50-0.80 [facility] Work Phone: eGFR (non-black) Test not performed Invalid Interpretation Code >60 [facility] Work Phone: eGFR (non-black) Test not performed mL/min Invalid Interpretation Code >60 [facility] Work Phone: EST GFR - AA Test not performed >60 [facility] Globulin 3.5 g/dL Invalid Interpretation Code 2.3-3.5 [facility] Work Phone: Globulin mass conc (S) 3.5 g/dL 2.3-3.5 Bl [facility] Glucose 81 mg/dL Invalid Interpretation Code 70-110 [facility] Work Phone: Glucose mass conc 81 mg/dL 70-110 [facility] [place] Potassium 3.8 mmol/L Invalid Interpretation Code 3.5-5.1 [facility] Work Phone: Protein 7.5 g/dL Invalid Interpretation Code 6.4-8.2 [facility] Work Phone: Sodium 144 mmol/L Invalid Interpretation Code 136-145 [facility] Work Phone: Urea nitrogen 10 mg/dL Invalid Interpretation Code 7-18 [facility] Work Phone: Lab Report: T4 Free Directon 07-28-2015 Thyroxine (T4) free 0.82 ng/dL Invalid Interpretation Code 0.76-1.46 [facility] Work Phone: Lab Report: Thyroid Stim Hor arun (TSH)on 07-28-2015 Thyroid stimulating hormone (TSH) 1.92 u[iU]/mL Invalid Interpretation Code 0.358-3.74 [facility] Work Phone: Lab Report: Comprehensive Me tabolic Profilon 05-05-2015 Creatinine 89.08 mL/min Invalid Interpretation Code [facility] Work Phone: Lab Report: Lipaseon 015 LIPASE 92 U/L 73-393 [facility] lipase, serum 92 U/L Invalid Interpretation Code 73-393 [facility] Work Phone: Lab Report: Monoteston 05-05 Monocytes Negative Invalid Interpretation Code Negative [facility] Work Phone: Monocytes #/vol (Bld) Negative Negative [facility] Lab Report: ,Serum, hCG Quali.on 05-05-2015 B-HCG m[IU]/mL Invalid Interpretation Code =>Qualitat sara [facility] Work Phone: beta HCG, serum, qualitative Negative Invalid Interpretation Code 0-9 Nonpreg [facility] Work Phone: Lab Report: Urinalysis, Comp leteon 05-05-2015 Albumin Ql (U) Negative Negative [facility] Bilirubin Ql (U) Negative Negative [place] [facility] Ketones mass conc (U) Negative Negative [facility] Mucus Ql (Urine sed) 0 SEEN [place] [facility] Nitrite Urine Negative Invalid Interpretation Code Negative [facility] Work Phone: Occult Blood, urine Negative Invalid Interpretation Code Negative [facility] Work Phone: OCCULT BLOOD-UR Negative Negative [facility] [facility] pH (U) 6.0 [pH] 5.0 - 8.0 [facility] specific gravity, urine 1.020 Invalid Interpretation Code 1.002-1.03 0 [facility] Work Phone: [phone] Urine, bacteria in sediment RARE /hpf Invalid Interpretation Code None Seen [facility] Work Phone: [phone] Urine, bilirubin presence Negative Invalid Interpretation Code Negative [facility] Work Phone: [phone] Urine, clarity Clear Invalid Interpretation Code Clear [facility] Work Phone: [phone] Urine, color Yellow Invalid Interpretation Code Yellow [facility] Work Phone: [phone] Urine, epithelial cells in sediment 0-5 SEEN Invalid Interpretation Code 5-10 [facility] Work Phone: [phone] Urine, erythrocytes in sediment by volume 0-5 SEEN Invalid Interpretation Code 0-5 [facility] Work Phone: [phone] Urine, glucose presence Normal mg/dl Invalid Interpretation Code Normal [facility] Work Phone: [phone] Urine, ketones presence Negative Invalid Interpretation Code Negative [facility] Work Phone: [phone] Urine, leukocyte esterase presence Negative Invalid Interpretation Code Negative [facility] Work Phone: [phone] Urine, mucus presence in sediment 0 SEEN Invalid Interpretation Code [facility] Work Phone: [phone] Urine, pH 6.0 [pH] Invalid Interpretation Code 5.0 - 8.0 [facility] Work Phone: [phone] Urine, protein Negative Invalid Interpretation Code Negative [facility] Work Phone: urobilinogen, urine, by dipstick Normal mg/dl Invalid Interpretation Code Normal [facility] Work Phone: [phone] WBC #/vol (Bld) 0 SEEN 0-5 [facility] WBC (Leukocytes) 0 SEEN Invalid Interpretation Code 0-5 [facility] Work Phone: Office Visit: Gardasil vacci ne #2on 02-11-2015 Protein mass conc yes [place] [facility] Smoking cessation education (procedure) yes Invalid Interpretation Code [facility] Work Phone: Office Visiton 10-03-2010 Rapid strep test Positive Invalid Interpretation Code [facility] Work Phone: S. pyogenes DNA CLINT+probe Ql (Throat) Positive [facility] Culture, urine Bacteria identified Cx Nom (U) Positive [facility] Work Phone: Vital Signs Date Time Vital Sign Value Performing Clinician Faci lity 03-19-2025 09:47-0400 Body height 165.5 cm Gabriel Lopez MD Work Phone: [facility] 03-19-2025 09:47-0400 Body mass index (BMI) [Ratio] 18.27 kg/m2 Gabriel Lopez MD Work Phone: [facility] 03-19-2025 09:47-0400 Body weight 50.03 kg Gabriel Lopez MD Work Phone: [facility] 03-19-2025 09:47-0400 Diastolic blood pressure 64 mm[Hg] Gabriel Lopez MD Work Phone: [facility] 03-19-2025 09:47-0400 Heart rate 85 /min Gabriel Lopez MD Work Phone: [facility] 03-19-2025 09:47-0400 SaO2% (BldA) [Mass fraction] 99 % Gabriel Lopez MD Work Phone: [facility] 03-19-2025 09:47-0400 Systolic blood pressure 102 mm[Hg] Gabriel Lopez MD Work Phone: [facility] 01-06-2025 12:26-0400 Body temperature 98.4 [degF] Dr. Akila Manuel DO Work Phone: [facility] 01-06-2025 12:26-0400 Diastolic blood pressure 62 mm[Hg] Dr. Akila Manuel DO Work Phone: [facility] 01-06-2025 12:26-0400 Heart rate 108 /min Dr. Akila Manuel DO Work Phone: [facility] 01-06-2025 12:26-0400 Respiratory rate 16 /min Dr. Akila Manuel DO Work Phone: [facility] 01-06-2025 12:26-0400 SaO2% (BldA) [Mass fraction] 98 % Dr. Akila Manuel DO Work Phone: [facility] 01-06-2025 12:26-0400 Systolic blood pressure 100 mm[Hg] Dr. Akila Manuel DO Work Phone: [facility] 01-06-2025 12:24-0400 Body height 162.[address] Akila Manuel DO Work Phone: [facility] 10-16-2024 09:50-0400 Body temperature 98.6 [degF] Dr. Akila Manuel DO Work Phone: [facility] 10-16-2024 09:50-0400 Body weight 51.[address] Akila Manuel DO Work Phone: [facility] 10-16-2024 09:50-0400 Diastolic blood pressure 68 mm[Hg] Dr. Akila Manuel DO Work Phone: [facility] 10-16-2024 09:50-0400 Heart rate 68 /min Dr. Akila Manuel DO Work Phone: [facility] 10-16-2024 09:50-0400 Respiratory rate 16 /min Dr. Akila Manuel DO Work Phone: [facility] 10-16-2024 09:50-0400 SaO2% (BldA) [Mass fraction] 100 % Dr. Akila Manuel DO Work Phone: [facility] 10-16-2024 09:50-0400 Systolic blood pressure 103 mm[Hg] Dr. Akila Manuel DO Work Phone: [facility] 09-23-2024 15:30-0500 Body height 162.[address] Akila Manuel DO Work Phone: [facility] 09-23-2024 15:26-0500 Body mass index (BMI) [Ratio] 19.1 kg/m2 Dr. Akila Manuel DO Work Phone: [facility] 09-23-2024 15:26-0500 Body weight 50.[address] Akila Manuel DO Work Phone: [facility] 09-23-2024 15:26-0500 Diastolic blood pressure 79 mm[Hg] Dr. Akila Manuel DO Work Phone: [facility] 09-23-2024 15:26-0500 Systolic blood pressure 126 mm[Hg] Dr. Akila Manuel DO Work Phone: [facility] 09-10-2024 09:55-0500 Body height 162.6 cm Ashleigh Hilton MD Work Phone: [facility] 09-10-2024 09:55-0500 Body mass index (BMI) [Ratio] 19.4 kg/m2 Ashleigh Hilton MD Work Phone: [facility] 09-10-2024 09:55-0500 Body weight 51.26 kg Ashleigh Hilton MD Work Phone: [facility] 09-10-2024 09:55-0500 Respiratory rate 16 /min Ashleigh Hilton MD Work Phone: [facility] 06-28-2024 11:59-0500 Body mass index (BMI) [Ratio] 19.7 kg/m2 Dr. Akila Manuel DO Work Phone: [facility] 06-28-2024 11:59-0500 Body temperature 98.6 [degF] Dr. Akila Manuel DO Work Phone: [facility] 06-28-2024 11:59-0500 Body weight 52.[address] Akila Manuel DO Work Phone: [facility] 06-28-2024 11:59-0500 Diastolic blood pressure 78 mm[Hg] Dr. Akila Manuel DO Work Phone: [facility] 06-28-2024 11:59-0500 Heart rate 83 /min Dr. Akila Manuel DO Work Phone: [facility] 06-28-2024 11:59-0500 Respiratory rate 16 /min Dr. Akila Manuel DO Work Phone: [facility] 06-28-2024 11:59-0500 SaO2% (BldA) [Mass fraction] 97 % Dr. Akila Mnauel DO Work Phone: [facility] 06-28-2024 11:59-0500 Systolic blood pressure 118 mm[Hg] Dr. Akila Manuel DO Work Phone: [facility] 06-05-2024 11:01-0500 Body temperature 97.4 [degF] Dr. Akila Manuel DO Work Phone: [facility] 06-05-2024 11:01-0500 Diastolic blood pressure 53 mm[Hg] Dr. Akila Manuel DO Work Phone: [facility] 06-05-2024 11:01-0500 Heart rate 56 /min Dr. Akila Manuel DO Work Phone: [facility] 06-05-2024 11:01-0500 Respiratory rate 16 /min Dr. Akila Manuel DO Work Phone: [facility] 06-05-2024 11:01-0500 SaO2% (BldA) [Mass fraction] 100 % Dr. Akila Manuel DO Work Phone: [facility] 06-05-2024 11:01-0500 Systolic blood pressure 106 mm[Hg] Dr. Akila Manuel DO Work Phone: [facility] 04-30-2024 13:27-0400 Body mass index (BMI) [Ratio] 20.25 kg/m2 Ayan Grubbs MD Work Phone: [facility] 04-30-2024 13:27-0400 Body temperature 98.2 [degF] Ayan Grubbs MD Work Phone: [facility] 04-30-2024 13:27-0400 Body weight 53.52 kg Ayan Grubbs MD Work Phone: [facility] 04-30-2024 13:27-0400 Diastolic blood pressure 80 mm[Hg] Ayan Grubbs MD Work Phone: [facility] 04-30-2024 13:27-0400 Heart rate 77 /min Ayan Grubbs MD Work Phone: [facility] 04-30-2024 13:27-0400 SaO2% (BldA) [Mass fraction] 100 % Ayan Grubbs MD Work Phone: [facility] 04-30-2024 13:27-0400 Systolic blood pressure 132 mm[Hg] Ayan Grubbs MD Work Phone: [facility] 04-03-2024 13:44-0400 Body mass index (BMI) [Ratio] 19.09 kg/m2 Ayan Grubbs MD Work Phone: [facility] 04-03-2024 13:44-0400 Body temperature 98.1 [degF] Ayan Grubbs MD Work Phone: [facility] 04-03-2024 13:44-0400 Body weight 50.44 kg Ayan Grubbs MD Work Phone: [facility] 04-03-2024 13:44-0400 Diastolic blood pressure 72 mm[Hg] Ayan Grubbs MD Work Phone: [facility] 04-03-2024 13:44-0400 Heart rate 98 /min Ayan Grubbs MD Work Phone: [facility] 04-03-2024 13:44-0400 SaO2% (BldA) [Mass fraction] 99 % Ayan Grubbs MD Work Phone: [facility] 04-03-2024 13:44-0400 Systolic blood pressure 117 mm[Hg] Ayan Grubbs MD Work Phone: [facility] 03-13-2024 11:33-0400 Body height 162.6 cm [facility] 3 Work Phone: [facility] 03-13-2024 11:33-0400 Body mass index (BMI) [Ratio] 19.74 kg/m2 [facility] Work Phone: [facility] 03-13-2024 11:33-0400 Body weight 52.16 kg [facility] 3 Work Phone: [facility] 02-07-2024 10:20-0400 Body temperature 97.9 [degF] Ayan Grubbs MD Work Phone: [facility] 02-07-2024 10:20-0400 Body weight 53.43 kg Ayan Grubbs MD Work Phone: [facility] 02-07-2024 10:20-0400 Diastolic blood pressure 70 mm[Hg] Ayan Grubbs MD Work Phone: [facility] 02-07-2024 10:20-0400 Heart rate 94 /min Ayan Grubbs MD Work Phone: [facility] 02-07-2024 10:20-0400 SaO2% (BldA) [Mass fraction] 100 % Ayan Grubbs MD Work Phone: [facility] 02-07-2024 10:20-0400 Systolic blood pressure 110 mm[Hg] Ayan Grubbs MD Work Phone: [facility] 12-19-2023 12:12-0400 Body temperature 98.1 [degF] Bernard Honeycutt MD Work Phone: [facility] 12-19-2023 12:11-0400 Body height 162.6 cm Bernard Honeycutt MD Work Phone: [facility] 12-19-2023 12:11-0400 Body mass index (BMI) [Ratio] 20.72 kg/m2 Bernard Honeycutt MD Work Phone: [facility] 12-19-2023 12:11-0400 Body weight 54.75 kg Bernard Honeycutt MD Work Phone: [facility] 12-19-2023 12:11-0400 Diastolic blood pressure 70 mm[Hg] Bernard Honeycutt MD Work Phone: [facility] 12-19-2023 12:11-0400 Heart rate 66 /min Bernard Honeycutt MD Work Phone: [facility] 12-19-2023 12:11-0400 SaO2% (BldA) [Mass fraction] 98 % Bernard Honeycutt MD Work Phone: [facility] 12-19-2023 12:11-0400 Systolic blood pressure 107 mm[Hg] Bernard Honeycutt MD Work Phone: [facility] 09-04-2023 09:55-0500 Body temperature 97.6 [degF] Dr. Akila Manuel Work Phone: [facility] 09-04-2023 09:55-0500 Diastolic blood pressure 64 mm[Hg] Dr. Akila Manuel Work Phone: [facility] 09-04-2023 09:55-0500 Heart rate 65 /min Dr. Akila Manuel Work Phone: [facility] 09-04-2023 09:55-0500 Respiratory rate 16 /min Dr. Akila Manuel Work Phone: [facility] 09-04-2023 09:55-0500 SaO2% (BldA) [Mass fraction] 100 % Dr. Akila Manuel Work Phone: [facility] 09-04-2023 09:55-0500 Systolic blood pressure 110 mm[Hg] Dr. Akila Manuel Work Phone: [facility] 09-04-2023 07:40-0500 Body height 162.[address] Akila Manuel Work Phone: [facility] 09-04-2023 07:40-0500 Body mass index (BMI) [Ratio] 20.8 kg/m2 Dr. Akila Manuel Work Phone: [facility] 09-04-2023 07:40-0500 Body weight [address] Akila Manuel Work Phone: [facility] 08-18-2023 22:00-0500 Diastolic blood pressure 81 mm[Hg] Dr. Akila Manuel Work Phone: [facility] 08-18-2023 22:00-0500 Heart rate 98 /min Dr. Akila Manuel Work Phone: [facility] 08-18-2023 22:00-0500 Respiratory rate 12 /min Dr. Akila Manuel Work Phone: [facility] 08-18-2023 22:00-0500 SaO2% (BldA) [Mass fraction] 99 % Dr. Akila Manuel Work Phone: [facility] 08-18-2023 22:00-0500 Systolic blood pressure 119 mm[Hg] Dr. Akila Manuel Work Phone: [facility] 08-18-2023 18:07-0500 Body height 162.[address] Akila Manuel Work Phone: [facility] 08-18-2023 18:07-0500 Body mass index (BMI) [Ratio] 21.1 kg/m2 Dr. Akila Manuel Work Phone: [facility] 08-18-2023 18:07-0500 Body temperature 97.1 [degF] Dr. Akila Manuel Work Phone: [facility] 08-18-2023 18:07-0500 Body weight 55.[address] Akila Manuel Work Phone: [facility] 05-16-2023 13:45-0400 Body temperature 97.8 [degF] Dr. Akila Manuel Work Phone: [facility] 05-16-2023 13:45-0400 Diastolic blood pressure 56 mm[Hg] Dr. Akila Manuel Work Phone: [phone] [place] [address] 05-16-2023 13:45-0400 Heart rate 56 /min Dr. Akila Manuel Work Phone: [facility] 05-16-2023 13:45-0400 Respiratory rate 16 /min Dr. kAila Manuel Work Phone: [facility] 05-16-2023 13:45-0400 SaO2% (BldA) [Mass fraction] 100 % Dr. Akila Manuel Work Phone: [facility] 05-16-2023 13:45-0400 Systolic blood pressure 102 mm[Hg] Dr. Akila Manuel Work Phone: [facility] 05-16-2023 12:04-0400 Body height 162.[address] Akila Manuel Work Phone: [facility] 05-16-2023 12:04-0400 Body mass index (BMI) [Ratio] 21.1 kg/m2 Dr. Akila Manuel Work Phone: [facility] 05-16-2023 12:04-0400 Body weight 55.[address] Akila Manuel Work Phone: [facility] 05-15-2023 14:47-0400 Body mass index (BMI) [Ratio] 21.8 kg/m2 Dr. Akila Manuel Work Phone: [facility] 05-15-2023 14:47-0400 Body weight 57.[address] Akila Manuel Work Phone: [facility] 05-15-2023 14:47-0400 Diastolic blood pressure 68 mm[Hg] Dr. Akila Manuel Work Phone: [facility] 05-15-2023 14:47-0400 Systolic blood pressure 106 mm[Hg] Dr. Akila Manuel Work Phone: [facility] 11-15-2022 13:40-0400 Body temperature 97.6 [degF] Dr. Akila Manuel Work Phone: [facility] 11-15-2022 13:40-0400 Diastolic blood pressure 66 mm[Hg] Dr. Akila Manuel Work Phone: [facility] 11-15-2022 13:40-0400 Heart rate 63 /min Dr. Akila Manuel Work Phone: [facility] 11-15-2022 13:40-0400 Respiratory rate 18 /min Dr. Akila Manuel Work Phone: [facility] 11-15-2022 13:40-0400 SaO2% (BldA) [Mass fraction] 100 % Dr. Akila Manuel Work Phone: [facility] 11-15-2022 13:40-0400 Systolic blood pressure 106 mm[Hg] Dr. Akila Manuel Work Phone: [facility] 11-15-2022 12:17-0400 Body height 162.[address] Akila Manuel Work Phone: [facility] 11-15-2022 12:17-0400 Body mass index (BMI) [Ratio] 20.8 kg/m2 Dr. Akila Manuel Work Phone: [facility] 11-15-2022 12:17-0400 Body weight [address] Akila Manuel Work Phone: [facility] 10-27-2022 10:55-0400 Body temperature 97.2 [degF] Dr. Akila Manuel Work Phone: [facility] 10-27-2022 10:55-0400 Diastolic blood pressure 73 mm[Hg] Dr. Akila Manuel Work Phone: [facility] 10-27-2022 10:55-0400 Heart rate 67 /min Dr. Akila Manuel Work Phone: [facility] 10-27-2022 10:55-0400 Respiratory rate 16 /min Dr. Akila Manuel Work Phone: [facility] 10-27-2022 10:55-0400 SaO2% (BldA) [Mass fraction] 99 % Dr. Akila Manuel Work Phone: [facility] 10-27-2022 10:55-0400 Systolic blood pressure 107 mm[Hg] Dr. Akila Manuel Work Phone: [facility] 10-27-2022 09:14-0400 Body height 162.[address] Akila Manuel Work Phone: [facility] 10-27-2022 09:14-0400 Body mass index (BMI) [Ratio] 20.8 kg/m2 Dr. Akila Manuel Work Phone: [facility] 10-27-2022 09:14-0400 Body weight [address] Akila Manuel Work Phone: [facility] 10-10-2022 10:30-0400 Body height 162.[address] Akila Manuel Work Phone: [facility] 10-10-2022 10:30-0400 Body mass index (BMI) [Ratio] 21.1 kg/m2 Dr. Akila Manuel Work Phone: [facility] 10-10-2022 10:30-0400 Body weight 55.[address] Akila Manuel Work Phone: [facility] 10-10-2022 10:30-0400 Diastolic blood pressure 69 mm[Hg] Dr. Akila Manuel Work Phone: [facility] 10-10-2022 10:30-0400 Heart rate 69 /min Dr. Akila Manuel Work Phone: [facility] 10-10-2022 10:30-0400 SaO2% (BldA) [Mass fraction] 97 % Dr. Akila Manuel Work Phone: [facility] 10-10-2022 10:30-0400 Systolic blood pressure 108 mm[Hg] Dr. Akila Manuel Work Phone: [facility] 09-02-2022 16:10-0500 Body height 162.[address] Akila Manuel Work Phone: [facility] 09-02-2022 16:10-0500 Body mass index (BMI) [Ratio] 20.9 kg/m2 Dr. Akila Manuel Work Phone: [facility] 09-02-2022 16:10-0500 Body weight 55.[address] Akila Manuel Work Phone: [facility] 09-02-2022 16:10-0500 Diastolic blood pressure 70 mm[Hg] Dr. Akila Manuel Work Phone: [facility] 09-02-2022 16:10-0500 Systolic blood pressure 117 mm[Hg] Dr. Akila Manuel Work Phone: [facility] 07-13-2022 13:35-0500 Diastolic blood pressure 53 mm[Hg] Dr. Akila Manuel Work Phone: [facility] 07-13-2022 13:35-0500 Heart rate 58 /min Dr. Akila Manuel Work Phone: [facility] 07-13-2022 13:35-0500 Respiratory rate 16 /min Dr. Akila Manuel Work Phone: [facility] 07-13-2022 13:35-0500 SaO2% (BldA) [Mass fraction] 16 % Dr. Akila Manuel Work Phone: [facility] 07-13-2022 13:35-0500 Systolic blood pressure 102 mm[Hg] Dr. Akila Manuel Work Phone: [facility] 07-13-2022 12:15-0500 Body temperature 99 [degF] Dr. Akila Manuel Work Phone: [facility] 07-13-2022 07:57-0500 Body height 162.[address] Akila Manuel Work Phone: [facility] Work Phone: 07-13-2022 07:57-0500 Body mass index (BMI) [Ratio] 20.8 kg/m2 Dr. Akila Manuel Work Phone: [facility] 07-13-2022 07:57-0500 Body weight [address] Akila Manuel Work Phone: [facility] 06-02-2022 15:40-0500 Body height 162.[address] Akila Manuel Work Phone: [facility] Work Phone: 06-02-2022 15:39-0500 Body mass index (BMI) [Ratio] 20.5 kg/m2 Dr. Akila Manuel Work Phone: [facility] 06-02-2022 15:39-0500 Body weight 54.[address] Akila Manuel Work Phone: [facility] 06-02-2022 15:39-0500 Diastolic blood pressure 80 mm[Hg] Dr. Akila Manuel Work Phone: [facility] 06-02-2022 15:39-0500 Systolic blood pressure 116 mm[Hg] Dr. Akila Manuel Work Phone: [facility] 05-10-2022 14:43-0400 Body mass index (BMI) [Ratio] 21.4 kg/m2 Dr. Akila Manuel Work Phone: [facility] Work Phone: 05-10-2022 14:43-0400 Body weight 56.[address] Akila Manuel Work Phone: [facility] Work Phone: 05-10-2022 14:43-0400 Diastolic blood pressure 68 mm[Hg] Dr. Akila Manuel Work Phone: [facility] Work Phone: 05-10-2022 14:43-0400 Systolic blood pressure 110 mm[Hg] Dr. Akila Manuel Work Phone: [facility] Work Phone: 10-25-2021 12:58-0400 Body temperature 98.2 [degF] Dr. Akila Manuel Work Phone: [facility] Work Phone: 10-25-2021 12:58-0400 Diastolic blood pressure 62 mm[Hg] Dr. Akila Manuel Work Phone: [facility] Work Phone: 10-25-2021 12:58-0400 Heart rate 91 /min Dr. Akila Manuel Work Phone: [facility] Work Phone: 10-25-2021 12:58-0400 Respiratory rate 14 /min Dr. Akila Manuel Work Phone: [facility] Work Phone: 10-25-2021 12:58-0400 SaO2% (BldA) [Mass fraction] 99 % Dr. Akila Manuel Work Phone: [facility] Work Phone: 10-25-2021 12:58-0400 Systolic blood pressure 108 mm[Hg] Dr. Akila Manuel Work Phone: [facility] Work Phone: 10-25-2021 12:58-0400 Body temperature 98.2 [degF] Dr. Akila Manuel Work Phone: [facility] Work Phone: 10-25-2021 12:58-0400 Diastolic blood pressure 62 mm[Hg] Dr. Akila Manuel Work Phone: [facility] Work Phone: 10-25-2021 12:58-0400 Heart rate 91 /min Dr. Akila Manuel Work Phone: [facility] Work Phone: 10-25-2021 12:58-0400 Respiratory rate 14 /min Dr. Akila Manuel Work Phone: [facility] Work Phone: 10-25-2021 12:58-0400 SaO2% (BldA) [Mass fraction] 99 % Dr. Akila Manuel Work Phone: [facility] Work Phone: 10-25-2021 12:58-0400 Systolic blood pressure 108 mm[Hg] Dr. Akila Manuel Work Phone: [facility] Work Phone: 07-06-2021 16:40-0500 Body height 162.[address] Akila Manuel Work Phone: [facility] Work Phone: 07-06-2021 16:40-0500 Body mass index (BMI) [Ratio] 20.5 kg/m2 Dr. Akila Manuel Work Phone: [facility] Work Phone: 07-06-2021 16:40-0500 Body temperature 98.6 [degF] Dr. Akila Manuel Work Phone: [facility] Work Phone: 07-06-2021 16:40-0500 Body weight 54.[address] Akila Manuel Work Phone: [facility] Work Phone: 07-06-2021 16:40-0500 Heart rate 78 /min Dr. Akila Manuel Work Phone: [facility] Work Phone: 07-06-2021 16:40-0500 Respiratory rate 16 /min Dr. Akila Manuel Work Phone: [facility] Work Phone: 07-06-2021 16:40-0500 SaO2% (BldA) [Mass fraction] 100 % Dr. Akila Manuel Work Phone: [facility] Work Phone: 01-04-2021 13:59-0400 Body temperature 97.5 [degF] Akila Manuel Work Phone: [facility] Work Phone: 01-04-2021 13:59-0400 Diastolic blood pressure 80 mm[Hg] Akila Kellyrene Work Phone: [facility] Work Phone: 01-04-2021 13:59-0400 Systolic blood pressure 120 mm[Hg] Akila Kellyrene Work Phone: [facility] Work Phone: 02-21-2017 14:57-0400 BMI (Body Mass Index) 19.57 kg/m2 [facility]-21-2017 14:57-0400 Body Temperature 98.6 [degF] [facility] 08-01-2017 14:57-0400 BP Diastolic 64 mm[Hg] Daxa Guy [facility] 02-21-2017 14:57-0400 BP Systolic 99 mm[Hg] Daxa Guy [facility] 02-21-2017 14:57-0400 Height 165.[address] [facility] 02-21-2017 14:57-0400 Pulse (Heart Rate) 71 /min Daxa Guy [facility] 02-21-2017 14:57-0400 Respiratory Rate 16 /min Daxa Guy [facility] 02-21-2017 14:57-0400 Weight 53.[address] [facility] 02-20-2017 14:30-0400 BMI (Body Mass Index) 19.33 kg/m2 Arianna Lange LPN [facility] Work Phone: 02-20-2017 14:30-0400 Body Temperature 97.9 [degF] Arianna Lange LPN [facility] Work Phone: 02-20-2017 14:30-0400 BP Diastolic 64 mm[Hg] Arianna Lange LPN [facility] Work Phone: 02-20-2017 14:30-0400 BP Systolic 104 mm[Hg] Arianna Lange LPN [facility] Work Phone: 02-20-2017 14:30-0400 Height 165.1 cm Arianna Lange LPN [facility] Work Phone: 02-20-2017 14:30-0400 Pulse (Heart Rate) 69 /min Arianna Lange LPN [facility] Work Phone: 02-20-2017 14:30-0400 Respiratory Rate 12 /min Arianna Lange LPN [facility] Work Phone: 02-20-2017 14:30-0400 Weight 52.71 kg Arianna Lange LPN [facility] Work Phone: 08-03-2016 09:25-0500 Body Temperature 97.7 [degF] Arianna Lange LPN [facility] Work Phone: 08-03-2016 09:25-0500 BSA (Body Surface Area) 1.52 m2 Arianna Lange LPN [facility] Work Phone: 08-03-2016 09:25-0500 Height 160.02 cm Arianna Lange FERRY CAPTAIN [facility] Work Phone: 05-05-2015 23:11-0400 Body surface area Derived from formula 89.08 mL/min [facility] Encounters Encounter Date Encounter Type Care Provider Facility [facility]: [facility] Start: 03-19-2025 ambulatory GABRIEL Hyde ility:[facility] Start: 03-19-2025 End: 03-19-2025 Subsequent hospital visit by physician Gabriel Lopez MD Work Phone: [facility] Comment on above: Arrived Start: 03-19-2025 ambulatory GABRIEL Hyde ili:[facility] Start: 03-19-2025 End: 03-19-2025 Office outpatient new 45 minutes Gabriel Lopez MD Work Phone: [facility] Comment on above: Lymphadenopathy (Rosa Isela yaya Dx); Recurrent sinus infections; Chronic midline low back pain without sciatica Start: 03-17-2025 ambulatory Akila Manuel Facility:[facility] Start: 03-12-[address] Akila Manuel DO -Physical Therapy Work Phone: Start: 03-10-2025 End: 03-10-[address] Akila Manuel DO Work Phone: -Radiology [facility] Start: 03-10-2025 End: 03-10-[address] Massimo Milton MD -Radiology [facility] Work Phone: Start: 03-10-2025 End: 03-10-2025 ambulatory Akila Manuel Facility:[facility] Start: 01-15-2025 End: 01-15-[address] Akila Manuel DO Work Phone: -Radiology [facility] Start: 01-15-2025 End: 01-15-[address] Akila Manuel DO -Radiology [facility] Work Phone: Start: 01-15-2025 End: 01-15-2025 ambulatory Akila Manuel Facility:[facility] Start: 01-06-2025 End: 01-06-2025 Patient encounter procedure Pato Toth PA -[facility] Work Phone: Start: 01-06-2025 End: 01-06-[address] Akila Manuel DO Work Phone: [facility] Work Phone: Start: 01-06-2025 End: 01-06-2025 ambulatory Pato JOHNSON Facility:[facility] Start: 12-11-2024 End: 12-11-2024 ambulatory AKILA MANUEL Facility:[facility] Start: 12-03-2024 End: 12-03-[address] Akila Manuel DO Work Phone: [facility] Work Phone: Start: 12-03-2024 End: 12-03-2024 Patient encounter procedure Alyssa Huntley PA -Cat Scan [facility] Work Phone: Start: 12-03-2024 End: 12-03-2024 ambulatory Akila Manuel Facility:[facility] Start: 11-18-2024 ambulatory AKILA MANUEL Facility:[facility] Start: 11-07-2024 End: 11-07-[address] Akila Manuel DO -Laboratory Work Phone: Start: 11-07-2024 End: 11-07-2024 ambulatory Akila Manuel Facility:[facility] Start: 10-16-2024 End: 10-16-[address] Akila Manuel DO Work Phone: [facility] Work Phone: Start: 10-16-2024 End: 10-16-2024 Patient encounter procedure Alyssa JOHNSON -Laboratory Work Phone: Start: 10-16-2024 End: 10-16-2024 Patient encounter procedure Alyssa JOHNSON -[facility] Work Phone: Start: 10-16-2024 End: 10-16-2024 ambulatory Akila Manuel Facility:[facility] Start: 10-16-2024 End: 10-16-2024 ambulatory Akila Maneul Facility:[facility] Start: 10-14-2024 End: 10-14-[address] Akila Manuel DO Work Phone: [facility] Work Phone: Start: 10-14-2024 End: 10-14-[address] Nataliia Raymond DO -Ultrasound, [facility] Work Phone: Start: 10-14-2024 End: 10-14-2024 ambulatory Akila Manuel Facility:[facility] Start: 09-23-2024 End: 09-23-[address] Akila Manuel DO -Laboratory Work Phone: Start: 09-23-2024 End: 09-23-[address] Akila Manuel DO Work Phone: [facility] Work Phone: Start: 09-23-2024 End: 09-23-2024 ambulatory Akila Manuel Facility:[facility] Start: 09-16-2024 End: 09-16-[address] Akila Manuel DO Work Phone: [facility] Work Phone: Start: 09-16-2024 End: 09-16-[address] Akila Manuel DO Work Phone: -Laboratory Work Phone: Start: 09-16-2024 End: 09-16-2024 ambulatory Akila Malys Facility:[facility] Start: 09-10-2024 End: 09-10-2024 Office outpatient new 45 minutes Ashleigh Hilton MD Work Phone: [facility] Comment on above: Lymphadenopathy (Rosa Isela yaya Dx); Recurrent URI (upper respiratory infection); Seasonal allergic rhinitis due to pollen Start: 09-10-2024 ambulatory AKILA MALYS Facility:[facility] Start: 06-28-2024 End: 06-28-2024 Patient encounter procedure Jaswinder JOHNSON -[facility] Work Phone: Start: 06-28-2024 End: 06-28-2024 ambulatory Jaswinder JOHNSON Facility:[facility] Start: 06-05-2024 End: 06-05-[address] Akila Manuel DO -Medical Out Work Phone: Start: 06-05-2024 End: 06-05-2024 ambulatory Akila Malys Facility:[facility] Start: 05-20-2024 End: 05-20-2024 ambulatory Akila Malys Facility:[facility] Start: 05-10-2024 End: 05-10-2024 ambulatory Akila Malys Facility:[facility] Start: 05-09-2024 End: 05-09-2024 ambulatory Akila Malys Facility:[facility] Start: 05-09-2024 End: 05-09-2024 ambulatory Belkysher Mercado Facility:[facility] Start: 05-07-2024 End: 05-07-2024 Telephone encounter Ayan Grubbs MD Work Phone: [facility] Comment on above: Patient Update (ER f ollow-up call) Start: 05-06-2024 End: 05-06-2024 [facility] Start: 05-06-2024 End: 05-06-2024 Telephone encounter Ayan Grubbs MD Work Phone: [facility] Comment on above: Patient Question (GI symptoms) Start: 04-30-2024 End: 04-30-2024 ambulatory AYAN GRUBBS Facility:[facility] Start: 04-30-2024 End: 04-30-2024 Patient encounter procedure Ayan Grubbs MD Work Phone: [facility] Comment on above: Postop check (Primar y Dx) Start: 04-27-2024 End: 04-27-2024 Emergency department patient visit Neo Moore Facility:[facility] Start: 04-25-2024 End: 04-25-2024 ambulatory Akila Manuel Facility:[facility] Start: 04-03-2024 End: 04-03-2024 ambulatory [facility] Facility:[facility] Start: 04-03-2024 End: 04-03-2024 Patient encounter procedure Ayan Grubbs MD Work Phone: [facility] Comment on above: Superior mesenteric artery syndrome (HCC) (Primary Dx); Post-operative state Start: 04-02-2024 End: 04-02-2024 Telephone encounter Ayan Grubbs MD Work Phone: [facility] Comment on above: Post Op (Laparoscopi c duodenojejunostomy ) Start: 03-22-2024 End: 03-29-2024 Evaluation and management of inpatient [facility] Facility:[facility] Start: 03-19-2024 End: 03-20-2024 Telephone encounter Ayan Grubbs MD Work Phone: [facility] Comment on above: Patient Question Start: 03-13-2024 End: 03-13-2024 [facility] Work Phone: Pre [facility] Start: 03-13-2024 End: 03-13-2024 ambulatory [facility] Facility:[facility] Start: 03-13-2024 End: 03-13-2024 Anesthesia consultation [facility] 3 Work Phone: Pre Anesthesia Comment on above: Pre-op evaluation (P rimary Dx); POTS (postural orthostatic tachycardia syndrome); EDS (Helder-Danlos syndrome) Start: 03-13-2024 End: 03-13-2024 Preprocedural examination done Pac 3 Work Phone: [facility] Work Phone: Start: 03-06-2024 Telephone encounter Ayan Grubbs MD Work Phone: [facility] Comment on above: Orders Start: 02-07-2024 Telephone encounter Ayan Grubbs MD Work Phone: [facility] [employer] Comment on above: Orders (Imaging orde rs) Start: 02-07-2024 End: 02-07-2024 ambulatory AYAN GRUBBS Facility:[facility] Start: 02-07-2024 End: 02-07-2024 Patient encounter procedure Ayan Grubbs MD Work Phone: ANDREY [employer] Comment on above: Superior mesenteric artery syndrome (HCC) (Primary Dx); Gastroparesis; POTS (postural orthostatic tachycardia syndrome); Ehler's-Danlos syndrome; Malnutrition of moderate degree (HCC) Start: 12-19-2023 End: 12-19-2023 ambulatory AKILA MANUEL [facility] Start: 12-19-2023 End: 12-19-2023 Office outpatient new 45 minutes Bernard Honeycutt MD Work Phone: [facility] [place] Comment on above: Leukopenia, unspecif ied type (Primary Dx) Start: 09-04-2023 Non-patient / Non-visit Dr. Armida Manuel Work Phone: [facility] Start: 09-04-2023 End: 09-04-2023 Admission to same day surgery center Dr. Akila Manuel Work Phone: [facility] Work Phone: Start: 09-04-2023 End: 09-04-[address] Akila Manuel Work Phone: [facility] Work Phone: Start: 08-23-2023 End: 08-23-[address] Akila Manuel Work Phone: [facility] Work Phone: Start: 08-23-2023 End: 08-23-[address] Akila Manuel Work Phone: [facility]Nuclear Medicine, [facility] Work Phone: Start: 08-18-2023 End: 08-18-2023 Emergency department patient visit Dr. Akila Manuel Work Phone: [facility] Work Phone: Start: 08-18-2023 End: 08-18-[address] Akila Manuel Work Phone: [facility] Work Phone: Start: 08-18-2023 End: 08-18-[address] Akila Manuel Work Phone: [facility]Ultrasound, [facility] Work Phone: Start: 08-15-2023 End: 08-15-[address] Akila Manuel Work Phone: [facility]Cat Scan, [facility] Work Phone: Start: 08-05-2023 End: 08-05-[address] Akila Manuel Work Phone: [facility] Work Phone: Start: 08-05-2023 End: 08-05-[address] Akila Manuel Work Phone: [facility] Work Phone: Start: 08-04-2023 End: 08-04-[address] Akila Manuel Work Phone: [facility] Gastroenter[facility] Work Phone: Start: 07-13-2023 End: 07-13-[address] Akila Manuel Work Phone: [facility] Work Phone: Start: 07-13-2023 End: 07-13-[address] Akila Manuel Work Phone: [facility]Ul[facility]ound, [facility] Work Phone: Start: 07-07-2023 End: 07-07-[address] Akila Manuel Work Phone: [facility] Work Phone: Start: 07-07-2023 End: 07-07-[address] Akila Manuel Work Phone: [facility] Work Phone: Start: 05-16-2023 Non-patient / Non-visit Dr. Armida Manuel Work Phone: [facility] Start: 05-16-2023 End: 05-16-2023 Admission to same day surgery center Dr. Akila Manuel Work Phone: [facility] Work Phone: Start: 05-16-2023 End: 05-16-[address] Akila Manuel Work Phone: [facility] Work Phone: Start: 05-15-2023 End: 05-15-[address] Akila Manuel Work Phone: [facility] Work Phone: Start: 04-21-2023 End: 04-21-[address] Akila Manuel Work Phone: [facility] Work Phone: Start: 11-24-2022 End: 11-24-[address] Akila Manuel Work Phone: [facility] Work Phone: Start: 11-24-2022 End: 11-24-[address] Akila Manuel Work Phone: [facility] Start: 11-18-2022 End: 11-18-[address] Akila Manuel Work Phone: [facility] Start: 11-15-2022 Non-patient / Non-visit Dr. Armida Manuel Work Phone: [facility] Start: 11-15-2022 End: 11-15-2022 Admission to same day surgery center Dr. Akila Manuel Work Phone: [facility] Start: 11-15-2022 End: 11-15-[address] Akila Manuel Work Phone: [facility] Work Phone: Start: 11-04-2022 End: 11-04-[address] Akila Manuel Work Phone: [facility] Work Phone: Start: 11-04-2022 End: 11-04-[address] Akila Manuel Work Phone: [facility]Physical Therapy Start: 10-27-2022 Non-patient / Non-visit [facility]. [facility] Start: 10-27-2022 End: 10-27-2022 Admission to same day surgery center Dr. Akila Manuel Work Phone: [facility] Start: 10-27-2022 End: 10-27-[address] Akila Manuel Work Phone: [facility] Work Phone: Start: 10-21-[address] Akila Manuel Work Phone: [facility] Start: 10-14-[address] Akila Manuel [facility] Start: 10-10-2022 End: 10-10-[address] Akila Manuel Work Phone: [facility] Work Phone: Start: 10-10-2022 End: 10-10-[address] Akila Manuel Work Phone: [facility] Start: 10-10-2022 End: 10-10-[address] Akila Manuel Work Phone: [facility] Gastroenterology Start: 10-03-2022 End: 10-03-[address] Akila Manuel Work Phone: [facility] Start: 09-14-[address] Akila Manuel [facility] Start: 09-12-2022 End: 09-12-[address] Akila Manuel Work Phone: [facility] Work Phone: Start: 09-12-2022 End: 09-12-[address] Akila Manuel Work Phone: [facility], [facility] Start: 09-06-2022 End: 09-06-[address] Akila Manuel Work Phone: [facility] Start: 09-02-2022 End: 09-02-[address] Akila Manuel Work Phone: [facility] Start: 08-26-2022 End: 08-26-[address] [facility] Start: 08-25-2022 End: 08-25-[address] Akila Manuel Work Phone: [facility] Start: 07-26-2022 End: 07-26-[address] Akila Manuel Work Phone: [facility] Start: 07-15-2022 End: 07-15-[address] Akila Manuel Work Phone: [facility] Start: 07-13-2022 Non-patient / Non-visit Dr. Armida Manuel Work Phone: [facility] Start: 07-13-2022 End: 07-13-2022 Admission to same day surgery center Dr. Akila Manuel Work Phone: [facility] Start: 07-13-2022 End: 07-13-[address] Akila Manuel Work Phone: [facility] Work Phone: Start: 06-28-2022 End: 06-28-[address] Akila Manuel Work Phone: [facility] Start: 06-24-2022 End: 06-24-[address] Akila Manuel Work Phone: [facility] Work Phone: Start: 06-24-2022 End: 06-24-[address] [facility] Start: 06-10-2022 End: 06-10-[address] Akila Manuel Work Phone: [facility] Start: 06-09-2022 End: 06-09-[address] Akila Manuel Work Phone: [facility] Work Phone: Start: 06-09-2022 End: 06-09-[address] Akila Manuel Work Phone: [facility]Physical [facility] Start: 06-02-2022 End: 06-02-[address] Akila Manuel Work Phone: [facility] Start: 05-10-2022 End: 05-10-[address] Akila Manuel Work Phone: [facility] Start: 05-05-2022 End: 05-05-[address] Akila Manuel Work Phone: [facility] Start: 04-18-2022 End: 04-18-[address] Akila Manuel Work Phone: [facility] Start: 04-14-2022 End: 04-14-[address] Akila Manuel Work Phone: [facility] Work Phone: Start: 04-14-2022 End: 04-14-[address] Akila Manuel Work Phone: [facility] Start: 04-08-2022 End: 04-08-[address] Akila Manuel Work Phone: [facility] Work Phone: Start: 04-08-2022 End: 04-08-[address] Akila Manuel Work Phone: [facility] Start: 04-01-2022 End: 04-01-[address] Akila Manuel Work Phone: [facility] Work Phone: Start: 04-01-2022 End: 04-01-[address] Akila Manuel Work Phone: [facility] Start: 03-02-2022 End: 03-02-2022 Patient encounter procedure [facility] Start: 02-07-2022 End: 02-07-[address] Akila Manuel Work Phone: [facility]Laboratory, Spec[facility] Start: 10-25-2021 End: 10-25-[address] Akila Manuel Work Phone: [facility] Start: 10-15-2021 End: 10-15-[address] Akila Manuel Work Phone: [facility] Start: 07-06-2021 End: 07-06-[address] Akila Manuel Work Phone: [facility], [facility] Start: 01-04-2021 Office outpatient vi sit 25 minutes Akila Manuel Work Phone: [facility] G[facility]-[address] Work Phone: Start: 07-10-2014 [facility] Procedures Date Procedure Procedure Detail Performing Clinician Start: 03-19-2025 Radiologic exam sacroiliac joints 3/more views Gabriel Lopez MD Work Phone: Start: 03-10-2025 X-ray of thoracic spine, four or more views Dr. Akila Manuel DO Work Phone: Start: 03-10-2025 X-ray of cervical spine Dr. Akila Jason O Work Phone: Start: 01-15-2025 X-ray of lumbar spine, two or three views Dr. Akila Manuel DO Work Phone: Start: 01-06-[address] Akila beckman DO Work Phone: Start: 12-03-2024 Computed tomography of abdomen and pelvis with contrast Dr. Akila Manuel DO Work Phone: Start: 10-16-2024 Urnls dip stick/tablet reagent auto microscopy Dr. Akila Manuel DO Work Phone: Start: 10-14-[address] Akila Manuel DO Work Phone: Start: 09-23-[address] Akila Manuel DO Work Phone: Comment on above: Performed at: [facility] [id number] [place], [place] [id number] Director: Jose M Velasquez MD, Phone: [phone] at: [facility] [address] [id number] Director: Dennis Estrada PhD, Phone: [phone] Start: 09-23-2024 Follicle stimulating hormone measurement Dr. Akila Manuel DO Work Phone: Comment on above: FEMALE:Follicular: 1.4 - 18.1 mIU/mLMidc ycle: 3.4 - 33.4 mIU/mLLuteal: 1.5 - 9.1 mIU/mLPost Menopause: 23.0 - 116.3 mIU/mLMALE: 1.4 - 18.1 mIU/mL NORMAL REFERENCE RANGES FEMALE FOLLICULAR 2.3 - 12.6 mIU/mL MID-CYCLE PEAK 5.2 - 17.5 mIU/mL LUTEAL 1.7 - 12.9 mIU/mL POST-MENOPAUSAL ON MHT 5.9 - 72.8 mIU/mL NOT ON MHT 12.7 - 132.2 mlU/mL MALE 0.7 - 10.8 mIU/mL Start: 09-23-[address] Akila Manuel DO Work Phone: Comment on above: FEMALE:Follicular: 1.9-12.5 mIU/mLMidcyc le: 8.7-76.3 mIU/mLLuteal: 0.5-16.9 mIU/mLPost Menopause: 15.9-54.0 mIU/mLMALE:20-70 Years: 1.5-9.3 mIU/mL>70 Years: 3.1-34.6 mIU/mL Start: 09-16-[address] Akila Manuel DO Work Phone: Start: 09-16-[address] Akila Manuel DO Work Phone: Start: 09-16-2024 House dust mite (Df) RAST Dr. Akila Manuel DO Work Phone: Start: 09-16-2024 Immunoglobulin G subclass, G4 measurement Dr. Akila Manuel DO Work Phone: Start: 09-16-[address] Akila beckman DO Work Phone: Start: 09-16-2024 Mouse urine proteins RAST Dr. Akila Manuel DO Work Phone: Comment on above: Performed at: [facility] [employer] [id number] Director: Taylor Pritchett MD, Phone: [phone] Start: 09-16-2024 Plantain (Tuvaluan) RAST Dr. Akila Mnauel D O Work Phone: Start: 09-16-[address] Akila Manuel DO Work Phone: Comment on above: Performed at: [facility] [employer] [id number] Director: Dennis Estrada PhD, Phone: [phone] at: [address] [id number] Director: Taylor Pritchett MD, Phone: [phone] Start: 09-04-[address] Akila Rodriguez s Work Phone: Start: 08-23-2023 Radionuclide imaging of liver and/or biliary tract using radioactive isotope Dr. Akila Manuel Work Phone: Start: 08-18-[address] Akila martinez Work Phone: Start: 08-15-2023 Computed tomography of abdomen and pelvis with contrast Dr. Akila Manuel Work Phone: Start: 07-13-[address] Akila Manuel Work Phone: Start: 05-16-[address] Akila Manuel Work Phone: Start: 04-21-2023 Giardia Antigen (JUAN) Dr. Akila Manuel Work Phone: Start: 04-21-2023 Ova OR parasites identification Dr. Akila Manuel Work Phone: Start: 11-24-2022 Computed tomography of abdomen and pelvis with contrast Dr. Akila Manuel Work Phone: Start: 11-15-[address] Akila martinez Work Phone: Start: 10-27-[address] Akila martinez Work Phone: Start: 09-12-2022 Ultrasonography of thyroid and parathyroid Dr. Akila Manuel Work Phone: Start: 07-13-[address] Akila Manuel Work Phone: Start: 07-08-2022 X-ray of cervical spine Dr. Akila Manuel Work Phone: Start: 04-14-2022 MRI of joint of lower extremity Dr. Akila Manuel Work Phone: Start: 04-08-[address] Akila Manuel Work Phone: Start: 04-01-2022 Radiologic examination of knee Dr. Akila Manuel Work Phone: Start: 03-02-2022 Diagnostic radiography of abdomen Start: 10-15-2021 Plain x-ray of hand Dr. Akila Manuel Work Phone: Start: 02-24-2017 End: 02-26-2017 Insert intrauterine device Sabrina Loaiza MD Work Phone: Start: 02-24-2017 End: 02-26-2017 Levonorgestrel-releasing intrauterine contraceptive system (mirena), 52 mg Sabrina Loaiza MD Work Phone: Start: 02-20-2017 History and physical examination, sports participation Sports physical examination D[facility] Guy Start: 05-17-2016 End: 08-01-2016 Brncspsm provocation eval professional employer consultant spmtry w/admn agt Erich Cordova Work Phone: Start: 05-17-2016 End: 08-01-2016 Cholesterol Erich Cordova Work Phone: Start: 05-05-2016 End: 08-01-2016 Pulmonary Function Test - complete Erich Cordova Work Phone: Start: 07-27-2015 End: 07-29-2015 *CBC with Differential Akila Manuel, DO Work Phone: Start: 07-27-2015 End: 07-29-2015 *CMP Complete Metabolic Panel Akila Kelly rene, DO Work Phone: Start: 07-27-2015 End: 07-29-2015 Thyroid stimulating hormone (TSH) Akila Manuel, DO Work Phone: Start: 07-27-2015 End: 07-29-2015 Thyroxine (T4) free Akila Manuel, DO Work Phone: Start: 07-27-2015 End: 07-29-2015 Triiodothyronine (T3) Akila Manuel, DO Work Phone: Start: 05-05-2015 End: 05-05-2015 Urinalysis Daxa Guy Start: 10-03-2010 End: 10-11-2010 Iaadiadoo streptococcus group a Mariana JOHNSON Start: 10-03-2010 End: 10-11-2010 Rapid strep test Mariana JOHNSON Incision of eardrum Margarette demarco SENIOR TAX ACCOUNTANT Lactoferrin measurement Dr. Akila Manuel Work Phone: Repair of meniscus Akila Levy Ma rk Work Phone: Urine culture Dr. Akila Manuel Work Phone: Plan of Treatment Date Care Activity Detail Author Start: 2060 RSV Immunization aged 60 or older (1 - 1-dose 60+ series) RSV Immunization aged 60 or older (1 - 1-dose 60+ series) [facility] Start: 01-23-2050 Zoster Vaccines (1 of 2) Zoster Vaccines (1 of 2) [facility] Start: 07-02-2025 End: 07-02-2025 Patient encounter procedure 07/02/2025 11:30 AM EST Office Visit [facility] [address] [place] [address] Gabriel Lopez MD [address] [place] [address] [facility] Start: 03-24-2025 Influenza vaccination INFLUENZA VACCINE (#1) [facility] Start: 03-19-2025 End: 03-19-2026 JUSTINE SCREEN IFA [facility] Comment on above: Expected: 03/19/2025, Expires: Start: 03-19-2025 End: 03-19-2026 ANCA INIT SCRN (ANCA, PR3AB, MPO) [facility] Comment on above: Expected: 03/19/2025, Expires: Start: 03-19-2025 End: 03-19-2026 HLA-B27 [facility] Comment on above: Expected: 03/19/2025, Expires: Start: 03-19-2025 End: 03-19-2026 IGG4 (IMMUNOGLOBULIN G SUBCLASS 4) [facility] Comment on above: Expected: 03/19/2025, Expires: Start: 03-19-2025 End: 03-19-2026 US Neck US NECK SOFT TISSUE Imaging Routine Lymphadenopathy Expected: 03/19/2025, Expires: 03/19/2026 [facility] Comment on above: Expected: 03/19/2025, Expires: Start: 11-18-2024 End: 11-18-2024 Telemedicine consultation with patient 11/18/2024 12:00 PM EDT Telemedicine [facility] [address] [place], [place] [id number] Ashleigh Hilton MD [address] [place] [address] [facility] Start: 09-23-2024 Dehydroepiandrosterone sulfate (DHEA-S) [Mass/volume] in Serum or Plasma [facility] Start: 09-23-2024 [facility] Start: 06-05-2024 Iv infusion therapy/prophylaxis /dx 1st to 1 hr THER/PROPH/DIAG IV INF INIT [facility] Start: 05-07-2024 End: 05-07-2024 Patient encounter procedure 05/07/2024 2:15 PM EDT Office Visit [facility]REY [facility] [address] [place] [address] [place] [address] [place] [address] POST OP S SERAFIN [facility] Comment on above: POST OP Start: 04-03-2024 End: 04-03-2024 Patient encounter procedure 04/03/2024 1:45 PM EDT Office Visit ANDREY [facility] [address] [place] [address] [place] [address] [place] [address] POST OP Lap duodenojejunostomy ANDREY SERAFIN ABELARDO Comment on above: POST OP Lap duodenojejunostomy Start: 03-24-2024 Covid-19 Vaccine ( season) Covid-19 Vaccine ( season) [facility] Start: 03-24-2024 Covid-19 Vaccine () Covid-19 Vaccine () [facility] Start: 03-24-2024 Influenza vaccination [facility] Start: 03-22-2024 End: 03-22-2024 Admission to same day surgery center [facility] Comment on above: LAPAROSCOPIC DUODENOJEJUNOSTOMY Start: 03-22-2024 End: 03-22-2024 Laps abd prtm&omentum dx w/wo spec br/wa spx MM OR Start: 03-22-2024 Subsequent hospital visit by physician [facility] Comment on above: Superior mesenteric artery syndrome (HCC ) [K55.1] Start: 12-19-2023 End: 12-18-2024 CBC W Auto Differential panel - Blood CBC auto differential Lab Routine Leukopenia, unspecified type Expected: 12/19/2023 (Approximate), Expires: 12/18/2024 [facility] Work Phone: Comment on above: Expected: 12/19/2023 (Approximate), Expi res: 12/18/2024 Start: 12-19-2023 End: 12-18-2024 Comprehensive metabolic 1998 panel - Serum or Plasma Comprehensive metabolic panel Lab Routine Leukopenia, unspecified type Expected: 12/19/2023 (Approximate), Expires: 12/18/2024 [facility] Comment on above: Expected: 12/19/2023 (Approximate), Expi res: 12/18/2024 Start: 12-19-2023 End: 12-18-2024 Peripheral Blood Smear Peripheral Blood Smear Pathology and Cytology Routine Leukopenia, unspecified type Expected: 12/19/2023 (Approximate), Expires: 12/18/2024 [facility] Comment on above: Expected: 12/19/2023 (Approximate), Expi res: 12/18/2024 Start: 09-04-2023 Patient discharge [facility] Start: 08-23-2023 Radionuclide imaging of liver and/or biliary tract using radioactive isotope Hepatobilliary Img w/Pharm Int [facility] Start: 08-18-2023 [facility] Start: 07-24-2023 Behavioral Health Screening Behavioral Health Screening [facility] Start: 05-16-2023 Colonoscopy w/biopsy single/multiple COLONOSCOPY AND BIOPSY [facility] Start: 05-16-2023 Patient discharge [facility] Start: 03-24-2023 Covid-19 Vaccine () Covid-19 Vaccine () [facility] Start: 03-24-2023 COVID-19 Vaccine () COVID-19 Vaccine () [facility] Start: 11-15-2022 Egd transoral biopsy single/multiple EGD BIOPSY SINGLE/MULTIPLE [facility] Start: 11-15-2022 Patient discharge [facility] Start: 10-27-2022 Egd transoral biopsy single/multiple EGD BIOPSY SINGLE/MULTIPLE [facility] Start: 10-27-2022 Patient discharge [facility] Start: 10-10-2022 Protein measurement [facility] Start: 10-10-2022 Procedure [facility] Start: 08-25-2022 Patient referral [facility] Work Phone: Start: 07-15-2022 Patient referral [facility] Work Phone: Start: 07-13-2022 Anes open/surg arthroscopic proc knee joint nos ANESTH KNEE JOINT SURGERY [facility] Start: 07-13-2022 Arthroscopy knee w/meniscus rpr medial/lateral KNEE ARTHROSCOPY/SURGERY [facility] Start: 07-13-2022 Patient discharge [facility] Start: 04-21-2022 Patient referral [facility] Work Phone: Start: 02-26-2022 Tetanus vaccination TETANUS [facility] Start: 02-26-2022 Urine microalbumin profile DTaP,Tdap,Td Vaccine (6 - Td or Tdap) [facility] Start: 01-23-2021 Screening for malignant neoplasm of cervix [facility] Start: 01-23-2018 Anxiety Screening Anxiety Screening [facility] Start: 01-23-2018 Depression Screening Depression Screening [facility] Start: 01-23-2018 GC (Gonorrhea) Screening (18) GC (Gonorrhea) Screening (1824) [facility] Start: 01-23-2018 Hepatitis C screening Hepatitis C Screening [facility] Start: 01-23-2018 HIV screening HIV Screening [facility] Start: 01-23-2018 Screening for Chlamydia trachomatis Chlamydia Screening () [facility] Start: 04-07-2017 End: 04-07-[address] [facility] Start: 02-27-2017 End: 02-27-2017 Appointment Appointment [facility] Work Phone: Start: 02-24-2017 End: 02-24-[address] [facility] Start: 02-24-2017 End: 02-24-2017 *GC/Chlamydia *GC/Chlamydia [facility] Start: 02-21-2017 End: 02-21-2017 Appointment Appointment [facility] Work Phone: Start: 02-20-2017 End: 02-20-2017 Appointment Appointment [facility] Work Phone: Start: 09-19-2016 End: 09-19-2016 CSM CSM [facility] Work Phone: Start: 09-19-2016 End: 09-19-2016 Follow Up Appt 6 months Follow Up Appt 6 months [facility] Work Phone: Start: 08-03-2016 End: 08-03-2016 BWA BWA [facility] Work Phone: Start: 08-03-2016 End: 08-03-2016 Follow Up Appt 1 month Follow Up Appt 1 month [facility] Work Phone: Start: 05-17-2016 End: 08-01-2016 Cholesterol Methylcholine inhalation challenge [facility] Work Phone: Start: 05-05-2016 End: 05-05-2016 Follow Up Appt 3 months Follow Up Appt 3 months [facility] Work Phone: Start: 05-05-2016 End: 08-01-2016 Pulmonary Function Test - complete Pulmonary Function Test - complete [facility] Work Phone: Start: 2016 Meningococcal B Vaccine: Consider Based On Risk (1 of 2 - Patient Seeks Protection) Meningococcal B Vaccine: Consider Based On Risk (1 of 2 - Patient Seeks Protection) [facility] Start: 2016 Screening for Chlamydia trachomatis CHLAMYDIA SCREEN [facility] Start: 11-19-2015 End: 11-20-2015 Neurology Referral Neurology Referral Willie Cullen, [address] [place] [address], [address] [facility] Work Phone: Start: 10-01-2015 End: 10-07-2015 Other Referral Other Referral Physical Therapy [facility], [address] [place] [address], [id number] [facility] Work Phone: Start: 08-31-2015 End: 08-31-2015 Cardiac Referral Cardiac Referral [facility] Provider, [address] [place] [address], [id number] [facility] Work Phone: Start: 08-06-2015 End: 08-06-2015 48 hour holter monitor 48 hour holter monitor [facility] Work Phone: Start: 07-27-2015 End: 07-29-2015 *CBC with Differential *CBC with Differential [facility] Work Phone: Start: 07-27-2015 End: 07-29-2015 *CMP Complete Metabolic Panel *CMP Complete Metabolic Panel [facility] Work Phone: Start: 07-27-2015 End: 07-27-2015 *EKG (Done in Hospital) *EKG (Done in Hospital) [facility] Work Phone: Start: 07-27-2015 End: 07-27-2015 Echocardiography Echocardiogram (complete) [facility] Work Phone: Start: 07-27-2015 End: 07-29-2015 Thyroid stimulating hormone (TSH) *TSH [facility] Work Phone: Start: 07-27-2015 End: 07-29-2015 Thyroxine (T4) free *T4 free [facility] Work Phone: Start: 07-27-2015 End: 07-29-2015 Triiodothyronine (T3) *T3-Total [facility] Work Phone: Start: 06-08-2015 End: 06-08-2015 X-ray exam, knee, 4 or more X-Ray, Knee [facility] Work Phone: Start: 02-11-2015 End: 07-29-2015 Immunization admin Administration Immunization >=8 years of age [facility] Work Phone: Start: 02-11-2015 End: 02-11-2015 X-ray exam of ankle X-Ray, Ankle [facility] Work Phone: Start: 01-23-2015 HIV screening HIV SCREENING DISCUSSION [facility] Start: 01-23-2015 HPV Vaccine (1 - 3-dose series) HPV Vaccine (1 - 3-dose series) [facility] Start: 01-23-2015 Vaccination for human papillomavirus HPV VACCINE ADOL (1 - 3-dose series) [facility] Start: 08-15-2014 End: 08-15-2014 Physical Therapy General Physical Therapy General Physical Therapy [facility], [address] [place] [address], [id number] [facility] Work Phone: Start: 01-23-2014 Peds To Adult Transition Annual Assessment Peds To Adult Transition Annual Assessment [facility] Start: 2012 Depression Screening Depression Screening [facility] Start: 2012 Peds To Adult Transition Initial Discussion Peds To Adult Transition Initial Discussion [facility] Start: 01-23-2011 DTaP/Tdap/Td Vaccines (5 - Tdap) DTaP/Tdap/Td Vaccines (5 - Tdap) [facility] Start: 03-30-2005 Varicella vaccination Varicella Vaccines (2 of 2 - 2-dose childhood series) [facility] Start: 2000 Hepatitis C screening HEPATITIS C VIRUS SCREENING [facility] Start: 2000 HIV screening HIV Screening [facility] Start: 2000 Screening for Chlamydia trachomatis [facility] Laps abd prtm&omentu m dx w/wo spec br/wa spx LAPAROSCOPY DIAGNOSTIC Superior mesenteric artery syndrome (HCC) [facility] Liquid based cervica l cytology screening [facility] Work Phone: MR Lower Extremity Joint [facility] Work Phone: Mullerian inhibiting substance [Mass/volume] in Serum or Plasma [facility] End: 03-08-2025 NM Stomach Views for gastric emptying liquid phase W radionuclide PO NM GASTRIC EMPTYING LIQUID Radiology Routine Superior mesenteric artery syndrome (HCC) 1 Occurrences starting 02/07/2024 until 03/08/2025 [facility] Work Phone: Comment on above: 1 Occurrences starting 02/07/2024 until 03/08/2025 Patient referral [facility] Work Phone: End: 03-08-2025 RF Gastrointestinal tract upper Views W barium contrast PO XR UPPER GI SINGLE CONTRAST Radiology Routine Superior mesenteric artery syndrome (HCC) 1 Occurrences starting 02/07/2024 until 03/08/2025 [facility] Comment on above: 1 Occurrences starting 02/07/2024 until 03/08/2025 US Pelvis [facility] End: 03-08-2025 XR GI SMALL BOWEL FOLLOW-THRU XR GI SMALL BOWEL FOLLOW-THRU Radiology Routine Superior mesenteric artery syndrome (HCC) 1 Occurrences starting 02/07/2024 until 03/08/2025 [facility] Comment on above: 1 Occurrences starting 02/07/2024 until 03/08/2025 Immunizations Immunization Date Immunization Notes Care Provider Emre yen 04-27-2020 influenza virus vaccine, unspecified formulation Bernard Honeycutt MD Work Phone: [facility] 02-11-2015 human papilloma viru s vaccine, quadrivalent Arianna Lange LPN [facility] Work Phone: 02-11-2015 [id number]-63523 Arianna Betancurall FERRY CAPTAIN [facility] Work Phone: 07-10-2014 human papilloma viru s vaccine, quadrivalent Arianna Betancurgeovanni WALL [facility] Work Phone: 07-10-2014 [id number] Arianna Nazario [facility] Work Phone: 02-27-2012 Meningococcal, MCV4, unspecified conjugate formulation(groups A, C, Y and W-135) Ayan Grubbs MD Work Phone: [facility] 02-27-2012 tetanus toxoid, redu ac diphtheria toxoid, and acellular pertussis vaccine, adsorbed Ayan Grubbs MD Work Phone: [facility] 02-27-2012 varicella virus vaccine Lorii treva rGubbs MD Work Phone: [facility] 04-22-2009 influenza virus vaccine, unspecified formulation Ayan Grubbs MD Work Phone: [facility] 03-02-2005 diphtheria, tetanus toxoids and acellular pertussis vaccine Ayan Grubbs MD Work Phone: [facility] 03-02-2005 measles, mumps and rubella virus vaccine Ayan Grubbs MD Work Phone: [facility] 03-02-2005 poliovirus vaccine, inactivated Ayan Grubbs MD Work Phone: [facility] 06-13-2001 measles, mumps and rubella virus vaccine Ayan Grubbs MD Work Phone: [facility] 06-13-2001 varicella virus vaccine Chris Honeycutt MD Work Phone: [facility] 03-02-2001 diphtheria, tetanus toxoids and acellular pertussis vaccine Ayan Grubbs MD Work Phone: [facility] 03-02-2001 poliovirus vaccine, inactivated Ayan Grubbs MD Work Phone: [facility] 2000 hepatitis B vaccine, pediatric or pediatric/adolescent dosage Ayan Grubbs MD Work Phone: [facility] 2000 haemophilus influenz ae type b vaccine, HbOC conjugate Ayan Grubbs MD Work Phone: [facility] 2000 hepatitis B vaccine, pediatric or pediatric/adolescent dosage Ayan Grubbs MD Work Phone: [facility] 2000 pneumococcal conjuga te vaccine, 7 valent Ayan Grubbs MD Work Phone: [facility] 2000 diphtheria, tetanus toxoids and acellular pertussis vaccine Ayan Grubbs MD Work Phone: [facility] 2000 haemophilus influenz ae type b vaccine, HbOC conjugate Ayan Grubbs MD Work Phone: [facility] 2000 poliovirus vaccine, inactivated Ayan Grubbs MD Work Phone: [facility] 2000 diphtheria, tetanus toxoids and acellular pertussis vaccine Ayan Grubbs MD Work Phone: [facility] 2000 haemophilus influenz ae type b vaccine, HbOC conjugate Ayan Grubbs MD Work Phone: [facility] 2000 poliovirus vaccine, inactivated Ayan Grubbs MD Work Phone: [facility] 2000 hepatitis B vaccine, pediatric or pediatric/adolescent dosage Ayan Grubbs MD Work Phone: [facility] Payers Date Payer Category Payer Managed Care (unspecified) [employer] [id number] 2024 Self-pay [id number] 2023 Private Health Insurance [id number] 2023 Unknown [id number] 2016 Unknown [id number] 2000 Unknown [id number] 2.840.1.988964.3.579.2. 594 2000 Unknown [id number] 2.840.1.047429.3.579.2. 594 2000 Unknown [id number] 2.840.1.224130.3.579.2. 594 2000 Unknown [id number] 2.840.1.190072.3.579.2. 594 2000 Unknown [id number] 2.16840.1.652885.3.579.2. 594 Unknown [facility] Unknown [id number] 2.16840.1.932870.3.579.2. 462 Unknown [id number] 2.16840.1.777340.3.579.2. 462 Unknown [id number] 2.16840.1.269110.3.579.2. 462 Unknown [id number] 2.16840.1.656453.3.579.2. 462 Unknown [id number] 2.16840.1.412001.3.579.2. 462 Unknown [id number] 2.16840.1.590478.3.579.2. 462 Unknown [id number] 2.16.840.1.708122.3.579.2. 462 Unknown [id number] 2.16.840.1.509822.3.579.2. 462 Unknown [id number] 2.16.840.1.843155.3.579.2. 462 Unknown [id number] 2.16.840.1.071389.3.579.2. 462 Unknown [id number] 2.16.840.1.326105.3.579.2. 462 Unknown [id number] 2..840.1.252891.3.579.2. 462 Unknown [id number] 2.840.1.320080.3.579.2. 462 Unknown [id number] 2..840.1.547311.3.579.2. 462 Unknown [id number] 2.840.1.670506.3.579.2. 462 Unknown [id number] 2.840.1.851961.3.579.2. 462 Unknown [id number] 2.840.1.076263.3.579.2. 462 Unknown [id number] 2.840.1.221785.3.579.2. 462 Unknown [id number] 2.840.1.329505.3.579.2. 462 Unknown [id number] 2.840.1.329525.3.579.2. 462 Unknown [id number] 2.16840.1.621533.3.579.2. 462 Unknown [id number] 2.16840.1.932865.3.579.2. 462 Unknown [id number] 2.16.840.1.371942.3.579.2. 462 Unknown [id number] 2.16.840.1.684010.3.579.2. 462 Unknown [id number] 2.840.1.333175.3.579.2. 462 Unknown [id number] 2.16.840.1.178270.3.579.2. 462 Social History Date Type Detail Facility Start: 12-19-2023 End: 03-19-2025 Non-smoker Non-smoker -[facility] [address] Work Phone: Start: 10-25-2021 End: 08-30-2023 Tobacco smoking status NDIS Unknown if ever smoked [facility] Start: 06-14-2019 Non-smoker [facility] Start: 2000 Sex Assigned At Female [facility] Start: 12-19-2023 End: 09-10-2024 Tobacco smoking status NDIS Never smoked tobacco [facility] Start: 12-19-2023 End: 09-10-2024 Tobacco use and exposure Smokeless tobacco non-user [facility] Start: 12-19-2023 End: 03-19-2025 Alcohol intake Current drinker of alcohol (finding) [facility] Start: 12-19-2023 End: 03-19-2025 Tobacco use panel [facility] Start: 12-19-2023 Alcohol Comment occasional [place] [facility] Start: 2000 Sex Assigned At Not on file [facility] Start: 02-07-2024 Alcohol intake Not Asked [facility] National Score (1-100), lower number is lower risk Not on file [facility] Start: 03-13-2024 Alcohol Comment 1/week [facility] Start: 12-16-2021 End: 10-21-2024 Sex Female (finding) [facility] Start: 11-18-2024 Gender identity Identifies as female gender (finding) [facility] Start: 11-18-2024 Sexual orientation Heterosexual (fin rigoberto) [facility] NEGATED: Highlighted row [facility] Medical Equipment Procedure Code Equipment Code Equipment Origin al Text Equipment Identifier Dates Arthroscopy, knee, with meniscal root repair NEEDLE REV CRV DEL SYS FDA Start: 06-19-2019 Arthroscopy, knee, with meniscal root repair NEEDLE REV CRV DEL SYS FDA Start: 06-19-2019 Arthroscopy, knee, with meniscal root repair NEEDLE REV CRV DEL SYS FDA Start: 06-19-2019 Arthroscopy, knee, with meniscal root repair NEEDLE REV CRV DEL SYS FDA Start: 06-19-2019 Arthroscopy, knee, with meniscal root repair NEEDLE REV CRV DEL SYS FDA Start: 06-19-2019 Arthroscopy, knee, with meniscal root repair NEEDLE REV CRV DEL SYS FDA Start: 06-19-2019 Arthroscopy, knee, with meniscal root repair NEEDLE REV CRV DEL SYS FDA Start: 06-19-2019 Arthroscopy, knee, with meniscal root repair NEEDLE REV CRV DEL SYS FDA Start: 06-19-2019 Arthroscopy, knee, with meniscal root repair NEEDLE REV CRV DEL SYS FDA Start: 06-19-2019 Arthroscopy, knee, with meniscal root repair NEEDLE REV CRV DEL SYS FDA Start: 06-19-2019 Arthroscopy, knee, with meniscal root repair NEEDLE REV CRV DEL SYS FDA Start: 06-19-2019 Arthroscopy, knee, with meniscal root repair NEEDLE REV CRV DEL SYS FDA Start: 06-19-2019 Arthroscopy, knee, with meniscal root repair NEEDLE REV CRV DEL SYS FDA Start: 06-19-2019 Arthroscopy, knee, with meniscal root repair NEEDLE REV CRV DEL SYS FDA Start: 06-19-2019 Arthroscopy, knee, with meniscal root repair NEEDLE REV CRV DEL SYS FDA Start: 06-19-2019 Arthroscopy, knee, with meniscal root repair NEEDLE REV CRV DEL SYS FDA Start: 06-19-2019 Arthroscopy, knee, with meniscal root repair NEEDLE REV CRV DEL SYS FDA Start: 06-19-2019 Arthroscopy, knee, with meniscal root repair NEEDLE REV CRV DEL SYS FDA Start: 06-19-2019 Arthroscopy, knee, with meniscal root repair NEEDLE REV CRV DEL SYS FDA Start: 06-19-2019 Arthroscopy, knee, with meniscal root repair NEEDLE REV CRV DEL SYS FDA Start: 06-19-2019 Arthroscopy, knee, with meniscal root repair NEEDLE REV CRV DEL SYS FDA Start: 06-19-2019 Arthroscopy, knee, with meniscal root repair NEEDLE REV CRV DEL SYS FDA Start: 06-19-2019 Arthroscopy, knee, with meniscal root repair NEEDLE REV CRV DEL SYS FDA Start: 06-19-2019 Arthroscopy, knee, with meniscal root repair NEEDLE REV CRV DEL SYS FDA Start: 06-19-2019 Arthroscopy, knee, with meniscal root repair NEEDLE REV CRV DEL SYS FDA Start: 06-19-2019 Arthroscopy, knee, with meniscal root repair NEEDLE REV CRV DEL SYS FDA Start: 06-19-2019 Arthroscopy, knee, with meniscal root repair NEEDLE REV CRV DEL SYS FDA Start: 06-19-2019 Arthroscopy, knee, with meniscal root repair NEEDLE REV CRV DEL SYS FDA Start: 06-19-2019 Arthroscopy, knee, with meniscal root repair NEEDLE REV CRV DEL SYS FDA Start: 06-19-2019 Arthroscopy, knee, with meniscal root repair NEEDLE REV CRV DEL SYS FDA Start: 06-19-2019 Arthroscopy, knee, with meniscal root repair NEEDLE REV CRV DEL SYS FDA Start: 06-19-2019 Arthroscopy, knee, with meniscal root repair NEEDLE REV CRV DEL SYS FDA Start: 06-19-2019 Arthroscopy, knee, with meniscal root repair NEEDLE REV CRV DEL SYS FDA Start: 06-19-2019 Arthroscopy, knee, with meniscal root repair NEEDLE REV CRV DEL SYS FDA Start: 06-19-2019 Arthroscopy, knee, with meniscal root repair NEEDLE REV CRV DEL SYS FDA Start: 06-19-2019 Arthroscopy, knee, with meniscal root repair NEEDLE REV CRV DEL SYS FDA Start: 06-19-2019 Arthroscopy, knee, with meniscal root repair NEEDLE REV CRV DEL SYS FDA Start: 06-19-2019 Arthroscopy, knee, with meniscal root repair NEEDLE REV CRV DEL SYS FDA Start: 06-19-2019 Arthroscopy, knee, with meniscal root repair NEEDLE REV CRV DEL SYS FDA Start: 06-19-2019 Arthroscopy, knee, with meniscal root repair NEEDLE REV CRV DEL SYS FDA Start: 06-19-2019 Arthroscopy, knee, with meniscal root repair NEEDLE REV CRV DEL SYS FDA Start: 06-19-2019 Arthroscopy, knee, with meniscal root repair NEEDLE REV CRV DEL SYS FDA Start: 06-19-2019 Arthroscopy, knee, with meniscal root repair NEEDLE REV CRV DEL SYS FDA Start: 06-19-2019 Arthroscopy, knee, with meniscal root repair NEEDLE REV CRV DEL SYS FDA Start: 06-19-2019 Arthroscopy, knee, with meniscal root repair NEEDLE REV CRV DEL SYS FDA Start: 06-19-2019 Arthroscopy, knee, with meniscal root repair NEEDLE REV CRV DEL SYS FDA Start: 06-19-2019 Arthroscopy, knee, with meniscal root repair NEEDLE REV CRV DEL SYS FDA Start: 06-19-2019 Arthroscopy, knee, with meniscal root repair NEEDLE REV CRV DEL SYS FDA Start: 06-19-2019 Arthroscopy, knee, with meniscal root repair NEEDLE REV CRV DEL SYS FDA Start: 06-19-2019 Arthroscopy, knee, with meniscal root repair NEEDLE REV CRV DEL SYS FDA Start: 06-19-2019 Arthroscopy, knee, with meniscal root repair NEEDLE REV CRV DEL SYS FDA Start: 06-19-2019 Arthroscopy, knee, with meniscal root repair NEEDLE REV CRV DEL SYS FDA Start: 06-19-2019 Arthroscopy, knee, with meniscal root repair NEEDLE REV CRV DEL SYS FDA Start: 06-19-2019 Arthroscopy, knee, with meniscal root repair NEEDLE REV CRV DEL SYS FDA Start: 06-19-2019 Arthroscopy, knee, with meniscal root repair NEEDLE REV CRV DEL SYS FDA Start: 06-19-2019 Arthroscopy, knee, with meniscal root repair NEEDLE REV CRV DEL SYS FDA Start: 06-19-2019 Arthroscopy, knee, with meniscal root repair NEEDLE REV CRV DEL SYS FDA Start: 06-19-2019 Arthroscopy, knee, with meniscal root repair NEEDLE REV CRV DEL SYS FDA Start: 06-19-2019 Arthroscopy, knee, with meniscal root repair NEEDLE REV CRV DEL SYS FDA Start: 06-19-2019 Arthroscopy, knee, with meniscal root repair NEEDLE REV CRV DEL SYS FDA Start: 06-19-2019 Arthroscopy, knee, with meniscal root repair NEEDLE REV CRV DEL SYS FDA Start: 06-19-2019 Arthroscopy, knee, with meniscal root repair NEEDLE REV CRV DEL SYS FDA Start: 06-19-2019 Arthroscopy, knee, with meniscal root repair NEEDLE REV CRV DEL SYS FDA Start: 06-19-2019 Arthroscopy, knee, with meniscal root repair NEEDLE REV CRV DEL SYS FDA Start: 06-19-2019 Arthroscopy, knee, with meniscal root repair NEEDLE REV CRV DEL SYS FDA Start: 06-19-2019 Arthroscopy, knee, with meniscal root repair NEEDLE REV CRV DEL SYS FDA Start: 06-19-2019 Arthroscopy, knee, with meniscal root repair NEEDLE REV CRV DEL SYS FDA Start: 06-19-2019 Arthroscopy, knee, with meniscal root repair NEEDLE REV CRV DEL SYS FDA Start: 06-19-2019 Arthroscopy, knee, with meniscal root repair NEEDLE REV CRV DEL SYS FDA Start: 06-19-2019 Arthroscopy, knee, with meniscal root repair NEEDLE REV CRV DEL SYS FDA Start: 06-19-2019 Arthroscopy, knee, with meniscal root repair NEEDLE REV CRV DEL SYS FDA Start: 06-19-2019 Arthroscopy, knee, with meniscal root repair NEEDLE REV CRV DEL SYS FDA Start: 06-19-2019 Arthroscopy, knee, with meniscal root repair NEEDLE REV CRV DEL SYS FDA Start: 06-19-2019 Arthroscopy, knee, with meniscal root repair NEEDLE REV CRV DEL SYS FDA Start: 06-19-2019 Arthroscopy, knee, with meniscal root repair NEEDLE REV CRV DEL SYS FDA Start: 06-19-2019 Arthroscopy, knee, with meniscal root repair NEEDLE REV CRV DEL SYS FDA Start: 06-19-2019 Arthroscopy, knee, with meniscal root repair NEEDLE REV CRV DEL SYS FDA Start: 06-19-2019 Arthroscopy, knee, with meniscal root repair NEEDLE REV CRV DEL SYS FDA Start: 06-19-2019 Arthroscopy, knee, with meniscal root repair NEEDLE REV CRV DEL SYS FDA Start: 06-19-2019 Arthroscopy, knee, with meniscal root repair NEEDLE REV CRV DEL SYS FDA Start: 06-19-2019 Arthroscopy, knee, with meniscal root repair NEEDLE REV CRV DEL SYS FDA Start: 06-19-2019 Arthroscopy, knee, with meniscal root repair NEEDLE REV CRV DEL SYS FDA Start: 06-19-2019 Arthroscopy, knee, with meniscal root repair NEEDLE REV CRV DEL SYS FDA Start: 06-19-2019 Arthroscopy, knee, with meniscal root repair NEEDLE REV CRV DEL SYS FDA Start: 06-19-2019 Arthroscopy, knee, with meniscal root repair NEEDLE REV CRV DEL SYS FDA Start: 06-19-2019 Arthroscopy, knee, with meniscal root repair NEEDLE REV CRV DEL SYS FDA Start: 06-19-2019 Arthroscopy, knee, with meniscal root repair NEEDLE REV CRV DEL SYS FDA Start: 06-19-2019 Arthroscopy, knee, with meniscal root repair NEEDLE REV CRV DEL SYS FDA Start: 06-19-2019 Arthroscopy, knee, with meniscal root repair NEEDLE REV CRV DEL SYS FDA Start: 06-19-2019 Arthroscopy, knee, with meniscal root repair NEEDLE REV CRV DEL SYS FDA Start: 06-19-2019 Arthroscopy, knee, with meniscal root repair NEEDLE REV CRV DEL SYS FDA Start: 06-19-2019 Arthroscopy, knee, with meniscal root repair NEEDLE REV CRV DEL SYS FDA Start: 06-19-2019 Arthroscopy, knee, with meniscal root repair NEEDLE REV CRV DEL SYS FDA Start: 06-19-2019 Arthroscopy, knee, with meniscal root repair NEEDLE REV CRV DEL SYS FDA Start: 06-19-2019 Arthroscopy, knee, with meniscal root repair NEEDLE REV CRV DEL SYS FDA Start: 06-19-2019 Arthroscopy, knee, with meniscal root repair NEEDLE REV CRV DEL SYS FDA Start: 06-19-2019 Goals Date Patient Goal Desired Activity /State Mental Status Date Assessment Result Facility 06-05-2024 Cognitive function Awake;Alert;A ppropriate;Follo ws Commands [facility] Work Phone: 09-04-2023 Cognitive function Light Pain [facility] Work Phone: 09-04-2023 Cognitive function Patient Orien tation Person;Place;Time [facility] Work Phone: 05-16-2023 Cognitive function Voice/Name [facility] Work Phone: 11-15-2022 Cognitive function Drowsy [facility] Work Phone: 11-15-2022 Cognitive function Arousable To Voice/Nam e [facility] Work Phone: 10-27-2022 Cognitive function Voice/Name [facility] Work Phone: 07-13-2022 Cognitive function Voice/Name [facility] Work Phone: Clinical Notes 06-07-2021 to 03-19-2025 Gabriel Lpoez MD - 03/19/2025 9:30 AM EDTSbelkis Perea LPN - 03/19/2025 9:30 AM EDT Note Date & Type Note Facility 03-19-2025 History of Present illness Narrative REASON FOR REFERRAL: concern for IgG4 related disease HISTORY OF PRESENT ILLNESS I have had the privilege of evaluating your patient, Ms. Flower Swan, at [facility] Rheumat[facility] clinic. As you know she is a very pleasant 25 y.o. female with complaints of concerns fo IgG4 related disease. Patient states she will get swelling under her jaw and in her throat. States they feel swollen all time, but feel bigger when she has an URI. Notes she gets frequent URIs, with sinus congestion, increased secretion and sore throat. States these symptoms will last a couple of weeks at a time, go away, and then will come back again. Denies fevers. States she gets flushed skin easily. Gets occasional random redness on her cheeks, not triggered by anything. Denies dry eyes or dry mouth. Denies mouth sores. Endorses occasional bloody noses, has seen ENT previously. Denies hemoptysis. Endorses occasional chest pian, usually associated with tachycarida after changes in position (diagnosed with POTs). Denies SOB. Denies abdominal pain, diarrhea, melena. Has occasional hematochezia. Seen by GI previously. Was previously diagnosed with hypermobile EDS. States all joints hurt, but worst is knees and shoulders. Pain improves with activity, worst at night if she overdoes activity. Back is stiff in upper and lower back. Stiffness is worst at the end of the day but more recently and in the morning. Morning stiffness lasts a couple of hours after she wakes up. REVIEW OF SYSTEMS A complete review of systems was obtained and positive only for the above noted in the HPI otherwise negative. ALLERGY she is allergic to amoxicillin, cinnamon, red dye, amoxicillin-pot clavulanate, and codeine. MEDICATIONS Current Outpatient Medications Medication Sig amphetamine-dextroamphetamine 10 MG tablet Take 1 tablet by mouth 2 times daily. fludrocortisone 0.1 MG tablet Metoclopramide 5 MG tablet Pantoprazole [address] Corbettnolol 25 MG tablet Take 0.5 tablets by mouth. (Patient not taking: Reported on 03/19/2025) Budesonide 9 MG Tab SR 24 HR tablet XL (Patient not taking: Reported on 03/19/2025) Celecoxib 200 MG capsule (Patient not taking: Reported on 03/19/2025) DULoxetine HCl [address] Particles capsule hydroCODone-acetaminophen 5-325 MG tablet (Patient not taking: Reported on 03/19/2025) levalbuterol 45 MCG/ACT Aerosol inhaler Inhale 1-2 puffs Every 4 hours as needed. (Patient not taking: Reported on 03/19/2025) LORazepam 0.5 MG tablet Take 1 tablet by mouth 2 times daily. (Patient not taking: Reported on 03/19/2025) Ondansetron 4 MG Tab Dispersible tablet (Patient not taking: Reported on 03/19/2025) PARoxetine 10 MG tablet Polyethylene glycol 17 GM/SCOOP Powder powder Take 17 g by mouth daily. (Patient not taking: Reported on 03/19/2025) PAST MEDICAL HISTORY Past Medical History[1] PAST SURGICAL HISTORY She has no past surgical history on file. FAMILY HISTORY She family history includes GI Disease in her sister and sister; Genetic Disorders in her mother, sister, and sister. SOCIAL HISTORY She reports that she has never smoked. She has never used smokeless tobacco. She reports current alcohol use. She reports that she does not use drugs. PHYSICAL EXAM Blood pressure 102/64, pulse 85, height 1.655 m (5' 5.16), weight 50 kg (110 lb 4.8 oz), last menstrual period 03/03/2025, SpO2 99%. GENERAL: she is in no apparent distress. General: Alert, cooperative, appears well, no acute distress. Eyes: Conjunctivae clear, no scleral icterus. Lungs: Breathing unlabored, no audible wheezing Heart: Regular rate and rhythm. Neuro: Shoulder abduction 5/5 bilaterally Elbow flexion and extension 5/5 bilaterally Edge Inker Uppers strength 5/5 bilaterally Hip flexion 5/5 bilaterally Knee flexion and extension 5/5 bilaterally Dorsiflexion and plantarflexion 5/5 bilaterally Psychiatric: Good eye contact, normal affect. Skin: No visible rash, pathological skin lesions, or photosensitivity. Normal nails. Extremities: No cyanosis or edema. No periungual erythema. Musculoskeletal: Shoulders: FROM bilaterally Elbows: Full ROM bilaterally, no nodules or tophi, no swelling or tenderness to palpation Wrists: Full ROM bilaterally, no swelling or tenderness to palpation Hands: Able to make full fist bilaterally, no synovitis noted in bilateral MCPs, PIPs and DIPs. No deformities Hips: Full ROM bilaterally, intact IR/ER, no groin or buttock tenderness with SHELBY bilaterally Knees: Full ROM bilaterally, no crepitus, no effusion, no tenderness to palpation Ankles: Full ROM bilaterally, no swelling or tenderness to palpation Feet: Negative MTP squeeze bilaterally, no swelling or tenderness to palpation of bilateral MTPs Diagnostic studies: Normal ESR and CRP IgG total 1346 mg/dL IgG4 151 mg/dL Imaging US NECK SOFT TISSUE (Results Pending) IMPRESSION / PLAN: 1. Lymphadenopathy 2. Recurrent sinus infections 3. Chronic midline low back pain without sciatica Patient presents for evaluation of lymphadenopathy in the setting of elevated IgG4 levels. Patient presents today with complaints of recurrent URI/sinus congestion, submandibular lymphadenopathy, and joint pains among other symptoms. Unclear if patient has rheumatologic etiology of her symptoms. IgG4 related disease is a consideration of cause of lymphadenopathy, although IgG4 levels were only slightly elevated from normal. Does not have other manifestations concerning for IgG4 related disease including pancreatic involvement, retroperitoneal fibrosis, aortitis, ocular, thyroid or salivary gland involvement. At this point to make a diagnosis of IgG4 related disease would require biopsy. Will get US of neck to evaluate for lymphadenopathy and to determine if there is a site viable for biopsy. With regards to recurrent sinus congestion, and history of epistaxis, will evaluate for ANCA vasculitis with inflammatory markers and ANCA panel. With complaints of prior neutropenia, will check JUSTINE IFA to screen for SLE, although given lack of SLE specific symptoms is low likelihood at this time. If positive, would not confirm presence of SLE but can evaluate further. For chronic midline low back pain with morning stiffness, will evaluate for spondyloarthritis with inflammatory markers, HLA B27 and xrays of SI joints. This diagnosis was made based on clinical history, radiographic imaging, physical examination. Medical decision making shows a new problem to me with further workup planned or suggested with the treatment options that were considered with the most applicable given this patient's situation as noted above. Pertinent positive and negative findings were considered in medical decision-making. I will be seeing Ms. Swan back in the office in 3 months to review her studies and discuss further therapeutic options. I have asked that she continues follow-up with her primary care physician for preventative health maintenance and age appropriate cancer screenings. Thank you for allowing us to participate in her care. Should you have any questions, please do not hesitate to contact us. Orders placed: Orders Placed This Encounter XR SACROILIAC JOINTS 3+ VIEWS US NECK SOFT TISSUE C REACTIVE PROTEIN SEDIMENTATION RATE, AUTOMATED JUSTINE SCREEN IFA HLA-B27 ANCA INIT SCRN (ANCA, PR3AB, MPO) IGG4 (IMMUNOGLOBULIN G SUBCLASS 4) Gabriel Lopez MD Transfill Techniciantop stop attacher Department of Rheumatology [place], [place] I spent this time reviewing patient's chart, individually interpreting prior data, obtaining history from patient, performing physical exam, ordering medications, tests or procedures, counseling and educating patient, and documenting visit in the electronic medical record [1] Past Medical History: Diagnosis Date Anemia 06/16 GERD (gastroesophageal reflux disease) 2018 This FERRY CAPTAIN verified patient name and date of . documented in this encounter [facility] 03-11-2025 Radiology Diagnostic study note [facility] Imaging Services [address], [place] [address] Cerv Spine Obl/Flex/Ext Comp MR#: [id number] Acct: [id number] Name: FLOWER SWAN Rep #: [id number] : 2000 F 25 From: Kai Leon MD PCP: Dr. Akila Manuel, DO Status: REG CLI Study:Cerv Spine Obl/Flex/Ext Comp Date of Ex am: 03/10/25 Exam# [id number] Ordering Dr: Massimo Milton MD PROCEDURE: CERV SPINE OBL/FLEX/EXT COMP; THORACIC SPINE MIN 4 VIEWS 03/10/2025 REASON FOR EXAM: NECK PAIN; THORACIC PAIN TECHNIQUE: CERV SPINE OBL/FLEX/EXT COMP; THORACIC SPINE MIN 4 VIEWS COMPARISON: None. RAD/Cerv Spine Obl/Flex/Ext Comp IMPRESSION: The cervical spine shows minimal degenerative changes. No disc narrowing is seen. On oblique views, no osseous neural foraminal narrowing is noted. No fracture, subluxation, or prevertebral soft tissue swelling is seen. On lateral flexion and extension views, slight dynamic instability is seen in the C4-C5 level. The thoracic spine demonstrates minimal degenerative changes. No dynamic instability is seen on lateral flexion and extension views. No disc space narrowing is evident. No fracture is seen. Reading Location: [place] [address] CC: Dr. Massimo Milton MD; Dr. Akila Manuel DO ~ Instant Potato Processing Supervisor: Signed [facility] 03-11-2025 Radiology Diagnostic study note [facility] Imaging Services [address] [place] [address] Thoracic Spine Min 4 Views MR#: [id number] Acct: [id number] Name: FLOWER SWAN Rep #: [id number] : 2000 F 25 From: Kai Leon MD PCP: Dr. Akila Manuel DO Status: REG CLI Study:Thoracic Spine Min 4 Views Date of Exam : 03/10/25 Exam# [id number] Ordering Dr: Massimo Milton MD PROCEDURE: CERV SPINE OBL/FLEX/EXT COMP; THORACIC SPINE MIN 4 VIEWS 03/10/2025 REASON FOR EXAM: NECK PAIN; THORACIC PAIN TECHNIQUE: CERV SPINE OBL/FLEX/EXT COMP; THORACIC SPINE MIN 4 VIEWS COMPARISON: None. RAD/Thoracic Spine Min 4 Views IMPRESSION: The cervical spine shows minimal degenerative changes. No disc narrowing is seen. On oblique views, no osseous neural foraminal narrowing is noted. No fracture, subluxation, or prevertebral soft tissue swelling is seen. On lateral flexion and extension views, slight dynamic instability is seen in the C4-C5 level. The thoracic spine demonstrates minimal degenerative changes. No dynamic instability is seen on lateral flexion and extension views. No disc space narrowing is evident. No fracture is seen. Reading Location: [place] [address] CC: Dr. Massimo Milton MD; Dr. Akila Manuel DO ~ Instant Pot[employer] Processing Supervisor: Signed [facility] 01-16-2025 Radiology Diagnostic study note [facility] Imaging Services [address] [place] [address] Lumbar Spine 2 or 3 Views MR#: [id number] Acct: [id number] Name: FLOWER SWAN Rep #: [id number] : 2000 F 24 From: Enrike Mccartney MD PCP: Dr. Akila Manuel DO Status: REG CLI Study:Lumbar Spine 2 or 3 Views Date of Exam: 01/15/25 Exam# [id number] Ordering Dr: Armida Manuel sa, DO PROCEDURE: LUMBAR SPINE 2 OR 3 VIEWS 01/15/2025 REASON FOR EXAM: OTHER INTERVERTEBRAL DISC DEGENERATION, LUMBAR REGION WITHOUT MEN TECHNIQUE: LUMBAR SPINE 2 OR 3 VIEWS COMPARISON: None. FINDINGS: Normal lumbar lordosis. There is no substantial scoliosis. T12-L1: Normal disc height. Normal endplates. Normal alignment of the vertebrae. L1-2: Normal disc height. Normal endplates. Normal alignment of the vertebrae. L2-3: Normal disc height. Normal endplates. Normal alignment of the vertebrae. L3-4: Normal disc height. Normal endplates. Normal alignment of the vertebrae. L4-5: Normal disc height. Normal endplates. Normal alignment of the vertebrae. L5-S1: Normal disc height. Normal endplates. Normal alignment of the vertebrae. The soft tissue structures are unremarkable. RAD/Lumbar Spine 2 or 3 Views IMPRESSION: Unremarkable exam. Reading Location: [place] [address] CC: Dr. Akila Manuel DO ~ Instant Potato Processing Supervisor: Signed [facility] 01-06-2025 Evaluation note Diagnosis Onset Date Resolution Acute pharyngitis, unspecified acute January 06, 2025 12:28pm Earache symptoms in both ears acute January 06, 2025 12:28pm [facility] Work Phone: 1(449) 344-938805-21-2025 NoteHNO ID: [id number] Author: MASSIMO DAVIS APRN.SENIOR TAX ACCOUNTANT Service: ? Author Type: Nurse Practitioner Type: Progress Notes Filed: 12/11/2024 19:24 Note Text: Subjective HPI Nontoxic-appearing female presents urgent care chief plaint left ear pain. Duration of symptoms 5 days. Associated symptoms left ear pain nasal congestion. OTC medications none. History of ear infections. Tubes multiple times. No ear trauma loss hearing. No otorrhea. No fevers. Past medical history prescription medications allergies reviewed. .Patient presents with: Ear Pain: left x 5 days PAST MEDICAL HISTORY Diagnosis Date ADD (attention deficit disorder with hyperactivity) POTS (postural orthostatic tachycardia syndrome) PAST SURGICAL HISTORY Procedure Laterality Date PAST SURGICAL HISTORY OF 07/24/2004 tubes in bilateral ears PAST SURGICAL HISTORY OF Left knee arthroscopies 05/2019 TONSILLECTOMY AND ADENOIDECTOMY ALLERGIES Amoxicillin, Augmentin [Amoxicillin-Pot Clavulanate], Cinnamon, Dust, Grass Pollen, Maple Trees [Trees], Mold, Red Dye, and Codeine MEDICATIONS celecoxib (CELEBREX) 200 mg capsule gabapentin (NEURONTIN) 100 mg capsule atenolol (TENORMIN) 25 mg tablet Take 12.5 mg by mouth as needed (Pt states only takes as needed). pantoprazole DR (PROTONIX) 40 mg tablet fludrocortisone (FLORINEF) 0.1 mg tablet ondansetron orally disintegrating (ZOFRAN ODT) 4 mg disintegrating tablet Take 4 mg by mouth. dextroamphetamine-amphetamine (ADDERALL) 10 mg tablet Take 10 mg by mouth twice daily. traMADol (ULTRAM) 50 mg tablet Take by mouth. polyethylene glycol 3350 (MIRALAX) 17 gram/dose powder Take 17 g by mouth once daily. Dissolve dose in 4 - 8 ounces of liquid and take as directed. (Patient not taking: Reported on 12/11/2024) PNV no.95/ferrous fum/folic ac ( ORAL) Take by mouth. (Patient not taking: Reported on 12/11/2024) HYDROcodone-acetaminophen (NORCO) 5-325 mg per tablet (Patient not taking: Reported on 12/11/2024) hyoscyamine (LEVSIN) 0.125 mg tablet (Patient not taking: Reported on 12/11/2024) levalbuterol tartrate HFA (XOPENEX HFA) 45 mcg/actuation inhaler Inhale 1-2 Puffs as instructed every 4 hours as needed. (Patient not taking: Reported on 12/11/2024) FAMILY HISTORY Problem Relation Age of Onset Cancer Paternal Grandfather age 56 Heart Paternal Grandfather Cancer Maternal Grandmother Kidney Thyroid Mother Lipids Maternal Grandmother Hypertension Mother Hypertension Maternal Grandfather Hypertension Father Social History Tobacco Use Smoking status: Never Smokeless tobacco: Never Substance Use Topics Alcohol use: Yes Comment: 1/week Drug use: Not Currently BP 102/64 Pulse 84 Temp 36.9 ?C (98.5 ?F) Resp 16 Wt 51 kg (112 lb 7 oz) LMP 03/12/2024 (Exact Date) SpO2 98% BMI 19.30 kg/m? Review of Systems Constitutional: Negative for chills, fever and malaise/fatigue. HENT: Positive for congestion and ear pain. Negative for ear discharge, sinus pain and sore throat. Eyes: Negative for blurred vision, pain, discharge and redness. Respiratory: Negative for cough, hemoptysis, sputum production, shortness of breath, wheezing and stridor. Cardiovascular: Negative for chest pain. Gastrointestinal: Negative for abdominal pain, diarrhea, nausea and vomiting. Musculoskeletal: Negative for myalgias. Skin: Negative for itching and rash. Neurological: Negative for dizziness and headaches. Objective Physical Exam HENT: Head: Normocephalic. Jaw: No trismus, tenderness, swelling or pain on movement. Right Ear: Tympanic membrane, ear canal and external ear normal. Left Ear: Ear canal and external ear normal. Ears: Comments: Clear fluid noted behind bilateral TMs. Left greater than right. Nose: Congestion present. Mouth/Throat: Mouth: Mucous membranes are moist. Pharynx: Oropharynx is clear. Uvula midline. No oropharyngeal exudate or posterior oropharyngeal erythema. Eyes: Pupils: Pupils are equal, round, and reactive to light. Cardiovascular: Rate and Rhythm: Normal rate. Pulmonary: Effort: Pulmonary effort is normal. No accessory muscle usage, respiratory distress or retractions. Breath sounds: No stridor. No wheezing, rhonchi or rales. Abdominal: Palpations: Abdomen is soft. Tenderness: There is no abdominal tenderness. There is no guarding or rebound. Musculoskeletal: Cervical back: No erythema or tenderness. No pain with movement. Normal range of motion. Lymphadenopathy: Cervical: No cervical adenopathy. Neurological: General: No focal deficit present. Mental Status: She is alert and oriented to person, place, and time. Mental status is at baseline. ASSESSMENT/PLAN: 1. Otalgia, left - ICD9: 388.70, ICD10: H92.02 Diagnosis otalgia left ear. Treat as eustachian tube dysfunction. Will use Flonase. Patient was educated on supportive therapies. Patient will follow up wi (more content not included)...[facility]05-14-2025 Radiology Diagnostic study note [facility] Imaging Services [address] [place], [place] [address] CTA Abd/Pelvis W/WO Contrast MR#: [id number] Acct: [id number] Name: FLOWER SWAN Rep #: [id number] : 2000 F 24 From: Juan Antonio Banuelos MD PCP: Dr. Akila Manuel, DO Status: REG CLI Study:CTA Abd/Pelvis W/WO Contrast Date of Ex am: 12/03/24 Exam# [id number] Ordering Dr: Geovanni Huntley PROCEDURE: CTA ABD/PELVIS W/WO CONTRAST 12/03/2024 REASON FOR EXAM: EVAL FOR NUTCRACKER PHENOMENON Possible vascular compression of the left renal vein as well as superior mesenteric artery and aorta. TECHNIQUE: CTA imaging of the abdomen and pelvis with intravenous contrast. Multiplanar andmultisequence images were obtained. CONTRAST: Isovue 3 7 VOLUME: 100 mL One or more dose reduction techniques were used (e.g., Automated exposure control, adjustment of the mA and/or kV according to patient size, use of iterative reconstruction technique). RADIATION DOSE SUMMARY: CTDlvol: 7 mGy DLP: 605.87 mGycm COMPARISON: Prior study dated May 06, 2024. FINDINGS: Aorta: Abdominal aorta is normal in size. No significant atherosclerotic plaque.No evidence of aneurysm or dissection. Iliac Arteries: Iliac arteries are normal in size with no significant plaque or stenosis. Celiac: Normal. SMA: Normal. MCKENZIE : Normal. Right Renal: Unremarkable Left Renal: Unremarkable Other Findings: No evidence of compression of the left renal vein. CT/CTA Abd/Pelvis W/WO Contrast IMPRESSION: OVERALL FINAL ASSESSMENT: . LI-RADS is not meant to be used in patients <18 years or patients with cirrhosisdue to congenital hepatic fibrosis or due to vascular disorders, because these patients have a lower chance of developing HCC. Reading Location: [facility] CC: ELIZABETH Singh; Dr. Akila Manuel DO ~ Instant Potato Processing Supervisor: Signed [facility]03-25-2025 Radiology Diagnostic study note [facility] Imaging Services [address], [place] [address] Pelvic w/ Transvaginal MR#: [id number] Acct: [id number] Name: FLOWER SWAN Rep #: [id number] : 2000 F 24 From: Mata Perez MD PCP: Dr. Akila aMnuel DO Status: REG CLI Study:Pelvic w/ Transvaginal Date of Exam: 10/14/24 Exam# [id number] Ordering Dr: Nataliia Moore DO EXAM: Pelvic ultrasound CLINICAL HISTORY: Oligomenorrhea COMPARISON: None available at the time of this dictation TECHNIQUE: Transabdominal and transvaginal scanning of the pelvis FINDINGS: The uterus is anteverted. No focal uterine masses. The uterus measures 6.4 x 4.0 x 2.3 cm. Endometrial thickness is 7 mm which is normal. Cervix is normal. No IUD. Bilateral ovaries are normal with preserved symmetric vascular flow. No abnormal fluid in the cul-de-sac. Urinary bladder is unremarkable. US/Pelvic w/ Transvaginal IMPRESSION: No acute sonographic abnormalities. Reading Location: [place] CC: Dr. Nataliia Raymond DO; Dr. 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 All other systems reviewed and are negative. * Ashleigh Hilton MD - 09/10/2024 10:00 AM EST Allergy/Immunology Initial Visit Ms. Flower Swan is a 24 y.o. female who presents to the [facility] today for initSubjective Flower Swan is a 24 y.o. female who presents for New Patient (Cc: Immunology concerns ) History of Present Illness The patient presents for an immunology evaluation due to a primary concern of recurrent lymphadenopathy and frequent illness. She is accompanied by her . She has been experiencing persistent lymphadenopathy since 05/2022, primarily under her jaw, with no involvement of the axillary or inguinal regions. 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 She reports a low white blood cell count and prolonged recovery from common colds, often requiring 3 to 4 weeks for complete resolution, even with medication. She was on antibiotics approximately 6 times last year. Her symptoms predominantly affect her chest, occasionally extending to her sinuses. She experiences constant joint pain, which intensifies during winter. She also reports ear crackling and popping. She has been receiving allergy injections at local ENT for an extended period, but not seeing much improvement. No change in LN swelling with allergy shots or with allergy symptoms. Comorbidities -- hx SMAS s/p surgery. She has lost about 25 pounds due to SMAS. She suspects a misdiagnosis of postural orthostatic tachycardia syndrome (POTS) as she has not experienced any episodessince her SMAS was treated. She has been evaluated for small intestinal bacterial overgrowth (SIBO)before and after her surgery and notices more sensitivity to histamine foods. Wondering about MCAS t oo as an explanation for the facial flushing. She has undergone an ultrasound of her lymph nodes, ordered by her primary care physician which was reportedly normal. Denies episodic allergic reactions, cyclic or periodic fevers. Does feel like she gets recurrent respiratory illness -- She reports feeling more fatigued than usual and has difficulty sleeping. She typically notices her lymph nodes first, followed by a sore throat, which she attributes to drainage.She experiences significant sinus pressure, chest congestion, and a productive cough. She has difficulty regulating her temperature due to POTS. 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 Has gastroparesis; was on enteric budesonide after the SMA surgery but off for the last several weeks -- ENT -- hx T&A in childhood, no LN biopsy, no sinus surgery Wondering about mast cell activation syndrome (MCAS), which worsens with histamine-rich foods. She has been advised to avoid high FODMAP foods. She has noticed that avoiding these foods reduces her facial flushing. She has been on budesonide since her surgery, which has helped with her inflammationas well. Not sure if antihistamines make a difference. 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 FAMILY HISTORY Her sister has low IgA. Her mother is suspected to have EDS. Her maternal grandfather likely had EDS. Her paternal side has a history of heavy alcohol abuse. ALLERGIES The patient is resistant to AMOXICILLIN and ENVIRONMENTAL Allergies MEDICATIONS Current Outpatient Medications: amphetamine-dextroamphetamine 10 MG tablet, Take 1 tablet by mouth 2 times daily., Disp: , Rfl: Atenolol 25 MG tablet, Take 0.5 tablets by mouth., Disp: , Rfl: Budesonide 9 MG Tab SR 24 HR tablet XL, , Disp: , Rfl: Celecoxib 200 MG capsule, , Disp: , Rfl: fludrocortisone 0.1 MG tablet, , Disp: , Rfl: hydroCODone-acetaminophen 5-325 MG tablet, , Disp: , Rfl: levalbuterol 45 MCG/ACT Aerosol inhaler, Inhale 1-2 puffs Every 4 hours as needed., Disp: , Rfl: LORazepam 0.5 MG tablet, Take 1 tablet by mouth 2 times daily., Disp: , Rfl: Metoclopramide 5 MG tablet, , Disp: , Rfl: Ondansetron 4 MG Tab Dispersible tablet, , Disp: , Rfl: Pantoprazole [address] tablet , , Disp: , Rfl: PARoxetine 10 MG tablet, , Disp: , Rfl: Polyethylene glycol 17 GM/SCOOP Powder powder, Take 17 g by mouth daily., Disp: , Rfl: Review of Systems As summarized in HPI and nursing note Objective Resp. rate 16, height 1.626 m (5' 4), weight 51.3 kg (113 lb). Physical Exam Resp 16 Ht 1.626 m (5' 4) Wt 51.3 kg (113 lb) BMI 19.40 kg/m Smoking Status Never Body mass index is 19.4 kg/m . Physical Exam GENERAL: Alert, oriented and in no acute distress. HEENT: EYES: Pupils equal, round and reactive, extraocular muscles intact. Nose: nasal turbinates are mildly edematous and are not boggy. There is no mucous stranding, polyps, or blood noted. EARS: Tympanic membranes are clear. MOUTH: moist and pink with no exudates, ulcers, or thrush.NECK: is supple, without adenopathy. No upper airway stridor noted. HEART: regular rate and rhythm. No murmurs, rubs or gallops. LUNGS: Clear to auscultation bilaterally. No wheezing, rhonchi or rales. EXTREMITIES: No cyanosis, clubbing or edema. NEURO: grossly intact. Normal affect. Gait normal. SKIN: No hives, or angioedema noted; flushing of bilateral cheeks with faint telangiectasias Results Laboratory Studies Low white blood cell count. Low IgA levels. Assessment & Plan 1. Lymphadenopathy with recurrent URIs and intermittent neutropenia Discussed multifactorial etiology of LAD, she describes mostly cervical LN swelling that varies in size. No appreciable lymph nodes greater than 0.5 cm on palpation today. Occasionally she does get focal swelling, redness, pain on the right cervical chain and if that is consistent biopsy might be indicated - she'll discuss that w/ her ENT. Other etiologies for reactive lymphadenopathy includes viral illness (most likely), post-nasal drainage/ allergic inflammation, recurrent bacterial infectionand immune deficiency. Reports a hx of low IgA and if confirmed selective IgA deficiency could certainly be related to recurrent URIs and reactive lymphadenopathy but management is primarily supportive. Will check IgG subclasses and vaccine titers as IgG subclass deficiency, IgG4-related disease and specific antibody deficiency are all considerations but less likely. Labs for work up of underlying immunodeficiency: Quantitative immunoglobulins : IgG, IgA, IgM, IgE Specific antibody response to vaccines: dip/ tet/ pneumococcal Discussed that if initial levels are low to any of these at baseline, would recommend receiving thevaccine as a booster and rechecking titers 4-6 weeks later to assess response. Allergy panel -- given lack of improvement w/ shots will confirm if on-going aeroallergen sensitization IgG subclasses Mast cell tryptase Pending above -- next steps could include: repeat inflammatory markers (ESR/ CRP), immunophenotyping to assess B counts 2. Concern for Mast cell activation syndrome. Symptoms of episodic flushing/ histamine intolerance are less likely to be driven by mast cell activation syndrome. However, a tryptase level will be checked at baseline and during symptom flare to rule this out. If the tryptase level increases significantly during a severe flare-up of symptoms, would be more consistent. Will hold off on urine mediators at this time. She can also try long-acting antihistamine like zyrtec or xyzal to see if any reduction in flushing frequency/ severity. Exam looks more like rosacea with telangiectasias on cheeks which can also cause significant flushing w/ certain foods and emotions. If not improving and very bothersome could consider metrocream, doxycycline, derm eval. She will follow with her other specialists for ongoing management of hypermobile EDS, SMA syndrome. Follow up - 6-8 weeks to review labs, may adjust if needing vaccine booster/ repeat titers Today, I spent 49 minutes in chart review, [id number] care of the patient, discussion of testing,diagnoses and treatment options, coordination of care, and chart completion. Patient voiced understanding of our conversation and all questions were satisfactorily answered. Ashleigh Hilton MD Transfill Technician - Clinical Division of Allergy and Immunology Department of Otolaryngology [facility] Instructions* Patient Instructions* Ashleigh Hilton MD - 09/10/2024 10:00 AM EST Labs for work up of underlying immunodeficiency: Quantitative immunoglobulins : IgG, IgA, IgM, IgE Specific antibody response to vaccines: dip/ tet/ pneumococcal Discussed that if initial levels are low to any of these at baseline, would recommend receiving thevaccine as a booster and rechecking titers 4-6 weeks later to assess response. Allergy panel IgG subclasses Mast cell tryptase Keep track of infections Try taking a long-acting antihistamine like xyzal or zyrtec daily and see if any effect on facial flushing, can take twice a day if needed Try to repeat tryptase level within 4 hours of acute symptomatic facial flushing episode (to look for mast cell activation) [facility] * Diagnosis Onset Date Resolution Status Admit Date Acute bronchitis deleted June 28, 2024 11:48am Acute sinusitis deleted June 28, 2024 11:48am Oligomenorrhea acute September 23, 2024 3:22pm [facility] Work Phone: 1(978) 716-611212-06-2024 Evaluation note* Diagnosis Onset Date Resolution Status Admit Date Acute bronchitis deleted June 28, 2024 11:48am Acute sinusitis deleted June 28, 2024 11:48am Oligomenorrhea acute September 23, 2024 3:22pm Nutcracker phenomenon of laurent al vein acute October 16, 2024 9:37am Superior mesenteric artery syndrome acute October 16, 2024 9:37am [facility] Work Phone: 1(440) 593-556311-13-2024 Evaluation note* Diagnosis Onset Date Resolution Status Admit Date Epigastric pain acute June 05, 2024 8:33am Fatigue acute June 05, 2024 8:33am Irritable bowel syndrome wit h diarrhea acute June 05, 2 024 8:33am Gastritis chronic June 05, 2024 8:33am Non-celiac gluten sensitivity chroni c June 05, 2024 8:33am Acute bronchitis deleted June 28, 2024 11:48am Acute sinusitis deleted June 28, 2024 11:48am Oligomenorrhea acute September 23, 2024 3:22pm [facility] Work Phone: 1(274) 721-413310-15-2024 Telephone encounter Note* Telephone Encounter - Omega Urbina RN - 05/07/2024 12:28 PM EDT RN called pt to discuss her ER visit to [facility] yesterday for enteritis. Pt reports she was instructed in [facility] to follow up with her social studies department chair at [facility] for additional testing. RN verbalized understanding. Pt canceling visit with Dr. Grubbs today since she is following up with her social studies department chair. Pt will call with any post-op surgical concerns for Dr. Grubbs. Call terminated. [facility]10-15-2024 Miscellaneous Notes* Telephone Encounter - Omega Urbina RN - 05/07/2024 12:28 PM EDT RN called pt to discuss her ER visit to [facility] yesterday for enteritis. Pt reports she was instructed in [facility] to follow up with her social studies department chair at [facility] for additional testing. RN verbalized understanding. Pt canceling visit with Dr. Grubbs today since she is following up with her social studies department chair. Pt will call with any post-op surgical concerns for Dr. Grubbs. Call terminated. documented in this [facility]10-[facility]24 Telephone encounter Note * Telephone Encounter - Omega Urbina RN - 05/06/2024 3:33 PM EDT RN returned pt's call from this afternoon regarding nausea, vomiting, and other GI symptoms that started immediately upon awakening this morning. Pt had laparoscopic duodenaljejunostomy on 03/22/2024; had most recent post-op visit on 04/30/2024,where pt had complaints of abdominal pain and intolerance to eating solid food. Please see note fordetails. Pt says she has been taking carafate as instructed since last week and following Dr. Grubbs's instructions. Pt says she felt nauseated upon awakening this morning and had emesis consisting of food that she ate last night around 0, and bile. Pt says abdominal pain feels the same as when she saw Dr. Grubbs last week. Pt reports having intermittent fever and chills around time of emesis this morning. Ptdid not check temperature. Pt says she is unable to tolerate more than a few sips of water. Any more than that triggers emesis. Pt has been trying to stay hydrated, but she is unable to take more than a 2-3 sips of water every 2 hours. PO Zofran not effective at managing nausea. Pt reports having BM about 1 hour prior to call, but stool had zach-like appearance. Pt denies itching to skin, hands, f eet, and says she looks pale when she looks in the mirror, says she does not look jaundiced. Pt is concerned about dehydration and change in stool color. Pt says she is going to [facility] forevaluation because she does not think she can tolerate drive to [facility] to see Dr. Grubbs. RN informed pt that pt could possibly be transferred to [facility] if medically necessary. Pt verbalized understanding and has no other questions or concerns. Call terminated. [facility]10-14-2024 Miscellaneous Notes* Telephone Encounter - Omega Urbina RN - 05/06/2024 3:33 PM EDT RN returned pt's call from this afternoon regarding nausea, vomiting, and other GI symptoms that started immediately upon awakening this morning. Pt had laparoscopic duodenaljejunostomy on 03/22/2024; had most recent post-op visit on 04/30/2024,where pt had complaints of abdominal pain and intolerance to eating solid food. Please see note fordetails. Pt says she has been taking carafate as instructed since last week and following Dr. Grubbs's instructions. Pt says she felt nauseated upon awakening this morning and had emesis consisting of food that she ate last night around 2129, and bile. Pt says abdominal pain feels the same as when she saw Dr. Grubbs last week. Pt reports having intermittent fever and chills around time of emesis this morning. Ptdid not check temperature. Pt says she is unable to tolerate more than a few sips of water. Any more than that triggers emesis. Pt has been trying to stay hydrated, but she is unable to take more than a 2-3 sips of water every 2 hours. PO Zofran not effective at managing nausea. Pt reports having BM about 1 hour prior to call, but stool had zach-like appearance. Pt denies itching to skin, hands, f eet, and says she looks pale when she looks in the mirror, says she does not look jaundiced. Pt is concerned about dehydration and change in stool color. Pt says she is going to [facility] forevaluation because she does not think she can tolerate drive to [facility] to see Dr. Grubbs. RN informed pt that pt could possibly be transferred to [facility] if medically necessary. Pt verbalized understanding and has no other questions or concerns. Call terminated. documented in this encounterKind[facility]10-[facility] Nurse Note* Ericka Marrero MA - 04/30/2024 1:20 PM EDT What is the reason for your visit today? Post op : COMBINED CO2 COLONOSCOPY AND LAPAROSCOPY Who is your referring physician? Dr Manuel Are you having poor oral intake? NO Have you had unintentional weight loss of 15 lbs/7 Kg in the last 3-6 months? NO Bowels: constipated Wound: clean & dry Temperature: No Drains: No Chief Meter Reader offered:Patient accepts, visit chaperoned by KENNETH Duff [facility]10-08-2024 Nurse Note* Ericka Marrero MA - 04/30/2024 1:20 PM EDT What is the reason for your visit today? Post op : COMBINED CO2 COLONOSCOPY AND LAPAROSCOPY Who is your referring physician? Dr Manuel Are you having poor oral intake? NO Have you had unintentional weight loss of 15 lbs/7 Kg in the last 3-6 months? NO Bowels: constipated Wound: clean & dry Temperature: No Drains: No Chief Meter Reader offered:Patient accepts, visit chaperoned by KENNETH Duff documented in this encounterKind[facility]10-08-2024 History of Present illness Narrative* Ayan Grubbs MD - 04/30/2024 1:00 PM EDT Office Visit 04/30/2024 1:13 PM CC: Post op visit HPI: 24 yo F with s/p laparoscopic duodenojejunostomy 03/22. Was seen in the office 04/03/24 and was tolerating regular diet. Last Monday, she had a taco salad and developed abdominal pain. Went to theED on Monday and CT scan showed nonspecific enteritis with mild wall thickening prior to the anastomosis. Since Monday, she has been trying mostly liquids. Still having some abdominal pain with liquids, especially with dairy and sugar. She is moving her bowel less frequently than before. Past medical and surgical history, allergies and meds reviewed and updated. Objective: LMP 03/12/2024 (Exact Date) General: alert, no acute distress Lungs: unlabored breathing on room air Abdomen: soft, non-distended. Non-tender to palpation. Incisions are healing well. ASSESSMENT/PLAN: Patient is about 5 weeks post op from her surgery. Was initially tolerating regular diet without any issues until the last few days. -discussed that she should dissolve her carafate prior to using rather than swallowing whole pills -continue acid reducing medications -recommend small more frequent meals -avoid dairy and sugar foods if they are an irritant -suspect that symptoms will resolve over the next few weeks but if not, will consider EGD vs upper GI study to evaluate the anastomosis -continue miralax, she had significant stool burden on recent CT scan Cassy Zamorano DO [facility] STAFF PHYSICIAN NOTE OF PERSONAL INVOLVEMENT IN CARE I have reviewed the progress note obtained and documented by the resident and I personally participated in the vazquez components. I have discussed the case and management of the patient's care. The following comments revise or confirm relevant vazquez components of their note. IMPRESSION: 5 weeks after duodenojejunostomy. She was eating very well and was comfortable until this weekend when she started having abdominal pain and nausea. Is also moving her bowels regularly but has not for the last 2 days. She was seen in the emergency room where a CT scan showed mild edema around duodenojejunostomy. Unfortunately study is limited by the lack of oral contrast. Stable anemia hb 11, low iron PLAN: Discussed avoidance of any foods that cause more discomfort. Use Carafate in the liquid form 30 minutes before meals and continue PPI. considering IV iron infusion -she may need to see a vat house laborer for this. If symptoms do not improve consider upper GI study and EGD to directly visualize anastomosis. SIGNATURE: Ayan Grubbs MD DATE of SERVICE: April 30, 2024 TIME of SERVICE: 2:27 PM documented in this encounterKindred [facility]10-08-2024 NoteHNO ID: [id number] Author: AYAN GRUBBS MD Service: ? Author Type: Physician Type: Progress Notes Filed: 04/30/2024 16:11 Note Text: Office Visit 04/30/2024 1:13 PM CC: Post op visit HPI: 24 yo F with s/p laparoscopic duodenojejunostomy 03/22. Was seen in the office 04/03/24 and was tolerating regular diet. Last Monday, she had a taco salad and developed abdominal pain. Went to the ED on Monday and CT scan showed nonspecific enteritis with mild wall thickening prior to the anastomosis. Since Monday, she has been trying mostly liquids. Still having some abdominal pain with liquids, especially with dairy and sugar. She is moving her bowel less frequently than before. Past medical and surgical history, allergies and meds reviewed and updated. Objective: LMP 03/12/2024 (Exact Date) General: alert, no acute distress Lungs: unlabored breathing on room air Abdomen: soft, non-distended. Non-tender to palpation. Incisions are healing well. ASSESSMENT/PLAN: Patient is about 5 weeks post op from her surgery. Was initially tolerating regular diet without any issues until the last few days. -discussed that she should dissolve her carafate prior to using rather than swallowing whole pills -continue acid reducing medications -recommend small more frequent meals -avoid dairy and sugar foods if they are an irritant -suspect that symptoms will resolve over the next few weeks but if not, will consider EGD vs upper GI study to evaluate the anastomosis -continue miralax, she had significant stool burden on recent CT scan Cassy Zamorano DO [facility] STAFF PHYSICIAN NOTE OF PERSONAL INVOLVEMENT IN CARE I have reviewed the progress note obtained and documented by the resident and I personally participated in the vazquez components. I have discussed the case and management of the patient's care. The following comments revise or confirm relevant vazquez components of their note. IMPRESSION: 5 weeks after duodenojejunostomy. She was eating very well and was comfortable until this weekend when she started having abdominal pain and nausea. Is also moving her bowels regularly but has not for the last 2 days. She was seen in the emergency room where a CT scan showed mild edema around duodenojejunostomy. Unfortunately study is limited by the lack of oral contrast. Stable anemia hb 11, low iron PLAN: Discussed avoidance of any foods that cause more discomfort. Use Carafate in the liquid form 30 minutes before meals and continue PPI. considering IV iron infusion -she may need to see a vat house laborer for this. If symptoms do not improve consider upper GI study and EGD to directly visualize anastomosis. SIGNATURE: Ayan Grubbs MD DATE of SERVICE: April 30, 2024 TIME of SERVICE: 2:27 [facility]09-11-2024 Nurse Note* Ericka Marrero MA - 04/03/2024 1:46 PM EDT What is the reason for your visit today? Post opLAPAROSCOPIC DUODENOJEJUNOSTOMY Who is your referring physician? Dr manuel Are you having poor oral intake? NO Have you had unintentional weight loss of 15 lbs/7 Kg in the last 3-6 months? NO Bowels: diarrhea, regular, or soft Wound: clean & dry Temperature: No Drains: No Chief Meter Reader offered:Patient declines [facility]09-11-2024 Nurse Note* Ericka Marrero MA - 04/03/2024 1:46 PM EDT What is the reason for your visit today? Post opLAPAROSCOPIC DUODENOJEJUNOSTOMY Who is your referring physician? Dr manuel Are you having poor oral intake? NO Have you had unintentional weight loss of 15 lbs/7 Kg in the last 3-6 months? NO Bowels: diarrhea, regular, or soft Wound: clean & dry Temperature: No Drains: No Chief Meter Reader offered:Patient declines documented in this encounterKindred [facility]09-11-2024 NoteHNO ID: [id number] Author: AYAN GRUBBS MD Service: ? Author Type: Physician Type: Progress Notes Filed: 04/03/2024 13:59 Note Text: This patient is 2 weeks post op from lap duodenojejunostomy. She has had no symptoms -eating well, constipation improving. P.E. BP 117/72 Pulse 98 Temp 36.7 ?C (98.1 ?F) (Temporal) Wt 50.4 kg (111 lb 3.2 oz) LMP 03/12/2024 (Exact Date) SpO2 99% BMI 19.09 kg/m? Abd soft nt nd The wound is healing well without evidence of infection. Assessment Satisfactory course Plan: Diet as tolerated. Discussed activity restrictions. Return to office PRN. Ayan Grubbs [facility]09-11-2024 History of Present illness Narrative* Ayan Grubbs MD - 04/03/2024 1:42 PM EDT This patient is 2 weeks post op from lap duodenojejunostomy. She has had no symptoms -eating well, constipation improving. P.E. BP 117/72 Pulse 98 Temp 36.7 C (98.1 F) (Temporal) Wt 50.4 kg (111 lb 3.2 oz) LMP 03/12/2024 (Exact Date) SpO2 99% BMI 19.09 kg/m Abd soft nt nd The wound is healing well without evidence of infection. Assessment Satisfactory course Plan: Diet as tolerated. Discussed activity restrictions. Return to office PRN. Ayan Grubbs MD documented in this encounterKind[facility]09-10-2024 Telephone encounter Note * Telephone Encounter - Omega Urbina RN - 04/02/2024 4:59 PM EDT Pt had Laparoscopic duodenojejunostomy performed on 03/22/2024. Pt left voicemail message asking whether her post-op visit scheduled for 04/03/2024 should be scheduled 2 weeks from surgery or 2 weeksafter discharge from hospital. RN's call to pt went to voicemail. RN left confirmation to continue with her post-op visit as scheduled for tomorrow. Call terminated. [facility]09-10-2024 Miscellaneous Notes* Telephone Encounter - Omega Urbina RN - 04/02/2024 4:59 PM EDT Pt had Laparoscopic duodenojejunostomy performed on 03/22/2024. Pt left voicemail message asking whether her post-op visit scheduled for 04/03/2024 should be scheduled 2 weeks from surgery or 2 weeksafter discharge from hospital. RN's call to pt went to voicemail. RN left confirmation to continue with her post-op visit as scheduled for tomorrow. Call terminated. documented in this encounterKindred [facility]09-06-2024 NoteHNO ID: [id number] Author: CAITLIN MALCOLM RN Service: Care Management Author Type: Registered Nurse Type: Care Mgt Progress Note Filed: 03/29/2024 13:23 Note Text: CARE MANAGEMENT DISCHARGE NOTE SERVICE DATE: March 29, 2024 SERVICE TIME: 1320 Admission Date: 03/22/2024 LOS: 7 days Discharge Arrangement Discharge Arrangement: Home with Self Care Services Arranged Medical Services: Skilled Home Health Care Type: Home Health Agency, Nursing Home Provider Name: PCP Dr. Manuel Caregiver Assessment Caregiver is ready, willing and able to meet the patient's needs as recommended by the inter-professional team: Yes Name of Caregiver: spouse and mother Transportation Arrangements Transportation Arrangements: Car Date of Trip: 03/29/24 Destination: home Handoff Communication: Handoff to: Primary Care Physician Primary Care Physician Name/Phone: Dr. Manuel Additional Information: Patient has been cleared by surgery to return home today with no needs. Will follow up as instructed. SIGNATURE: Caitlin Malcolm RN PATIENT NAME: Flower Livingston Imani DATE: March 29, 2024 TIME: 1:22 PM CONTACT #: [id number] NoteHNO ID: [id number] Author: ANUJ SALDIVAR RN Service: Care Management Author Type: Registered Nurse Type: Care Mgt Progress Note Filed: 03/28/2024 14:13 Note Text: CARE MANAGEMENT PROGRESS NOTE SERVICE DATE: 03/28/2024 SERVICE TIME: 2:09 PM LOS: 6 days Needs Prior to Discharge: To Be Determined Pt ambulating independently in the hallway. Corpak intact and will continue tube feeds until adequate po intake. Continue GI soft diet and family to bring in [employer]. Hoping that pt will not need tube feedings at discharge. Will continue to follow and assist with transition of care. SIGNATURE: Anuj Saldivar RN PATIENT NAME: Flower Livingston Imani DATE: March 28, 2024 TIME: 2:09 PM PAGER/CONTACT #: [phone] NoteHNO ID: [id number] Author: AYAN GRUBBS MD Service: General Surgery Author Type: Resident Type: Progress Notes Filed: 03/28/2024 17:23 Note Text: Attestation signed by Ayan Grubbs MD at 03/28/2024 5:23 PM [facility] STAFF PHYSICIAN NOTE OF PERSONAL INVOLVEMENT IN CARE I have reviewed the progress note obtained and documented by the resident and I personally participated in the vazquez components. I have discussed the case and management of the patient's care. The following comments revise or confirm relevant vazquez components of their note. IMPRESSION: Tolerating diet better, minimal Bm, no abd pain PLAN: cont TF - increase po intake. Likely d/c corpack and d/c home tomorrow SIGNATURE: Ayan Grubbs MD DATE of SERVICE: March 28, 2024 TIME of SERVICE: 5:23 PM PROGRESS NOTES - GENERAL SURGERY PATIENT NAME: Flower Swan SERVICE DATE: 03/28/2024 SERVICE TIME: 10:56 AM ASSESSMENT AND PLAN Principal Problem: Superior mesenteric artery syndrome S/p laparoscopic DJ creation, [place] placement Moderate protein-calorie malnutrition Corpak in place Assessment: 24 yo F with hx as above, now POD 6 s/p lap DJ, [place] placement for SMA syndrome. Tolerating diet, had BM. Main complaint is throat soreness secondary to [place], she desperately wants it out. Plan: - GI soft diet - Encouraged protein shake supplements, she would like her family to bring in Premier [employer], that is fine - Continue tube feeds until adequate PO intake SUBJECTIVE INTERVAL HISTORY OF PRESENT ILLNESS: NAEON, throat sore from corpak, no [place] MEDICATIONS: Current Facility-Administered Medications Medication Dose Route Frequency enoxaparin 40 mg injection (LOVENOX) 40 mg SUBCUTANEOUS q 24 HR ondansetron 4 mg tab(s) (ZOFRAN) 4 mg ORAL q 6 H PRN Or ondansetron (PF) 4 mg injection (ZOFRAN) 4 mg INTRAVENOUS q 6 H PRN oxyCODONE IR 5 mg tab(s) (ROXICODONE) 5 mg ORAL q 4 H PRN phenol 1 Lamar (CHLORASEPTIC) 1 Lamar MUCOUS MEMBRANE (TOPICAL MOUTH AND THROAT) q 2 H PRN fludrocortisone 0.1 mg tab(s) (FLORINEF) 0.1 mg NASOGASTRIC DAILY prochlorperazine 5 mg injection (COMPAZINE) 5 mg INTRAVENOUS q 6 H PRN docusate 100 mg oral liquid (COLACE) 100 mg NASOGASTRIC BID pantoprazole 40 mg oral liquid (PROTONIX) 40 mg NASOGASTRIC DAILY (6 AM) acetaminophen 650 mg tab(s) (TYLENOL) 650 mg NASOGASTRIC q 6 H benzocaine-menthol 1 Lozenge (CHLORASEPTIC) 1 Lozenge MUCOUS MEMBRANE (TOPICAL MOUTH AND THROAT) q 2 H PRN carboxymethylcellulose sodium 2 Drop (CELLUVISC) 2 Drop BOTH EYES PRN bisacodyl 10 mg suppository (DULCOLAX) 10 mg RECTAL DAILY PRN OBJECTIVE PHYSICAL EXAM: BP 117/65 Pulse 87 Temp (Src) 97.9 (Oral) Resp 17 Ht 5' 4 (1.63m) Wt 115 lb (52.2kg) SpO2 98% LMP 07/19/2016 BMI 19.73 kg/(m2). O2 Therapy: Room Air Intake/Output Summary (Last 24 hours) at 03/28/2024 1056 Last data filed at 03/28/2024 0634 Gross per 24 hour Intake 1381 ml Output 1000 ml Net 381 ml GENERAL: Alert, cooperative. HEAD: Normocephalic, atraumatic. EYES: EOMI HEART: Regular rate. LUNGS: No respiratory distress on room air SKIN: Exposed skin appears normal. ABDOMEN: Soft, non distended non-tender. Incisions cdi EXTREMITIES: Moves all four purposefully. PSYCH: Appropriate mood and affect. DATA: Diagnostic tests reviewed for today's visit: SIGNATURE: Vandana Dow DO DATE: 03/28/2024 TIME: 10:56 [facility]09-04-2024 NoteHNO ID: [id number] Author: AYAN GRUBBS MD Service: General Surgery Author Type: Physician Type: Progress Notes Filed: 03/27/2024 14:55 Note Text: General surgery Staff - inpatient progress note Feels better, tolerated liquids, no n/v Had BM Intake/Output Summary (Last 24 hours) at 03/27/2024 1453 Last data filed at 03/26/2024 2335 Gross per 24 hour Intake 30 ml Output -- Net 30 ml BP 118/58 Pulse 86 Temp 36.2 ?C (97.2 ?F) (Oral) Resp 16 Ht 162.6 cm (5' 4) Wt 52.2 kg (115 lb) LMP 07/19/2016 SpO2 100% BMI 19.74 kg/m? AAOx3 CTA b/l NS1S2 abd soft NT ND wound cdi no edema voiding Recent Labs 03/25/24 0931 WBC 4.78 HB 10.9* HCT 32.9* PLT 134* NA 141 K 4.2 CHLOR 104 CO2 27 BUN 20 CREAT 0.65 GLUC 107* CA 9.1 MG 1.8 A/P POD 4 lap duodenojejunostomy - GI tolerance improving. Will start a soft diet, cap iv but continue TF until we ensure she no longer needs TF/ copak Ayan Grubbs MD March 27, 2024 2:53 [facility]09-04-2024 NoteHNO ID: [id number] Author: JUNIOR CULLEN RN Service: Care Management Author Type: Registered Nurse Type: Care Mgt Progress Note Filed: 03/27/2024 14:27 Note Text: CARE MANAGEMENT PROGRESS NOTE SERVICE DATE: 03/27/2024 SERVICE TIME: 14:23 LOS: 5 days Post-Acute Discharge Planning Patient Goal(s): General wellness Camas of Choice Explained: Camas of Choice Given: Yes Discharge Planning Participant(s): Patient;Parents Patient/Family Comments: Possible home with Home TF AND HHC Anticipated # of Days Until Discharge: 3 Transport at Discharge: Transportation Arrangements: To Be Determined Needs Prior to Discharge: Needs Prior to Discharge: Home Care Order, Discharge Prescriptions, Equipment Delivery, To Be Determined, Other: See Comment (TF teaching) Post-Acute Discharge Plan: Spoke to patient AND mother at bedside today. Patient was feeling better today. Discussed the possible need for home tube feedings, teachable care givers, HHC AND home infusion providers. Discussed that the teaching would begin here at the hospital AND continue at home. They are agreeable. Patient feels as if she can advance her diet AND is hoping not to have to go home with the Corpak. Referrals sent to [facility] AND [facility] pending, will send others as necessary to prepare for homegoing. Message to physician regarding possible home tube feedings-pending. CM to follow. SIGNATURE: Junior Cullen RN PATIENT NAME: Flower Swan DATE: March 27, 2024 TIME: 2:23 PM PAGER/CONTACT #: [phone]09-03-2024 NoteHNO ID: [id number] Author: JUNIOR CULLEN RN Service: Care Management Author Type: Registered Nurse Type: Care Mgt Progress Note Filed: 03/26/2024 09:10 Note Text: CARE MANAGEMENT PROGRESS NOTE SERVICE DATE: 03/26/2024 SERVICE TIME: 09:06 LOS: 4 days Needs Prior to Discharge: To Be Determined;Equipment Delivery;Discharge Prescriptions;Home Care Order Chart reviewed. POD#4, remains on TF, Nutrition note-TF recommendations given. CM following, possible home TF. SIGNATURE: Junior Cullen RN PATIENT NAME: Flower Swan DATE: March 26, 2024 TIME: 9:06 AM PAGER/CONTACT #: [phone]09-03-2024 NoteHNO ID: [id number] Author: AYAN GRUBBS MD Service: General Surgery Author Type: Resident Type: Progress Notes Filed: 03/26/2024 11:06 Note Text: Attestation signed by Ayan Grubbs MD at 03/26/2024 11:06 AM [facility] STAFF PHYSICIAN NOTE OF PERSONAL INVOLVEMENT IN CARE I have reviewed the progress note obtained and documented by the resident and I personally participated in the vazquez components. I have discussed the case and management of the patient's care. The following comments revise or confirm relevant vazquez components of their note. IMPRESSION: no n/v, abd pain better, tolerating TF. Passing gas, no further Bms PLAN: allow clears, cont Tf. Dulcolax sup prn SIGNATURE: Ayan Grubbs MD DATE of SERVICE: March 26, 2024 TIME of SERVICE: 11:05 AM PROGRESS NOTES - GENERAL SURGERY PATIENT NAME: Flower Swan SERVICE DATE: 03/26/2024 SERVICE TIME: 9:00 AM ASSESSMENT AND PLAN Active Hospital Problems Diagnosis Date Noted Superior mesenteric artery syndrome (HCC) 03/22/2024 Moderate protein-calorie malnutrition (HCC) 03/24/2024 This is a 24 year old female who is POD#4 for lap DJ creation, [place] placement. NAEO. Patient resting comfortably in bed. Admits to some nausea without vomiting in the last 24h. Feels mildly bloated and passing a small amount of flatus. She states that drinking fluids with the Corpak in place makes her mucus thicker and leads to her throwing up. She is agreeable to having some liquids available to try again. -Resume CLD, will hold if patient has any more episodes of emesis -Continue TF at goal for nutritional support SUBJECTIVE INTERVAL HISTORY OF PRESENT ILLNESS: See above MEDICATIONS: Current Facility-Administered Medications Medication Dose Route Frequency enoxaparin 40 mg injection (LOVENOX) 40 mg SUBCUTANEOUS q 24 HR dextrose 5% in NaCl 0.45% with 20 mEq/L KCl iv infusion 90 mL/hr INTRAVENOUS CONTINUOUS keTORolac 15 mg injection (Toradol) 15 mg INTRAVENOUS q 6 H ondansetron 4 mg tab(s) (ZOFRAN) 4 mg ORAL q 6 H PRN Or ondansetron (PF) 4 mg injection (ZOFRAN) 4 mg INTRAVENOUS q 6 H PRN HYDROmorphone 0.2 mg injection (DILAUDID) 0.2 mg INTRAVENOUS q 3 H PRN oxyCODONE IR 5 mg tab(s) (ROXICODONE) 5 mg ORAL q 4 H PRN phenol 1 Lamar (CHLORASEPTIC) 1 Lamar MUCOUS MEMBRANE (TOPICAL MOUTH AND THROAT) q 2 H PRN fludrocortisone 0.1 mg tab(s) (FLORINEF) 0.1 mg NASOGASTRIC DAILY prochlorperazine 5 mg injection (COMPAZINE) 5 mg INTRAVENOUS q 6 H PRN docusate 100 mg oral liquid (COLACE) 100 mg NASOGASTRIC BID pantoprazole 40 mg oral liquid (PROTONIX) 40 mg NASOGASTRIC DAILY (6 AM) acetaminophen 650 mg tab(s) (TYLENOL) 650 mg NASOGASTRIC q 6 H benzocaine-menthol 1 Lozenge (CHLORASEPTIC) 1 Lozenge MUCOUS MEMBRANE (TOPICAL MOUTH AND THROAT) q 2 H PRN carboxymethylcellulose sodium 2 Drop (CELLUVISC) 2 Drop BOTH EYES PRN OBJECTIVE PHYSICAL EXAM: BP 133/64 Pulse 74 Temp (Src) 97.9 (Oral) Resp 16 Ht 5' 4 (1.63m) Wt 115 lb (52.2kg) SpO2 94% LMP 07/19/2016 BMI 19.73 kg/(m2). O2 Therapy: Room Air Intake/Output Summary (Last 24 hours) at 03/26/2024 0900 Last data filed at 03/25/2024 1046 Gross per 24 hour Intake 50 ml Output 900 ml Net -850 ml GENERAL: AAOx3, NAD HEENT: normocephalic, atraumatic PULM: unlabored respiratory effort on RA, no audible coughing or wheezing CARDIAC: well-perfused GI: abdomen soft, appropriately tender to palpation, surgical incision sites C/D/I with Dermabond in place. Corpak in place w TF running at goal EXTREMITIES: peripheral sensation intact, moving all 4 extremities purposefully PSYCH: appropriate mood and affect, cooperative, calm SKIN: Skin color, texture, turgor normal DATA: Diagnostic tests reviewed for today's visit: Recent Labs 03/25/24 0931 WBC 4.78 HB 10.9* HCT 32.9* PLT 134* NA 141 K 4.2 CHLOR 104 CO2 27 BUN 20 CREAT 0.65 GLUC 107* CA 9.1 MG 1.8 SIGNATURE: Trish Ton, DO Pager: [phone] DATE: 03/26/2024 TIME: 9:00 [facility]09-02-2024 NoteHNO ID: [id number] Author: AYAN GRUBBS MD Service: General Surgery Author Type: Physician Type: Progress Notes Filed: 03/25/2024 11:39 Note Text: General surgery Staff - inpatient progress note Emesis last night and this morning -no tube feeds Had bowel movements Abdominal pain improved Intake/Output Summary (Last 24 hours) at 03/25/2024 1138 Last data filed at 03/25/2024 0920 Gross per 24 hour Intake -- Output 2250 ml Net -2250 ml BP 112/60 Pulse 81 Temp 36.7 ?C (98.1 ?F) (Oral) Resp 16 Ht 162.6 cm (5' 4) Wt 52.2 kg (115 lb) LMP 07/19/2016 SpO2 99% BMI 19.74 kg/m? AAOx3 CTA b/l NS1S2 abd soft NT ND wound CDI no edema voiding Recent Labs 03/25/24 0931 03/23/24 0357 WBC 4.78 5.38 HB 10.9* 11.6 HCT 32.9* 34.4* PLT 134* 117* NA 141 137 K 4.2 4.4 CHLOR 104 103 CO2 27 25 BUN 20 9 CREAT 0.65 0.77 GLUC 107* 149* CA 9.1 8.8 MG 1.8 1.9 P -- 3.9 A/P postop day 3 laparoscopic duodenojejunostomy -tolerating feeding tube feeds. Increase activity dictate nausea symptomatically. This is more likely related to gastroparesis and may improve as her bowel function improves. Ayan Grubbs MD March 25, 2024 11:38 [facility]09-01-2024 NoteHNO ID: [id number] Author: AYAN GRUBBS MD Service: General Surgery Author Type: Resident Type: Progress Notes Filed: 03/24/2024 15:13 Note Text: Attestation signed by Ayan Grubbs MD at 03/24/2024 3:13 PM [facility] STAFF PHYSICIAN NOTE OF PERSONAL INVOLVEMENT IN CARE I have reviewed the progress note obtained and documented by the resident and I personally participated in the vazquez components. I have discussed the case and management of the patient's care. The following comments revise or confirm relevant vazquez components of their note. IMPRESSION: Ng hemorrhagic - likely Ng trauma. Tolerating Tf at goal, minimal abd discomfort PLAN: d/c Ng allow clears, cont Tf via corpak SIGNATURE: Ayan Grubbs MD DATE of SERVICE: March 24, 2024 TIME of SERVICE: 3:12 PM PROGRESS NOTES - GENERAL SURGERY PATIENT NAME: Flower Swan SERVICE DATE: March 24, 2024 SERVICE TIME: 2:54 PM ASSESSMENT AND PLAN Active Hospital Problems Diagnosis Date Noted Superior mesenteric artery syndrome (HCC) 03/22/2024 Moderate protein-calorie malnutrition (HCC) 03/24/2024 Malnutrition Diagnosis supported by Registered Dietitian:Moderate Protein-Calorie Malnutrition Based on: Unintentional Weight Loss, Insufficient Energy Intake, Subcutaneous Fat Loss, Muscle Loss Assessment: I have reviewed the result of the malnutrition assessment and plan and agree Plan: Diet, Enteral Nutrition POD2 from Laparoscopic duodenojejunostomy creation with corpak placement Assessment: Patient seen and examined at bedside. In no acute distress. NG tube with some bloody bilious output, minimal. Started on tube feeds, tolerating appropriately. NG tube to be removed today. OK for clears Plan: -Discontinue NG tube -Continue tube feeds -OK for clears -multimodal pain control -DVT prophylaxis Plan of care discussed with: Provider, RN, Patient. SUBJECTIVE INTERVAL HISTORY OF PRESENT ILLNESS: NAEON MEDICATIONS: Current Facility-Administered Medications Medication Dose Route Frequency enoxaparin 40 mg injection (LOVENOX) 40 mg SUBCUTANEOUS q 24 HR dextrose 5% in NaCl 0.45% with 20 mEq/L KCl iv infusion 90 mL/hr INTRAVENOUS CONTINUOUS keTORolac 15 mg injection (Toradol) 15 mg INTRAVENOUS q 6 H ondansetron 4 mg tab(s) (ZOFRAN) 4 mg ORAL q 6 H PRN Or ondansetron (PF) 4 mg injection (ZOFRAN) 4 mg INTRAVENOUS q 6 H PRN HYDROmorphone 0.2 mg injection (DILAUDID) 0.2 mg INTRAVENOUS q 3 H PRN oxyCODONE IR 5 mg tab(s) (ROXICODONE) 5 mg ORAL q 4 H PRN phenol 1 Lamar (CHLORASEPTIC) 1 Lamar MUCOUS MEMBRANE (TOPICAL MOUTH AND THROAT) q 2 H PRN fludrocortisone 0.1 mg tab(s) (FLORINEF) 0.1 mg NASOGASTRIC DAILY prochlorperazine 5 mg injection (COMPAZINE) 5 mg INTRAVENOUS q 6 H PRN docusate 100 mg oral liquid (COLACE) 100 mg NASOGASTRIC BID pantoprazole 40 mg oral liquid (PROTONIX) 40 mg NASOGASTRIC DAILY (6 AM) acetaminophen 650 mg tab(s) (TYLENOL) 650 mg NASOGASTRIC q 6 H benzocaine-menthol 1 Lozenge (CHLORASEPTIC) 1 Lozenge MUCOUS MEMBRANE (TOPICAL MOUTH AND THROAT) q 2 H PRN carboxymethylcellulose sodium 2 Drop (CELLUVISC) 2 Drop BOTH EYES PRN OBJECTIVE PHYSICAL EXAM: BP 131/75 Pulse 85 Temp (Src) 97.5 (Oral) Resp 18 Ht 5' 4 (1.63m) Wt 115 lb (52.2kg) SpO2 99% LMP 07/19/2016 BMI 19.73 kg/(m2). O2 Therapy: Room Air Intake/Output Summary (Last 24 hours) at 03/24/2024 1454 Last data filed at 03/24/2024 1353 Gross per 24 hour Intake 201 ml Output 700 ml Net -499 ml GENERAL: Alert, no distress, cooperative SKIN: Skin color, texture, turgor normal. No rashes or lesions. EYES: PERRLA, EOMI NOSE: NG tube in place draining bilious emesis LUNGS: Good diaphragmatic excursion CARDIAC: regular rate ABDOMEN: Abdomen soft, non-tender, No masses or organomegaly EXTREMITIES: Extremities normal, no deformities, edema, clubbing or skin discoloration. No ulcers NEURO: Grossly normal cognition, motor function DATA: Diagnostic tests reviewed for today's visit: CBC, Coags, BMP, Mg, Phos Recent Labs 03/23/24 0357 WBC 5.38 HB 11.6 HCT 34.4* PLT 117* NA 137 K 4.4 CHLOR 103 CO2 25 BUN 9 CREAT 0.77 GLUC 149* CA 8.8 MG 1.9 P 3.9 Signature: Lorne LopezDO Date: March 24, 2024 Time: 2:54 [facility]08-31-2024 NoteHNO ID: [id number] Author: BELKYS URBINA RN Service: Care Management Author Type: Registered Nurse Type: Care Mgt Initial Assessment Filed: 03/23/2024 15:57 Note Text: CARE MANAGEMENT: ASSESSMENT AND DISCHARGE PLAN SERVICE DATE: March 23, 2024 SERVICE TIME: 3:43 PM PCP: Akila Manuel DO Primary Contact: Extended Emergency Contact Information Primary Emergency Contact: Alexander Ospina Mobile Relation: Father Secondary Emergency Contact: isha swan Mobile Relation: Spouse Mother: Cb Ospina Mobile Admission Status: Inpatient Insurance Provider: [facility] Discharge Planning requested by: Per Department Practice Potential Transition Plans To Be Determined Advance Directives Current Advance Directive: None Current Living Arrangements and Support Lives with: Spouse/significant other Type of Residence: Private Residence (House) Does the patient have to climb stairs at home?: Yes Support: Family members, Spouse/significant other How do you manage to accomplish the following: Independent: Ambulation;Bathe/Shower;Dress;Meals/Meal Prep;Going to the bathroom;Medication Management;Transportation to appointments/community Current Services/Equipment Current Post-Acute Service(s): None Discharge Planning Patient Goal(s): Camas of Choice Explained: Camas of Choice Given: No Reason Not Given: Unable to complete with this assessment - revisit Are you interested in bedside delivery of your medications? No Discharge Planning Participant(s): (Chart) Patient/Family Comments: Caregiver Assessment: Caregiver is ready, willing and able to meet the patient's needs as recommended by the inter-professional team: Other: See Comment (TBD) Transport at Discharge: Transportation Arrangements: To Be Determined Needs Prior to Discharge: Needs Prior to Discharge: To Be Determined Post-Acute Discharge Plan: Per chart review, patient is 24 yo female admitted with Superior mesenteric artery syndrome s/p Laparoscopic duodenojejunostomy, currently on TF, nutrition consulted. CM following for post acute needs. SIGNATURE: Belkys Urbina RN PATIENT NAME: Flower Swan DATE: March 23, 2024 TIME: 3:42 PM CONTACT #: [phone] [id number] NoteHNO ID: [id number] Author: AYAN GRUBBS MD Service: General Surgery Author Type: ? Type: Progress Notes Filed: 03/23/2024 13:54 Note Text: Attestation signed by Ayan Grubbs MD at 03/23/2024 1:54 PM [facility] STAFF PHYSICIAN NOTE OF PERSONAL INVOLVEMENT IN CARE I have reviewed the progress note obtained and documented by the resident and I personally participated in the vazquez components. I have discussed the case and management of the patient's care. The following comments revise or confirm relevant vazquez components of their note. IMPRESSION: incisional pain, 200 ng bilious. Exam benign wound clean PLAN: start TF via corpack, keep Ng to suction to assess residuals SIGNATURE: Ayan Grubbs MD DATE of SERVICE: March 23, 2024 TIME of SERVICE: 1:53 PM PROGRESS NOTES - GENERAL SURGERY PATIENT NAME: Flower Swan SERVICE DATE: 03/23/2024 SERVICE TIME: 6:49 AM ASSESSMENT AND PLAN A: 24 yo female POD1 lap duodenojejunostomy with NG and Corpak placement for SMA syndrome. P: -tube feeds through Corpak, nutrition consulted -multimodal pain mgmt with scheduled Toradol and tylenol, PRN oxycodone -mIVF with dextrose 5% and 20 mEq Kcl -Lovenox for VTE prophylaxis SUBJECTIVE 24 yo female POD1, no acute overnight events, she remains afebrile with stable vitals and labs; 200mL output in NG cannister this am. Having moderate amounts of abdominal pain and discomfort with movement this morning. Admits to nausea overnight, denies vomiting. Denies passing flatus or having BM. MEDICATIONS: Current Facility-Administered Medications Medication Dose Route Frequency pantoprazole DR 40 mg tab(s) (PROTONIX) 40 mg ORAL DAILY (6 AM) enoxaparin 40 mg injection (LOVENOX) 40 mg SUBCUTANEOUS q 24 HR dextrose 5% in NaCl 0.45% with 20 mEq/L KCl iv infusion 90 mL/hr INTRAVENOUS CONTINUOUS docusate sodium 100 mg cap(s) (COLACE) 100 mg ORAL BID keTORolac 15 mg injection (Toradol) 15 mg INTRAVENOUS q 6 H acetaminophen 650 mg tab(s) (TYLENOL) 650 mg ORAL q 6 H ondansetron 4 mg tab(s) (ZOFRAN) 4 mg ORAL q 6 H PRN Or ondansetron (PF) 4 mg injection (ZOFRAN) 4 mg INTRAVENOUS q 6 H PRN HYDROmorphone 0.2 mg injection (DILAUDID) 0.2 mg INTRAVENOUS q 3 H PRN oxyCODONE IR 5 mg tab(s) (ROXICODONE) 5 mg ORAL q 4 H PRN phenol 1 Lamar (CHLORASEPTIC) 1 Lamar MUCOUS MEMBRANE (TOPICAL MOUTH AND THROAT) q 2 H PRN fludrocortisone 0.1 mg tab(s) (FLORINEF) 0.1 mg NASOGASTRIC DAILY prochlorperazine 5 mg injection (COMPAZINE) 5 mg INTRAVENOUS q 6 H PRN OBJECTIVE PHYSICAL EXAM: BP 104/61 Pulse 70 Temp (Src) 97.5 (Oral) Resp 16 Ht 5' 4 (1.63m) Wt 115 lb (52.2kg) SpO2 97% LMP 07/19/2016 BMI 19.73 kg/(m2). O2 Therapy: Room Air Intake/Output Summary (Last 24 hours) at 03/23/2024 0649 Last data filed at 03/22/2024 1550 Gross per 24 hour Intake 1300 ml Output -- Net 1300 ml Gen: resting in bed, moderate discomfort HEENT: NG and Corpak in place Lungs: nonlabored Abd: soft, non-distended, diffuse tenderness to palpation, involuntary guarding Incisions: clean, dry, intact with surgical glue, no erythema, edema or drainage at sites SIGNATURE: Shannan Carreon Pager: DATE: 03/23/2024 TIME: 6:49 [facility]08-30-2024 NoteHNO ID: [id number] Author: RIKA BANKS APRN.COMPUTER TECHNICAL SPECIALIST Service: Anesthesiology Author Type: Nurse Television Antenna Installer Type: Anesthesia Procedure Notes Filed: 03/22/2024 14:24 Note Text: ANESTHESIOLOGY PROCEDURE NOTE Airway General Information Procedure Start Time/Medication Administration: 03/22/2024 2:06 PM Procedure End Time: 03/22/2024 2:23 PM Patient location during procedure: OR Timeout Performed Pre-procedure: timeout performed Consent Obtained: Yes Patient 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 Endotracheal tube insertion site: oral Blade: Echo Blade size: #3 ETT size (mm): 7.0 Measured from: lips Measurement (cm): 22 Placement verified by: chest auscultation Cormack-Lehane Classification: grade I - full view of glottis Number of attempts at approach: 1 Failed airway: no Unrecognized esophageal intubation: no Airway not difficult SIGNATURE: Rika Banks APRN.COMPUTER TECHNICAL SPECIALIST PATIENT NAME: Flower Swan DATE: March 22, 2024 TIME: 2:23 PM CSN: [id number] Telephone encounter Note* Telephone Encounter - Alethea Jin MA - 03/19/2024 2:56 PM EDT 03-20-24-I called pt and relayed message to pt Per - She can have her allergy shots before surgery Patient calling in wanting to know if it is ok for her to get her Allergy shots on 03-20. She usually gets them weekly in both arms for her bad allergies. She is scheduled for laparoscopic duodenojejunostomy on Thursday 03/22.Please advise [facility]08-27-2024 Miscellaneous Notes* Telephone Encounter - Alethea Jin MA - 03/19/2024 2:56 PM EDT 03-20-24-I called pt and relayed message to pt Per - She can have her allergy shots before surgery Patient calling in wanting to know if it is ok for her to get her Allergy shots on 03-20. She usually gets them weekly in both arms for her bad allergies. She is scheduled for laparoscopic duodenojejunostomy on Thursday 03/22.Please advise [facility] Instructions* Patient Instructions* Be Rinaldi PA-C - 03/13/2024 11:49 AM EDT PATIENT PREOPERATIVE INSTRUCTIONS Ayan Grubbs MD has scheduled you for your procedure at this surgery center: [facility]: [phone] -- [address] [place] [address]. Please read below carefully for your personalized instructions. Dietary Restrictions: - No solid food after midnight. - You may have 12 ounces of clear liquids (water, clear juices such as apple juice or gatorade, carbonated beverages, clear tea, black coffee, jello) until 2 hours before scheduled arrival at facility. Medications: Medications to take the day of surgery with a sip of water: Pantoprazole, florinef, atenolol, inhaler (if needed) If you start any new medications after today's visit, please contact the surgeon's office. Blood Thinning Medications: - Stop NSAIDS (Ibuprofen, Advil, Aleve, Motrin, Celebrex, Mobic, etc.) 7 days before surgery, as directed by your surgeon. - Stop Aspirin 7 days before surgery, as directed by your surgeon. - Stop Vitamin E, ALL multi-vitamins, herbals and dietary supplements 7 days before surgery. - You may take Tylenol (Acetaminophen) or any of your pain medications that do not contain aspirin or NSAIDS as needed. Important Reminders: - If you use CPAP/BIPAP, bring the machine with you to the surgery center. - If you are prescribed inhalers for breathing, continue using them. - Candy, mints, and tobacco products are NOT permitted the morning of surgery. - Hearing aids, dentures and glasses may be worn the morning of surgery. - NO jewelry, body piercings, makeup, hairpins or contacts are to be worn the day of surgery. If you develop symptoms such as a fever, cold, or flu, or have other changes to your health within TWO DAYS of scheduled surgery or the morning of surgery, please contact the surgery center above. Personal Belongings: -Please have photo ID and insurance cards. -If you do not have a copy of advance directives on file with us, please bring a copy with you on the day of surgery. - Leave ALL valuables and money at home or with family members. For Outpatient Procedures: - YOU MUST HAVE A RESPONSIBLE HOSPITALITY RECRUITER TAKE YOU HOME. A TABLEAU ANALYST OR GEAR HOBBER OPERATOR CANNOT BE MADE A RESPONSIBLE HOSPITALITY RECRUITER. - We recommend that a responsible person stays with you overnight to take care of you. - You cannot stay in a hotel alone after outpatient surgery. You will not be permitted to have yoursurgery, if you do not have someone to take care of you. Arrival Time for Surgery: - The Surgery Center or hospital where you are having surgery will call the afternoon before surgery (or Monday for Monday surgery) with a scheduled arrival time. - If you have not heard by 4 pm, please contact the surgery center above. Please be aware that emergency situations arise, which may delay or change your surgical time. If this happens, we will notify you as soon as possible and regret any inconvenience. If you already have an Advance Directive, please fax a copy to [phone] or email to for it to be added to your chart. If you do not have an Advance Directive, you can find the appropriate form and more information at [email or web address]. We recommend that youcomplete the Advance Directive form found on the website and bring it with you the day of your surgery. It can be witnessed and scanned into your chart that day. Be Rinaldi PA-C documented in this [facility] History and physical note * Be Rinaldi PA-C - 03/13/2024 11:30 AM EDT Images from the original note were not included. [facility] [facility] HISTORY AND PHYSICAL EXAMINATION SERVICE DATE: 03/13/2024 SERVICE TIME: 11:30 am PRIMARY CARE PHYSICIAN: Akila Manuel, DO Assessment Patient has the following medical conditions which may affect da-operative course: POTS (postural orthostatic tachycardia syndrome) Assessment: taking florinef and atenolol PRN, follows with PCP. Has been seen by Cardiology in the past. Koch Activity Status Index: METS: Participate in moderate recreational activites, such as golf, bowling, dancing, doubles tennis, or throwing a baseball or football (6.00 METs) DASI Score: 6 Patient denies any chest pain or undue shortness of breath with the above physical activity. Clinical Frailty Scale: 3. Well, with treated comorbid disease STOP-Bang Score: Denies snoring loudly Denies feeling tired, fatigued, or sleepy during the daytime Has not been observed to stop breathing or choking/gasping during sleep Denies having high blood pressure BMI less than or equal to 35 kg/m^2 Patient 50 years old or younger Does not have a large neck Non-male patient STOP-Bang Score: 0 ANESTHESIA FINDINGS: Intubation History: No history of difficult intubation Significant Anesthesia Considerations: none Airway History: No history of difficult airway I - PHYSICAL EVALUATION AIRWAY Patient intubated: No. Tracheostomy tube not present Mallampati: II. TM distance: >3 FB. Neck ROM: full ROM without neurological symptoms. Mouth opening: adequate. Short neck: no. Thick neck: no Lip Bite Test: II (TMJ) DENTAL Dental findings: teeth intact. II - ANESTHESIA PLAN Anesthetic plan additional comments: *PACC/TCI - anesthesia choice. Beta Judy Monitoring Plan Post Procedure Analgesic Plan Prepared for Surgery: optimally prepared for surgery. CONSULTS: Patient does not require consults for optimization at this time Planned Anesthetic: anesthesia choice The Following Tests/Procedures Have Been Initiated: Orders Placed This Encounter atenolol (TENORMIN) 25 mg tablet Sig: Take 12.5 mg by mouth once daily. PNV no.95/ferrous fum/folic ac ( ORAL) Sig: Take by mouth. This is a virtual visit using SED Web video visit. It required patient-provider interaction for themedical decision making as documented below. REASON FOR VISIT: Flower Swan is a 24 year old female who is scheduled for Procedure(s): LAPAROSCOPIC DUODENOJEJUNOSTOMY (N/A) at the request of Dr. Ayan Grubbs for consultation. My final recommendation will be communicated back to the requesting physician by way of shared medical record or letter. Subjective The patient has the following: COVID-19 Immunization Status Overdue - Covid-19 Vaccine (2022- season) Never done No completion, postpone, frequency change, or communication history exists for this topic. CHIEF COMPLAINT: superior mesenteric artery syndrome HPI: Flower Swan is a 24 year old female who is scheduled for LAPAROSCOPIC DUODENOJEJUNOSTOMY at the request of Dr. Ayan Grubbs for 03/22/2024. She reports abdominal pain after eating and losing ~15 lb over the past 4 months. Symptoms worse when she lays flat. She has had imaging, EGD and colonoscopy. CT demonstrated Superior mesenteric artery syndrome. This is a virtual visit. The visit was conducted using SED Web video visit. It required patient-provider interaction for the medical decision making as documented below. I have communicated my name and active licensure. The patient's identity and physical location wereverified at the time of this visit. Either the patient or their legal development representative has been informed of the risks and benefits of and alternatives to treatment through a remote evaluation and consents to proceed with the evaluation remotely. REVIEW OF SYSTEMS: General: Positive for: unintentional weight change. Patient's weight loss: 15 lb Developmental: No history of developmental problems. Neurological: No history of TIA's, stroke, MAILMASTER tumor, impaired sensorium, hemiplegia, paraplegia orquadraplegia. No neurological symptoms or problems. Respiratory: No history of current cough or dyspnea, or pneumonia in the past 6 weeks. No history of respiratory/pulmonary symptoms or problems. Cardiovascular: +POTS Negative for: atrial fibrillation, CAD, chest pain and DVT/PE. GI: See HPI. : No history of dysuria, frequency or incontinence, stones or chronic kidney disease. No difficulty urinating, nocturia > 1 time per night or hematuria. Endocrine: No history of diabetes. Has not taken steroids within the past 30 days. No history of endocrinological symptoms or problems. Hematology: No history of bleeding or clotting disorder. Patient is not taking anti-coagulation or platelet medications. No history of hematological symptoms or problems. Oncology: No history of CA metastasis, chemo within 30 days, or radiotherapy within 90 days. No history of oncological symptoms or problems. Psych: Positive for: ADHD and anxiety. Musculoskeletal: Positive for: joint pain. Skin: Negative for lesions, rash and itching. PAST MEDICAL HISTORY No date: ADD (attention deficit disorder with hyperactivity) No date: POTS (postural orthostatic tachycardia syndrome) PAST SURGICAL HISTORY 07/24/2004: PAST SURGICAL HISTORY OF Comment: tubes in bilateral ears No date: PAST SURGICAL HISTORY OF; Left Comment: knee arthroscopies 05/201907/24/2004: TONSILLECTOMY & ADENOIDECTOMY FAMILY HISTORY Problem Relation Age of Onset Cancer Paternal Grandfather age 56 Heart Paternal Grandfather Cancer Maternal Grandmother Kidney Thyroid Mother Lipids Maternal Grandmother Hypertension Mother Hypertension Maternal Grandfather Hypertension Father Social History Tobacco Use Smoking status: Never Smokeless tobacco: Never Substance Use Topics Alcohol use: Yes Comment: 1/week Drug use: Not Currently Prior to Admission medications as of 03/13/24 1321 Medication Sig Last Dose Taking atenolol (TENORMIN) 25 mg tablet Take 12.5 mg by mouth once daily. Taking Yes PNV no.95/ferrous fum/folic ac ( ORAL) Take by mouth. Taking Yes pantoprazole DR (PROTONIX) 40 mg tablet Taking Yes fludrocortisone (FLORINEF) 0.1 mg tablet Taking Yes HYDROcodone-acetaminophen (NORCO) 5-325 mg per tablet Taking Yes hyoscyamine (LEVSIN) 0.125 mg tablet Taking Yes ondansetron orally disintegrating (ZOFRAN ODT) 4 mg disintegrating tablet Take 4 mg by mouth. Taking Yes dextroamphetamine-amphetamine (ADDERALL) 10 mg tablet Take 10 mg by mouth twice daily. Taking Yes levalbuterol tartrate HFA (XOPENEX HFA) 45 mcg/actuation inhaler Inhale 1-2 Puffs as instructed every 4 hours as needed. Taking Yes No medication comments found. ALLERGIES Allergen Reactions Amoxicillin Unknown Animals [Other] Augmentin [Amoxicil* Other: See Comments Not effective Cinnamon Hives Dust Grass Pollen Maple Trees [Trees] Mold Red Dye Codeine Hives, Rash, Unknown Objective PHYSICAL EXAM: (if completed, exam performed via video enabled technology) General: alert and oriented and healthy appearance. Pertinent negatives noted - not distressed. Skin: normal color, no rash or lesions. HEENT: EOM intact and pupils equal round. Throat; OROPHARYNX: moist mucus membranes. Neck; full ROM, no cervical LNs noted. Cardiovascular: Pulse characterized as regular.RRR, confirmed with radial pulse exam. Respiratory: Breathing non-labored . Abdomen: Pertinent negatives noted - not tender. Extremities: no deformity, no edema or tenderness, no joint swelling or clubbing. Neurological: normal cognition and motor skills. PAIN ASSESSMENT: VITALS: Ht 5' 4 (1.63m) Wt 115 lb (52.2kg) LMP 03/12/2024 BMI 19.73 kg/(m^2). Diagnostic tests reviewed for today's visit: Lab Value Units Date High Low HB No results within date range. HCT No results within date range. WBC No results within date range. PLT No results within date range. NA No results within date range. K No results within date range. GLUC No results within date range. BUN No results within date range. CREAT No results within date range. PTSEC No results within date range. INR No results within date range. APTT No results within date range. ALT No results within date range. AST No results within date range. TBILI No results within date range. TSH No results within date range. Lab Value Units Date High Low HCGQT No results within date range. UHCG No results within date range. HCG, BODY* No results within date range. Lab Value Units Date High Low ABORHD No results within date range. ABSCREEN No results within date range. No results found for: HBA1C No results found for this or any previous visit (from the past 8760 hour(s)). No results found for this or any previous visit (from the past 75036 hour(s)). Outside labs scanned into EPIC, done 01/17/2024 CBC CMP Instructions Given to Patient: Instructions located in the after visit summary. Patient given verbal and written preop instructions and voices comprehension and compliance. SIGNATURE: Be Rinaldi PA-C PATIENT NAME: Flower Swan DATE: March 13, 2024 TIME: 1:23 PM PAGER/CONTACT #: [facility]08-21-2024 History and physical note* Be Rinaldi PA-C - 03/13/2024 11:30 AM EDT Images from the original note were not included. [facility] HISTORY AND PHYSICAL EXAMINATION SERVICE DATE: 03/13/2024 SERVICE TIME: 11:30 am PRIMARY CARE PHYSICIAN: Akila Manuel, Assessment Patient has the following medical conditions which may affect da-operative course: POTS (postural orthostatic tachycardia syndrome) Assessment: taking florinef and atenolol PRN, follows with PCP. Has been seen by Cardiology in the past. Koch Activity Status Index: METS: Participate in moderate recreational activites, such as golf, bowling, dancing, doubles tennis, or throwing a baseball or football (6.00 METs) DASI Score: 6 Patient denies any chest pain or undue shortness of breath with the above physical activity. Clinical Frailty Scale: 3. Well, with treated comorbid disease STOP-Bang Score: Denies snoring loudly Denies feeling tired, fatigued, or sleepy during the daytime Has not been observed to stop breathing or choking/gasping during sleep Denies having high blood pressure BMI less than or equal to 35 kg/m^2 Patient 50 years old or younger Does not have a large neck Non-male patient STOP-Bang Score: 0 ANESTHESIA FINDINGS: Intubation History: No history of difficult intubation Significant Anesthesia Considerations: none Airway History: No history of difficult airway I - PHYSICAL EVALUATION AIRWAY Patient intubated: No. Tracheostomy tube not present Mallampati: II. TM distance: >3 FB. Neck ROM: full ROM without neurological symptoms. Mouth opening: adequate. Short neck: no. Thick neck: no Lip Bite Test: II (TMJ) DENTAL Dental findings: teeth intact. II - ANESTHESIA PLAN Anesthetic plan additional comments: *PACC/TCI - anesthesia choice. Beta Judy Monitoring Plan Post Procedure Analgesic Plan Prepared for Surgery: optimally prepared for surgery. CONSULTS: Patient does not require consults for optimization at this time Planned Anesthetic: anesthesia choice The Following Tests/Procedures Have Been Initiated: Orders Placed This Encounter atenolol (TENORMIN) 25 mg tablet Sig: Take 12.5 mg by mouth once daily. PNV no.95/ferrous fum/folic ac ( ORAL) Sig: Take by mouth. This is a virtual visit using SED Web video visit. It required patient-provider interaction for themedical decision making as documented below. REASON FOR VISIT: Flower Swan is a 24 year old female who is scheduled for Procedure(s): LAPAROSCOPIC DUODENOJEJUNOSTOMY (N/A) at the request of Dr. Ayan Grubbs for consultation. My final recommendation will be communicated back to the requesting physician by way of shared medical record or letter. Subjective The patient has the following: COVID-19 Immunization Status Overdue - Covid-19 Vaccine (2022-24 season) Never done No completion, postpone, frequency change, or communication history exists for this topic. CHIEF COMPLAINT: superior mesenteric artery syndrome HPI: Flower Swan is a 24 year old female who is scheduled for LAPAROSCOPIC DUODENOJEJUNOSTOMY at the request of Dr. Ayan Grubbs for 03/22/2024. She reports abdominal pain after eating and losing ~15 lb over the past 4 months. Symptoms worse when she lays flat. She has had imaging, EGD and colonoscopy. CT demonstrated Superior mesenteric artery syndrome. This is a virtual visit. The visit was conducted using SED Web video visit. It required patient-provider interaction for the medical decision making as documented below. I have communicated my name and active licensure. The patient's identity and physical location wereverified at the time of this visit. Either the patient or their legal development representative has been informed of the risks and benefits of and alternatives to treatment through a remote evaluation and consents to proceed with the evaluation remotely. REVIEW OF SYSTEMS: General: Positive for: unintentional weight change. Patient's weight loss: 15 lb Developmental: No history of developmental problems. Neurological: No history of TIA's, stroke, MAILMASTER tumor, impaired sensorium, hemiplegia, paraplegia orquadraplegia. No neurological symptoms or problems. Respiratory: No history of current cough or dyspnea, or pneumonia in the past 6 weeks. No history of respiratory/pulmonary symptoms or problems. Cardiovascular: +POTS Negative for: atrial fibrillation, CAD, chest pain and DVT/PE. GI: See HPI. : No history of dysuria, frequency or incontinence, stones or chronic kidney disease. No difficulty urinating, nocturia > 1 time per night or hematuria. Endocrine: No history of diabetes. Has not taken steroids within the past 30 days. No history of endocrinological symptoms or problems. Hematology: No history of bleeding or clotting disorder. Patient is not taking anti-coagulation or platelet medications. No history of hematological symptoms or problems. Oncology: No history of CA metastasis, chemo within 30 days, or radiotherapy within 90 days. No history of oncological symptoms or problems. Psych: Positive for: ADHD and anxiety. Musculoskeletal: Positive for: joint pain. Skin: Negative for lesions, rash and itching. PAST MEDICAL HISTORY No date: ADD (attention deficit disorder with hyperactivity) No date: POTS (postural orthostatic tachycardia syndrome) PAST SURGICAL HISTORY 07/24/2004: PAST SURGICAL HISTORY OF Comment: tubes in bilateral ears No date: PAST SURGICAL HISTORY OF; Left Comment: knee arthroscopies 05/201907/24/2004: TONSILLECTOMY & ADENOIDECTOMY <AGE 12 FAMILY HISTORY Problem Relation Age of Onset Cancer Paternal Grandfather age 56 Heart Paternal Grandfather Cancer Maternal Grandmother Kidney Thyroid Mother Lipids Maternal Grandmother Hypertension Mother Hypertension Maternal Grandfather Hypertension Father Social History Tobacco Use Smoking status: Never Smokeless tobacco: Never Substance Use Topics Alcohol use: Yes Comment: 1/week Drug use: Not Currently Prior to Admission medications as of 03/13/24 1321 Medication Sig Last Dose Taking atenolol (TENORMIN) 25 mg tablet Take 12.5 mg by mouth once daily. Taking Yes PNV no.95/ferrous fum/folic ac ( ORAL) Take by mouth. Taking Yes pantoprazole DR (PROTONIX) 40 mg tablet Taking Yes fludrocortisone (FLORINEF) 0.1 mg tablet Taking Yes HYDROcodone-acetaminophen (NORCO) 5-325 mg per tablet Taking Yes hyoscyamine (LEVSIN) 0.125 mg tablet Taking Yes ondansetron orally disintegrating (ZOFRAN ODT) 4 mg disintegrating tablet Take 4 mg by mouth. Taking Yes dextroamphetamine-amphetamine (ADDERALL) 10 mg tablet Take 10 mg by mouth twice daily. Taking Yes levalbuterol tartrate HFA (XOPENEX HFA) 45 mcg/actuation inhaler Inhale 1-2 Puffs as instructed every 4 hours as needed. Taking Yes No medication comments found. ALLERGIES Allergen Reactions Amoxicillin Unknown Animals [Other] Augmentin [Amoxicil* Other: See Comments Not effective Cinnamon Hives Dust Grass Pollen Maple Trees [Trees] Mold Red Dye Codeine Hives, Rash, Unknown Objective PHYSICAL EXAM: (if completed, exam performed via video enabled technology) General: alert and oriented and healthy appearance. Pertinent negatives noted - not distressed. Skin: normal color, no rash or lesions. HEENT: EOM intact and pupils equal round. Throat; OROPHARYNX: moist mucus membranes. Neck; full ROM, no cervical LNs noted. Cardiovascular: Pulse characterized as regular.RRR, confirmed with radial pulse exam. Respiratory: Breathing non-labored . Abdomen: Pertinent negatives noted - not tender. Extremities: no deformity, no edema or tenderness, no joint swelling or clubbing. Neurological: normal cognition and motor skills. PAIN ASSESSMENT: VITALS: Ht 5' 4 (1.63m) Wt 115 lb (52.2kg) LMP 03/12/2024 BMI 19.73 kg/(m^2). Diagnostic tests reviewed for today's visit: Lab Value Units Date High Low HB No results within date range. HCT No results within date range. WBC No results within date range. PLT No results within date range. NA No results within date range. K No results within date range. GLUC No results within date range. BUN No results within date range. CREAT No results within date range. PTSEC No results within date range. INR No results within date range. APTT No results within date range. ALT No results within date range. AST No results within date range. TBILI No results within date range. TSH No results within date range. Lab Value Units Date High Low HCGQT No results within date range. UHCG No results within date range. HCG, BODY* No results within date range. Lab Value Units Date High Low ABORHD No results within date range. ABSCREEN No results within date range. No results found for: HBA1C No results found for this or any previous visit (from the past 8760 hour(s)). No results found for this or any previous visit (from the past 26632 hour(s)). Outside labs scanned into [employer], done 01/17/2024 CBC CMP Instructions Given to Patient: Instructions located in the after visit summary. Patient given verbal and written preop instructions and voices comprehension and compliance. SIGNATURE: Be Rinaldi PA-C PATIENT NAME: Flower Swan DATE: March 13, 2024 TIME: 1:23 PM [facility]AGER/CONTACT #: [facility] Telephone encounter Note * Telephone Encounter - Omega Urbina RN - 02/07/2024 4:19 PM EDT RN received instructions from Dr. Grubbs to fax signed order requisitions to [facility] for pt's small bowel follow through, esophagram, and gastric emptying study. RN received fax number from [facility] Registration: [phone]. RN read back and confirmed fax number. Signed order requisitions faxed. Fax transmission confirmation received. [facility]07-17-2024 Miscellaneous Notes* Telephone Encounter - Omega Urbina RN - 02/07/2024 4:19 PM EDT RN received instructions from Dr. Grubbs to fax signed order requisitions to [facility] for pt's small bowel follow through, esophagram, and gastric emptying study. RN received fax number from [facility] Registration: [phone]. RN read back and confirmed fax number. Signed order requisitions faxed. Fax transmission confirmation received. documented [facility] this [facility]24 NoteHNO ID: [id number] Author: AYAN GRUBBS MD Service: ? Author Type: Physician Type: Progress Notes Filed: 02/07/2024 14:21 Note Text: Ms. Swan is here today at the request of Misbah Vickers Friend ([id number], [facility], [place] [address]) for my opinion regarding superior mesenteric artery syndrome. My final recommendation will be communicated back to the requesting physician by way of shared medical record or letter. HPI: Ms. Swan is here today complaining of recurrent episodes of abdominal pain and nausea. She has heartburn and occasionally vomiting. Symptoms started in 2019 and she was able to manage by changing to a gluten-free diet. However since July of this year symptoms have been more intense. She underwent extensive investigation including upper endoscopy and CT scans that showed mild gastritis and obstruction of T3 suggestive of a mesenteric artery syndrome. Patient is able to tolerate a small amount of liquid diet. She has adapted by eating small and frequent meals -currently mostly shakes. She lost 15 pounds since July. She also has a history of Helder-Danlos syndrome and POTS -was able to manage by high salt and fluid intake however this is now difficult to tolerate. PAST MEDICAL HISTORY Diagnosis Date ADD (attention deficit disorder with hyperactivity) POTS (postural orthostatic tachycardia syndrome) PAST SURGICAL HISTORY Procedure Laterality Date PAST SURGICAL HISTORY OF 2005 tubes in bilateral ears TONSILLECTOMY AND ADENOIDECTOMY FAMILY HISTORY Problem Relation Age of Onset Cancer Paternal Grandfather age 56 Heart Paternal Grandfather Cancer Maternal Grandmother Kidney Thyroid Mother Lipids Maternal Grandmother Hypertension Mother Hypertension Maternal Grandfather Hypertension Father Social History Tobacco Use Smoking status: Never Smokeless tobacco: Never REVIEW OF SYSTEMS: GENERAL: No weight loss, malaise or fevers. GI: See history of present illness : No history of dysuria, hematuria, frequency or incontinence. All other systems reviewed and negative. PHYSICAL EXAMINATION: BP 110/70 Pulse 94 Temp 36.6 ?C (97.9 ?F) (Temporal) Wt 53.4 kg (117 lb 12.8 oz) LMP 07/19/2016 SpO2 100% General Appearance: Well appearing, alert, in no acute distress, well-hydrated, well nourished. Abdomen: soft, non-tender. Bowel sounds normal. No masses, organomegaly Extremities: No deformities, clubbing or cyanosis. Reviewed images and reports of endoscopy, CT scan and CT angiography: Distention of stomach with food residue and contrast extending to the D3 with abrupt cut off. Sharp angle between superior mesenteric artery and aorta. Assessment Impression: Superior mesenteric artery syndrome versus gastroparesis Moderate protein caloric malnutrition Helder-Danlos syndrome and POTS Plan: I discussed with the patient and her daughter the possibility of a functional syndrome versus true mechanical obstruction of the superior mesenteric artery crossing the third part of the duodenum. I advised her to get the gastric emptying nuclear scan for liquids and an upper GI study to document gastric function and presence of obstruction at the D3. If stomach function is normal and obstruction confirmed then a duodenal jejunal bypass is likely to alleviate her symptoms. However if this is not true mechanical obstruction or more likely gastroparesis then we will refer to our gastroparesis team. I will call her back once I can review the results. cc: Referring provider Misbah Henry [address] [place] [id number] Ayan Grubbs, [facility]07-17-2024 History of Present illness Narrative* Ayan Grubbs MD - 02/07/2024 2:12 PM EDT Ms. Swan is here today at the request of Misbah Henry ([address], [address], [place] [address]) for my opinion regarding superior mesenteric artery syndrome. My final recommendation will be communicated back to the requesting physician by way of shared medical record or letter. HPI: Ms. Swan is here today complaining of recurrent episodes of abdominal pain and nausea. She has heartburn and occasionally vomiting. Symptoms started in 2019 and she was able to manage by changing to a gluten-free diet. However since July of this year symptoms have been more intense. She underwent extensive investigation including upper endoscopy and CT scans that showed mild gastritis and obstruction of T3 suggestive of a mesenteric artery syndrome. Patient is able to tolerate a small amount of liquid diet. She has adapted by eating small and frequent meals -currently mostly shakes. She lost 15 pounds since July. She also has a history of Helder-Danlos syndrome and POTS -was able to manage by high salt and fluid intake however this is now difficult to tolerate. PAST MEDICAL HISTORY Diagnosis Date ADD (attention deficit disorder with hyperactivity) POTS (postural orthostatic tachycardia syndrome) PAST SURGICAL HISTORY Procedure Laterality Date PAST SURGICAL HISTORY OF 2004 tubes in bilateral ears TONSILLECTOMY & ADENOIDECTOMY <AGE 12 2004 FAMILY HISTORY Problem Relation Age of Onset Cancer Paternal Grandfather age 56 Heart Paternal Grandfather Cancer Maternal Grandmother Kidney Thyroid Mother Lipids Maternal Grandmother Hypertension Mother Hypertension Maternal Grandfather Hypertension Father Social History Tobacco Use Smoking status: Never Smokeless tobacco: Never REVIEW OF SYSTEMS: GENERAL: No weight loss, malaise or fevers. GI: See history of present illness : No history of dysuria, hematuria, frequency or incontinence. All other systems reviewed and negative. PHYSICAL EXAMINATION: BP 110/70 Pulse 94 Temp 36.6 C (97.9 F) (Temporal) Wt 53.4 kg (117 lb 12.8 oz) LMP 07/19/2016 SpO2 100% General Appearance: Well appearing, alert, in no acute distress, well-hydrated, well nourished. Abdomen: soft, non-tender. Bowel sounds normal. No masses, organomegaly Extremities: No deformities, clubbing or cyanosis. Reviewed images and reports of endoscopy, CT scan and CT angiography: Distention of stomach with food residue and contrast extending to the D3 with abrupt cut off. Sharp angle between superior mesenteric artery and aorta. Assessment Impression: Superior mesenteric artery syndrome versus gastroparesis Moderate protein caloric malnutrition Helder-Danlos syndrome and POTS Plan: I discussed with the patient and her daughter the possibility of a functional syndrome versus true mechanical obstruction of the superior mesenteric artery crossing the third part of the duodenum. I advised her to get the gastric emptying nuclear scan for liquids and an upper GI study to document gastric function and presence of obstruction at the D3. If stomach function is normal and obstructionconfirmed then a duodenal jejunal bypass is likely to alleviate her symptoms. However if this is not true mechanical obstruction or more likely gastroparesis then we will refer to our gastroparesis team. I will call her back once I can review the results. cc: Referring provider Misbah Rancho Friend [address] [address] Ayan Grubbs MD documented [facility] this [facility] Nurse Note* Omega Urbina RN - 02/07/2024 11:15 AM EDT AMBULATORY PATIENT EDUCATION NOTE TOPIC: gastric emptying study, esophagram information READINESS TO LEARN COGNITIVE ABILITY: Alert and oriented MOTIVATION TO LEARN: Eager FAMILY SUPPORT: High - Very involved in pt care INSTRUCTION PROVIDED TO: Patient and Spouse PATIENT LEARNS BEST BY: Individual Instruction Written Instruction - Hand-outs Verbal Instruction FACTORS AFFECTING LEARNING: Other patient reports sister having gastroparesis, and patient reports researching these tests on her own. PHYSICAL LIMITATIONS AFFECTING LEARNING: None LEARNING RESPONSE DIAGNOSIS: gastroparesis.supramesenteric artery syndrome METHOD OF INSTRUCTION: Individual instruction Written instruction/Handouts Verbal instruction PATIENT / FAMILY RESPONSE: Verbalizes understanding of: SYMPTOM MANAGEMENT- Correct actions to take to manage symptoms associated with his/her disease/illness WORSENING CONDITION-Signs and symptoms of a worsening condition that warrant a call to the physician FOLLOW-UP PLAN: Patient instructed to call with any further issues Contact information given. Dr. Grubbs will contact patient with results of testing and develop plan of care with patient. SUPPLEMENTAL MATERIAL: Patient Education materials: gastric emptying study and esophagram handouts. REFERRAL (RECOMMENDATION): None Electronically Signed By: Omega Urbina RN In Department: [facility] Note* Omega Urbina RN - 02/07/2024 11:15 AM EDT AMBULATORY PATIENT EDUCATION NOTE TOPIC: gastric emptying study, esophagram information READINESS TO LEARN COGNITIVE ABILITY: Alert and oriented MOTIVATION TO LEARN: Eager FAMILY SUPPORT: High - Very involved in pt care INSTRUCTION PROVIDED TO: Patient and Spouse PATIENT LEARNS BEST BY: Individual Instruction Written Instruction - Hand-outs Verbal Instruction FACTORS AFFECTING LEARNING: Other patient reports sister having gastroparesis, and patient reports researching these tests on her own. PHYSICAL LIMITATIONS AFFECTING LEARNING: None LEARNING RESPONSE DIAGNOSIS: gastroparesis.supramesenteric artery syndrome METHOD OF INSTRUCTION: Individual instruction Written instruction/Handouts Verbal instruction PATIENT / FAMILY RESPONSE: Verbalizes understanding of: SYMPTOM MANAGEMENT- Correct actions to take to manage symptoms associated with his/her disease/illness WORSENING CONDITION-Signs and symptoms of a worsening condition that warrant a call to the physician FOLLOW-UP PLAN: Patient instructed to call with any further issues Contact information given. Dr. Grubbs will contact patient with results of testing and develop plan of care with patient. SUPPLEMENTAL MATERIAL: Patient Education materials: gastric emptying study and esophagram handouts. REFERRAL (RECOMMENDATION): None Electronically Signed By: Omega Urbina RN In Department: [facility] * Alethea Jin MA - 02/07/2024 10:36 AM EDT Chief Meter Reader offered:Patient accepts, visit chaperoned by kenneth duff What is the reason for your visit today? Abdominal pain Who is your referring physician? Dr.Friend Are you having poor oral intake? NO Have you had unintentional weight loss of 15 lbs/7 Kg in the last 3-6 months? YES Bowels: constipated or diarrhea Wound: n/a Temperature: No Drains: No documented in this encounterKind[facility]07-[facility]24 Nurse Note* Alethea Jin MA - 02/07/2024 10:36 AM EDT Chief Meter Reader offered:Patient accepts, visit chaperoned by kenneth duff What is the reason for your visit today? Abdominal pain Who is your referring physician? DrElisaFriend Are you having poor oral intake? NO Have you had unintentional weight loss of 15 lbs/7 Kg in the last 3-6 months? YES Bowels: constipated or diarrhea Wound: n/a Temperature: No Drains: No [facility]05-28-2024 NoteReason for consultation: Self-reported lymphadenopathy involving the submandibular region. Also self-reported history of low white blood cell count. Referred by rheumatology. HPI: 23-year-old female referred by rheumatology after unrevealing workup for connective tissue disorder. She reports that she has had submandibular lymphadenopathy dating back to at least 2021. Reports that she has had recurrent sinus infections along with ear infections in childhood. She did have tubes placed in her ears. She does follow with allergy/immunology and receives injections for allergic rhinitis. Reports decreased appetite. She has ongoing GI issues which she attributes to gluten sensitivity. Reports that her recent colonoscopy/EGD from July 2023 showed area of inflammation throughout her colon and into her pancreas. She does have a history of ADHD and hypermobile Helder-Danlos. Reports night sweats. Other PMHx Hypermobile Helder-Danlos POTS None celiac gluten sensitivity Meniscal tear x 2 Social History Social History Tobacco Use Smoking status: Never Smokeless tobacco: Never Vaping Use Vaping Use: Never used Substance Use Topics Alcohol use: Yes Comment: occasional Drug use: Yes Types: Marijuana Comment: CBD and THC gummies for joint pain Family History Family History Problem Relation Name Age of Onset Skin cancer Mother Other Mother Hypermobile EDS Clotting disorder Sister Paternal half sister Factor 2 Kidney cancer Maternal Grandmother Anemia Maternal Grandfather side effect of medication Bladder Cancer Maternal Grandfather Other Maternal Grandfather Hypermobile EDS Cancer Paternal Grandfather unknown type Cancer Other MG Aunt & Uncles Aunt, unknown type Stomach cancer Other MG Aunt & Uncles Aunt Colon cancer Other MG Aunt & Uncles Uncle Allergies Allergies Allergen Reactions Augmentin [Amoxicillin-Pot Clavulanate] Hives and Rash Codeine Rash Medications Current Outpatient Medications Medication Sig Dispense Refill amphetamine-dextroamphetamine (Adderall) 10 MG tablet 10 mg 2 times daily. MAGNESIUM PO Take 250 mg by mouth. ondansetron ODT (Zofran-ODT) 4 MG disintegrating tablet Take 4 mg by mouth as needed for nausea. No current facility-administered medications for this visit. Physical Exam: Vitals reviewed Alert, NAD, ecog 0 Unable to appreciate neck or axillary lymphadenopathy bilaterally. RRR CTAB Soft, nontender, nondistended. No hepatosplenomegaly. No rash, no edema Imaging/Labs: No labs or imaging available to review. Assessment/Plan: 23 y.o. with Self-reported submandibular lymphadenopathy for 2 years. Unable to appreciate lymphadenopathy on exam. Also reports a history of leukopenia. I do not have any prior lab work to review. Plan on obtaining CBC, peripheral smear, CMP. She request having these labs done at [facility] due to payment issues. Advised to call back to review results. Low suspicion for underlying myeloproliferative process. I did encourage continued follow-up with her refinisher. If she does have recurrent infection issues and hypogammaglobulinemia, this would be managed through immunology office. There are no other issues with medication compliance, stressors, depression, side effects of therapy other than as noted above. Discussion congruent with NCCN guidelines if applicable. 45 minutes [facility] History of Present illness Narrative* Bernard Honeycutt MD - 12/19/2023 11:45 AM EDT Reason for consultation: Self-reported lymphadenopathy involving the submandibular region. Also self- reported history of lowwhite blood cell count. Referred by rheumatology. HPI: 23-year-old female referred by rheumatology after unrevealing workup for connective tissue disorder. She reports that she has had submandibular lymphadenopathy dating back to at least 2021. Reports that she has had recurrent sinus infections along with ear infections in childhood. She did have tubes placed in her ears. She does follow with allergy/immunology and receives injections for allergic rhinitis. Reports decreased appetite. She has ongoing GI issues which she attributes to gluten sensitivity. Reports that her recent colonoscopy/EGD from July 2023 showed area of inflammation throughout her colon and into her pancreas. She does have a history of ADHD and hypermobile Helder-Danlos. Reports night sweats. Other PMHx Hypermobile Helder-Danlos POTS None celiac gluten sensitivity Meniscal tear x 2 Social History Social History Tobacco Use Smoking status: Never Smokeless tobacco: Never Vaping Use Vaping Use: Never used Substance Use Topics Alcohol use: Yes Comment: occasional Drug use: Yes Types: Marijuana Comment: CBD and THC gummies for joint pain Family History Family History Problem Relation Name Age of Onset Skin cancer Mother Other Mother Hypermobile EDS Clotting disorder Sister Paternal half sister Factor 2 Kidney cancer Maternal Grandmother Anemia Maternal Grandfather side effect of medication Bladder Cancer Maternal Grandfather Other Maternal Grandfather Hypermobile EDS Cancer Paternal Grandfather unknown type Cancer Other MG Aunt & Uncles Aunt, unknown type Stomach cancer Other MG Aunt & Uncles Aunt Colon cancer Other MG Aunt & Uncles Uncle Allergies Allergies Allergen Reactions Augmentin [Amoxicillin-Pot Clavulanate] Hives and Rash Codeine Rash Medications Current Outpatient Medications Medication Sig Dispense Refill amphetamine-dextroamphetamine (Adderall) 10 MG tablet 10 mg 2 times daily. MAGNESIUM PO Take 250 mg by mouth. ondansetron ODT (Zofran-ODT) 4 MG disintegrating tablet Take 4 mg by mouth as needed for nausea. No current facility-administered medications for this visit. Physical Exam: Vitals reviewed Alert, NAD, ecog 0 Unable to appreciate neck or axillary lymphadenopathy bilaterally. RRR CTAB Soft, nontender, nondistended. No hepatosplenomegaly. No rash, no edema Imaging/Labs: No labs or imaging available to review. Assessment/Plan: 23 y.o. with Self-reported submandibular lymphadenopathy for 2 years. Unable to appreciate lymphadenopathy on exam. Also reports a history of leukopenia. I do not have any prior lab work to review. Plan on obtaining CBC, peripheral smear, CMP. She request having these labs done at [facility] due to payment issues. Advised to call back to review results. Low suspicion for underlying myeloproliferative process. I did encourage continued follow-up with her refinisher. If she does have recurrent infection issues and hypogammaglobulinemia, this would be managed through immunology office. There are no other issues with medication compliance, stressors, depression, side effects of therapy other than as noted above. Discussion congruent with NCCN guidelines if applicable. 45 minutes in care coordination/counseling documented in this [facility]05-28-[facility]24 History of Present illness Narrative* Bernard Honeycutt MD - 12/19/2023 11:45 AM EDT Reason for consultation: Self-reported lymphadenopathy involving the submandibular region. Also self- reported history of lowwhite blood cell count. Referred by rheumatology. HPI: 23-year-old female referred by rheumatology after unrevealing workup for connective tissue disorder. She reports that she has had submandibular lymphadenopathy dating back to at least 2021. Reports that she has had recurrent sinus infections along with ear infections in childhood. She did have tubes placed in her ears. She does follow with allergy/immunology and receives injections for allergic rhinitis. Reports decreased appetite. She has ongoing GI issues which she attributes to gluten sensitivity. Reports that her recent colonoscopy/EGD from July 2023 showed area of inflammation throughout her colon and into her pancreas. She does have a history of ADHD and hypermobile Helder-Danlos. Reports night sweats. Other PMHx Hypermobile Helder-Danlos POTS None celiac gluten sensitivity Meniscal tear x 2 Social History Social History Tobacco Use Smoking status: Never Smokeless tobacco: Never Vaping Use Vaping Use: Never used Substance Use Topics Alcohol use: Yes Comment: occasional Drug use: Yes Types: Marijuana Comment: CBD and THC gummies for joint pain Family History Family History Problem Relation Name Age of Onset Skin cancer Mother Other Mother Hypermobile EDS Clotting disorder Sister Paternal half sister Factor 2 Kidney cancer Maternal Grandmother Anemia Maternal Grandfather side effect of medication Bladder Cancer Maternal Grandfather Other Maternal Grandfather Hypermobile EDS Cancer Paternal Grandfather unknown type Cancer Other MG Aunt & Uncles Aunt, unknown type Stomach cancer Other MG Aunt & Uncles Aunt Colon cancer Other MG Aunt & Uncles Uncle Allergies Allergies Allergen Reactions Augmentin [Amoxicillin-Pot Clavulanate] Hives and Rash Codeine Rash Medications Current Outpatient Medications Medication Sig Dispense Refill amphetamine-dextroamphetamine (Adderall) 10 MG tablet 10 mg 2 times daily. MAGNESIUM PO Take 250 mg by mouth. ondansetron ODT (Zofran-ODT) 4 MG disintegrating tablet Take 4 mg by mouth as needed for nausea. No current facility-administered medications for this visit. Physical Exam: Vitals reviewed Alert, NAD, ecog 0 Unable to appreciate neck or axillary lymphadenopathy bilaterally. RRR CTAB Soft, nontender, nondistended. No hepatosplenomegaly. No rash, no edema Imaging/Labs: No labs or imaging available to review. Assessment/Plan: 23 y.o. with Self-reported submandibular lymphadenopathy for 2 years. Unable to appreciate lymphadenopathy on exam. Also reports a history of leukopenia. I do not have any prior lab work to review. Plan on obtaining CBC, peripheral smear, CMP. She request having these labs done at [facility] due to payment issues. Advised to call back to review results. Low suspicion for underlying myeloproliferative process. I did encourage continued follow-up with her refinisher. If she does have recurrent infection issues and hypogammaglobulinemia, this would be managed through immunology office. There are no other issues with medication compliance, stressors, depression, side effects of therapy other than as noted above. Discussion congruent with NCCN guidelines if applicable. 45 minutes in care coordination/counseling Addendum (12/22/23): Reviewed labs from [facility] from 12/20/2023. White count mildly low at 3.5 with ANC of 1500.This is likely her baseline. No other significant abnormalities identified on CBC or CMP. Can continue follow-up with PCP/refinisher. documented in this encounterSMarion [id number] Procedure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 Skelaxin 400 mg twice daily for 10 days. [facility] [address] Work Phone: Evaluation note* Diagnosis Onset Date Resolution Status Acute sinusitis acute Acute sinusitis acute [facility] Work Phone: Evaluation note* Diagnosis Onset Date Resolution Status Acute sinusitis acute [facility] Work Phone: Evaluation noteNo assessment information available [facility] Work Phone: Evaluation note* Diagnosis Onset Date Resolution Status Internal derangement of left knee acute Left knee pain acute Subluxation of left patella acute Internal derangement of left knee acute Left ankle pain acute Strain of peroneal tendon of left foot acute [facility] Work Phone: Evaluation note* Diagnosis Onset Date Resolution Status Internal derangement of left knee acute Left knee pain acute Subluxation of left patella acute Internal derangement of left knee acute Left ankle pain acute Strain of peroneal tendon of left foot acute Internal derangement of left knee acute Left knee pain acute Subluxation of left patella acute [facility] Work Phone: Evaluation note* Diagnosis Onset Date Resolution Status Internal derangement of left knee acute Left knee pain acute Subluxation of left patella acute Internal derangement of left knee acute Left ankle pain acute Strain of peroneal tendon of left foot acute Internal derangement of left knee acute Left knee pain acute Subluxation of left patella acute Patellofemoral maltracking a cute Subluxation of left patella acute Dysmenorrhea acute Migraine with aura acute Encounter for routine gynecological examination noneactive [facility] Work Phone: Evaluation note* Diagnosis Onset Date Resolution Status Internal derangement of left knee acute Left knee pain acute Subluxation of left patella acute Internal derangement of left knee acute Left ankle pain acute Strain of peroneal tendon of left foot acute Internal derangement of left knee acute Left knee pain acute Subluxation of left patella acute Patellofemoral maltracking a cute Subluxation of left patella acute Dysmenorrhea acute Migraine with aura acute Encounter for routine gynecological examination noneactive Internal derangement of left knee acute Patellofemoral maltracking a cute [facility] Work Phone: Evaluation note* Diagnosis Onset Date Resolution Status Internal derangement of left knee acute Left knee pain acute Subluxation of left patella acute Internal derangement of left knee acute Left ankle pain acute Strain of peroneal tendon of left foot acute Internal derangement of left knee acute Left knee pain acute Subluxation of left patella acute Patellofemoral maltracking a cute Subluxation of left patella acute Dysmenorrhea acute Migraine with aura acute Encounter for routine gynecological examination noneactive Internal derangement of left knee acute Patellofemoral maltracking a cute Internal derangement of left knee acute Tear of medial meniscus of left knee acute [facility] Work Phone: Evaluation note* Diagnosis Onset Date Resolution Status Internal derangement of left knee acute Patellofemoral maltracking a cute Internal derangement of left knee acute Tear of medial meniscus of left knee acute Tear of medial meniscus of left knee acute Tear of medial meniscus of left knee acute Tear of medial meniscus of left knee acute Encounter for Nexplanon removal acute Tear of medial meniscus of left knee acute [facility] Work Phone: Evaluation note* Diagnosis Onset Date Resolution Status Internal derangement of left knee acute Tear of medial meniscus of left knee acute Tear of medial meniscus of left knee acute Tear of medial meniscus of left knee acute Tear of medial meniscus of left knee acute Encounter for Nexplanon removal acute Tear of medial meniscus of left knee acute Tear of medial meniscus of left knee acute Chronic constipation chronic Chronic nausea chronic Non-celiac gluten sensitivity [facility] Work Phone: Evaluation note* Diagnosis Onset Date Resolution Status Tear of medial meniscus of left knee acute Tear of medial meniscus of left knee acute Tear of medial meniscus of left knee acute Tear of medial meniscus of left knee acute Encounter for Nexplanon removal acute Tear of medial meniscus of left knee acute Tear of medial meniscus of left knee acute Chronic constipation chronic Chronic nausea chronic Non-celiac gluten sensitivity [facility] Work Phone: Evaluation note* Diagnosis Onset Date Resolution Status Tear of medial meniscus of left knee acute Tear of medial meniscus of left knee acute Encounter for Nexplanon removal acute Tear of medial meniscus of left knee acute Tear of medial meniscus of left knee acute Chronic constipation chronic Chronic nausea chronic Non-celiac gluten sensitivity [facility] Work Phone: Evaluation note* Diagnosis Onset Date Resolution Status Tear of medial meniscus of left knee acute Encounter for Nexplanon removal acute Tear of medial meniscus of left knee acute Tear of medial meniscus of left knee acute Chronic constipation chronic Chronic nausea chronic Non-celiac gluten sensitivity chronic [facility] Work Phone: Evaluation note* Diagnosis Onset Date Resolution Status Encounter for routine gynecological examination noneactive [facility] Work Phone: Evaluation note* Diagnosis Onset Date Resolution Status Encounter for routine gynecological examination noneactive Gastritis chronic Non-celiac gluten sensitivity [facility] Work Phone: Evaluation note* Diagnosis Leukopenia, unspecified type- Primary [facility] [place] Diagnosis Superior mesenteric artery syndrome (HCC)- Primary Chronic vascular insufficiency of intestine Gastroparesis POTS (postural orthostatic tachycardia syndrome) Tachycardia, unspecified Ehler's-Danlos syndrome Malnutrition of moderate degree (HCC) Malnutrition of moderate degree documented in this encounter [facility] note* Diagnosis Mechanical gastrointestinal obstruction (HCC)- Primary Unspecified intestinal obstruction Superior mesenteric artery syndrome (HCC) Chronic vascular insufficiency of intestine documented in this encounter [facility] note* Diagnosis Pre-op evaluation- Primary Preoperative examination, unspecified POTS (postural orthostatic tachycardia syndrome) Tachycardia, unspecified EDS (Helder-Danlos syndrome) Helder-Danlos syndrome Superior mesenteric artery syndrome (HCC) Chronic vascular insufficiency of intestine * Assessment & Plan Note - Be Rinaldi PA-C - 03/13/2024 11:38 AM EDT Associated Problem(s): POTS (postural orthostatic tachycardia syndrome) Assessment: taking florinef and atenolol PRN, follows with PCP. Has been seen by Cardiology in the past. documented in this encounter [facility] note* Diagnosis Pre-op evaluation- Primary Preoperative examination, unspecified POTS (postural orthostatic tachycardia syndrome) Tachycardia, unspecified EDS (Helder-Danlos syndrome) Helder-Danlos syndrome Superior mesenteric artery syndrome (HCC)- Primary Chronic vascular insufficiency of intestine Post-operative state Other postprocedural status documented in this encounter [facility] note* Diagnosis Pre-op evaluation- Primary Preoperative examination, unspecified POTS (postural orthostatic tachycardia syndrome) Tachycardia, unspecified EDS (Helder-Danlos syndrome) Helder-Danlos syndrome Postop check- Primary Follow-up examination, following unspecified surgery documented in this encounter [facility] note* Diagnosis Lymphadenopathy- Primary Enlargement of lymph nodes Recurrent URI (upper respiratory infection) Acute upper respiratory infections of unspecified site Seasonal allergic rhinitis due to pollen [facility] Lymphadenopathy- Primary Enlargement of lymph nodes Recurrent sinus infections Unspecified sinusitis (chronic) Chronic midline low back pain without sciatica Chronic midline low back pain without sciatica [facility] Diagnosis Chronic midline low back pain without sciatica [facility] Author Misbah Henry [facility] November 15, 2022 1:06pm Note Date/Time November 15, 2022 1:0 6pm [facility] Medical Records Department [address] [place] [address] History & Physical Exam 11/15/22 1304 MR#: [id number] Acct: [id number] Name: FLOWER SWAN Rep #:[id number] : 2000 22 From: Misbah Henry DO PCP: Dr. Akila Manuel, Status:[facility] Location: [place] [address] HPI - General General Date of Admission: 11/15/22 Date of Service: 11/15/22 Chief Complaint: Doudenal polyp HPI Narrative FLOWER SWAN, is a 22 F who presents ?22 F who presents to the office today to establish with GI for nausea, globus sensation, constipation, non-celiac gluten sensitivity. Diagnosed with non- celiac gluten sensitivity. Following a gluten-free diet is helpful--if she eats gluten she has nausea, vomiting, bloating, abd pain especially epigastric. Even with avoiding gluten she has GI issues. Doesn't tolerate dairy--nausea, thick mucus. Gets thick mucus, runny nose when she eats anything. The nausea is especially when she lies down. Takes ondansetron with good relief. Vomits or dryheaves if she doesn't take ondansetron. Nausea worse when constipated. Protein shake with decaf coffee in the morning does cause BM. Taking famotidine 20 mg, helps to decrease nausea if she takes it before eating. Omeprazole was more helpful, but pt reports it was stopped due to anemia. Has been treated twice forSIBO by primary care, felt better temporarily. Approx 6 wks ago she took augmentin for lymphadenopathy, reports it helped SIBO, but still has globus sensation. Less feeling of air in GI tract. Is now back on doxycycline as well as medrol dose brayan. Linzess flared POTS. Chronic post nasal drainage. Since 05/2022 she has felt like she had a cold or sinus infection. Gluten-free diet has helped minimize constipation. Had bloating from miralax. Needs to follow food with water to help food pass through esophagus. Had EGD by GI Dr Sesay 11/2020, no prior colonoscopy 06/2022 ALT 71, back to normal at 34 in 08/2022 food allergy panel negative Comorbidities include Helder-Danlos, POTS, ADD ROS Const Constitutional: Positive for fatigue ENT ENT: Positive for difficulty swallowing Gastro GI: Positive for abdominal pain, bloating, change in bowel habits, constipation,heartburn, difficulty swallowing, excessive flatus and nausea/dyspepsia; No belching, change in stool character, coffee ground emesis, cramping, diarrhea, feeling full early, incontinent of stools, Vomiting blood/hematemesis,Blood in stool, loose stools, Black,tarry stools, pain with swallowing, vomitingor other Musc Musculoskeletal: Positive for joint pain, joint swelling, stiffness, restless legs and leg pain at night Skin Skin: No yellowing of the eye or itchy eyes Neuro Neurology: Positive for restless legs Psych Psychiatric: Positive for anxiety, No depression and Positive for hyperactivity Endo Endocrine: Positive for fatigue Aller/Imm Allergy/Immunologic: No itchy eyes Smith/Lymp Hematologic/Lymphatic: No easy bleeding or easy bruising Exam Const General: cooperative, healthy appearing and comfortable Nutritional Appearance: average body habitus Orientation: alert, awake and oriented x3 HENMT Head: normal to inspection Eyes Sclera: sclerae normal Resp Effort & Inspection: normal respiratory effort GI Inspection: normal to inspection Palpation: soft, no hepatosplenomegaly, no masses and tender in the LLQ Psych Mood: euthymic mood Quality Reporting Tobacco Screening ([facility] 138) Smoking Status: Never smoker Assessment and Plan Assessment and Plan (1) Chronic nausea: ?Status:?Chronic ?Plan: 22 yo female with chronic nausea, globus sensation, constipation; symptoms better with gluten-free diet but not resolved. 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 as above ? ? ? Orders: Orders Celiac Disease Profile Today K59.09 - Other constipation, K90.41 - Non-celiac gluten sensitivity, R11.0 - Nausea ? Immunoglobulins G/A/M/E Today K59.09 - Other constipation, K90.41 - Non-celiac gluten sensitivity, R11.0 - Nausea ? CRP Today K59.09 - Other constipation, K90.41 - Non-celiac gluten sensitivity, R11.0 - Nausea ? Erythrocyte Sed Rate Today K59.09 - Other constipation, K90.41 - Non-celiac gluten sensitivity, R11.0 - Nausea ? JUSTINE Comprehensive Panel Today K59.09 - Other constipation, K90.41 - Non-celiac gluten sensitivity, R11.0 - Nausea ? ANCA Today K59.09 - Other constipation, K90.41 - Non-celiac gluten sensitivity, R11.0 - Nausea ? Comprehensive Metabolic Profil Today K59.09 - Other constipation, K90.41 - Non- celiac gluten sensitivity, R11.0 - Nausea ? LDH Today K59.09 - Other constipation, K90.41 - Non-celiac gluten sensitivity, R11.0 - Nausea ? CBC W/Diff, Automated Today K59.09 - Other constipation, K90.41 - Non-celiac gluten sensitivity, R11.0 - Nausea ? Calprotectin, Stool Today K59.09 - Other constipation, K90.41 - Non-celiac gluten sensitivity, R11.0 - Nausea ? Stool Lactoferrin/WBC Today K58.9 - Irritable bowel syndrome without diarrhea, K59.09 - Other constipation, K90.41 - Non-celiac gluten sensitivity, R11.0 - Nausea ? NEYDA + Protein Elect, Serum Today K59.09 - Other constipation, K90.41 - Non- celiac gluten sensitivity, R11.0 - Nausea ? Miscellaneous Lab Procedure Today K59.09 - Other constipation, K90.41 - Non- celiac gluten sensitivity, R11.0 - Nausea I have examined the patient and the H&P has been reviewed. There are no clinicalchanges since date of exam. [facility] Medical History ADHD Alcohol use Back pain Cardiology follow-up encounter Chronic idiopathic constipation Contraceptive management Dietary restriction Easy bruising Helder-Danlos disease pedro danlos Gastric reflux IgA deficiency Injury of head and neck Lymph node enlargement Migraine headache Non-smoker POTS (postural orthostatic tachycardia syndrome) Restless legs Shortness of breath on exertion Tear of medial meniscus of left knee Tilt table evaluation Wears contact lenses Home Medications methylphenidate HCl 5 mg tablet 5 mg PO BID 09/02/22 [History Last Taken Unknown] atenolol 25 mg tablet 12.5 mg PO PRN PRN POTS 09/22/22 [History Last Taken 10/27/22 09:10] famotidine 20 mg tablet 20 mg PO DAILY 09/22/22 [History Last Taken Unknown] levocetirizine 5 mg tablet (Xyzal) 5 mg PO DAILY 10/26/22 [History Last Taken Unknown] magnesium 250 mg tablet 250 mg PO DAILY 10/26/22 [History Last Taken Unknown] Allergy/AdvReac Type Severity Reaction Status Date / Time red dye Allergy Intermediate Other Verified 11/15/22 12:17 codeine Allergy Mild rash Verified 11/15/22 12:17 amoxicillin AdvReac Mild no reaction Verified 11/15/22 12:17 clavulanic acid AdvReac Mild PT UNSURE Verified 11/15/22 12:17 [From Augmentin] OF REACTION Family History Mother Hypertension Surgical History History of esophagogastroduodenoscopy (EGD) History of tonsillectomy and adenoidectomy Hx of arthroscopic knee surgery Hx of myringotomy Social History household members: significant other and family current occupational status: employed 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[employer], 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 Smoking Status: Never smoker alcohol intake: current alcohol intake frequency: a few times a month substance use type: does not use diet: other caffeine: Yes what type of physical activity do you participate in: walking seatbelt use: always do you feel safe at home: Yes additional social history: single Vital Signs Vital Signs Vital Signs: 11/15/22 12:17 11/15/22 12:17 Temperature 98.1 F Temperature Source Temporal Pulse Rate 57 L Respiratory Rate 16 Respiratory Pattern Normal Blood Pressure 118/69 Blood Pressure Mean 85 Blood Pressure Source Monitor Blood Pressure Position Semi-Fowlers Blood Pressure Location Left Arm Pulse Ox 100 Oxygen Delivery Method Room Air Weight Weight: 121 lb 4.068 oz Body Mass Index (BMI) 20.8 Results Lab / Micro Data Labs: Laboratory Results - last 24 hr 11/15/22 12:10: Urine Test Negative 11/15/22 1306 <Electronically signed by Misbah Henry DO> Cosigner Signature (if applicable): CC: Dr. Akila Manuel DO; Misbah Henry DO~ Signed [facility] Work Phone: History and physical note Author Misbah Henry [facility] May 16, 2023 12:39pm Note Date/Time May 16, 2023 1 2:39pm [facility] Medical Records Department [address] [place] [address] History & Physical Exam 05/16/23 1239 MR#: [id number] Acct: [id number] Name: FLOWER SWAN Rep #:[id number] : 2000 23 From: Misbah Henry DO PCP: Dr. Akila Manuel DO Status:[facility] Location: [place] [address] History and Physical Date of Admission: 05/16/23 22 F who presents to the office today for f/u EGDs. EGD was indicated for chronic nausea, globus sensation, constipation; symptoms better with gluten-freediet but not resolved. No gluten for 2 yrs but doesn't avoid cross-contamination; she does note GI sxs with cross-contamination in restaurants. First EGD unusual and nonspecific finding in duodenum: focal extravasation of glandular mucinous material. EGD was repeated; no pathologic change in duodenum.She does have gastritis. Dr Henry recommended CT scan of abd to eval duodenal inflammation--that was normal except for constipation. Says bowels move fine as long as she drinks enough water. Blood and stool tests were normal. The lab pattern was not suggestive of inflammatory bowel disease. She stopped famotidine since no longer effective. Started pantoprazole which hashelped a lot. Chronic fatigue, can sleep 2 hrs after work, then all night. Had T&A in childhood due to snoring. Hx RLS due to anemia. Comorbidities include Helder-Danlos, POTS, ADD 10/27/22 EGD Impression: ? - Z-line irregular, 39 cm from the incisors. ? Biopsied. ? - Gastritis. Biopsied. ? - No gross lesions in the first portion of the ? duodenum. Biopsied. MICROSCOPIC DIAGNOSIS A. Duodenum, biopsy: Focal extravasation of glandular mucinous material See comment. B. Gastric antrum, biopsy: Chronic gastritis. See comment. Negative H pylori C. Distal esophagus, biopsy: Gastroesophageal junctional mucosa with chronic inflammation. No evidence of goblet cell metaplasia. See comment. 11/15/22 EGD Impression: ? - Normal esophagus. ? - Gastritis. Biopsied. ? - Duodenitis. Biopsied. MICROSCOPIC DIAGNOSIS A. Duodenum, biopsy: Fragments of duodenal mucosa, no pathologic diagnosis. B. Gastric ulcer, biopsy: Mild gastritis. See microscopic description and comment. 11/24/22 CT/Abdomen/Pelvis WITH Contrast IMPRESSION: Large amount of fecal material is seen throughout the colon. ? Exam Const General: cooperative, healthy appearing and comfortable Nutritional Appearance: average body habitus Orientation: alert, awake and oriented x3 Quality Reporting Tobacco Screening ([facility] 138) Smoking Status: Never smoker Assessment and Plan Assessment and Plan (1) Non-celiac gluten sensitivity: Status: Chronic Plan: We reviewed results from her two EGDs, CT She has started pantoprazole and feels better--less nausea, gas, bloat, belch. Rx for that was well as one month of sucralfate for gastritis She will f/u with ENT for globus sensation, enlarged nodes, phlegm She has been referred to Rheum by PCP ?Sjogren's Consider referral to Sleep Disorders for excessive daytime sleepiness Repeat EGD in one yr due to the unusual and nonspecific finding in the duodenum on the first EGD: focal extravasation of glandular mucinous material f/u 3-4 mos (2) Gastritis: Status: Chronic Plan: as above Medications: New pantoprazole 40 mg PO DAILY 90 tabs 3RF sucralfate 1 g PO QAC 90 tabs 0RF I have examined the patient and the H&P has been reviewed. There are no clinicalchanges since date of exam. 05/16/23 1239 <Electronically signed by Misbah Henry DO> Cosigner Signature (if applicable): CC: Dr. Akila Manuel DO; Misbah Henry DO~ Signed [facility] Work Phone: Hospital Discharge instructions Additional Instructions Implant Used?: [facility] Work Phone: Hospital Discharge instructions Additional Instructions Thank you for trusting us with your care today! Please take Tylenol (2 pills, 650 mg) every 6 hours as needed for pain and fever control. Please take prednisone as prescribed. Please return to the emergency department if your symptoms change or worsen. Please follow with your primary care physician for further outpatient evaluation and management.[facility] Work Phone: Reason for referral (narrative)* Diagnostic Procedure Only (Routine) - New Request Specialty Diagnoses / Procedures Referred By Alice mcarthur Referred To Contact XR IMAGING Diagnoses Superior mesenteric artery syndrome (HCC) Procedures XR GI SMALL BOWEL FOLLOW-THRU RADIOLOGIC SMALL INTESTINE [place] [address] [place] [address] [place] [address] Referral ID Status Reason Start Date Expiration Date Visits Requested Visits Authorized [id number] New Request Auto-Generat ed Referral 02/07/2024 03/08/2025 1 1 * Diagnostic Procedure Only (Routine) - New Request Specialty Diagnoses / Procedures Referred By Alice mcarthur Referred To Contact XR IMAGING Diagnoses Superior mesenteric artery syndrome (HCC) Procedures XR UPPER GI SINGLE CONTRAST RADIOLOGIC EXAM UPR GI TRC [place] [address] [place] [address] [place] [address] Referral ID Status Reason Start Date Expiration Date Visits Requested Visits Authorized [id number] New Request Auto-Generat ed Referral 02/07/2024 03/08/2025 1 1 * Diagnostic Procedure Only (Routine) - New Request Specialty Diagnoses / Procedures Referred By Contac t Referred To Contact MOLECULAR & FUNCTIONAL IMAGING Diagnoses Superior mesenteric artery syndrome (HCC) Procedures NM GASTRIC EMPTYING LIQUID GASTRIC [place] [address] [place] [address] Molecular & Functional Imaging [address] [place] [address] Referral ID Status Reason Start Date Expiration Date Visits Requested Visits Authorized [id number] New Request Auto-Generat ed Referral 02/07/2024 03/08/2025 1 1 [facility] for referral (narrative)No reason for referral information availableWSt. Mary's [facility] Work Phone: Summary Purpose Family History No Family History Records FoundUnknown Family Member Name Dates Details Family history of hypertensi on: Mother(V17.49, Z82.49) Status:Active Family history of benign ess ential tremor: Father, Grandmother(V17.2, Z82.0) Status:Active Relationship Condition Age at Onset Recorded Date/T mark mother Hypertension Unknown Relationship Condition Age at Onset Recorded Date/T mark mother Hypertension Unknown father Hypertension Unknown Advance Directives No Advanced Directives Records Found Advance Directive Response Recorded Date/ Time Advance Directives No August 14, 2016 10:42pm Living Will No December 28, 2020 1 :58pm Power of Police Service Technician No December 28, 2020 1:58pm Advance Directive Response Recorded Date/ Time Advance Directives No August 14, 2016 9:42pm Living Will No December 28, 2020 1 2:58pm Power of Police Service Technician No December 28, 2020 12:58pm Advance Directive Response Recorded Date/ Time Advance Directives No August 14, 2016 9:42pm Living Will No [place] [address], 2 022 12:14pm Power of Police Service Technician No July 08, 2022 12:14pm Advance Directive Response Recorded Date/ Time Advance Directives No August 26, 2022 10:04am Living Will No August 26 10:04am Power of Police Service Technician No August 26, 2022 10:04am Advance Directive Response Recorded Date/ Time Advance Directives No August 26, 2022 11:04am Living Will No August 26 11:04am Power of Police Service Technician No August 26, 2022 11:04am Advance Directive Response Recorded Date/ Time Advance Directives No August 26, 2022 11:04am Living Will No October 26, 2022 9:56am Power of Police Service Technician No October 26 9:56am Advance Directive Response Recorded Date/ Time Advance Directives No August 26, 2022 11:04am Living Will No November 11, 2022 12:33pm Power of Police Service Technician No November 11 12:33pm Advance Directive Response Recorded Date/ Time Advance Directives No August 26, 2022 11:04am Living Will No May 10 2:14pm Power of Police Service Technician No May 10, 2023 2:14pm Advance Directive Response Recorded Date/ Time Advance Directives No August 26, 2022 10:04am Living Will No May 10 1:14pm Power of Police Service Technician No May 10, 2023 1:14pm Advance Directive Response Recorded Date/ Time Advance Directives No August 26, 2022 10:04am Living Will No August 18 6:06pm Power of Police Service Technician No August 18, 2023 6:06pm Advance Directive Response Recorded Date/ Time Advance Directives No August 26, 2022 10:04am Living Will No August 30 8:38am Power of Police Service Technician No August 30, 2023 8:38am Advance Directive Response Recorded Date/ Time Living Will No February 03, 2024 5:33pm Power of Police Service Technician No February 02 5:33pm Living Will No May 06 4:55pm Power of Police Service Technician No May 06, 2024 4:55pm Advance Directives No August 26, 2022 10:04am Advance Directive Response Recorded Date/ Time Living Will No May 06 5:55pm Power of Police Service Technician No May 06, 2024 5:55pm Advance Directives No August 26, 2022 11:04am Advance Directive Response Recorded Date/ Time Living Will No May 06 5:55pm Do you have a Healthcare Power of Police Service Technician? No May 06, 2024 5:55pm Advance Directives No August 26, 2022 11:04am Advance Directive Response Recorded Date/ Time Living Will No May 06 5:55pm Do you have a Healthcare Power of Police Service Technician? No May 06, 2024 5:55pm Advance Directives No January 06 12:24pm Advance Directive Response Recorded Date/ Time Advance Directives No January 06 12:24pm Chief Complaint FUV in office today from Colonoscopy. Patient c/o abdominal pain, occasional nausea, inconsistent bowel movements. Chief Complaint and Reason for Visit Chief Complaint SINUS ISSUES SINUS PRESSURE/SORE THROAT Reason for Visit Acute sinusitis Acute sinusitis Chief Complaint SINUS PRESSURE/SORE THROAT Reason for Visit Acute sinusitis Chief Complaint KUB Chief Complaint KUB EORDER- LEFT KNEE -pain and injury LEFT KNEE EORDER- LEFT ANKLE- pain LEFT KNEE/lt ankle Reason for Visit Internal derangement of left knee Left knee pain Subluxation of left patella Internal derangement of left knee Left ankle pain Strain of peroneal tendon of left foot Chief Complaint KUB EORDER- LEFT KNEE -pain and injury LEFT KNEE EORDER- LEFT ANKLE- pain LEFT KNEE/lt ankle LEFT KNEE PAIN LEFT KNEE Reason for Visit Internal derangement of left knee Left knee pain Subluxation of left patella Internal derangement of left knee Left ankle pain Strain of peroneal tendon of left foot Internal derangement of left knee Left knee pain Subluxation of left patella Chief Complaint KUB EORDER- LEFT KNEE -pain and injury LEFT KNEE EORDER- LEFT ANKLE- pain LEFT KNEE/lt ankle LEFT KNEE PAIN LEFT KNEE 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 LEFT KNEE/RX HERE LEFT KNEE Reason for Visit Internal derangement of left knee Left knee pain Subluxation of left patella Internal derangement of left knee Left ankle pain Strain of peroneal tendon of left foot Internal derangement of left knee Left knee pain Subluxation of left patella Patellofemoral maltracking Subluxation of left patella Dysmenorrhea Migraine with aura Encounter for routine gynecological examination Chief Complaint KUB EORDER- LEFT KNEE -pain and injury LEFT KNEE EORDER- LEFT ANKLE- pain LEFT KNEE/lt ankle LEFT KNEE PAIN LEFT KNEE LEFT KNEE 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 LEFT KNEE/RX HERE LEFT KNEE Reason for Visit Internal derangement of left knee Left knee pain Subluxation of left patella Internal derangement of left knee Left ankle pain Strain of peroneal tendon of left foot Internal derangement of left knee Left knee pain Subluxation of left patella Patellofemoral maltracking Subluxation of left patella Dysmenorrhea Migraine with aura Encounter for routine gynecological examination Internal derangement of left knee Patellofemoral maltracking Chief Complaint EORDER- LEFT KNEE -p ain and injury LEFT KNEE EORDER- LEFT ANKLE- pain LEFT KNEE/lt ankle LEFT KNEE PAIN LEFT KNEE LEFT KNEE 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 LEFT KNEE/RX HERE LEFT KNEE LEFT KNEE LT KNEE ARTHROSCOPY, POSS DEBRIDEMENT/ XRAY NECK LT KNEE ARTHROSCOPY, POSS DEBRIDEMENT/ XRAY NECK Reason for Visit Internal derangement of left knee Left knee pain Subluxation of left patella Internal derangement of left knee Left ankle pain Strain of peroneal tendon of left foot Internal derangement of left knee Left knee pain Subluxation of left patella Patellofemoral maltracking Subluxation of left patella Dysmenorrhea Migraine with aura Encounter for routine gynecological examination Internal derangement of left knee Patellofemoral maltracking Internal derangement of left knee Tear of medial meniscus of left knee Chief Complaint 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 LEFT KNEE/RX HERE LEFT KNEE LEFT KNEE LT KNEE ARTHROSCOPY, POSS DEBRIDEMENT/ XRAY NECK LT KNEE ARTHROSCOPY, POSS DEBRIDEMENT/ XRAY NECK left knee left knee LEFT KNEE Nexplanon Removal left knee CERVICAL ADENOPATHY LT KNEE MENISCUS TEAR. RX HERE Reason for Visit Internal derangement of left knee Patellofemoral maltracking Internal derangement of left knee Tear of medial meniscus of left knee Tear of medial meniscus of left knee Tear of medial meniscus of left knee Tear of medial meniscus of left knee Encounter for Nexplanon removal Tear of medial meniscus of left knee Chief Complaint LEFT KNEE LT KNEE ARTHROSCOPY, POSS DEBRIDEMENT/ XRAY NECK LT KNEE ARTHROSCOPY, POSS DEBRIDEMENT/ XRAY NECK left knee left knee LEFT KNEE Nexplanon Removal left knee CERVICAL ADENOPATHY LEFT KNEE Consult EORDER/ ADD STOOL DROPOFF LT KNEE MENISCUS TEAR. RX HERE Reason for Visit Internal derangement of left knee Tear of medial meniscus of left knee Tear of medial meniscus of left knee Tear of medial meniscus of left knee Tear of medial meniscus of left knee Encounter for Nexplanon removal Tear of medial meniscus of left knee Tear of medial meniscus of left knee Chronic constipation Chronic nausea Non-celiac gluten sensitivity Chief Complaint LT KNEE ARTHROSCOPY, POSS DEBRIDEMENT/ XRAY NECK LT KNEE ARTHROSCOPY, POSS DEBRIDEMENT/ XRAY NECK left knee left knee LEFT KNEE Nexplanon Removal left knee CERVICAL ADENOPATHY LEFT KNEE Consult EORDER/ ADD STOOL DROPOFF LT KNEE MENISCUS TEAR. RX HERE Reason for Visit Tear of medial menis cus of left knee Tear of medial meniscus of left knee Tear of medial meniscus of left knee Tear of medial meniscus of left knee Encounter for Nexplanon removal Tear of medial meniscus of left knee Tear of medial meniscus of left knee Chronic constipation Chronic nausea Non-celiac gluten sensitivity Chief Complaint left knee LEFT KNEE Nexplanon Removal left knee CERVICAL ADENOPATHY LEFT KNEE Consult EORDER/ ADD STOOL DROPOFF LT KNEE MENISCUS TEAR. RX HERE Reason for Visit Tear of medial menis cus of left knee Tear of medial meniscus of left knee Encounter for Nexplanon removal Tear of medial meniscus of left knee Tear of medial meniscus of left knee Chronic constipation Chronic nausea Non-celiac gluten sensitivity Chief Complaint LEFT KNEE Nexplanon Removal left knee CERVICAL ADENOPATHY LEFT KNEE Consult EORDER/ ADD STOOL DROPOFF LT KNEE MENISCUS TEAR. 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) Left lower quadrant pain 3 M FU Reason for Visit Encounter for routin e gynecological examination Gastritis Non-celiac gluten sensitivity Chief Complaint E-ORDER 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) Left lower quadrant pain 3 M FU ABDOMINAL PAIN Acute pancreatitis without necrosis or infection, ABD Reason for Visit Encounter for routin e gynecological examination Gastritis Non-celiac gluten sensitivity Chief Complaint 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) Left lower quadrant pain 3 M FU ABDOMINAL PAIN Acute pancreatitis without necrosis or infection, ABD Acute pancreatitis without necrosis or infection, Reason for Visit Encounter for routin e gynecological examination Gastritis Non-celiac gluten sensitivity Chief Complaint Admit Date 6 M FU June 05, 2024 8:33am VENOFER 100MG June 05, 2024 9:24am SORE THROAT, FEVER, COUGH June 28, 2024 11:48am 5 M F/U September 23, 2024 3:[address] DR.MALYS & VANDEVE ELY September 23, 2024 4:11pm Reason for Visit Admit Date Epigastric pain June 05, 2024 8:33am Fatigue June 05, 2024 8:33am Irritable bowel syndrome with diarrhea N ovember 2023 8:33am Gastritis June 05, 2024 8:33am Non-celiac gluten sensitivity May 242023 8:33am Acute bronchitis June 28, 2024 1 1:48am Acute sinusitis June 28, 2024 1 1:48am Oligomenorrhea September 23, 2024 3:22 pm Chief Complaint Admit Date SORE THROAT, FEVER, COUGH June 28, 2024 11:48am 5 M F/U September 23, 2024 3:22 pm 2 ORDERING 'Leann TODAY DR.MALYS & VANDEVE ELY September 23, 2024 4:11pm Reason for Visit Admit Date Acute bronchitis June 28, 2024 1 1:48am Acute sinusitis June 28, 2024 1 1:48am Oligomenorrhea September 23, 2024 3:22 pm Chief Complaint Admit Date SORE THROAT, FEVER, COUGH June 28, 2024 11:48am 5 M F/U September 23, 2024 3:22 pm 2 ORDERING 'Leann TODAY DR.MALYS & VANDEVE ELY September 23, 2024 4:11pm OLIGOMENORRHEA October 14, 2024 3:5 9pm 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, 2024 9:3 7am E-ORDER October 16, 2024 10: 40am Reason for Visit Admit Date Acute bronchitis June 28, 2024 1 1:48am Acute sinusitis June 28, 2024 1 1:48am Oligomenorrhea September 23, 2024 3:22 pm Nutcracker phenomenon of renal vein Avelino h 2024 9:37am Superior mesenteric artery syndrome Avelino h 2024 9:37am Chief Complaint Admit Date 5 M F/U September 23, 2024 3:[address] DR.MALYS & VANDEVE ELY September 23, 2024 4:11pm OLIGOMENORRHEA October 14, 2024 3:5 9pm 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, 2024 9:3 7am E-ORDER October 16, 2024 10: 40am eval for nutcracker phenomenon December 03, 2024 1:45pm Reason for Visit Admit Date Oligomenorrhea September 23, 2024 3:22 pm Nutcracker phenomenon of renal vein Avelino h 2024 9:37am Superior mesenteric artery syndrome Avelino h 2024 9:37am Chief Complaint Admit Date 5 M F/U September 23, 2024 3:[address] TODAY DR.MALYS & VANDEVE ELY September 23, 2024 4:11pm OLIGOMENORRHEA October 14, 2024 3:5 9pm 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, 2024 9:3 7am E-ORDER October 16, 2024 10: 40am eval for nutcracker phenomenon December 03, 2024 1:45pm SORE THROAT, EAR PAIN January 06, 2025 12 :28pm Reason for Visit Admit Date Oligomenorrhea September 23, 2024 3:22 pm Nutcracker phenomenon of renal vein Avelino h 2024 9:37am Superior mesenteric artery syndrome Avelino h 2024 9:37am Acute pharyngitis, unspecified December 12:28pm Earache symptoms in both ears January 06, 2025 12:28pm Chief Complaint Admit Date eval for nutcracker phenomenon December 03, 2024 1:45pm SORE THROAT, EAR PAIN January 06, 2025 12 :28pm NECK PAIN AND THORACIC PAIN March 10, 2025 2:56pm LOW BACK PAIN. RX HERE March 12, 2025 1:00pm Reason for Visit Admit Date Acute pharyngitis, unspecified December 12:28pm Earache symptoms in both ears January 06, 2025 12:28pm Additional Source Comments INFORMATION SOURCE (unrecogn ized section and content) DATE CREATED AUTHOR 06/20/2020 [facility] DATE CREATED AUTHOR AUTHOR'S ORGANIZ ATION 01/05/2021 [facility] DATE CREATED AUTHOR AUTHOR'S ORGANIZ ATION 01/05/2021 [facility] DATE CREATED AUTHOR AUTHOR'S ORGANIZ ATION 05/31/2021 [facility] DATE CREATED AUTHOR AUTHOR'S ORGANIZ ATION 12/20/2023 [facility] DATE CREATED AUTHOR AUTHOR'S ORGANIZ ATION 03/31/2024 [facility] DATE CREATED AUTHOR AUTHOR'S ORGANIZ ATION 12/18/2024 [facility] DATE CREATED AUTHOR AUTHOR'S ORGANIZ ATION 03/23/2025 [facility] DATE CREATED AUTHOR AUTHOR'S ORGANIZ ATION 03/23/2025 [facility] Goals (unrecognized section and content) Goals may be documented in a n alternate sectionGoals may be documented in an alternate sectionGoals may be documented in an alternate sectionGoals may be documented in an alternate sectionGoals may be documented in an alternate sectionGoals may be documented in an alternate sectionGoals may be documented in an alternate sectionGoals may be documented in an alternate sectionGoals may be documented in an alternate sectionGoals may be documented in an alternate sectionGoals may be documented in an alternate sectionGoals may be documented in an alternate sectionGoals may be documented in an alternate sectionGoals may be documented in an alternate sectionGoals may be documented in an alternate sectionGoals may be documented in an alternate sectionGoals may be documented in an alternate section Care Teams (unrecognized sec tion and content) Team Status: Active Member Role Status Dates Dr. Akila Manuel , DO Family Provider Active Dr. Akila Manuel , DO Primary Care Provider Active Team Status: Inactive Member Role Status Dates Dr. Akila Manuel , DO Primary Care Provider, Referring P rovider Active Dr. Nataliia Raymond , DO Attending Provider Activ e Team Status: Inactive Member Role Status Dates Dr. Akila Manuel , DO Primary Care Provider, Referring P rovider Active Elvin JOHNSON, PA Attending Provider Active Team Status: Inactive Member Role Status Dates Dr. Akila Manuel DO Primary Care Provider, Referring P rovider Active Keo Lujan MD Attending Provider Active Team Status: Active Member Role Status Dates Dr. Akila Manuel DO Primary Care Provider Active Keo Lujan MD Attending Provider, Referring Provider, Other Provider Active Team Status: Inactive Member Role Status Dates Dr. Akila Manuel DO Primary Care Provider Active Elvin JOHNSON, PA Attending Provider, Referring Prov ider Active Team Status: Inactive Member Role Status Dates Dr. Akila Manuel DO Primary Care Provider Active Dr. Alma Miller MD Attending Provider Active Team Status: Inactive Member Role Status Dates Dr. Akila Manuel DO Primary Care Provider Active Keo Lujan MD Attending Provider, Referring Prov ider Active Team Status: Active Member Role Status Dates Dr. Akila Manuel DO Primary Care Provider Active Keo Lujan MD Attending Provider, Referring Prov ider Active Team Status: Inactive Member Role Status Dates Dr. Amor Villar DO Attending Provider Active Dr. Akila Manuel DO Primary Care Provider Active Team Status: Inactive Member Role Status Dates Dr. Akila Manuel DO Primary Care Provider Active Dr. Amor Villar , DO Attending Provider Active Team Status: Inactive Member Role Status Dates Dr. Akila Manuel DO Primary Care Provider, Referring P rovider Active Angela Coleman PLUSH BRUSHER, PLUSH BRUSHER-C Attending Provider Active Team Status: Inactive Member Role Status Dates Dr. Akila Manuel DO Primary Care Provider Active Angela Coleman PLUSH BRUSHER, PLUSH BRUSHER-C Attending Provider, Referrin g Provider Active Team Status: Active Member Role Status Dates Dr. Akila Manuel DO Primary Care Provider, Referring P rovider Active Dr. Misbah Henry , DO Attending Provider, Other Prov ider Active Team Status: Inactive Member Role Status Dates Dr. Akila Manuel DO Primary Care Provider, Referring P rovider Active Dr. Misbah Henry DO Attending Provider Active Team Status: Active Member Role Status Dates Dr. Akila Manuel DO Primary Care Provider Active Dr. Misbah Henry DO Attending Provid er, Referring Provider, Other Provider Active Team Status: Inactive Member Role Status Dates Dr. kAila Mnauel DO Primary Care Provider Active Dr. Misbah Henry DO Attending Provider, Referring Provider Active Team Status: Inactive Member Role Status Dates Dr. Akila Manuel DO Primary Care Provider Active Dr. Amor Vilalr , DO Attending Provider, Referring P rovider Active Team Status: Inactive Member Role Status Dates Dr. Akila Manuel , DO Primary Care Provider Active Nia Duval PLUSH BRUSHER-C Attending Provider, Referring Prov ider Active Team Status: Active Member Role Status Dates Dr. Akila Manuel , DO Primary Care Provider Active Dr. Misbah Henry , DO Attending Provider, Referring Provider Active Team Status: Inactive Member Role Status Dates Dr. Akila Manuel , DO Primary Care Provider Active Dr. Kalin Navarro , DO Emergency Provider Active Team Status: Active Member Role Status Dates Dr. Akila Manuel , DO Primary Care Provider Active Dr. Misbah Henry , DO Attending Provider Active Team Status: Inactive Member Role Status Dates Dr. Akila Manuel , DO Primary Care Provider Active Dr. Kalin Navarro , DO Attending Provider, Emergency P matthew Active Team Status: Inactive Member Role Status Dates Dr. Akila Manuel , DO Primary Care Provider Active Dr. Misbah Henry , DO Attending Provider Active Dockworker Relationship Specialty Start Date End Date Akila Manuel [address] [place] [phone] PCP - General Family Medicine 12/19/23 Bernard Honeycutt MD [address] [facility] [address] [place] [address] Consulting Physician Hematology and Oncology 12/19/23 Dockworker Relationship Specialty Start Date End Date Akila Manuel DO [address] [place] [phone] PCP - General Family Medicine 02/07/24 Dockworker Relationship Specialty Start Date End Date Akila Manuel DO [address] [place] [phone] PCP - General Family Medicine 02/07/24 Dockworker Relationship Specialty Start Date End Date Akila Manuel DO [address] [place] [phone] PCP - General Family Medicine 02/07/24 Dockworker Relationship Specialty Start Date End Date Akila Manuel DO [address] [place] [phone] PCP - General Family Medicine 02/07/24 Dockworker Relationship Specialty Start Date End Date Akila Manuel DO [address] [place] [phone] PCP - General Family Medicine 02/07/24 Dockworker Relationship Specialty Start Date End Date Akila Manuel DO [address] [place] [phone] PCP - General Family Medicine 02/07/24 Dockworker Relationship Specialty Start Date End Date Akila Manuel DO [address] [place] [phone] PCP - General Family Medicine 02/07/24 Dockworker Relationship Specialty Start Date End Date Akila Manuel DO [address] [place] [phone] PCP - General Family Medicine 02/07/24 Dockworker Relationship Specialty Start Date End Date Akila Manuel DO [address] [place] [phone] PCP - General Family Medicine 02/07/24 Dockworker Relationship Specialty Start Date End Date Akila Manuel DO [address] [place] [phone] PCP - [facility] 02/07/24 Dockworker Relationship Specialty Start Date End Date Akila Manuel DO [address] [place] [phone] PCP - [facility] 09/10/24 Team Status: Active Member Role Status Dates Dr. Akila Manuel DO Primary Care Provider Active Team Status: Inactive Member Role Status Dates Dr. Akila Manuel DO Primary Care Provider Active Start: June 05, 2024 End: June 05, 2024 Dr. Akila Manuel DO Referring Provider Active St art: June 05, 2024 End: June 05, 2024 Dr. Misbah Henry DO Attending Provider Active Start: June 05, 2024 End: June 05, 2024 Team Status: Inactive Member Role Status Dates Dr. Akila Manuel DO Primary Care Provider Active Start: June 05, 2024 End: June 05, 2024 Dr. Akila Manuel DO Attending Provider Active St art: June 05, 2024 End: June 05, 2024 Dr. Akila Manuel DO Referring Provider Active St art: June 05, 2024 End: June 05, 2024 Team Status: Inactive Member Role Status Dates Dr. Akila Manuel DO Primary Care Provider Active Start: June 28, 2024 End: June 28, 2024 Dr. Akila Manuel DO Referring Provider Active St art: June 28, 2024 End: June 28, 2024 ELIZABETH Carlton Attending Provider Active Sta rt: June 28, 2024 End: June 28, 2024 Team Status: Inactive Member Role Status Dates Dr. Akila Manuel DO Primary Care Provider Active Start: September 16, 2024 End: September 16, 2024 LIDA BOO Attending Provider Active Start: ebruary 2024 End: September 16, 2024 LIDA BOO Referring Provider Active Start: ebruary 2024 End: September 16, 2024 Team Status: Inactive Member Role Status Dates Dr. Akila Manuel DO Primary Care Provider Active Start: September 23, 2024 End: September 23, 2024 Dr. Akila Manuel DO Referring Provider Active St art: September 23, 2024 End: September 23, 2024 Dr. Nataliia Raymond DO Attending Provider Activ e Start: September 23, 2024 End: September 23, 2024 Team Status: Active Member Role Status Dates Dr. Akila Manuel DO Primary Care Provider Active Start: September 23, 2024 Dr. Akila Manuel DO Attending Provider Active St art: September 23, 2024 Dr. Nataliia Raymond DO Referring Provider Activ e Start: September 23, 2024 Team Status: Inactive Member Role Status Dates Dr. Akila Manuel DO Primary Care Provider Active Start: September 23, 2024 End: September 23, 2024 Dr. Akila Manuel DO Attending Provider Active St art: September 23, 2024 End: September 23, 2024 Dr. Nataliia Raymond DO Referring Provider Activ e Start: September 23, 2024 End: September 23, 2024 Team Status: Inactive Member Role Status Dates Dr. Akila Manuel DO Primary Care Provider Active Start: October 14, 2024 End: October 14, 2024 Dr. Nataliia Raymond DO Attending Provider Activ e Start: October 14, 2024 End: October 14, 2024 Dr. Nataliia Raymond DO Referring Provider Activ e Start: October 14, 2024 End: October 14, 2024 Team Status: Inactive Member Role Status Dates Dr. Akila Manuel DO Primary Care Provider Active Start: October 16, 2024 End: October 16, 2024 Dr. Akila Manuel DO Referring Provider Active St art: October 16, 2024 End: October 16, 2024 ELIZABETH Singh Attending Provider Active Star t: October 16, 2024 End: October 16, 2024 Team Status: Active Member Role Status Dates Dr. Akila Manuel DO Primary Care Provider Active Start: October 16, 2024 ELIZABETH Singh Attending Provider Active Star t: October 16, 2024 ELIZABETH Singh Referring Provider Active Star t: October 16, 2024 Team Status: Inactive Member Role Status Dates Dr. Akila Manuel DO Primary Care Provider Active Start: October 16, 2024 End: October 16, 2024 ELIZABETH Singh Attending Provider Active Star t: October 16, 2024 End: October 16, 2024 ELIZABETH Singh Referring Provider Active Star t: October 16, 2024 End: October 16, 2024 Team Status: Inactive Member Role Status Dates Dr. Akila Manuel DO Primary Care Provider Active Start: November 07, 2024 End: November 07, 2024 Dr. Akila Manuel DO Attending Provider Active St art: November 07, 2024 End: November 07, 2024 Dr. Akila Manuel DO Referring Provider Active St art: November 07, 2024 End: November 07, 2024 Team Status: Inactive Member Role Status Dates Dr. Akila Manuel DO Primary Care Provider Active Start: December 03, 2024 End: December 03, 2024 ELIZABETH Singh Attending Provider Active Star t: December 03, 2024 End: December 03, 2024 ELIZABETH Singh Referring Provider Active Star t: December 03, 2024 End: December 03, 2024 Team Status: Inactive Member Role Status Dates Dr. Akila Manuel DO Primary Care Provider Active Start: January 06, 2025 End: January 06, 2025 Dr. Akila Manuel DO Referring Provider Active St art: January 06, 2025 End: January 06, 2025 Pato JOHNSON PA Attending Provider Active Start: January 06, 2025 End: January 06, 2025 Team Status: Inactive Member Role Status Dates Dr. Akila Manuel DO Primary Care Provider Active Start: January 06, 2025 End: January 06, 2025 Pato JOHNSON PA Attending Provider Active Start: January 06, 2025 End: January 06, 2025 Team Status: Active Member Role/Relationship Status Dates Dr. Akila Manuel DO Primary Care Provider Active Team Status: Inactive Member Role/Relationship Status Dates Dr. Akila Manuel DO Primary Care Provider Active Start: September 23, 2024 End: September 23, 2024 Dr. Akila Manuel DO Referring Provider Active St art: September 23, 2024 End: September 23, 2024 Dr. Nataliia Raymond DO Attending Provider Activ e Start: September 23, 2024 End: September 23, 2024 Team Status: Inactive Member Role/Relationship Status Dates Dr. Akila Manuel DO Primary Care Provider Active Start: September 23, 2024 End: September 23, 2024 Dr. Akila Manuel DO Attending Provider Active St art: September 23, 2024 End: September 23, 2024 Dr. Nataliia Raymond DO Referring Provider Activ e Start: September 23, 2024 End: September 23, 2024 Team Status: Inactive Member Role/Relationship Status Dates Dr. Akila Manuel DO Primary Care Provider Active Start: October 14, 2024 End: October 14, 2024 Dr. Nataliia Raymond DO Attending Provider Activ e Start: October 14, 2024 End: October 14, 2024 Dr. Nataliia Raymond DO Referring Provider Activ e Start: October 14, 2024 End: October 14, 2024 Team Status: Inactive Member Role/Relationship Status Dates Dr. kAila Manuel DO Primary Care Provider Active Start: October 16, 2024 End: October 16, 2024 Dr. Akila Manuel DO Referring Provider Active St art: October 16, 2024 End: October 16, 2024 ELIZABETH Singh Attending Provider Active Star t: October 16, 2024 End: October 16, 2024 Team Status: Inactive Member Role/Relationship Status Dates Dr. Akila Manuel DO Primary Care Provider Active Start: October 16, 2024 End: October 16, 2024 ELIZABETH Singh Attending Provider Active Star t: October 16, 2024 End: October 16, 2024 ELIZABETH Singh Referring Provider Active Star t: October 16, 2024 End: October 16, 2024 Team Status: Inactive Member Role/Relationship Status Dates Dr. Akila Manuel DO Primary Care Provider Active Start: November 07, 2024 End: November 07, 2024 Dr. Akila Manuel DO Attending Provider Active St art: November 07, 2024 End: November 07, 2024 Dr. Akila Manuel DO Referring Provider Active St art: November 07, 2024 End: November 07, 2024 Team Status: Inactive Member Role/Relationship Status Dates Dr. Akila Manuel DO Primary Care Provider Active Start: December 03, 2024 End: December 03, 2024 ELIZABETH Singh Attending Provider Active Star t: December 03, 2024 End: December 03, 2024 ELIZABETH Singh Referring Provider Active Star t: December 03, 2024 End: December 03, 2024 Team Status: Inactive Member Role/Relationship Status Dates Dr. Akila Manuel DO Primary Care Provider Active Start: January 06, 2025 End: January 06, 2025 Dr. Akila Manuel DO Referring Provider Active St art: January 06, 2025 End: January 06, 2025 ELIZABETH Carranza Attending Provider Active Start: January 06, 2025 End: January 06, 2025 Team Status: Inactive Member Role/Relationship Status Dates Dr. Akila Manuel DO Primary Care Provider Active Start: January 06, 2025 End: January 06, 2025 ELIZABETH Carranza Attending Provider Active Start: January 06, 2025 End: January 06, 2025 Team Status: Inactive Member Role/Relationship Status Dates Dr. Akila Manuel DO Primary Care Provider Active Start: January 15, 2025 End: January 15, 2025 Dr. Akila Manuel DO Attending Provider Active St art: January 15, 2025 End: January 15, 2025 Dr. Akila Manuel DO Referring Provider Active St art: January 15, 2025 End: January 15, 2025 Team Status: Inactive Member Role/Relationship Status Dates Dr. Akila Manuel DO Primary Care Provider Active Start: December 03, 2024 End: December 03, 2024 ELIZABETH Singh Attending Provider Active Star t: December 03, 2024 End: December 03, 2024 ELIZABETH Singh Referring Provider Active Star t: December 03, 2024 End: December 03, 2024 Team Status: Inactive Member Role/Relationship Status Dates Dr. Akila Manuel DO Primary Care Provider Active Start: January 06, 2025 End: January 06, 2025 Dr. Akila Manuel DO Referring Provider Active St art: January 06, 2025 End: January 06, 2025 ELIZABETH Carranza Attending Provider Active Start: January 06, 2025 End: January 06, 2025 Team Status: Inactive Member Role/Relationship Status Dates Dr. Akila Manuel DO Primary Care Provider Active Start: January 06, 2025 End: January 06, 2025 ELIZABETH Carranza Attending Provider Active Start: January 06, 2025 End: January 06, 2025 Team Status: Inactive Member Role/Relationship Status Dates Dr. Akila Manuel DO Primary Care Provider Active Start: January 15, 2025 End: January 15, 2025 Dr. Akila Manuel DO Attending Provider Active St art: January 15, 2025 End: January 15, 2025 Dr. Akila Manuel DO Referring Provider Active St art: January 15, 2025 End: January 15, 2025 Team Status: Inactive Member Role/Relationship Status Dates Dr. Akila Manuel DO Primary Care Provider Active Start: March 10, 2025 End: March 10, 2025 Dr. Massimo Milton MD Attending Provider Active Start: March 10, 2025 End: March 10, 2025 Dr. Massimo Milton MD Referring Provider Active Start: March 10, 2025 End: March 10, 2025 Team Status: Active Member Role/Relationship Status Dates Dr. Akila Manuel DO Primary Care Provider Active Start: March 12, 2025 Dr. Akila Manuel DO Attending Provider Active St art: March 12, 2025 Dr. Akila Manuel DO Referring Provider Active St art: March 12, 2025 Dockworker Relationship Specialty Start Date End Date Akila Manuel DO PCP - General Family Medicine 09/10/24 Dockworker Relationship Specialty Start Date End Date Akila Manuel DO PCP - General Family Medicine 09/10/24 Reason for Visit (unrecogniz ed section and content) Reason Comments New Patient Enlarged lymph nodes Reason Comments Abdominal Pain Reason Comments Orders Imaging orders Reason Comments Orders Reason Comments Anesthesia Consult Reason Comments Patient Question Reason Comments Post Op Laparoscopic duodeno jejunostomy Reason Comments Post Op Reason Comments Patient Question GI symptoms Reason Comments Patient Update ER follow-up call Reason Comments New Patient Cc: Immunology altaf rns Specialty Diagnoses / Procedures Referred By Alice mcarthur Referred To Contact Allergy & Immunology Diagnoses Suppression of immune system subtherapeutic Oc Ohara MD [address] [place] [address] Phone: tel: fax: [facility] [address] [place] [address] Referral ID Status Reason Start Date Expiration Date V isits Requested Visits Authorized [id number] Pending Review 06/28/2024 07/23/2025 1 1 Reason Comments New Patient Specialty Diagnoses / Procedures Referred By Alice [email or web address] Referred To Contact Rheumatology Diagnoses Lymphadenopathy Neutropenia, unspecified type Ashleigh Hilton MD Phone: tel: fax: Referral ID Status Reason Start Date Expiration Date V isits Requested Visits Authorized [id number] New Request 11/21/2024 12/16/2025 1 1 Source Comments (unrecognize d section and content) In the event this informatio n is protected by the Federal Confidentiality of Alcohol and Drug Abuse Patient Records regulations: The Federal rules restrict any use of the information to criminally investigate or prosecute any alcohol or drug abuse patient.[facility] the event this information is protected by the Federal Confidentiality of Alcohol and Drug Abuse Patient Records regulations: The Federal rules restrict any use of the information to criminally investigate or prosecute any alcohol or drug abuse patient.[facility]In the event this information is protected by the Federal Confidentiality of Alcohol and Drug Abuse Patient Records regulations: The Federal rules restrict any use of the information to criminally investigate or prosecute any alcohol or drug abuse patient.[facility] the event this information is protected by the Federal Confidentiality of Alcohol and Drug Abuse Patient Records regulations: The Federal rules restrict any use of the information to criminally investigate or prosecute any alcohol or drug abuse patient.[facility] Dayton[facility] the event this information is protected by the Federal Confidentiality of Alcohol and Drug Abuse Patient Records regulations: The Federal rules restrict any use of the information to criminally investigate or prosecute any alcohol or drug abuse patient.[facility]In the event this information is protected by the Federal Confidentiality of Alcohol and Drug Abuse Patient Records regulations: The Federal rules restrict any use of the information to criminally investigate or prosecute any alcohol or drug abuse patient.[facility] DaytonIn the event this information is protected by the Federal Confidentiality of Alcohol and Drug Abuse Patient Records regulations: The Federal rules restrict any use of the information to criminally investigate or prosecute any alcohol or drug abuse patient.[facility] DaytonIn the event this information is protected by the Federal Confidentiality of Alcohol and Drug Abuse Patient Records regulations: The Federal rules restrict any use of the information to criminally investigate or prosecute any alcohol or drug abuse patient.[facility] DaytonIn the event this information is protected by the Federal Confidentiality of Alcohol and Drug Abuse Patient Records regulations: The Federal rules restrict any use of the information to criminally investigate or prosecute any alcohol or drug abuse patient.[facility] DaytonIn the event this information is protected by the Federal Confidentiality of Alcohol and Drug Abuse Patient Records regulations: The Federal rules restrict any use of the information to criminally investigate or prosecute any alcohol or drug abuse patient.[facility] FOR RECORDS PERTAINING TO PATIENTS WHO ARE [...] BE BASED ON THE PRIMARY CLINICAL RECORDS. [facility] [employer] provides no warranty or guarantee of the accuracy or completeness of information in this document.
--- NOTE | 2025-03-25 07:23 | MRI_ITS ---
PROCEDURE: SPINE LUMBAR (ROUTINE) 03/25/2025 REASON FOR EXAM: DDD TECHNIQUE: Procedure Code: MRISPL Modality: MR Procedure: SPINE LUMBAR (ROUTINE) COMPARISON: None. FINDINGS: T11-L1: Vertebral bodies: Negative. Disk Space: Small Schmorl's nodes. Negative for Modic changes. Facet Joints: Negative for bilateral facet joint hypertrophy. Neural foramina: Negative for neural foraminal narrowing Spinal Canal: Negative for central spinal narrowing. L1-2: Vertebral bodies: Negative. Disk Space: Negative. Negative for Modic changes. Facet Joints: Negative for bilateral facet joint hypertrophy. Neural foramina: Negative for neural foraminal narrowing Spinal Canal: Negative for subarticular zone narrowing. Negative for central spinal narrowing. L2-3: Vertebral bodies: Negative. Disk Space: Negative. Negative for Modic changes. Facet Joints: Negative for bilateral facet joint hypertrophy. Neural foramina: Negative for neural foraminal narrowing Spinal Canal: Negative for subarticular zone narrowing. Negative for central spinal narrowing. L3-4: Vertebral bodies: Negative. Disk Space: Negative. Negative for Modic changes. Facet Joints: Negative for bilateral facet joint hypertrophy. Neural foramina: Negative for neural foraminal narrowing Spinal Canal: Negative for subarticular zone narrowing. Negative for central spinal narrowing. L4-5: Vertebral bodies: Negative. Disk Space: Negative. Negative for Modic changes. Facet Joints: Negative for bilateral facet joint hypertrophy. Neural foramina: Negative for neural foraminal narrowing Spinal Canal: Negative for subarticular zone narrowing. Negative for central spinal narrowing. L5-S1: Vertebral bodies: Negative. Disk Space: Mild degenerate disc disease. Negative for Modic changes. Facet Joints: Slight bilateral facet joint hypertrophy. Neural foramina: Negative for neural foraminal narrowing Spinal Canal: Negative for subarticular zone narrowing. Negative for central spinal narrowing. Vertebrae: Normal bone marrow signal. Conus Medullaris: Spinal cord is normal and ends at L1-L2. Imaged kidneys aorta otherwise negative. The remainder of the exam negative. MRI/Spine Lumbar (Routine) IMPRESSION: Early degenerative changes of the lumbar spine. Negative for significant neural foraminal, spinal canal or subarticular zone na rrowing. Reading Location: [place] [id number]
== END | disposition home or self-care (01) ==
PROVIDERS: PCP Family Medicine; Referring Provider Nurse Practitioner Family; Visit Provider Nurse Practitioner Family
DX: M51.369 Other intervertebral disc degeneration, lumbar region without mention of lumbar back pain or lower extremity pain (principal)
CPT/HCPCS: 72148

== ENCOUNTER 2025-03-26 12:30 | Outpatient (RCR) | payer OTHER, SELFPAY ==
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
--- NOTE | 2025-03-26 15:24 | HP.PTREVAL_ITS ---
Re-Evaluation Intro: Dr. Akila Manuel, DO, It has been my pleasure to treat [place] over the last 10 visits for LOW BACK AND THORACIC PAIN. Please see the progress note below for an update on the physical therapy plan of care! Subjective Subjective: PATIENT REPRORTS SHE ENJOYES THE POOL FOR PAIN RELIEF. SHE REPORTS SHE GETS PAIN RELIEF IN HER ENTIRE BODY IN THE POOL. SHE STATES SHE FEELS LIKE SHE IS GETTING STRONGER IN HER LOWER BACK AND LEGS. SHE REPORTS LESS R LE SHAKING NOW COMPARED TO BEFORE STARTING PT. PATIENT DENIES LOW BACK AND LEG PAIN RIGHT NOW BUT C/O MID BACK PAIN 12/31. PATIENT REPORTS SHE IS GOING TO HAVE A MID BACK INJECTION IN TWO WEEKS AND SHE WOULD LIKE TO STOP THERAPY AT THIS TIME AND SEE HOW SHE DOES WITH THAT BECAUSE EVEN SHOULDER CIRCLES IN THE WATER IRRITATE HER MID BACK. Objective Objective/Function: PATIENT WAS SEEN TODAY FOR RE-ASSESSMENT OF PROGRESS TOWARD THE SET PT GOALS AND THE NEED FOR FURTHER PHYSICAL THERAPY VS READINESS FOR DISCHARGE. UPON EXAM TODAY THERE ARE MINIMAL OBJECTIVE CHANGES COMPARED TO INITIAL EVAL. SEE TESTING BELOW: INDEP GAIT INTO PT WITH GOOD CADANCE AND NO GROSS DEVIATIONS NOTED. INDEP TRANSFERS WITHOUT UE ASSIST. Sensory deficit: LAILA UE AND LE LIGHT TOUCH SENSATION GROSSLY INTACT AND SYMMETRICAL Motor deficit: LAILA UE AND LE STRENGTH GROSSLY 5/5 WITH MMT'ING Lumbar mvmt loss: flex - NIL ext - MOD R SG - MIN L SG - NIL THORACIC MVMT LOSS: R ROT - MOD - INCREASES BACK - W L ROT - MIN - C/O BACK STIFFNESS - NW Core strength: FAIR Palpation: TENDERNESS LOCALIZED WITH PALPATION OF R MEDIAL SCAPULAR REGION MUS CULATURE Plan Plan Plan: HOLD PT UNTIL FOLLOW UP WITH DR. HERRERA AFTER THORACIC INJECTION APR 07 2025 PER PATIENT REQUEST. RE-ASSESS FOR NEW PT POC IF FURTHER PT ORDERED. Balance/Gait/Functional tests Balance/Special Test Scores Oswestry Low Back Score: 15 Goals Goals Goal 1:: DECREASE C/O BACK PAIN BY AT LEAST 50% TO EASE ADL'S Goal Time Frame: 4-6 Weeks Goal Progress: Not Progressing Goal 2:: IMPROVE PERSONAL CARE, LIFTING, WALKING, STANDING, SOCIAL LIFE, HOMEMAKING AND WORK FUNCTION WITH AT LEAST 5 POINT IMPROVEMENT IN BACK OSWESTRY SCORE. Goal Time Frame: 4-6 Weeks Goal Progress: Not Progressing Goal 3:: INSTRUCT IN PROPHYLAXIS Goal Time Frame: 4-6 Weeks Goal Progress: Not Progressing Anticipated Interventions Anticipated Interventions Patient/Client Instruction: Educate patient on: Condition, Plan of Care and Risk Factors For the Purpose of:: To improve self management Therapeutic Exercise to Include: Strength training, Body mechanics, Postural training, Flexibilty training, Neuromotor development, In an aquatic setting and Dynamic Lumbar Stabilization For the Purpose of:: To decrease pain, To improve muscle performance and motor function, To increase tolerance to activity/condition/position, To improve ab ility of physical actions for home/community/work/leisure, To increase flexibility/ROM and To improve self management Re-Evaluation Ending Re-evaluation ending: Please do not hesitate to contact me at [phone] by phone or if you have questions or concerns regarding this new plan of care! Sincerely, Leida Francisco, PT, Cert MDT
== END 2025-03-26 19:00 | disposition home or self-care (01) ==
LOC: PT 12:30
PROVIDERS: PCP Family Medicine; Referring Provider Family Medicine; Visit Provider Family Medicine
DX: M54.50 Low back pain, unspecified (principal); M54.6 Pain in thoracic spine; Q79.60 Ehlers-Danlos syndrome, unspecified
CPT/HCPCS: 97113; 97162; 97530

== ENCOUNTER 2025-04-07 09:07 | Day surgery (SDC) | payer OTHER, SELFPAY ==
[2025-04-07] VITALS (8 sets, daily range): BP systolic 86–99; BP diastolic 48–70; PULSE 58–62; RESP 14–16; TEMP 36.1–36.6; O2SAT 99–100; BMI 19.1
[2025-04-07 09:30] LABS: Internal QC Validated? YES +Cl - CLEAR BKGD; Pregnancy, Urine Negative Negative; Record Kit Lot#,Urine Preg 0000964736
[2025-04-07] MEDS: Lactated Ringers 1,000 ML 15 ML IV (09:38)
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
--- NOTE | 2025-04-07 09:51 | RAD_ITS ---
PROCEDURE: THORACIC SPINE 2 VIEWS 04/07/2025 REASON FOR EXAM: Fluoro for THORACOLUMBAR STERIOD INJECTION TECHNIQUE: Procedure Code: RADSPT2 Modality: DX Procedure: THORACIC SPINE 2 VIEWS COMPARISON: None FINDINGS: Fluoro for procedure 4.2 seconds, 0.65 mGy, 4 images. RAD/Thoracic Spine 2 Views IMPRESSION: Fluoro was provided. Reading Location: [place]
--- NOTE | 2025-04-07 10:07 | PCM.POST.ANE ---
Anesthesia: Postop Eval I Current Vital Signs Temperature: 97 F Pulse Rate: 58 Blood Pressure: 86/49 (map 62, pt asleep) Respiratory Rate: 16 Pulse Ox: 100 Oxygen Delivery Method: Room Air Assessment Airway patent: Yes Spontaneous unlabored respirations: Yes Mental status: Asleep nausea: No Vomiting: No Anesthesia Complication: No Fluid Hydration Crystalloid volume administer (ml): 200 Total IV fluid infused: 200 Progress Note Anesthesia document: Postop Eval 1 completed: Yes
--- NOTE | 2025-04-07 10:29 | OP.PCM_ITS ---
Operative Report (Standard) Operative Information Date of Procedure: 04/07/25 Pre-Operative Diagnosis: Thoracic radiculopathy, thoracic spondylolisthesis Post-Operative Diagnosis: Thoracic radiculopathy, thoracic spondylolisthesis Surgery/Procedure Performed: Thoracic epidural steroid injection interlaminar at T11-12 under fluoroscopic guidance agency sales management assistant: No Type of Anesthesia: Local MAC RN Documented Start/Stop Times: Operation Date: 04/07/25 10:20 Case Time Into Pre-Op 04/07/25 09:17 Anesthesia Start 04/07/25 09:51 Into Room 04/07/25 09:51 Procedure Start 04/07/25 09:56 Procedure End 04/07/25 10:01 Anesthesia End 04/07/25 10:02 Out of Room 04/07/25 10:02 Into Recovery 04/07/25 10:06 Out of Recovery 04/07/25 10:26 Procedure Start Time: 10:29 Procedure Stop Time: 10:29 Select all DRAINS/GRAFTS/IMPLANTS that apply: None Estimated Blood Loss: 0 Specimen collected: No Description of surgery: BLOOD LOSS: Minimal. COMPLICATIONS: None. DESCRIPTION OF PROCEDURE: History and physical of today was reviewed. Risks and benefits of the procedure were explained. The patient understood and agreed to proceed. Informed consent was obtained. IV inserted per routine protocol. The patient was taken to the operating room and placed in the prone position with a pillow positioned underneath the chest. The mid back area was prepped and draped in a sterile fashion using iodine x3. Under fluoroscopy guidance on an AP view, the T11-12 interlaminar space was identified. The skin and subcutaneous tissue was anesthetized with approximately 3 mL of 1% lidocaine using a 25-gauge regular needle. Under direct visualization on fluoroscopy, on AP view, using a 20-gauge 2-1/2-inch Tuohy needle, the needle was advanced via the skin. The tip of the needle was maneuvered and directed towards the interlaminar space at T11-12. Loss of resistance technique was carried to air. Loss of resistance technique was encountered. Once encountered, after negative aspiration for blood and CSF, a total of 1 mL of contrast was injected to confirm correct placement of the needle as well as cephalocaudal spread of the contrast. Confirmation was obtained on AP as well as lateral view. After repeated negative aspiration and confirmation, a total of 6 mL of preservative- free normal saline and 80 mg of Depo-Medrol was injected easily. The needle was then removed intact. The patient experienced no sign or symptoms of intrathecal or intravascular injection. The patient experienced no paresthesia. The procedure was completed without any apparent difficulty or any complications. The patient appeared to tolerate it well. ASSESSMENT AND PLAN: This is a 25-year-old female with thoracic radiculopathy, thoracic spondyl olisthesis, status post thoracic epidural steroid injection interlaminar at T11- 12 under fluoroscopic guidance, patient will continue her current medications, patient will follow-up in approximately 2 weeks for reevaluation. Surgical Findings: 0 Complications Complications: No Admit VTE Documentation VTE Present on Admission: No VTE Mechan Device Prophylaxis: None VTE Pharm Prophylaxis ordered?: No
--- NOTE | 2025-04-07 12:10 | PCM.POSTANE2 ---
Anesthesia Postop Eval I Sum Postop Eval Completion status Anesthesia document: Postop Eval 1 completed: Yes Anesthesia Postop Eval I Summary Anesthesia Postop Eval I Summary: Anesthesia Postop Eval I: Assessment Summary Airway patent Yes 04/07/25 10:09 [email or web address] Spontaneous unlabored Yes 04/07/25 10:09 JHON respirations Mental status Asleep 04/07/25 10:09 [email or web address] nausea No 04/07/25 10:09 [email or web address] Vomiting No 04/07/25 10:09 JHON Anesthesia Postop Eval I: Fluid Summary Crystalloid volume administer 200 04/07/25 10:09 JHON (ml) Colloids volume administered ( ml) Blood Product volume administered (ml) Total IV fluid infused 200 04/07/25 10:09 JHON Anesthesia Postop Eval I: Summary Notes Anesthesia Complication No 04/07/25 10:09 JHON Anesthesia Complication Comment: Post-operative progress note Anesthesia: Postop Eval II Evaluation Mental status: Awake Pain Level: 1 nausea: No Vomiting: No
== END 2025-04-07 10:45 | disposition home or self-care (01) ==
LOC: SDC 09:10 → AC 09:11
PROVIDERS: Anesthesiology; PCP Family Medicine; Referring Provider Anesthesiology Pain Medicine; Visit Provider Anesthesiology Pain Medicine
PROC: 3E0S3BZ Introduction of Anesthetic Agent into Epidural Space, Percutaneous Approach (ICD-10-PCS; CPT 62323; principal; 2025-04-07 10:15)
DX: M43.14 Spondylolisthesis, thoracic region (principal); M54.14 Radiculopathy, thoracic region
CPT/HCPCS: 62323; 64490; 72070; 81025

== ENCOUNTER → 2025-05-01 | Outpatient (CLI) | payer OTHER, SELFPAY ==
[2025-05-01 13:27] LABS: Hematocrit 39.4 % (37-47); Hemoglobin 13.0 g/dL (12.0-15.0); Immature Granulocytes Count 0.010 X10^3/uL (0.0-0.0); Mean Corp Hgb Conc 33.0 g/dL (32-36); Mean Corpuscular Volume 89.7 fL (81-99); Mean Platelet Vol. 11.0 fl (6.2-12.0); NRBC Flagged by Analyzer 0 % (0-5); Platelet Count 126 K/mm3 (150-450); RBC Distribution Width CV 12.5 % (11.6-14.6); RBC Distribution Width SD 41.0 fl (35.1-43.9); Red Blood Count 4.39 M/mm3 (4.2-5.4); White Blood Count 2.7 K/mm3 (4.4-11.0)
[2025-05-01 14:32] LABS: AST(SGOT) 22 U/L (<=31); Alanine Aminotransfer ALT/SGPT 14 U/L (<=34); Albumin, Serum 4.2 g/dL (3.5-5.0); Alkaline Phosphatase 56 U/L (35-104); Anion Gap 8 (5-15); BUN 10 mg/dL (4-19); BUN/Creat Ratio 13.3 RATIO (10-20); Calcium,Total 9.3 mg/dL (7.6-11.0); Carbon Dioxide 26.0 mmol/L (21.0-32.0); Chloride 106 mmol/L (98-108); Ferritin 43 ng/mL (22-378); Globulin 2.7 g/dL (2.2-4.2); Glucose 78 mg/dL (70-99); Iron 58 ug/dL (50-170); Magnesium 1.9 mg/dL (1.5-2.2); Potassium 4.0 mmol/L (3.3-5.1); Vitamin B12 569 pg/mL (180-914); Vitamin D,25 Hydroxy 20.4 ng/mL (30-100)
== END | disposition home or self-care (01) ==
LOC: LAB 12:30
PROVIDERS: PCP Family Medicine; Referring Provider Family Medicine; Visit Provider Family Medicine
DX: E61.1 Iron deficiency (principal); E53.8 Deficiency of other specified B group vitamins; E55.9 Vitamin D deficiency, unspecified; E61.2 Magnesium deficiency; Z51.81 Encounter for therapeutic drug level monitoring
CPT/HCPCS: 36415; 80053; 82306; 82607; 82728; 83540; 83735; 85025

== ENCOUNTER 2025-06-09 10:25 | Day surgery (SDC) | payer OTHER, SELFPAY ==
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
[2025-06-09] VITALS (9 sets, daily range): BP systolic 85–103; BP diastolic 50–65; PULSE 51–61; RESP 16; TEMP 36.6–36.7; O2SAT 97–100; BMI 18.9
--- NOTE | 2025-06-09 11:00 | RAD_ITS ---
PROCEDURE: FLUOR GUIDANCE FOR SPINE INJ 06/09/2025 REASON FOR EXAM: CAUDAL BLOCK TECHNIQUE: Procedure Code: RADSPN Modality: DX Procedure: FLUOR GUIDANCE FOR SPINE INJ. Fluoroscopy: 3.4 seconds. Radiation dose: 0.88 mGy. 1 spot radiograph was submitted. COMPARISON: None FINDINGS: Intraoperative fluoroscopic services provided for caudal block. RAD/Fluor Guidance for Spine Inj IMPRESSION: Intraoperative fluoroscopic services provided for caudal block. Reading Location: [facility]
[2025-06-09 11:09] LABS: Internal QC Validated? YES +Cl - CLEAR BKGD; Pregnancy, Urine Negative Negative; Record Kit Lot#,Urine Preg 0000980607
[2025-06-09] MEDS: Lactated Ringers 1,000 ML 15 ML IV (11:15)
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
[2025-06-09] MEDS: Lidocaine 1% (5 ml sdv) 5 ML Vial (11:52)
[2025-06-09] MEDS: 0.9% Normal Saline (Pres. free 10 ML Vial (11:53)
--- NOTE | 2025-06-09 11:55 | OP.PCM_ITS ---
Operative Report (Standard) Operative Information Date of Procedure: 06/09/25 Pre-Operative Diagnosis: Lumbosacral radiculopathy, lumbosacral degenerative disc disease, lumbosacral spinal stenosis Post-Operative Diagnosis: Lumbosacral radiculopathy, lumbosacral degenerative disc disease, lumbosacral spinal stenosis Surgery/Procedure Performed: Diagnostic/therapeutic caudal epidural steroid injection under fluoroscopic guidance risk management professional: No Type of Anesthesia: Local MAC RN Documented Start/Stop Times: Operation Date: 06/09/25 12:00 Case Time Into Pre-Op 06/09/25 10:29 Anesthesia Start 06/09/25 11:46 Into Room 06/09/25 11:46 Procedure Start 06/09/25 11:51 Procedure End 06/09/25 11:55 Procedure Start Time: :55 Procedure Stop Time: 11:56 Select all DRAINS/GRAFTS/IMPLANTS that apply: None Estimated Blood Loss: 0 Specimen collected: No Description of surgery: ANESTHESIA: MAC. BLOOD LOSS: Minimal. COMPLICATIONS: None. DESCRIPTION OF PROCEDURE: History and physical of today was reviewed. Risks and benefits of the procedure were explained. The patient understood and agreed to proceed. Informed consent was obtained. IV inserted per routine protocol. The patient was taken to the operating room and placed in the prone position with a pillow positioned underneath the abdomen. The lower back and tailbone area was prepped and draped in a sterile fashion using iodine x3. Under fluoroscopy guidance on a lateral view, the caudal space was identified. The skin and subcutaneous tissue was anesthetized with approximately 3 mL of 1% lidocaine using a 25-gauge regular needle. Under direct visualization with fluoroscopy, using a 22-gauge 3-1/2-inch spinal needle, the needle was advanced via the skin through the sacral hiatus. The tip of the needle was passed through the sacrococcygeal ligament and advanced to approximately S4 area. After negative aspiration of blood or CSF, a total of 3 mL of contrast was injected to confirm correct placement of the needle as well as cephalad spread. The spread was followed to approximately L5 area. After confirmation on AP as well as lateral view and repeated negative aspiration, a total of 15 mL of p reservative-free 0.125% Marcaine with 80 mg of Depo-Medrol was injected easily. The needle was then removed intact. The patient experienced no sign or symptoms of intrathecal or intravascular injection. The patient experienced no paresthesia. The procedure was completed without any apparent difficulty or any complications. The patient appeared to tolerate it well. ASSESSMENT AND PLAN: This is a 25-year-old female with lumbosacral radiculopathy, lumbosacral degenerative disc disease, lumbosacral spinal stenosis, status post diagnostic/therapeutic caudal epidural steroid injection under fluoroscopic guidance, patient will continue her current medications, patient will follow-up in approximately 2 weeks for reevaluation. Surgical Findings: 0 Complications Complications: No Admit VTE Documentation VTE Present on Admission: No VTE Mechan Device Prophylaxis: None VTE Pharm Prophylaxis ordered?: No
--- NOTE | 2025-06-09 12:02 | PCM.POST.ANE ---
Anesthesia: Postop Eval I Current Vital Signs Temperature: 98.1 F Pulse Rate: 60 Blood Pressure: 92/57 Respiratory Rate: 16 Pulse Ox: 97 Assessment Airway patent: Yes Spontaneous unlabored respirations: Yes nausea: No Vomiting: No Anesthesia Complication: No Fluid Hydration Crystalloid volume administer (ml): 300 Total IV fluid infused: 300 Progress Note Anesthesia document: Postop Eval 1 completed: Yes
--- NOTE | 2025-06-09 12:45 | POSTOPAN2_ITS ---
Anesthesia Postop Eval I Sum Postop Eval Completion status Anesthesia document: Postop Eval 1 completed: Yes Anesthesia Postop Eval I Summary Anesthesia Postop Eval I Summary: Anesthesia Postop Eval I: Assessment Summary Airway patent Yes 06/09/25 12:02 EKG/ECG [email or web address] Spontaneous unlabored Yes 06/09/25 12:02 EKG/ECG [email or web address] respirations Mental status nausea No 06/09/25 12:02 EKG/ECG [email or web address] Vomiting No 06/09/25 12:02 EKG/ECG [email or web address] Anesthesia Postop Eval I: Fluid Summary Crystalloid volume administer 300 06/09/25 12:02 EKG/ECG [email or web address] (ml) Colloids volume administered ( ml) Blood Product volume administered (ml) Total IV fluid infused 300 06/09/25 12:02 EKG/ECG [email or web address] Anesthesia Postop Eval I: Summary Notes Anesthesia Complication No 06/09/25 12:02 EKG/ECG [email or web address] Anesthesia Complication Comment: Post-operative progress note Anesthesia: Postop Eval II Evaluation Mental status: Awake and Calm Pain Level: 0 nausea: No Vomiting: No
--- NOTE | 2025-06-09 12:45 | PCM.POSTANE2 ---
Anesthesia Postop Eval I Sum Postop Eval Completion status Anesthesia document: Postop Eval 1 completed: Yes Anesthesia Postop Eval I Summary Anesthesia Postop Eval I Summary: Anesthesia Postop Eval I: Assessment Summary Airway patent Yes 06/09/25 12:02 QUALITY MEASUREMENT [email or web address] Spontaneous unlabored Yes 06/09/25 12:02 QUALITY MEASUREMENT SPECIALIST.[email or web address] respirations Mental status nausea No 06/09/25 12:02 QUALITY MEASUREMENT [email or web address].[email or web address] Vomiting No 06/09/25 12:02 QUALITY MEASUREMENT SPECIALIST.[email or web address] Anesthesia Postop Eval I: Fluid Summary Crystalloid volume administer 300 06/09/25 12:02 QUALITY MEASUREMENT [email or web address].[email or web address] (ml) Colloids volume administered ( ml) Blood Product volume administered (ml) Total IV fluid infused 300 06/09/25 12:02 QUALITY MEASUREMENT [email or web address].[email or web address] Anesthesia Postop Eval I: Summary Notes Anesthesia Complication No 06/09/25 12:02 QUALITY MEASUREMENT [email or web address].[email or web address] Anesthesia Complication Comment: Post-operative progress note Anesthesia: Postop Eval II Evaluation Mental status: Awake and Calm Pain Level: 0 nausea: No Vomiting: No
== END 2025-06-09 12:42 | disposition home or self-care (01) ==
LOC: SDC 10:26 → AC 10:27
PROVIDERS: Anesthesiology; PCP Family Medicine; Referring Provider Anesthesiology Pain Medicine; Visit Provider Anesthesiology Pain Medicine
PROC: 3E0S3BZ Introduction of Anesthetic Agent into Epidural Space, Percutaneous Approach (ICD-10-PCS; CPT 62282; principal; 2025-06-09 11:55)
DX: M48.07 Spinal stenosis, lumbosacral region (principal); M51.17 Intervertebral disc disorders with radiculopathy, lumbosacral region
CPT/HCPCS: 62323; 01992; 64483; 77003; 81025

== ENCOUNTER → 2025-06-30 | Outpatient (CLI) | payer OTHER, SELFPAY ==
--- NOTE | 2025-06-30 13:33 | RAD_ITS ---
PROCEDURE: L/S SPINE BENDING FLEX/EXT 06/30/2025 REASON FOR EXAM: BACK PAIN TECHNIQUE: Procedure Code: [id number] Modality: DX Procedure: L/S SPINE BENDING FLEX/EXT COMPARISON: MRI of the lumbar spine dated 03/25/2025 and lumbar spine x-ray study dated 01/15/2025 FINDINGS: The visualized sacrum is unremarkable. SI joints are unremarkable. There are 5 lumbar-type vertebral bodies below the last set of paired ribs. The vertebral body heights and alignment are within normal limits. There is no spondylolysis or spondylolisthesis. There is no instability on the flexion or extension views. Very mild degenerative disc disease is seen involving the L5-S1 level. Remaining disc spaces are well-maintained. Very mild facet hypertrophy is seen at the L5-S1 level. Very mild spondylosis is noted. Curvature: There is normal lordotic lumbar curvature. There is no scoliosis. Other findings: Moderate amount of stool and gas is present throughout a nondistended colon. RAD/L/S Spine Bending Flex/Ext IMPRESSION: Very mild degenerative disc disease involving the L5-S1 disc. Minimal facet hypertrophy is seen at the L5-S1 level. There is no spondylolisthesis or spondylolysis. Very mild spondylosis is noted. Reading Location: [id number]
[2025-06-30 18:29] LABS: AST(SGOT) 23 U/L (<=31); Alanine Aminotransfer ALT/SGPT 21 U/L (<=34); Albumin, Serum 4.8 g/dL (3.5-5.0); Alkaline Phosphatase 70 U/L (35-104); Anion Gap 10 (5-15); BUN 7 mg/dL (4-19); BUN/Creat Ratio 7.6 RATIO (10-20); Calcium,Total 9.9 mg/dL (7.6-11.0); Carbon Dioxide 28.2 mmol/L (21.0-32.0); Chloride 103 mmol/L (98-108); Globulin 3.0 g/dL (2.2-4.2); Glucose 78 mg/dL (70-99); Potassium 3.7 mmol/L (3.3-5.1)
[2025-06-30 18:54] LABS: Hematocrit 42.7 % (37-47); Hemoglobin 13.9 g/dL (12.0-15.0); Immature Granulocytes Count 0.010 X10^3/uL (0.0-0.0); Mean Corp Hgb Conc 32.6 g/dL (32-36); Mean Corpuscular Volume 91.0 fL (81-99); Mean Platelet Vol. 10.6 fl (6.2-12.0); NRBC Flagged by Analyzer 0 % (0-5); Platelet Count 166 K/mm3 (150-450); RBC Distribution Width CV 12.7 % (11.6-14.6); RBC Distribution Width SD 41.7 fl (35.1-43.9); Red Blood Count 4.69 M/mm3 (4.2-5.4); White Blood Count 2.8 K/mm3 (4.4-11.0)
[2025-06-30 19:00] LABS: CRP < 3.00 mg/L (0.0-3.0); Iron 72 ug/dL (50-170)
[2025-07-02 08:10] LABS: Transferrin 316 mg/dL (192-364)
== END | disposition home or self-care (01) ==
PROVIDERS: PCP Family Medicine; Referring Provider Student in an Organized Health Care Education/Training Program; Visit Provider Student in an Organized Health Care Education/Training Program
DX: M47.22 Other spondylosis with radiculopathy, cervical region (principal); E61.1 Iron deficiency; Z51.81 Encounter for therapeutic drug level monitoring; M25.50 Pain in unspecified joint
CPT/HCPCS: 36415; 72120; 80053; 83540; 84466; 85025; 85652; 86140

== ENCOUNTER → 2025-07-08 | Outpatient (CLI) | payer OTHER, SELFPAY ==
--- NOTE | 2025-07-08 12:45 | MRI_ITS ---
PROCEDURE: SPINE CERVICAL (ROUTINE) 07/08/2025 REASON FOR EXAM: PAIN, WORSENING DEXTERITY TECHNIQUE: Procedure Code: MRISPC Modality: MR Procedure: SPINE CERVICAL (ROUTINE) Multiplanar and multisequence images were obtained without IV contrast administration. COMPARISON: None available. FINDINGS: The visualized posterior fossa contents appear within normal limits. The normal cervical lordosis is maintained. The atlantooccipital and atlantoaxial joints appear normally aligned. The cervical vertebral bodies are normal in height. The cervical vertebral bodies are normal in alignment. The cervical bone marrow signal is within normal limits. There is no evidence of cervical spinal cord signal abnormality. C2-C3: No significant spinal canal stenosis neural foraminal narrowing. C3-C4: No significant spinal canal stenosis or neural foraminal narrowing. C4-C5: No significant spinal canal stenosis or neural foraminal narrowing. C5-C6: No significant spinal canal stenosis or neural foramina narrowing. C6-C7: No significant spinal canal stenosis or neural foraminal narrowing. C7-T1: No significant spinal canal stenosis or neural foraminal narrowing. MRI/Spine Cervical (Routine) IMPRESSION: Unremarkable MRI of the cervical spine. Reading Location: [id number]
== END | disposition home or self-care (01) ==
LOC: OPMRI 12:43
PROVIDERS: PCP Family Medicine; Referring Provider Student in an Organized Health Care Education/Training Program; Visit Provider Student in an Organized Health Care Education/Training Program
DX: G95.9 Disease of spinal cord, unspecified (principal)
CPT/HCPCS: 72141